=== PATIENT | female | born 1960 | race Caucasian/White ===

== ENCOUNTER 2018-11-07 18:01 | Inpatient (IN) | payer MEDICAID ==
[~2018-11-07] VITALS: Ht 152.4 cm; Wt 77.6 kg
[2018-11-07 18:01] VITALS: BP 104/72
--- NOTE | 2018-11-07 18:01 | NUR ---
ED Nurse Note: Pt AAOx2, vss, with no acute distress.. Pt arrives from [facility]. for increased dyspnea and pleural effusion causing increased pain. Pt with family.
[2018-11-07] MEDS ORDERED: Morphine Sulfate 4mg/ml Inj (IV USE ONLY) IVP ONE (19:00)
--- NOTE | 2018-11-07 19:00 | Emergency Room Report ---
History of Present Illness General Chief Complaint: Pain Source: Patient, Medical Record Present Illness HPI Disclaimer: Please note that this report is being documented using DRAGON technology. This can lead to erroneous entry secondary to incorrect interpretation by the dictating instrument. HPI: This is a 57-year-old female with a history of metastatic breast cancer currently undergoing chemotherapy and radiation presenting for shortness of breath. She has been complaining of worsening mid back pain which is consistent with her prior metastases. She also notes progressive shortness of breath for the past few days. She has required thoracentesis in the past, last time September 2018. She was found hypoxic by EMS and improved with oxygen. Denying chest pain. No other symptoms at this time. No recent cough, fevers, sore throat, abdominal pain, vomiting, diarrhea or skin rash. PMH: Metastatic breast cancer PSH: Hip surgery Allergies: Denies Social Hx: [place] drug, alcohol, tobacco use Allergies: Coded Allergies: No Known Allergies (Unverified , 11/07/18) Patient History Last Menstrual Period: na Nursing Documentation-PMH Past Medical History: No History, Except For Hx Cancer: Yes - left breast with metastisis to liver and bones History Of Psychiatric Problem: Yes - PTSD, anxiety Review of Systems All Other Systems: negative except mentioned in HPI Physical Exam Vital Signs Date Time Temp Pulse Resp B/P (MAP) Pulse Ox O2 Delivery O2 Flow Rate FiO2 11/07/18 17:55 98.1 81 20 104/72 (83) 90 Room Air General: Awake and alert, no acute distress HEENT: NC/AT. EOMI. Neck: Supple, trachea midline Chest Wall: No tenderness, no deformity Cardiovascular: RRR. S1 and S2 normal. No murmur appreciated Resp: Mild tachypnea with increased work of breathing. No cough. No wheezing. Bilateral crackles. Abdomen: Abdomen is soft, nondistended. Nontender Skin: Intact. No abrasions, laceration or rash over the exposed skin MSK: Normal tone and bulk. Moving all extremities. No obvious deformity. Significant lymphedema in the left upper extremity. Nontender. Neuro: Awake and alert. Mentating appropriately. Medical Decision Making Diagnostic Impression: Primary Impression: Hypoxia Additional Impressions: Metastatic breast cancer Pleural effusion ER Course 57-year-old female with history of metastatic breast cancer presents for evaluation of shortness of breath. Concern for recurrent effusion given her hypoxia. Vital signs have normalized on oxygen. Will obtain labs including coagulation studies, chest x-ray and treat her pain. She will require admission. Laboratory Tests Test 11/07/18 18:59 White Blood Count 6.6 K/UL (4.8-10.8) Red Blood Count 3.72 M/UL (4.20-5.40) L Hemoglobin 13.1 G/DL (12.0-16.0) Hematocrit 36.3 % (37.0-47.0) L Mean Corpuscular Volume 98 FL (80-99) Mean Corpuscular Hemoglobin 35.1 PG (27.0-31.0) H Mean Corpuscular Hemoglobin Concent 35.9 G/DL (32.0-36.0) Red Cell Distribution Width 10.2 % (11.6-14.8) L Platelet Count 180 K/UL (150-450) Mean Platelet Volume 5.9 FL (6.5-10.1) L Neutrophils (%) (Auto) 49.9 % (45.0-75.0) Lymphocytes (%) (Auto) 34.9 % (20.0-45.0) Monocytes (%) (Auto) 11.6 % (1.0-10.0) H Eosinophils (%) (Auto) 2.2 % (0.0-3.0) Basophils (%) (Auto) 1.4 % (0.0-2.0) Prothrombin Time 10.1 SEC (9.30-11.50) Prothrombin Time INR 0.9 (0.9-1.1) PTT 28 SEC (23-33) Sodium Level 138 MMOL/L (136-145) Potassium Level 3.9 MMOL/L (3.5-5.1) Chloride Level 99 MMOL/L (98-107) Carbon Dioxide Level 35 MMOL/L (21-32) H Anion Gap 4 mmol/L (5-15) L Blood Urea Nitrogen 32 mg/dL (7-18) H Creatinine 1.4 MG/DL (0.55-1.30) H Estimate Glomerular Filtration Rate 38.7 mL/min (>60) Glucose Level 112 MG/DL (74-106) H Lactic Acid Level 1.00 mmol/L (0.4-2.0) Calcium Level 9.1 MG/DL (8.5-10.1) Total Bilirubin 0.4 MG/DL (0.2-1.0) Aspartate Amino Transferase (AST) 28 U/L (15-37) Alanine Aminotransferase (ALT) 23 U/L (12-78) Alkaline Phosphatase 96 U/L (46-116) Troponin I 0.000 ng/mL (0.000-0.056) Pro-B-Type Natriuretic Peptide 421 pg/mL (0-125) H Total Protein 6.8 G/DL (6.4-8.2) Albumin 3.1 G/DL (3.4-5.0) L Globulin 3.7 g/dL Albumin/Globulin Ratio 0.8 (1.0-2.7) L EKG Diagnostic Results EKG Time: 19:14 Rate: normal Rhythm: NSR ST Segments: no acute changes Other Impression Sinus rhythm, normal axis, prolonged WA interval consistent with first-degree AV block. No ST segment changes. Q waves in the inferior leads. Rhythm Strip Diag. Results Rhythm Strip Time: 19:14 EP Interpretation: yes Rate: 70s Rhythm: NSR, no PVC's, no ectopy Chest X-Ray Diagnostic Results Chest X-Ray Diagnostic Results : # of Views/Limited/Complete: 1 View Indication: Shortness of Breath EP Interpretation: Yes PA Xray: Interpretation reviewed Interpretation: no consolidation, no pneumothorax, other - Obscuring of the left cost to phrenic angle Impression: Other - Obscuring of left costophrenic angle, possible effusion. No clear consolidation Reevaluation Time: 20:43 Last Vital Signs Date Time Temp Pulse Resp B/P (MAP) Pulse Ox O2 Delivery O2 Flow Rate FiO2 11/07/18 18:01 98.1 20 104/72 90 Room Air 11/07/18 17:55 81 Status: unchanged Reevaluation Impression Patient remained stable on supplemental oxygen. I spoke with her oncologist Dr. Harden, who wants the patient admitted to the hospital for restaging of her metastatic cancer, pain control, left-sided pleurocentesis. Patient's vital signs are within normal limits. No white count, no anemia. Creatinine slightly elevated at 1.4, unknown baseline. Lactate normal, troponin negative. Will admit to the stepdown unit as she is breathing 18 to 20 breaths/min. Blood gas is currently within normal limits though she is somewhat hyperventilating. She is feeling much better on oxygen but will need close monitoring. She remains a full code. Disposition: ADMITTED INPATIENT Condition: Serious Ángel Laboy MD Nov 07, 2018 19:00
[2018-11-07 19:27] LABS: BASOPHILS % (AUTO) 1.4 % (0.0-2.0); EOSINOPHILS % (AUTO) 2.2 % (0.0-3.0); HEMATOCRIT 36.3 % (37.0-47.0); HEMOGLOBIN 13.1 G/DL (12.0-16.0); LYMPHOCYTES % (AUTO) 34.9 % (20.0-45.0); MEAN CORPUSCULAR VOLUME 98 FL (80-99); MONOCYTES % (AUTO) 11.6 % (1.0-10.0); NEUTROPHILS % (AUTO) 49.9 % (45.0-75.0); PLATELET COUNT 180 K/UL (150-450); RED BLOOD COUNT 3.72 M/UL (4.20-5.40); RED CELL DISTRIBUTION WIDTH 10.2 % (11.6-14.8); WHITE BLOOD COUNT 6.6 K/UL (4.8-10.8)
[2018-11-07 19:39] LABS: INR 0.9 (0.9-1.1)
--- NOTE | 2018-11-07 19:40 | NUR ---
ED Nurse Note: pt is ambulatory with cane, gait is steady. urine specimen was collected; sent to lab
[2018-11-07 19:45] LABS: ANION GAP 4 mmol/L (5-15); BLOOD UREA NITROGEN 32 mg/dL (7-18); CALCIUM 9.1 MG/DL (8.5-10.1); CARBON DIOXIDE 35 MMOL/L (21-32); CHLORIDE 99 MMOL/L (98-107); CREATININE 1.4 MG/DL (0.55-1.30); POTASSIUM 3.9 MMOL/L (3.5-5.1); SODIUM 138 MMOL/L (136-145)
[2018-11-07 19:54] LABS: ALANINE AMINOTRANSFERASE 23 U/L (12-78); ALBUMIN 3.1 G/DL (3.4-5.0); ALBUMIN/GLOBULIN RATIO 0.8 (1.0-2.7); ALKALINE PHOSPHATASE 96 U/L (46-116); ASPARTATE AMINO TRANSFERASE 28 U/L (15-37); BILIRUBIN,TOTAL 0.4 MG/DL (0.2-1.0)
[2018-11-07 19:59] VITALS: BP_SYST 113; BP_SYST 143; BP_DIAS 131; BP_DIAS 76
--- NOTE | 2018-11-07 21:00 | NUR ---
ED Nurse Note: PT WAS OFFERED FOOD PER ERMD APPROVAL; PT IS CURRENTLY RESTING IN BED. NO ACUTES ACUTE SIGNS OF DISTRESS, PT IS AOX3, ON ROOM AIR, SR, VSS.
[2018-11-07 22:26] VITALS: BP 109/95
--- NOTE | 2018-11-07 22:37 | NUR ---
ED Nurse Note: TELEPHONE REPORT GIVEN TO KYREE DANG FOR CONTINUITY OF CARE
--- NOTE | 2018-11-07 22:40 | NUR ---
TRANSFER TO FLOOR: Patient transferred to SDU as ordered, per ERMD. Report given to KYREE DANG. Belongings GIVEN TO PT.
--- NOTE | 2018-11-07 22:44 | NUR ---
Keaton zuniga in EDM - 11/07/18 at 2244 by MARIUM ED Nurse Note: US AT BEDSIDE
[2018-11-07 23:00] VITALS: BP 129/75
--- NOTE | 2018-11-07 23:00 | NUR ---
NURSE NOTES: Received report from Catherine RN, pt. transferred from ER, patient is A/O x's 3- able to make needs known, forming fixer placed- no signs or symptoms of acute cardiac or respiratory distress noted, full body assessment done- skin intact- noted redness to mid back area- Optifoam placed for protection, bed side teaching done and pt. oriented to room, pt. appears to be sating well on 3L NC at 98%- no distress noted, RT. AC 20G IV intact and patent, pt. appears to be resting comfortably- bed bath given and comfort measures provided, pt. is able to ambulate to bathroom with cane which is at bedside- pt. refusing assistance with gait- teaching done regarding fall risk, Safety measures done, will continue with plan of care. Addendum: 11/08/18 at 0019 by ALTON RUSSELL RN RN pt. aware to ask for assist when ambulating.
[2018-11-07] MEDS ORDERED: IBUPROFEN600 MG ORAL (23:05)
[2018-11-07] MEDS ORDERED: COLACE100 MG ORAL (23:05)
[2018-11-07] MEDS ORDERED: MIRALAX17 G2 ORAL (23:05)
[2018-11-07] MEDS ORDERED: OXYCONTIN20 MG ORAL (23:05)
[2018-11-07] MEDS ORDERED: ANASTROZOLE1 MG PO (23:05)
[2018-11-07] MEDS ORDERED: CLARITIN10 M2 ORAL (23:05)
[2018-11-07] MEDS ORDERED: SPIRONOLACTONE50 MG ORAL (23:05)
[2018-11-07] MEDS ORDERED: LOVENOX10 M4 SUBQ (23:05)
[2018-11-07] MEDS ORDERED: COREG3.125 MG ORAL (23:05)
[2018-11-07] MEDS ORDERED: AMBIEN10 M1 ORAL (23:05)
[2018-11-07] MEDS ORDERED: PULMICORT0.5 MG/2 M IH (23:05)
[2018-11-07] MEDS ORDERED: DIFLUCAN100 MG ORAL (23:05)
[2018-11-07] MEDS ORDERED: MORPHINE 22 MG/1 ML IV (23:05)
[2018-11-07] MEDS ORDERED: PROTONIX40 MG ORAL (23:05)
[2018-11-07] MEDS ORDERED: LEXAPRO10 MG ORAL (23:05)
[2018-11-07] MEDS ORDERED: K-DUR20 MEQ ORAL (23:05)
--- NOTE | 2018-11-07 23:47 | NUR ---
NURSE NOTES: left message for DR. Neves for admitting orders- awaiting for call back from doctor.
[2018-11-08] VITALS: BP 129/75
--- NOTE | 2018-11-08 | NUR ---
NURSE NOTES: Received orders from DR. Neves- per doctor to d/c all home meds, DVT SCDS, Venous duplex, CBC, CMP, Code status DNR as patient wishes, NPO- but romeo waite, ST evcindy, Speech eval, DR. Johnson for Pulmo, 3L NC - will carry out orders.
--- NOTE | 2018-11-08 03:00 | NUR ---
NURSE NOTES: Orders received from DR. Johnson- orders read back and carried out.
[2018-11-08] MEDS ORDERED: Albuterol/Ipratropium 3ml neb HHN PRN (03:15)
[2018-11-08] MEDS ORDERED: Hydromorphone 0.5mg/0.5ml inj IVP PRN (03:15)
[2018-11-08 04:00] VITALS: BP 120/64
[2018-11-08] MEDS: HYDROcodone/Acetamin 5/325 tab ORAL PRN ×2 (04:36→17:57)
[2018-11-08 05:05] LABS: BASOPHILS % (AUTO) 1.7 % (0.0-2.0); EOSINOPHILS % (AUTO) 2.6 % (0.0-3.0); HEMATOCRIT 36.1 % (37.0-47.0); HEMOGLOBIN 12.5 G/DL (12.0-16.0); LYMPHOCYTES % (AUTO) 36.5 % (20.0-45.0); MEAN CORPUSCULAR VOLUME 98 FL (80-99); MONOCYTES % (AUTO) 13.6 % (1.0-10.0); NEUTROPHILS % (AUTO) 45.5 % (45.0-75.0); PLATELET COUNT 177 K/UL (150-450); RED BLOOD COUNT 3.69 M/UL (4.20-5.40); RED CELL DISTRIBUTION WIDTH 10.4 % (11.6-14.8); WHITE BLOOD COUNT 6.4 K/UL (4.8-10.8)
[2018-11-08 06:12] LABS: ALANINE AMINOTRANSFERASE 23 U/L (12-78); ALBUMIN 3.1 G/DL (3.4-5.0); ALBUMIN/GLOBULIN RATIO 0.9 (1.0-2.7); ALKALINE PHOSPHATASE 92 U/L (46-116); ANION GAP 8 mmol/L (5-15); ASPARTATE AMINO TRANSFERASE 25 U/L (15-37); BILIRUBIN,TOTAL 0.5 MG/DL (0.2-1.0); BLOOD UREA NITROGEN 34 mg/dL (7-18); CALCIUM 9.3 MG/DL (8.5-10.1); CARBON DIOXIDE 32 MMOL/L (21-32); CHLORIDE 100 MMOL/L (98-107); CREATININE 1.2 MG/DL (0.55-1.30); POTASSIUM 3.5 MMOL/L (3.5-5.1); SODIUM 140 MMOL/L (136-145)
--- NOTE | 2018-11-08 07:03 | NUR ---
HAND-OFF: Report given to cesilia RN, pt. remains stable and no signs of distress noted.
[2018-11-08 08:00] VITALS: BP 100/65
--- NOTE | 2018-11-08 08:24 | NUR ---
NURSE NOTES: Report received from KYREE Swan. Pt is in stable condition, showing no signs of distress. Pt is A+Ox3, denies pain/SOB. Respirations are even and unlabored on 3 L NC. IV site is intact and saline locked. Bed is at lowest position, brakes engaged, siderails x2, bed alarm on, and call light within reach. Pt is in stable condition at this time; will continue to monitor. Pt instructed to use call light if she wishes to use the bathroom so she does not fall. Patient verbalizes understanding.
[2018-11-08] MEDS: Heparin 5000 units/ml inj SUBQ SCH ×2 (09:00→20:40)
--- NOTE | 2018-11-08 09:58 | Consultation ---
History of Present Illness General Chief Complaint: Pain Present Illness Allergies: Coded Allergies: No Known Allergies (Unverified , 11/07/18) Medication History Discontinued Medications Anastrozole* (Arimidex*), 1 MG PO DAILY, (Reported) Discontinued Reason: MD discontinued med Budesonide (Pulmicort), 0.5 MG IH, (Reported) Discontinued Reason: MD discontinued med Carvedilol (Coreg), 3.125 MG ORAL EVERY 12 HOURS, (Reported) Discontinued Reason: MD discontinued med Docusate Sodium* (Colace*), 100 MG ORAL DAILY, (Reported) Discontinued Reason: MD discontinued med Enoxaparin* (Lovenox*), 40 MG SUBQ DAILY, (Reported) Discontinued Reason: MD discontinued med Escitalopram Oxalate* (Lexapro*), 10 MG ORAL DAILY, (Reported) Discontinued Reason: MD discontinued med Fluconazole* (Diflucan*), 100 MG ORAL DAILY, (Reported) Discontinued Reason: MD discontinued med Ibuprofen* (Motrin*), 400 MG ORAL FOUR TIMES A DAY, (Reported) Discontinued Reason: MD discontinued med Loratadine (Claritin), 10 MG ORAL DAILY, (Reported) Discontinued Reason: MD discontinued med Morphine Sulfate* (Morphine Sulfate*), 2 MG IV, (Reported) Discontinued Reason: MD discontinued med Oxycodone Hcl Er* (Oxycontin*), 20 MG ORAL EVERY 12 HOURS, (Reported) Discontinued Reason: MD discontinued med Pantoprazole* (Protonix*), 40 MG ORAL DAILY, (Reported) Discontinued Reason: MD discontinued med Polyethylene Glycol 3350* (Miralax*), 17 GM ORAL DAILY, (Reported) Discontinued Reason: MD discontinued med Potassium Chloride (Klor-Con M20), 20 MEQ ORAL DAILY, (Reported) Discontinued Reason: MD discontinued med Spironolactone* (Aldactone*), 50 MG ORAL DAILY, (Reported) Discontinued Reason: MD discontinued med Zolpidem Tartrate* (Ambien*), 10 MG ORAL HS PRN for Insomnia, (Reported) Discontinued Reason: MD discontinued med Patient History Healthcare decision maker Resuscitation status Do Not Resuscitate Advanced Directive on File Yes Physical Exam Last 24 Hour Vital Signs Date Time Temp Pulse Resp B/P (MAP) Pulse Ox O2 Delivery O2 Flow Rate FiO2 11/08/18 08:00 98.5 78 20 100/65 (77) 98 11/08/18 08:00 3.0 11/08/18 05:06 97.7 11/08/18 04:00 97.9 88 20 120/64 (82) 97 11/08/18 04:00 3.0 11/08/18 04:00 Nasal Cannula 3.0 11/08/18 03:32 83 11/08/18 00:00 3.0 11/08/18 00:00 Nasal Cannula 3.0 11/08/18 00:00 97.7 86 22 129/75 (93) 96 11/08/18 00:00 84 11/08/18 00:00 Nasal Cannula 3.0 11/07/18 23:00 3.0 11/07/18 23:00 97.7 86 22 129/75 (93) 96 11/07/18 22:40 98.7 84 14 120/81 98 Nasal Cannula 4.0 11/07/18 22:26 98.4 88 17 109/95 98 Nasal Cannula 4.0 11/07/18 19:59 98.6 78 14 113/76 100 Nasal Cannula 4.0 11/07/18 19:50 98.6 11/07/18 18:01 98.1 20 104/72 90 Room Air 11/07/18 17:55 98.1 81 20 104/72 (83) 90 Room Air Intake and Output 11/07/18 11/08/18 19:00 07:00 Intake Total 0 ml Balance 0 ml Intake Oral 0 ml # Voids 2 Laboratory Tests Test 11/07/18 18:59 11/07/18 20:59 11/08/18 03:45 White Blood Count 6.6 K/UL (4.8-10.8) 6.4 K/UL (4.8-10.8) Red Blood Count 3.72 M/UL (4.20-5.40) L 3.69 M/UL (4.20-5.40) L Hemoglobin 13.1 G/DL (12.0-16.0) 12.5 G/DL (12.0-16.0) Hematocrit 36.3 % (37.0-47.0) L 36.1 % (37.0-47.0) L Mean Corpuscular Volume 98 FL (80-99) 98 FL (80-99) Mean Corpuscular Hemoglobin 35.1 PG (27.0-31.0) H 34.0 PG (27.0-31.0) H Mean Corpuscular Hemoglobin Concent 35.9 G/DL (32.0-36.0) 34.8 G/DL (32.0-36.0) Red Cell Distribution Width 10.2 % (11.6-14.8) L 10.4 % (11.6-14.8) L Platelet Count 180 K/UL (150-450) 177 K/UL (150-450) Mean Platelet Volume 5.9 FL (6.5-10.1) L 5.5 FL (6.5-10.1) L Neutrophils (%) (Auto) 49.9 % (45.0-75.0) 45.5 % (45.0-75.0) Lymphocytes (%) (Auto) 34.9 % (20.0-45.0) 36.5 % (20.0-45.0) Monocytes (%) (Auto) 11.6 % (1.0-10.0) H 13.6 % (1.0-10.0) H Eosinophils (%) (Auto) 2.2 % (0.0-3.0) 2.6 % (0.0-3.0) Basophils (%) (Auto) 1.4 % (0.0-2.0) 1.7 % (0.0-2.0) Prothrombin Time 10.1 SEC (9.30-11.50) Prothromb Time International Ratio 0.9 (0.9-1.1) Activated Partial Thromboplast Time 28 SEC (23-33) Sodium Level 138 MMOL/L (136-145) 140 MMOL/L (136-145) Potassium Level 3.9 MMOL/L (3.5-5.1) 3.5 MMOL/L (3.5-5.1) Chloride Level 99 MMOL/L (98-107) 100 MMOL/L (98-107) Carbon Dioxide Level 35 MMOL/L (21-32) H 32 MMOL/L (21-32) Anion Gap 4 mmol/L (5-15) L 8 mmol/L (5-15) Blood Urea Nitrogen 32 mg/dL (7-18) H 34 mg/dL (7-18) H Creatinine 1.4 MG/DL (0.55-1.30) H 1.2 MG/DL (0.55-1.30) Estimat Glomerular Filtration Rate 38.7 mL/min (>60) 46.2 mL/min (>60) Glucose Level 112 MG/DL (74-106) H 97 MG/DL (74-106) Lactic Acid Level 1.00 mmol/L (0.4-2.0) Calcium Level 9.1 MG/DL (8.5-10.1) 9.3 MG/DL (8.5-10.1) Total Bilirubin 0.4 MG/DL (0.2-1.0) 0.5 MG/DL (0.2-1.0) Aspartate Amino Transf (AST/SGOT) 28 U/L (15-37) 25 U/L (15-37) Alanine Aminotransferase (ALT/SGPT) 23 U/L (12-78) 23 U/L (12-78) Alkaline Phosphatase 96 U/L (46-116) 92 U/L (46-116) Troponin I 0.000 ng/mL (0.000-0.056) Pro-B-Type Natriuretic Peptide 421 pg/mL (0-125) H Total Protein 6.8 G/DL (6.4-8.2) 6.7 G/DL (6.4-8.2) Albumin 3.1 G/DL (3.4-5.0) L 3.1 G/DL (3.4-5.0) L Globulin 3.7 g/dL 3.6 g/dL Albumin/Globulin Ratio 0.8 (1.0-2.7) L 0.9 (1.0-2.7) L Venous Blood pH 7.444 Venous Blood Partial Pressure CO2 49.9 Venous Blood Partial Pressure O2 45.6 Venous Blood HCO3 33.4 Venous Blood Total Carbon Dioxide 49.9 Venous Bld O2 Saturation (Measured) 45.6 Venous Blood Oxygen Saturation 81.4 Venous Blood Base Excess 8.0 Methemoglobin 0.6 Sodium (Blood Gas) Pending Lactate Dehydrogenase 257 U/L (81-234) H Microbiology Date/Time Source Procedure Growth Status 11/07/18 22:00 Rectum Received Height (Feet): 5 Height (Inches): 0.00 Weight (Pounds): 171 Medications Current Medications Medications (Trade) Dose Ordered Sig/Kaushal Route PRN Reason Start Time Stop Time Status Last Admin Dose Admin Acetaminophen (Tylenol) 650 mg Q6H PRN ORAL Mild Pain/Temp > 100.5 11/08/18 03:15 12/08/18 03:14 Acetaminophen/ Hydrocodone Bitart (Hauula 5/325) 1 tab Q6H PRN ORAL moderate pain 11/08/18 03:15 11/15/18 03:14 11/08/18 04:36 Albuterol/ Ipratropium (Albuterol/ Ipratropium) 3 ml Q4HRT PRN HHN Shortness of Breath 11/08/18 03:15 11/13/18 03:14 Heparin Sodium (Porcine) (Heparin 5000 units/ml) 5,000 units EVERY 12 HOURS SUBQ 11/08/18 09:00 12/08/18 08:59 Hydromorphone HCl (Dilaudid) 0.5 mg Q3HR PRN IVP Severe Pain (Pain Scale 7-10) 11/08/18 03:15 11/15/18 03:14 Ondansetron HCl (Zofran) 4 mg Q8HR PRN IVP Nausea & Vomiting 11/08/18 03:15 12/08/18 03:14 Assessment/Plan Assessment/Plan: Oncology Consultation REJhony MD: Sachin Landrum RFC: Metastatic breast reeval DOS: 11/08/18 ID 57-year-old ivorian-speaking female with a history of metastatic breast cancer with multiple bony and liver mets, currently undergoing chemotherapy and radiation presenting for shortness of breath, on taxotere in office. On arimidex now as horomonal treatment. Unable to add faslodex based on insurance, needs thora. She has been complaining of worsening mid back pain which is consistent with her prior metastases. She also notes progressive shortness of breath for the past few days. She has required thoracentesis in the past, last time September 2018. She was found hypoxic by EMS and improved with oxygen. Denying chest pain. No other symptoms at this time. No recent cough, fevers, sore throat, abdominal pain, vomiting, diarrhea or skin rash. PMH: Metastatic breast cancer PSH: Hip surgery Allergies: Denies Social Hx: [place] drug, alcohol, tobacco use Allergies: Coded Allergies: No Known Allergies (Unverified , 11/07/18) Patient History Last Menstrual Period: na Nursing Documentation-PMH Past Medical History: No History, Except For Hx Cancer: Yes - left breast with metastisis to liver and bones History Of Psychiatric Problem: Yes - PTSD, anxiety Review of Systems All Other Systems: negative except mentioned in HPI Physical Exam Vital Signs reviewed Gen: Awake and alert, no acute distress HEENT: NC/AT. EOMI. Neck: Supple, trachea midline Chest Wall: No tenderness Cardiovascular: RRR. S1 and S2 normal Resp: Mild tachypnea with increased work of breathing, Bilateral crackles and sob++ Abdomen: Abdomen is soft, nondistended Skin: Intact. No abrasions, lacer, rash MSK: Normal tone and bulk. Moving all extremities. No obvious deformity. Neuro: Awake and alert. Labs: noted Imaging: reviewed Assessment and Recs: # Metastatic breast cancer -- diagnosed approx 1 year ago with multiple bony and liver mets, currently undergoing chemotherapy and radiation presenting for shortness of breath, on taxotere in office. On arimidex now as horomonal treatment. --> at this time, requires restaging with ct c/a/p --> obtain tumor markers and eval with pulm --> will need thoracentesis prn basis --> imaging to be reviewed --> recently on chemo in the office # Plueral effusion --> obtain cxr v ct chest which has been ordered --> perform cytology of pleural fluid # Anemia of chronic disease --> recently on chemo # Hypoxia due to effusion --> obtain v/q scan with pulm # DVT ppx scds Greatly appreciate consultation. Esdras Jeff MD Nov 08, 2018 09:58
--- NOTE | 2018-11-08 10:00 | NUR ---
NURSE NOTES: Per Dr. Johnson, it is okay to have off tele for VQ scan. He also said patient can have diet added after ST eval. She can eat prior to thoracentesis, which is set for 1200.
--- NOTE | 2018-11-08 10:15 | NUR ---
CASE MANAGEMENT:REVIEW 57 YR OLD FEMALE BIBA FROM [facility]. CC: PAIN; SOB PMH: METASTATIC CANCER SI HYPOXIA; PLEURAL EFFUSION 98.1 81 20 104/72 90% RA Hct 36.1; RBC 3.69; BNP 421 IS: IV MORPHINE X1 : TO MED SURG DCP: TO RETURN TO [facility]. PLAN: CT EVAL FOR THORACENTESIS
--- NOTE | 2018-11-08 10:57 | NUR ---
NOTES: REFERRED FOR SWALLOW EVALUATION BY DR ZAFAR, SEE FULL REPORT TO FOLLOW. DYSPHAGIA RISK FACTORS FOR THIS 57 Y.O. FEMALE: ACUTE ISSUES: RESPIRATORY D/O HYPOXIC SOB AND HYPOXEMIC AT NIGHT, CHF, HYPOALBUMINEMIA, WT LOSS (60 LBS IN 2 YEARS BY DIET), RELEVANT MEDS: ALBUTEROL, MORPHINE, DILAUDID H/O MEMORY PROBLEMS (?CHEMO RELATED), OBESITY, GERD, MET CANCER , L BREAST CANCER (ADENOCARCINOMA) PRIMARY WITH METS TO BONE AND PULMONARY S/P CHEMO/RAD AND BRONCHODILATOR TX (ON HOLD HAD GOOD RESPONSE) CHF, THORACENTESIS 3 DAYS 06/16/18, CARDIAC D/O, PAIN SYNDROME, BILAT MASTOIDITIS, ANEMIA, NO SMOKING/ETOH USE, DEPRESSION/ANXIETY/PTSD/CHRONIC PAIN SYNDROME. 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 NPO NOW EXCEPT OK TO HAVE ICE CHIPS AND WATER. PER PT SHE LIKES IRANIAN FOOD AND DENIES SWALLOWING PROBLEMS WITH REGULAR TEXTURES AND THIN LIQUIDS. ALERT AND ABLE TO EXPRESS SOME BASIC NEEDS IN [place] BUT WANTS SPEAKER TO SPEAK SLOWLY. SHOULD HAVE [place] HEALTH SCIENCE SPECIALIST FOR COMPLEX MEDICAL INFORMATION (USE HEALTH SCIENCE SPECIALIST PHONE IF NO HEALTH SCIENCE SPECIALIST AVAILABLE). PER MEDICAL RECORD HAS MEMORY PROBLEMS BUT PT DID RECALL SOME NEW INFORMATION. SHE HAS NOT EATEN SINCE 5 PM YESTERDAY AND SEEMED TO RECALL WHAT SHE AT. INITIAL IMPRESSIONS: GROSSLY FUNCTIONAL SWALLOW WITH PUREED TSP AND MASTICATED SOLIDS, W/O OVERT ASPIRATION (GOOD DENTITION). S/S OF POSSIBLE ASPIRATION (COUGH) WITH THIN LIQUIDS VIA STRAW SEQUENTIAL SIPS ONLY BUT NO APPARENT PROBLEM WHEN SHE TAKES ONE SIP AT A TIME. RESPIRATORY RATE GOES UP AT TIMES (USUALLY HIGH 20 TO 22 BEST NOT TO GO ABOVE 20 OR 24 MAX) RESPIRATORY COORDINATION MAY INCREASE TRACE ASPIRATION RISK ESPECIALLY WITH THIN LIQUIDS. ? ALSO MAY BE GERD OR REFLUX RELATED (HAS DX OF GERD BUT SHE DENIES IT) (LUNGS HAVE BILATERAL PLEURAL EFFUSION BUT NO INFILTRATES NOTED) RECOMMENDATIONS: CONSIDER INITIATING A REGULAR TEXTURE DIET AND THIN LIQUIDS WITH POSTED ASPIRATION AND REFLUX PRECAUTIONS. MOD BARIUM SWALLOW STUDY AND COMPLETE EAT 10 QUESTIONNAIRE GIVEN RESPIRATORY COORDINATION AND INCREASED RR ISSUES. MANAGEMENT/TX FOR DYSPHAGIA AND MEAL OBSERVATION IF INDICATED COG-COM EVAL/TX FOR MEMORY ISSUES EDUCATED/TRAINED STAFF IN PRECAUTIONS. D/W RN (VANIA) CIRCLE EDGER (GERALDINE) PATIENT AND DR ZAFAR D/W DR HADADZ FOLLOWUP FOR MASTOIDITIS PER RD REGULAR DIET TYPE OK (BLAND GIVEN GERD HX NO GERD MEDS) Addendum: 11/08/18 at 1124 by ALON NGUYEN MASTOIDITIS IN AUGUST 2018 IN MEDICAL RECORD
--- NOTE | 2018-11-08 11:39 | NUR ---
*-* INSURANCE *-* ALL CLINICALS AND REVIEWS HAVE BEEN FAXED TO: [employer] FAX ALL CLINICALS TO: [phone]
[2018-11-08 12:00] VITALS: BP 98/72
--- NOTE | 2018-11-08 12:30 | Diagnostic Imaging Report ---
APPROVED REPORT CPT Code: 22867 Present Symptoms Comments: Pain Hx of SOB BILATERAL: Imaging reveals a patent deep venous system bilaterally. There is no evidence of thrombus within the femoral, popliteal or tibial segments. The greater saphenous veins are also within normal limits. Doppler indicates normal spontaneous flow within these segments.
--- NOTE | 2018-11-08 12:39 | Pre-Procedure Note/Attestation ---
Pre-Procedure Note/Attestation Complete Prior to Procedure Planned Procedure: left Procedure Narrative: Thoracentesis Indications for Procedure Pre-Operative Diagnosis: pleural effusion Attestation I attest that I discussed the nature of the procedure; its benefits; risks and complications; and alternatives (and the risks and benefits of such alternatives ), prior to the procedure, with the patient (or the patient's legal medicare sales representative). I attest that, if there was a reasonable possibility of needing a blood transfusion, the patient (or the patient's legal medicare sales representative) was given the [facility] standardized written summary, pursuant to the Ron Leon Blood Safety Act ([place] Health and Safety Code # 1645, as amended). I attest that I re-evaluated the patient just prior to the surgery and that there has been no change in the patient's H&P, except as documented below: Nilesh Florence MD Nov 08, 2018 12:39
--- NOTE | 2018-11-08 12:40 | Brief Operative Note ---
Immediate Post Operative Note Operative Note Pre-op Diagnosis: pleural effusion Procedure: thoracentesis Post-op Diagnosis: same as pre-op Surgeon: Humaira Zuniga Anesthesia: local Specimen: yes - 50 ml fluid sent to lab Complications: none Fluids: none Implant(s) used?: No Nilesh Zuniga MD Nov 08, 2018 12:40
--- NOTE | 2018-11-08 14:55 | Cardiology Report ---
APPROVED REPORT EKG Measurement Heart [id number] Sinus rhythm with 1st degree AV block Left axis deviation Low voltage QRS Cannot rule out Anterior infarct, age undetermined Abnormal ECG
[2018-11-08 16:00] VITALS: BP 100/67
--- NOTE | 2018-11-08 16:01 | Pulmonology Progress Note ---
Assessment/Plan Assessment/Plan Pulmonary Consultation HPI Patient is a 57 year old woman with a history of metastatic breast cancer with extensive bony and liver metatstasis, diagnosed approximately 1 year ago. She is currently undergoing chemotherapy and radiation therapy. Is admitted complaining of worsening shortness of breath for a few days, no chest pain or hemoptysis, worsening mid back pain which is consistent with her prior metastases. She has required thoracentesis in the past, last time September 2018. Noted to have a left pleural effusion. No other symptoms at this time. No recent cough, fevers, sore throat, abdominal pain, vomiting, diarrhea or skin rash. PMH: Metastatic breast cancer, Anxiety PSH: Hip surgery Social History: Nodrug, alcohol, tobacco use Allergies: No Known Allergies All Other Systems: negative except mentioned in HPI Physical Exam Vital Signs Noted General: Awake and alert, no acute distress HEENT: NC/AT. EOMI. Neck: Supple, trachea midline Chest Wall: No tenderness, no deformity Cardiovascular: RRR. S1 and S2 normal. No murmur appreciated Resp: Mild tachypnea with increased work of breathing. No cough. No wheezing. Few bibasal crackles. Redyuced BS LLZ Abdomen: Abdomen is soft, nondistended. Nontender Skin: Intact. No abrasions, laceration or rash over the exposed skin MSK: Normal tone and bulk. Moving all extremities. No obvious deformity. Significant lymphedema in the left upper extremity. Nontender. Neuro: Awake and alert. Oriented x 4. No focal signs Impression: Metastatic Breast Cancer to Bone, Liver, Pleura Previous chemotherapy Recurrent Pleural Effusion Hypoxia Need to r/o DVT/PE Cancer associated pain DNAR status Plan O2 PRN HHN PRN Thoracentesis with diagnostic studies VQ scan LE dupplex negative Echocardiogram NPA level Diurese PRN Laboratory Tests Test 11/07/18 18:59 White Blood Count 6.6 K/UL (4.8-10.8) Red Blood Count 3.72 M/UL (4.20-5.40) L Hemoglobin 13.1 G/DL (12.0-16.0) Hematocrit 36.3 % (37.0-47.0) L Mean Corpuscular Volume 98 FL (80-99) Mean Corpuscular Hemoglobin 35.1 PG (27.0-31.0) H Mean Corpuscular Hemoglobin Concent 35.9 G/DL (32.0-36.0) Red Cell Distribution Width 10.2 % (11.6-14.8) L Platelet Count 180 K/UL (150-450) Mean Platelet Volume 5.9 FL (6.5-10.1) L Neutrophils (%) (Auto) 49.9 % (45.0-75.0) Lymphocytes (%) (Auto) 34.9 % (20.0-45.0) Monocytes (%) (Auto) 11.6 % (1.0-10.0) H Eosinophils (%) (Auto) 2.2 % (0.0-3.0) Basophils (%) (Auto) 1.4 % (0.0-2.0) Prothrombin Time 10.1 SEC (9.30-11.50) Prothrombin Time INR 0.9 (0.9-1.1) PTT 28 SEC (23-33) Sodium Level 138 MMOL/L (136-145) Potassium Level 3.9 MMOL/L (3.5-5.1) Chloride Level 99 MMOL/L (98-107) Carbon Dioxide Level 35 MMOL/L (21-32) H Anion Gap 4 mmol/L (5-15) L Blood Urea Nitrogen 32 mg/dL (7-18) H Creatinine 1.4 MG/DL (0.55-1.30) H Estimate Glomerular Filtration Rate 38.7 mL/min (>60) Glucose Level 112 MG/DL (74-106) H Lactic Acid Level 1.00 mmol/L (0.4-2.0) Calcium Level 9.1 MG/DL (8.5-10.1) Total Bilirubin 0.4 MG/DL (0.2-1.0) Aspartate Amino Transferase (AST) 28 U/L (15-37) Alanine Aminotransferase (ALT) 23 U/L (12-78) Alkaline Phosphatase 96 U/L (46-116) Troponin I 0.000 ng/mL (0.000-0.056) Pro-B-Type Natriuretic Peptide 421 pg/mL (0-125) H Total Protein 6.8 G/DL (6.4-8.2) Albumin 3.1 G/DL (3.4-5.0) L Globulin 3.7 g/dL Albumin/Globulin Ratio 0.8 (1.0-2.7) L EKG: Rhythm: NSR ST Segments: no acute changes Other Impression Sinus rhythm, normal axis, prolonged RI interval consistent with first-degree AV block. No ST segment changes. Q waves in the inferior leads. Chest X-Ray: no consolidation, no pneumothorax, other - Obscuring of the left cost to phrenic angle, possible effusion. Subjective ROS Limited/Unobtainable: No Respiratory: Reports: shortness of breath Allergies: Coded Allergies: No Known Allergies (Unverified , 11/07/18) Objective Last 24 Hour Vital Signs Date Time Temp Pulse Resp B/P (MAP) Pulse Ox O2 Delivery O2 Flow Rate FiO2 11/08/18 12:00 Nasal Cannula 3.0 11/08/18 12:00 3.0 11/08/18 12:00 98.0 80 20 98/72 (81) 96 11/08/18 12:00 109 11/08/18 08:00 Nasal Cannula 3.0 11/08/18 08:00 98.5 78 20 100/65 (77) 98 11/08/18 08:00 77 11/08/18 08:00 3.0 11/08/18 05:06 97.7 11/08/18 04:00 97.9 88 20 120/64 (82) 97 11/08/18 04:00 3.0 11/08/18 04:00 Nasal Cannula 3.0 11/08/18 03:32 83 11/08/18 00:00 3.0 11/08/18 00:00 Nasal Cannula 3.0 11/08/18 00:00 97.7 86 22 129/75 (93) 96 11/08/18 00:00 84 11/08/18 00:00 Nasal Cannula 3.0 11/07/18 23:00 3.0 11/07/18 23:00 97.7 86 22 129/75 (93) 96 11/07/18 22:40 98.7 84 14 120/81 98 Nasal Cannula 4.0 11/07/18 22:26 98.4 88 17 109/95 98 Nasal Cannula 4.0 11/07/18 19:59 98.6 78 14 113/76 100 Nasal Cannula 4.0 11/07/18 19:50 98.6 11/07/18 18:01 98.1 20 104/72 90 Room Air 11/07/18 17:55 98.1 81 20 104/72 (83) 90 Room Air Intake and Output 11/07/18 11/08/18 19:00 07:00 Intake Total 0 ml Balance 0 ml Intake Oral 0 ml # Voids 2 Microbiology Date/Time Source Procedure Growth Status 11/07/18 22:00 Rectum Received Laboratory Tests 11/07/18 18:59: White Blood Count 6.6, Red Blood Count 3.72L, Hemoglobin 13.1, Hematocrit 36.3L , Mean Corpuscular Volume 98, Mean Corpuscular Hemoglobin 35.1H, Mean Corpuscular Hemoglobin Concent 35.9, Red Cell Distribution Width 10.2L, Platelet Count 180, Mean Platelet Volume 5.9L, Neutrophils (%) (Auto) 49.9, Lymphocytes (%) (Auto) 34.9, Monocytes (%) (Auto) 11.6H, Eosinophils (%) (Auto) 2.2, Basophils (%) (Auto) 1.4, Prothrombin Time 10.1, Prothromb Time International Ratio 0.9, Activated Partial Thromboplast Time 28, Sodium Level 138, Potassium Level 3.9, Chloride Level 99, Carbon Dioxide Level 35H, Anion Gap 4L, Blood Urea Nitrogen 32H, Creatinine 1.4H, Estimat Glomerular Filtration Rate 38.7, Glucose Level 112H, Lactic Acid Level 1.00, Calcium Level 9.1, Total Bilirubin 0.4, Aspartate Amino Transf (AST/SGOT) 28, Alanine Aminotransferase ( ALT/SGPT) 23, Alkaline Phosphatase 96, Troponin I 0.000, Pro-B-Type Natriuretic Peptide 421H, Total Protein 6.8, Albumin 3.1L, Globulin 3.7, Albumin/Globulin Ratio 0.8L 11/07/18 20:59: Venous Blood pH 7.444, Venous Blood Partial Pressure CO2 49.9, Venous Blood Partial Pressure O2 45.6, Venous Blood HCO3 33.4, Venous Blood Total Carbon Dioxide 49.9, Venous Bld O2 Saturation (Measured) 45.6, Venous Blood Oxygen Saturation 81.4, Venous Blood Base Excess 8.0, Methemoglobin 0.6, Sodium (Blood Gas) [Pending] 11/08/18 03:45: White Blood Count 6.4, Red Blood Count 3.69L, Hemoglobin 12.5, Hematocrit 36.1L , Mean Corpuscular Volume 98, Mean Corpuscular Hemoglobin 34.0H, Mean Corpuscular Hemoglobin Concent 34.8, Red Cell Distribution Width 10.4L, Platelet Count 177, Mean Platelet Volume 5.5L, Neutrophils (%) (Auto) 45.5, Lymphocytes (%) (Auto) 36.5, Monocytes (%) (Auto) 13.6H, Eosinophils (%) (Auto) 2.6, Basophils (%) (Auto) 1.7, Sodium Level 140, Potassium Level 3.5, Chloride Level 100, Carbon Dioxide Level 32, Anion Gap 8, Blood Urea Nitrogen 34H, Creatinine 1.2, Estimat Glomerular Filtration Rate 46.2, Glucose Level 97, Calcium Level 9.3, Total Bilirubin 0.5, Aspartate Amino Transf (AST/SGOT) 25, Alanine Aminotransferase (ALT/SGPT) 23, Alkaline Phosphatase 92, Total Protein 6.7, Albumin 3.1L, Globulin 3.6, Albumin/Globulin Ratio 0.9L, Lactate Dehydrogenase 257H, Alpha Fetoprotein [Pending], Carcinoembryonic Antigen [ Pending], CA 19-9 Antigen [Pending], CA 125 Antigen [Pending] 11/08/18 12:36: Body Fluid Total Protein [Pending], Body Fluid Lactate Dehydrogenase [Pending] Current Medications Medications (Trade) Dose Ordered Sig/Kaushal Route PRN Reason Start Time Stop Time Status Last Admin Dose Admin Acetaminophen (Tylenol) 650 mg Q6H PRN ORAL Mild Pain/Temp > 100.5 11/08/18 03:15 12/08/18 03:14 Acetaminophen/ Hydrocodone Bitart ([place] 5/325) 1 tab Q6H PRN ORAL moderate pain 11/08/18 03:15 11/15/18 03:14 11/08/18 04:36 Albuterol/ Ipratropium (Albuterol/ Ipratropium) 3 ml Q4HRT PRN HHN Shortness of Breath 11/08/18 03:15 11/13/18 03:14 Heparin Sodium (Porcine) (Heparin 5000 units/ml) 5,000 units EVERY 12 HOURS SUBQ 11/08/18 09:00 12/08/18 08:59 Hydromorphone HCl (Dilaudid) 0.5 mg Q3HR PRN IVP Severe Pain (Pain Scale 7-10) 11/08/18 03:15 11/15/18 03:14 Ondansetron HCl (Zofran) 4 mg Q8HR PRN IVP Nausea & Vomiting 11/08/18 03:15 12/08/18 03:14 Owen Johnson MD Nov 08, 2018 16:01
--- NOTE | 2018-11-08 16:32 | Diagnostic Imaging Report ---
Indications: Pleural effusion, shortness of breath Technique: Informed consent obtained prior to commencement of the procedure. Procedure timeout performed. Ultrasound used to localize optimal puncture site. Sterile prepping and draping left chest. Local anesthesia with 1% lidocaine. Under real-time ultrasound guidance, puncture pleural space using thoracentesis needle. Stylet removed. Catheter placed to vacuum bottle suction. Total 500 milliliters of fluid aspirated. Patient tolerated procedure well, without immediate complication. Findings: Followup sonography demonstrates complete resolution of pleural fluid. Impression: Successful ultrasound-guided thoracentesis, yielding 500 milliliters of fluid
--- NOTE | 2018-11-08 16:54 | Diagnostic Imaging Report ---
Indications: Shortness of breath Technique: IV administration 5.5 mCi 99m technetium macroaggregated albumin. Images obtained over the lungs in multiple projections. Previously, patient inhaled 40 mCi aerosolized 99M technetium DTPA. Images obtained over the lungs in multiple projections Comparison: Reference made to chest radiograph dated 5 cm Findings: There is slight heterogeneity to tracer distribution within the lungs on the perfusion images. Similar findings are noted on the aerosol images. No segmental or subsegmental perfusion defects or evidence of perfusion/aerosol mismatch demonstrated Impression: Findings deemed low probability for pulmonary embolus
--- NOTE | 2018-11-08 17:01 | Diagnostic Imaging Report ---
Indication: Shortness of breath Technique: One view of the chest Comparison: none Findings: There is a right chest port catheter in place. There is obscuration of the left hemidiaphragm. Left upper lung, right lung and pleural space are clear. The heart is borderline enlarged Impression: Obscured left hemidiaphragm, probably indicates subsequently documented pleural effusion Borderline cardiomegaly Port catheter incidentally noted
--- NOTE | 2018-11-08 17:36 | Diagnostic Imaging Report ---
Indication: Postthoracentesis Technique: One view of the chest Comparison: 11/07/2018 Findings: Interim resolution of previously demonstrated left basilar opacity. Lungs and pleural spaces currently clear. No gross pneumothorax. Slight increased opacity at the right lung base probably represents projection overlying soft tissues. The heart is borderline enlarged. Right chest port catheter again demonstrated Impression: Resolved left basilar opacities, status post thoracentesis. No radiographic evident complication
--- NOTE | 2018-11-08 17:45 | History and Physical Report ---
DATE OF ADMISSION: 11/07/2018 HISTORY OF PRESENT ILLNESS: The patient basically was seen by Dr. Jeff to come for staging of her cancer as well as for thoracocentesis for her pleural effusion for staging purposes as well as therapeutic. The patient has been complaining of shortness of breath and is also admitted for azotemia, metastatic cancer to the spine and liver. She is undergoing chemotherapy and radiation. She has also apparently vascular access port on the chest. The patient also is complaining of worsening back pain, most likely due to metastasis and hip pain, which is consistent with metastatic disease. The patient also has shortness of breath for the past couple of days. She had previous thoracocentesis in the past for left-sided pleural effusion. She was initially hypoxic, but improved on oxygen and was tachypneic initially. PAST MEDICAL HISTORY: Metastatic breast cancer, breast cancer metastasis to liver and bone. The patient also has history of anxiety and PTSD. PAST SURGICAL HISTORY: Metastatic breast cancer and also hip surgery. MEDICATIONS: Takes pain medication. ALLERGIES: No known allergies. FAMILY HISTORY: Noncontributory. SOCIAL HISTORY: Denies smoking. REVIEW OF SYSTEMS: HEENT: Denies headaches. RESPIRATORY: Reports shortness of breath and some cough. CARDIOVASCULAR: Denies chest pain. Denies orthopnea . Denies nausea, vomiting, or diarrhea. EXTREMITIES: She does have generalized pain, especially worsening back pain and hip pain. CENTRAL NERVOUS SYSTEM: Denies change in speech pattern. PHYSICAL EXAMINATION: VITAL SIGNS: Temperature is 97.7, pulse 86, blood pressure 129/75. HEENT: PERRLA. NECK: Supple. CHEST: Bibasilar rales, left worse than right. CARDIOVASCULAR: Regular rate and rhythm. ABDOMEN: Soft. Positive bowel sounds. No organomegaly. EXTREMITIES: 1+ edema. Reflexes on both sides. NEUROLOGIC: The patient has generalized weakness. LABORATORY DATA: WBC of 6.6, hemoglobin 13.1, platelet 180,000. Sodium 140, potassium 3.5, chloride 100, BUN of 34, creatinine 1.3, and glucose of 97. ASSESSMENT AND PLAN: 1. Azotemia. 2. Metastatic breast cancer. 3. Pleural effusion. 4. Respiratory insufficiency. 5. Shortness of breath. The patient admitted for staging as well as for therapeutic thoracocentesis and pain control. I have consulted Dr. Lozano, Dr. Esdras Jeff, Dr. Crump, Dr. Johnson, Dr. Jaycob Noble for the above-mentioned diagnoses as well as for the treatment of infectious process. Sachin Szymanski M.D. DR: BARBIE JOB#: [id number] CC:
[2018-11-08] MEDS ORDERED: Tubing IV Secondary IV ONE (18:15)
[2018-11-08] MEDS ORDERED: NS 275ml ONE (18:15)
--- NOTE | 2018-11-08 18:28 | NUR ---
NURSE NOTES: Made Dr. Johnson aware of negative VQ scan and successful thoracentesis. He ordered transfer to tele. order noted and carried out.
--- NOTE | 2018-11-08 18:36 | NUR ---
NURSE NOTES: Patient states that she gets her Portacath flushed every Tuesday. Left message with Dr. Jeff asking if we could access the portacath; awaiting response.
[2018-11-08] MEDS ORDERED: Budesonide HHN 0.25mg/2ml ud HHN PRN (19:00)
--- NOTE | 2018-11-08 19:14 | NUR ---
HAND-OFF: Report given to KYREE Bentley. Pt is sitting up in bed in stable condition. Plan of care endorsed.
[2018-11-08] MEDS ORDERED: Albuterol ud Inhalation HHN PRN (19:15)
--- NOTE | 2018-11-08 19:18 | NUR ---
NURSE NOTES: Pt received from KYREE Stephenson alert and oriented x4 with no acute s/s of distress noted. IV site asymptomatic and patent on R ac 20g. AM nurse obtained order to access portacath, communicated to pt and charge nurse, will access portacath. Bed in lowest position, bed alarm on. Call light and belongings within reach.
[2018-11-08 20:00] VITALS: BP 97/68
--- NOTE | 2018-11-08 20:03 | NUR ---
NURSE NOTES: Per Dr. Szymanski, pls continue home meds.
[2018-11-08] MEDS ORDERED: Heplock Flush 100 units/ml 3 ml syr INJ ONE (22:30)
[2018-11-09] VITALS: BP 99/56
[2018-11-09 04:00] VITALS: BP 95/67
--- NOTE | 2018-11-09 06:09 | Hematology/Onc Progress Note ---
Assessment/Plan Assessment/Plan Assessment and Recs: # Metastatic breast cancer -- diagnosed approx 1 year ago with multiple bony and liver mets, currently undergoing chemotherapy and presenting for shortness of breath, on taxotere in office. On arimidex now as horomonal treatment. Has in the past received radiation therapy --> at this time, requires restaging with ct c/a/p --> obtain tumor markers and eval with pulm --> will need thoracentesis prn basis --> imaging to be reviewed --> recently on chemo in the office --> dw Dr. Nikki Jeff, continue arimidex for now here # Plueral effusion --> ct reviewed --> thora done 11/09/18 --> perform cytology of pleural fluid # Anemia of chronic disease --> recently on chemo # Hypoxia due to effusion --> obtain v/q scan with pulm --> v/q scan is negative # DVT ppx scds Greatly appreciate consultation. Subjective Constitutional: Denies: no symptoms, chills, fever, malaise, weakness, other Cardiovascular: Denies: no symptoms, chest pain, edema, irregular heart rate, lightheadedness, palpitations, syncope, other Gastrointestinal/Abdominal: Denies: no symptoms, abdomen distended, abdominal pain, black stools, tarry stools, blood in stool, constipated, diarrhea, difficulty swallowing, nausea, poor appetite, poor fluid intake, rectal bleeding , vomiting, other Genitourinary: Denies: no symptoms, burning, discharge, frequency, flank pain, hematuria, incontinence, pain, urgency, other Neurologic/Psychiatric: Denies: no symptoms, anxiety, depressed, emotional problems, headache, numbness, paresthesia, pre-existing deficit, seizure, tingling, tremors, weakness, other Endocrine: Denies: no symptoms, excessive sweating, flushing, intolerance to cold, intolerance to heat, increased hunger, increased thirst, increased urine, unexplained weight gain, unexplained weight loss, other Hematologic/Lymphatic: Denies: no symptoms, anemia, easy bleeding, easy bruising, adenopathy, other Allergies: Coded Allergies: No Known Allergies (Unverified , 11/07/18) Subjective 11/09: thora done yesterday, left sided, 500cc removed, feeling better, on arimidex Objective Objective Current Medications Medications (Trade) Dose Ordered Sig/Kaushal Route PRN Reason Start Time Stop Time Status Last Admin Dose Admin Acetaminophen (Tylenol) 650 mg Q6H PRN ORAL Mild Pain/Temp > 100.5 11/08/18 03:15 12/08/18 03:14 Acetaminophen/ Hydrocodone Bitart ([place] 5/325) 1 tab Q6H PRN ORAL moderate pain 11/08/18 03:15 11/15/18 03:14 11/08/18 17:57 Albuterol/ Ipratropium (Albuterol/ Ipratropium) 3 ml Q4HRT PRN HHN Shortness of Breath 11/08/18 03:15 11/13/18 03:14 Anastrozole (Arimidex) 1 mg DAILY ORAL 11/09/18 09:00 12/09/18 08:59 Budesonide (Pulmicort) 0.5 mg Q12H PRN HHN wheezing 11/08/18 19:00 12/08/18 18:59 Carvedilol (Coreg) 3.125 mg EVERY 12 HOURS ORAL 11/08/18 21:00 12/08/18 20:59 Docusate Sodium (Colace) 100 mg DAILY ORAL 11/09/18 09:00 12/09/18 08:59 Escitalopram Oxalate (Lexapro) 10 mg DAILY ORAL 11/09/18 09:00 12/09/18 08:59 Heparin Sodium (Porcine) (Heparin 5000 units/ml) 5,000 units EVERY 12 HOURS SUBQ 11/08/18 09:00 12/08/18 08:59 11/08/18 20:40 Hydromorphone HCl (Dilaudid) 0.5 mg Q3HR PRN IVP Severe Pain (Pain Scale 7-10) 11/08/18 03:15 11/15/18 03:14 11/08/18 23:15 Loratadine (Claritin 10mg) 10 mg DAILY ORAL 11/09/18 09:00 12/09/18 08:59 Ondansetron HCl (Zofran) 4 mg Q8HR PRN IVP Nausea & Vomiting 11/08/18 03:15 12/08/18 03:14 Pantoprazole (Protonix) 40 mg DAILY ORAL 11/09/18 09:00 10/26/19 08:59 Spironolactone (Aldactone) 50 mg DAILY ORAL 11/09/18 09:00 12/09/18 08:59 Last 24 Hour Vital Signs Date Time Temp Pulse Resp B/P (MAP) Pulse Ox O2 Delivery O2 Flow Rate FiO2 11/09/18 04:00 2.0 11/09/18 04:00 98.0 94 20 95/67 (76) 94 11/09/18 04:00 72 11/09/18 04:00 Nasal Cannula 2.0 11/09/18 00:00 98.3 95 20 99/56 (70) 95 11/09/18 00:00 75 11/09/18 00:00 Nasal Cannula 2.0 11/08/18 20:29 81 97/68 11/08/18 20:00 2.0 11/08/18 20:00 77 11/08/18 20:00 98.4 81 20 97/68 (78) 94 11/08/18 20:00 Nasal Cannula 2.0 11/08/18 16:00 Nasal Cannula 3.0 11/08/18 16:00 72 11/08/18 16:00 2.0 11/08/18 16:00 98.6 76 20 100/67 (78) 97 11/08/18 12:00 Nasal Cannula 3.0 11/08/18 12:00 3.0 11/08/18 12:00 98.0 80 20 98/72 (81) 96 11/08/18 12:00 109 11/08/18 08:00 Nasal Cannula 3.0 11/08/18 08:00 98.5 78 20 100/65 (77) 98 11/08/18 08:00 77 11/08/18 08:00 3.0 11/08/18 05:06 97.7 11/08/18 04:00 97.9 88 20 120/64 (82) 97 11/08/18 04:00 3.0 11/08/18 04:00 Nasal Cannula 3.0 11/08/18 03:32 83 11/08/18 00:00 3.0 11/08/18 00:00 Nasal Cannula 3.0 11/08/18 00:00 97.7 86 22 129/75 (93) 96 11/08/18 00:00 84 11/08/18 00:00 Nasal Cannula 3.0 11/07/18 23:00 3.0 11/07/18 23:00 97.7 86 22 129/75 (93) 96 11/07/18 22:40 98.7 84 14 120/81 98 Nasal Cannula 4.0 11/07/18 22:26 98.4 88 17 109/95 98 Nasal Cannula 4.0 11/07/18 19:59 98.6 78 14 113/76 100 Nasal Cannula 4.0 11/07/18 19:50 98.6 11/07/18 18:01 98.1 20 104/72 90 Room Air 11/07/18 17:55 98.1 81 20 104/72 (83) 90 Room Air Intake and Output 11/08/18 11/09/18 18:59 06:59 # Voids 3 Labs Test 11/07/18 18:59 11/07/18 20:59 11/08/18 03:45 11/08/18 12:36 White Blood Count 6.6 K/UL (4.8-10.8) 6.4 K/UL (4.8-10.8) Red Blood Count 3.72 M/UL (4.20-5.40) 3.69 M/UL (4.20-5.40) Hemoglobin 13.1 G/DL (12.0-16.0) 12.5 G/DL (12.0-16.0) Hematocrit 36.3 % (37.0-47.0) 36.1 % (37.0-47.0) Mean Corpuscular Volume 98 FL (80-99) 98 FL (80-99) Mean Corpuscular Hemoglobin 35.1 PG (27.0-31.0) 34.0 PG (27.0-31.0) Mean Corpuscular Hemoglobin Concent 35.9 G/DL (32.0-36.0) 34.8 G/DL (32.0-36.0) Red Cell Distribution Width 10.2 % (11.6-14.8) 10.4 % (11.6-14.8) Platelet Count 180 K/UL (150-450) 177 K/UL (150-450) Mean Platelet Volume 5.9 FL (6.5-10.1) 5.5 FL (6.5-10.1) Neutrophils (%) (Auto) 49.9 % (45.0-75.0) 45.5 % (45.0-75.0) Lymphocytes (%) (Auto) 34.9 % (20.0-45.0) 36.5 % (20.0-45.0) Monocytes (%) (Auto) 11.6 % (1.0-10.0) 13.6 % (1.0-10.0) Eosinophils (%) (Auto) 2.2 % (0.0-3.0) 2.6 % (0.0-3.0) Basophils (%) (Auto) 1.4 % (0.0-2.0) 1.7 % (0.0-2.0) Prothrombin Time 10.1 SEC (9.30-11.50) Prothromb Time International Ratio 0.9 (0.9-1.1) Activated Partial Thromboplast Time 28 SEC (23-33) Sodium Level 138 MMOL/L (136-145) 140 MMOL/L (136-145) Potassium Level 3.9 MMOL/L (3.5-5.1) 3.5 MMOL/L (3.5-5.1) Chloride Level 99 MMOL/L (98-107) 100 MMOL/L (98-107) Carbon Dioxide Level 35 MMOL/L (21-32) 32 MMOL/L (21-32) Anion Gap 4 mmol/L (5-15) 8 mmol/L (5-15) Blood Urea Nitrogen 32 mg/dL (7-18) 34 mg/dL (7-18) Creatinine 1.4 MG/DL (0.55-1.30) 1.2 MG/DL (0.55-1.30) Estimat Glomerular Filtration Rate 38.7 mL/min (>60) 46.2 mL/min (>60) Glucose Level 112 MG/DL (74-106) 97 MG/DL (74-106) Lactic Acid Level 1.00 mmol/L (0.4-2.0) Calcium Level 9.1 MG/DL (8.5-10.1) 9.3 MG/DL (8.5-10.1) Total Bilirubin 0.4 MG/DL (0.2-1.0) 0.5 MG/DL (0.2-1.0) Aspartate Amino Transf (AST/SGOT) 28 U/L (15-37) 25 U/L (15-37) Alanine Aminotransferase (ALT/SGPT) 23 U/L (12-78) 23 U/L (12-78) Alkaline Phosphatase 96 U/L (46-116) 92 U/L (46-116) Troponin I 0.000 ng/mL (0.000-0.056) Pro-B-Type Natriuretic Peptide 421 pg/mL (0-125) Total Protein 6.8 G/DL (6.4-8.2) 6.7 G/DL (6.4-8.2) Albumin 3.1 G/DL (3.4-5.0) 3.1 G/DL (3.4-5.0) Globulin 3.7 g/dL 3.6 g/dL Albumin/Globulin Ratio 0.8 (1.0-2.7) 0.9 (1.0-2.7) Venous Blood pH 7.444 Venous Blood Partial Pressure CO2 49.9 Venous Blood Partial Pressure O2 45.6 Venous Blood HCO3 33.4 Venous Blood Total Carbon Dioxide 49.9 Venous Bld O2 Saturation (Measured) 45.6 Venous Blood Oxygen Saturation 81.4 Venous Blood Base Excess 8.0 Methemoglobin 0.6 Lactate Dehydrogenase 257 U/L (81-234) Test 11/09/18 03:20 Pro-B-Type Natriuretic Peptide 267 pg/mL (0-125) Height (Feet): 5 Height (Inches): 0.00 Weight (Pounds): 171 Objective Vital Signs reviewed Gen: Awake and alert, no acute distress HEENT: NC/AT. EOMI. Neck: Supple, trachea midline Chest Wall: No tenderness Cardiovascular: RRR. S1 and S2 normal Resp: Mild tachypnea with increased work of breathing, Bilateral crackles and sob++ Abdomen: Abdomen is soft, nondistended Skin: Intact. No abrasions, lacer, rash MSK: Normal tone and bulk. Moving all extremities. No obvious deformity. Neuro: Awake and alert. Esdras Jeff MD Nov 09, 2018 06:09
--- NOTE | 2018-11-09 06:20 | NUR ---
TRANSFER TO FLOOR: Patient transferred to 220-1, per Dr. Johnson. Report given to KYREE Alamo. Belongings given to KYREE Alamo. No medications. Family and or S/O informed of transfer.
--- NOTE | 2018-11-09 06:25 | NUR ---
NURSE NOTES: Received patient from KeyonaRN from [facility], stable condition, AOx3, denies pain at this time, NPO, ambulatory using cane, belongings list checked & signed, right chest portacath, asymptomatic, intact, patent, bed low&locked, side rails upX2,call light within reach, will continue to monitor and reassess.
[2018-11-09] MEDS ORDERED: Budesonide HHN 0.25mg/2ml ud HHN PRN (07:00)
[2018-11-09] MEDS ORDERED: Albuterol/Ipratropium 3ml neb HHN PRN (07:00)
--- NOTE | 2018-11-09 07:17 | NUR ---
HAND-OFF: Report given to ManjeetRN, patient in stable condition, plan of care endorsed.
--- NOTE | 2018-11-09 07:17 | NUR ---
NURSE NOTES: Received report from Cally ADORNO. Patient awake/oriented x3 and sitting in bed. No c/o pain. No acute distress noted. Port a cath in right chest asymptomatic and intact. Sinus rhythm reported during last night. Bed in lowest position and locked. Side rails x2 up for safety. Will continue to plan of ca
[2018-11-09 08:00] VITALS: BP 118/80
--- NOTE | 2018-11-09 08:50 | Consultation ---
History of Present Illness General Date patient seen: Nov 09, 2018 Present Illness Allergies: Coded Allergies: No Known Allergies (Unverified , 11/07/18) Medication History Discontinued Medications Anastrozole* (Arimidex*), 1 MG PO DAILY, (Reported) Discontinued Reason: MD discontinued med Budesonide (Pulmicort), 0.5 MG IH, (Reported) Discontinued Reason: MD discontinued med Carvedilol (Coreg), 3.125 MG ORAL EVERY 12 HOURS, (Reported) Discontinued Reason: MD discontinued med Docusate Sodium* (Colace*), 100 MG ORAL DAILY, (Reported) Discontinued Reason: MD discontinued med Enoxaparin* (Lovenox*), 40 MG SUBQ DAILY, (Reported) Discontinued Reason: MD discontinued med Escitalopram Oxalate* (Lexapro*), 10 MG ORAL DAILY, (Reported) Discontinued Reason: MD discontinued med Fluconazole* (Diflucan*), 100 MG ORAL DAILY, (Reported) Discontinued Reason: MD discontinued med Ibuprofen* (Motrin*), 400 MG ORAL FOUR TIMES A DAY, (Reported) Discontinued Reason: MD discontinued med Loratadine (Claritin), 10 MG ORAL DAILY, (Reported) Discontinued Reason: MD discontinued med Morphine Sulfate* (Morphine Sulfate*), 2 MG IV, (Reported) Discontinued Reason: MD discontinued med Oxycodone Hcl Er* (Oxycontin*), 20 MG ORAL EVERY 12 HOURS, (Reported) Discontinued Reason: MD discontinued med Pantoprazole* (Protonix*), 40 MG ORAL DAILY, (Reported) Discontinued Reason: MD discontinued med Polyethylene Glycol 3350* (Miralax*), 17 GM ORAL DAILY, (Reported) Discontinued Reason: MD discontinued med Potassium Chloride (Klor-Con M20), 20 MEQ ORAL DAILY, (Reported) Discontinued Reason: MD discontinued med Spironolactone* (Aldactone*), 50 MG ORAL DAILY, (Reported) Discontinued Reason: MD discontinued med Zolpidem Tartrate* (Ambien*), 10 MG ORAL HS PRN for Insomnia, (Reported) Discontinued Reason: MD discontinued med Patient History Healthcare decision maker Resuscitation status Do Not Resuscitate Advanced Directive on File Yes Physical Exam Last 24 Hour Vital Signs Date Time Temp Pulse Resp B/P (MAP) Pulse Ox O2 Delivery O2 Flow Rate FiO2 11/09/18 08:00 Nasal Cannula 2.0 11/09/18 04:00 2.0 11/09/18 04:00 98.0 94 20 95/67 (76) 94 11/09/18 04:00 72 11/09/18 04:00 Nasal Cannula 2.0 11/09/18 00:00 98.3 95 20 99/56 (70) 95 11/09/18 00:00 75 11/09/18 00:00 Nasal Cannula 2.0 11/08/18 20:29 81 97/68 11/08/18 20:00 2.0 11/08/18 20:00 77 11/08/18 20:00 98.4 81 20 97/68 (78) 94 11/08/18 20:00 Nasal Cannula 2.0 11/08/18 16:00 Nasal Cannula 3.0 11/08/18 16:00 72 11/08/18 16:00 2.0 11/08/18 16:00 98.6 76 20 100/67 (78) 97 11/08/18 12:00 Nasal Cannula 3.0 11/08/18 12:00 3.0 11/08/18 12:00 98.0 80 20 98/72 (81) 96 11/08/18 12:00 109 Intake and Output 11/08/18 11/09/18 18:59 06:59 Intake Total 150 ml Balance 150 ml Intake Oral 150 ml # Voids 3 2 Laboratory Tests Test 11/08/18 12:36 11/09/18 03:20 Body Fluid Total Protein Pending Body Fluid Lactate Dehydrogenase Pending Pro-B-Type Natriuretic Peptide 267 pg/mL (0-125) H Height (Feet): 5 Height (Inches): 0.00 Weight (Pounds): 171 Medications Current Medications Medications (Trade) Dose Ordered Sig/Kaushal Route PRN Reason Start Time Stop Time Status Last Admin Dose Admin Acetaminophen (Tylenol) 650 mg Q6H PRN ORAL Mild Pain/Temp > 100.5 11/09/18 09:15 12/08/18 03:14 Acetaminophen/ Hydrocodone Bitart ([place] 5/325) 1 tab Q6H PRN ORAL moderate pain 11/09/18 09:15 11/15/18 03:14 Albuterol/ Ipratropium (Albuterol/ Ipratropium) 3 ml Q4HRT PRN HHN Shortness of Breath 11/09/18 07:00 11/13/18 03:14 Anastrozole (Arimidex) 1 mg DAILY ORAL 11/09/18 09:00 12/09/18 08:59 Budesonide (Pulmicort) 0.5 mg Q12H PRN HHN wheezing 11/09/18 07:00 12/08/18 18:59 Carvedilol (Coreg) 3.125 mg EVERY 12 HOURS ORAL 11/09/18 09:00 12/08/18 20:59 Docusate Sodium (Colace) 100 mg DAILY ORAL 11/09/18 09:00 12/09/18 08:59 Escitalopram Oxalate (Lexapro) 10 mg DAILY ORAL 11/09/18 09:00 12/09/18 08:59 Heparin Sodium (Porcine) (Heparin 5000 units/ml) 5,000 units EVERY 12 HOURS SUBQ 11/09/18 09:00 12/08/18 08:59 Hydromorphone HCl (Dilaudid) 0.5 mg Q3H PRN IVP Severe Pain (Pain Scale 7-10) 11/09/18 09:00 11/16/18 08:59 Loratadine (Claritin 10mg) 10 mg DAILY ORAL 11/09/18 09:00 12/09/18 08:59 Ondansetron HCl (Zofran) 4 mg Q8H PRN IVP Nausea & Vomiting 11/09/18 06:30 12/09/18 06:29 Pantoprazole (Protonix) 40 mg ACBREAKFAST ORAL 11/09/18 06:30 12/09/18 06:29 11/09/18 07:07 Spironolactone (Aldactone) 50 mg DAILY ORAL 11/09/18 09:00 12/09/18 08:59 Assessment/Plan Assessment/Plan: (1) Metastatic breast cancer to liver and bone (2) Intractable pain seen dictated Eugene Bell Nov 09, 2018 08:49
[2018-11-09] MEDS ORDERED: Anastrazole 1mg tab ORAL SCH (09:00)
[2018-11-09] MEDS ORDERED: Docusate 100mg cap ORAL SCH (09:00)
[2018-11-09] MEDS ORDERED: Hydromorphone 0.5mg/0.5ml inj IVP PRN (09:00)
[2018-11-09] MEDS ORDERED: Spironolactone 50mg tab ORAL SCH (09:00)
[2018-11-09] MEDS ORDERED: HYDROcodone/Acetamin 5/325 tab ORAL PRN (09:15)
[2018-11-09] MEDS: Spironolactone 50mg tab ORAL SCH (09:58)
[2018-11-09] MEDS: Docusate 100mg cap ORAL SCH (09:58)
[2018-11-09] MEDS: Anastrazole 1mg tab ORAL SCH (09:58)
[2018-11-09] MEDS: Heparin 5000 units/ml inj SUBQ SCH ×2 (10:02→20:28)
--- NOTE | 2018-11-09 11:12 | NUR ---
CASE MANAGEMENT:REVIEW 11/09/18 SI HYPOXIA; PLEURAL EFFUSION 98.2 82 18 118/80 95% NC 2L BNP 421 IS: PROTONIX PO AC ALDACTONE PO QD HEPARIN SQ Q12 COREG PO QD ARMIDEX PO QD IV MORPHINE X1 : TO MED SURG DCP: TO RETURN TO [facility]. PLAN: SP THORACENTESIS
[2018-11-09 12:00] VITALS: BP 100/71
--- NOTE | 2018-11-09 12:11 | Diagnostic Imaging Report ---
Indication: History of pleural effusion. History of malignancy undergoing chemotherapy radiation. Chest pain shortness of breath. Abdominal pain. Technique: Continuous helical transaxial imaging of the chest, abdomen and pelvis was obtained from the lung bases to the pubic symphysis during intravenous contrast administration. Multiple phases of enhancement obtained. Coronal 2-D reformats were also obtained. Study obtained in a Siemens sensation [address] Automatic Exposure Control was utilized. Total Dose length Product (DLP): [address] Dose Index Volume (CTDIvol): 100.5 mGy Comparison: None Findings: Although IV contrast was given the bolus is poor and enhancement is poor. CT CHEST: There is a small left pleural effusion and a small to moderate right pleural effusion. There is a small pericardial effusion. There is no adenopathy appreciated. There is a increase reticulation and stranding of the subcutaneous fat in the left part of the anterior chest wall with skin thickening. This suggests radiation to the left breast. Please correlate clinically. There is a slightly increased posterior basilar density within the lungs consistent with atelectasis. There is a right chest port noted. No gross evidence of adenopathy in the axillae identified. There is a single anterior mediastinal node in the prevascular space measuring about 6 mm nonspecific. There are no definite lung nodules. CT abdomen pelvis: There are hypodensities in the liver some ill-defined, nonspecific in nature. Metastatic disease is not excluded. For example in the right lobe there is a 2.6 cm hypodensity. Multiple gallstones are present. There is no adrenal mass. Appendix is likely normal. There is a right hip prosthesis obscuring part of the pelvis due to streak artifact. The urinary bladder is nondistended. There is no free fluid or visualized mass or adenopathy. There are small retroperitoneal and iliac nodes present. There is diffuse heterogeneity of the bones with mixed sclerotic and lytic lesions consistent with metastatic neoplasm. There are multiple compression fracture deformities with loss of height of thoracic and lumbar vertebra at multiple levels. Whether these are degenerative or pathologic is a difficult to ascertain on the current exam there are no prior studies referrable to the thoracic or lumbar spine. IMPRESSION: Evidence of metastatic malignant neoplasm involving the bones. There is extensive involvement of the spine and sternum pelvic bones. Nonspecific hypodensities within the liver. Metastatic neoplasm is in the differential diagnosis. Abnormal appearance of the left anterior chest wall with subcutaneous reticulation and skin thickening presumably on the basis of previous radiation and/or surgery. Correlate clinically. Bilateral pleural effusions slightly larger on the right nonspecific in nature. Posterior basal atelectasis. Pericardial effusion. Cholelithiasis. Right hip prosthesis. Streak artifact. Other incidentals as above Note: IV bolus and enhancement are poor, thereby limiting the diagnostic quality of the study. The CT scanner at [facility] is accredited by the [employer] and the scans are performed using dose optimization techniques as appropriate to a performed exam including Automatic Exposure control.
--- NOTE | 2018-11-09 14:14 | NUR ---
RD ASSESSMENT & RECOMMENDATIONS SEE CARE ACTIVITY FOR COMPLETE ASSESSMENT DAILY ESTIMATED NEEDS: Needs based on Mets ca, chemo 53.5kg abw 25-30 kcals/kg 0686-6934 total kcals 1-2 g protein/kg 54-107 g total protein 25-30 mL/kg 7927-8665 total fluid mLs NUTRITION DIAGNOSIS: Increased kcal and pro needs r/t cancer as evidenced by pt w/ mets breast cancer, currently in chemo therapy. CURRENT DIET: Regular PO DIET RECOMMENDATIONS: Maintain regular diet/ texture per NEW CAR DRIVER ADDITIONAL RECOMMENDATIONS: 1) Obtain a standing weight 2) Monitor lytes, hydration status 3) Monitor for continued good po intake
[2018-11-09 16:00] VITALS: BP 114/71
--- NOTE | 2018-11-09 18:15 | Consultation ---
DATE OF CONSULTATION: 11/09/2018 PAIN MANAGEMENT CONSULTATION CONSULTING PHYSICIAN: Deedee Crump M.D. REFERRING PHYSICIAN: Sachin Szymanski M.D. PHYSICIAN HOLTER SCANNING TECHNICIAN: Edis Ibrahim CHIEF COMPLAINT: Generalized body pain. HISTORY OF PRESENT ILLNESS: This is a 57-year-old female, who is being seen on the telemetry floor of [facility] for initial pain management consultation. The patient was admitted under the care of Dr. Szymanski due to pleural effusion. She has a history of metastatic breast cancer, which has gone to the liver and bone and being seen by Dr. Jeff as an outpatient and receiving chemotherapy and now residing in a nursing facility where she had been found to have hypoxia due to the effusion and was transferred to the hospital. As an outpatient in the nursing facility, the patient is receiving OxyContin 20 mg twice a day with [place] 5/325 one tablet every 4 hours as needed, which she says she uses it very minimally, only when the pain was severe. At this time, she was started on Dilaudid 0.5 mg IV every 3 hours as needed for severe pain and Cla[place] 5/325 one tablet every 6 hours as needed, which she has been tolerating well on the current medication regimen and her pain is at a mild level. We were consulted so that the patient would have adequate pain control while here in the hospital. She is status post thoracentesis, which was done where 500 mL was removed and is on the Arimidex. She is comfortable and has no other complaints at this time. PAST MEDICAL HISTORY: Breast cancer, anxiety, and posttraumatic stress disorder. PAST SURGICAL HISTORY: Right total hip replacement. SOCIAL HISTORY: Denies smoking tobacco, drinking alcohol, or IV drug abuse. ALLERGIES: No known drug allergies. MEDICATIONS: Arimidex, Pulmicort, Coreg, Colace, Lovenox, Lexapro, Diflucan, Motrin, Claritin, OxyContin, Protonix, Clarence, MiraLAX, Aldactone, and Ambien. REVIEW OF SYSTEMS: Denies rash, fever, chills, sweating, dizziness, drowsiness, blurred vision, sore throat, or change in her weight. No chest pain, palpitations, or cough. No nausea, vomiting, diarrhea, or blood in the stool or urine. No bowel or bladder incontinence. No dysuria. She is complaining of generalized body pain. PHYSICAL EXAMINATION: GENERAL: Alert, awake, and oriented. VITAL SIGNS: Blood pressure 95/67, heart rate 94, oxygen saturation is 94%, respiratory rate 18, and temperature is 98 degrees Fahrenheit. HEENT: PERRLA. NECK: Range of motion is full in all directions. No tenderness to paracervical muscles. No adenopathy. LUNGS: Decreased breath sounds bilaterally. HEART: S1 and S2 regular. ABDOMEN: Obese. BACK: Range of motion is decreased in flexion and extension. EXTREMITIES: Upper extremity range of motion is decreased due to the patient's condition. No cyanosis. No clubbing. No edema. Sensory is intact. Reflexes are not obtainable. No adenopathy. ASSESSMENT AND PLAN: This is a 57-year-old female with metastatic breast cancer to liver and bone, intractable pain. The patient will be continued on Dilaudid and Clarence as needed. The patient will be further assessed and seen if there is a need to restart OxyContin. She is comfortable at this time. The patient was discussed with Dr. Crump and Dr. Crump concurred. We will follow up with the patient. Thank you very much for the courtesy of this consultation. Deedee Crump M.D. BIANCA Ibrahim DR: KASHIF JOB#: [id number] CC: ASHLEIGH
--- NOTE | 2018-11-09 19:37 | NUR ---
HAND-OFF: Report given to Jessi RN. Pt remains stable.
[2018-11-09 20:00] VITALS: BP 117/83
--- NOTE | 2018-11-09 20:14 | NUR ---
NURSE NOTES: Received pt and repot from KYREE Zamora. Observed pt resting in bed with both eyes open. Pt is A/Ox3. monitoring engineer is in placed, IV site intact, asymptomatic, and patent. Bed is in the lowest position and locked. Call light within reach. No signs and symptoms of acute distress noted at this time. Will continue plan of care. Addendum: 11/09/18 at 2015 by Mimi Mendoza Mai, RN Received pt and report at 1930
--- NOTE | 2018-11-09 21:29 | Pulmonology Progress Note ---
Assessment/Plan Assessment/Plan Pulmonary Progress Note HPI Patient is a 57 year old woman with a history of metastatic breast cancer with extensive bony and liver metatstasis, diagnosed approximately 1 year ago. She is currently undergoing chemotherapy and radiation therapy. Is admitted complaining of worsening shortness of breath for a few days, no chest pain or hemoptysis, worsening mid back pain which is consistent with her prior metastases. She has required thoracentesis in the past, last time September 2018. Noted to have a left pleural effusion. No other symptoms at this time. No recent cough, fevers, sore throat, abdominal pain, vomiting, diarrhea or skin rash. Has pericardial effusion on CT chest S/p thoracentesis PMH: Metastatic breast cancer, Anxiety PSH: Hip surgery Social History: Nodrug, alcohol, tobacco use Allergies: No Known Allergies Less SOB, up in chair, on RA Physical Exam Vital Signs Noted General: Awake and alert, no acute distress HEENT: NC/AT. EOMI. Neck: Supple, trachea midline Chest Wall: No tenderness, no deformity Cardiovascular: RRR. S1 and S2 normal. No murmur appreciated Resp: Mild tachypnea with increased work of breathing. No cough. No wheezing. Few bibasal crackles. Redyuced BS LLZ Abdomen: Abdomen is soft, nondistended. Nontender Skin: Intact. No abrasions, laceration or rash over the exposed skin MSK: Normal tone and bulk. Moving all extremities. No obvious deformity. Significant lymphedema in the left upper extremity. Nontender. Neuro: Awake and alert. Oriented x 4. No focal signs Impression: Metastatic Breast Cancer to Bone, Liver, Pleura Previous chemotherapy Recurrent Pleural Effusion Hypoxia Need to r/o DVT/PE Cancer associated pain DNAR status Plan O2 PRN HHN PRN Thoracentesis with diagnostic studies VQ scan LE dupplex negative Echocardiogram NPA level Diurese PRN Laboratory Tests Test 11/07/18 18:59 White Blood Count 6.6 K/UL (4.8-10.8) Red Blood Count 3.72 M/UL (4.20-5.40) L Hemoglobin 13.1 G/DL (12.0-16.0) Hematocrit 36.3 % (37.0-47.0) L Mean Corpuscular Volume 98 FL (80-99) Mean Corpuscular Hemoglobin 35.1 PG (27.0-31.0) H Mean Corpuscular Hemoglobin Concent 35.9 G/DL (32.0-36.0) Red Cell Distribution Width 10.2 % (11.6-14.8) L Platelet Count 180 K/UL (150-450) Mean Platelet Volume 5.9 FL (6.5-10.1) L Neutrophils (%) (Auto) 49.9 % (45.0-75.0) Lymphocytes (%) (Auto) 34.9 % (20.0-45.0) Monocytes (%) (Auto) 11.6 % (1.0-10.0) H Eosinophils (%) (Auto) 2.2 % (0.0-3.0) Basophils (%) (Auto) 1.4 % (0.0-2.0) Prothrombin Time 10.1 SEC (9.30-11.50) Prothrombin Time INR 0.9 (0.9-1.1) PTT 28 SEC (23-33) Sodium Level 138 MMOL/L (136-145) Potassium Level 3.9 MMOL/L (3.5-5.1) Chloride Level 99 MMOL/L (98-107) Carbon Dioxide Level 35 MMOL/L (21-32) H Anion Gap 4 mmol/L (5-15) L Blood Urea Nitrogen 32 mg/dL (7-18) H Creatinine 1.4 MG/DL (0.55-1.30) H Estimate Glomerular Filtration Rate 38.7 mL/min (>60) Glucose Level 112 MG/DL (74-106) H Lactic Acid Level 1.00 mmol/L (0.4-2.0) Calcium Level 9.1 MG/DL (8.5-10.1) Total Bilirubin 0.4 MG/DL (0.2-1.0) Aspartate Amino Transferase (AST) 28 U/L (15-37) Alanine Aminotransferase (ALT) 23 U/L (12-78) Alkaline Phosphatase 96 U/L (46-116) Troponin I 0.000 ng/mL (0.000-0.056) Pro-B-Type Natriuretic Peptide 421 pg/mL (0-125) H Total Protein 6.8 G/DL (6.4-8.2) Albumin 3.1 G/DL (3.4-5.0) L Globulin 3.7 g/dL Albumin/Globulin Ratio 0.8 (1.0-2.7) L EKG: Rhythm: NSR ST Segments: no acute changes Other Impression Sinus rhythm, normal axis, prolonged MS interval consistent with first-degree AV block. No ST segment changes. Q waves in the inferior leads. Chest X-Ray: no consolidation, no pneumothorax, other - Obscuring of the left cost to phrenic angle, possible effusion. VQ: Low probability LE dupplex: Negative Subjective ROS Limited/Unobtainable: No Allergies: Coded Allergies: No Known Allergies (Unverified , 11/07/18) Objective Last 24 Hour Vital Signs Date Time Temp Pulse Resp B/P (MAP) Pulse Ox O2 Delivery O2 Flow Rate FiO2 11/09/18 20:26 85 117/83 11/09/18 20:00 97.5 81 19 117/83 (94) 96 11/09/18 16:00 Nasal Cannula 2.0 11/09/18 16:00 84 11/09/18 16:00 99.3 85 18 114/71 (85) 96 11/09/18 12:00 Nasal Cannula 2.0 11/09/18 12:00 2.0 11/09/18 12:00 98.2 79 18 100/71 (81) 94 11/09/18 12:00 77 11/09/18 09:58 82 118/80 11/09/18 08:00 Nasal Cannula 2.0 11/09/18 08:00 2.0 11/09/18 08:00 72 11/09/18 08:00 98.2 82 18 118/80 (93) 95 11/09/18 04:00 2.0 11/09/18 04:00 98.0 94 20 95/67 (76) 94 11/09/18 04:00 72 11/09/18 04:00 Nasal Cannula 2.0 11/09/18 00:00 98.3 95 20 99/56 (70) 95 11/09/18 00:00 75 11/09/18 00:00 Nasal Cannula 2.0 Intake and Output 11/08/18 11/09/18 19:00 07:00 Intake Total 150 ml Balance 150 ml Intake Oral 150 ml # Voids 3 2 Microbiology Date/Time Source Procedure Growth Status 11/08/18 12:36 Body Fluid Gram Stain - Final Resulted 11/08/18 12:36 Body Fluid Body Fluid Culture - Preliminary NO GROWTH Resulted 11/07/18 22:00 Rectum Received 11/07/18 18:59 Arm Left Blood Culture - Preliminary NO GROWTH AFTER 24 HOURS Resulted 11/07/18 18:45 Arm Left Blood Culture - Preliminary NO GROWTH AFTER 24 HOURS Resulted Laboratory Tests 11/09/18 03:20: Pro-B-Type Natriuretic Peptide 267H Current Medications Medications (Trade) Dose Ordered Sig/Kaushal Route PRN Reason Start Time Stop Time Status Last Admin Dose Admin Acetaminophen (Tylenol) 650 mg Q6H PRN ORAL Mild Pain/Temp > 100.5 11/09/18 09:15 12/08/18 03:14 Acetaminophen/ Hydrocodone Bitart ([place] 5/325) 1 tab Q6H PRN ORAL moderate pain 11/09/18 09:15 11/15/18 03:14 11/09/18 20:30 Albuterol/ Ipratropium (Albuterol/ Ipratropium) 3 ml Q4HRT PRN HHN Shortness of Breath 11/09/18 07:00 11/13/18 03:14 Anastrozole (Arimidex) 1 mg DAILY ORAL 11/09/18 09:00 12/09/18 08:59 11/09/18 09:58 Budesonide (Pulmicort) 0.5 mg Q12H PRN HHN wheezing 11/09/18 07:00 12/08/18 18:59 Carvedilol (Coreg) 3.125 mg EVERY 12 HOURS ORAL 11/09/18 09:00 12/08/18 20:59 11/09/18 20:26 Docusate Sodium (Colace) 100 mg DAILY ORAL 11/09/18 09:00 12/09/18 08:59 11/09/18 09:58 Escitalopram Oxalate (Lexapro) 10 mg DAILY ORAL 11/09/18 09:00 12/09/18 08:59 11/09/18 09:59 Heparin Sodium (Porcine) (Heparin 5000 units/ml) 5,000 units EVERY 12 HOURS SUBQ 11/09/18 09:00 12/08/18 08:59 11/09/18 20:28 Hydromorphone HCl (Dilaudid) 0.5 mg Q3H PRN IVP Severe Pain (Pain Scale 7-10) 11/09/18 09:00 11/16/18 08:59 Loratadine (Claritin 10mg) 10 mg DAILY ORAL 11/09/18 09:00 12/09/18 08:59 11/09/18 09:57 Ondansetron HCl (Zofran) 4 mg Q8H PRN IVP Nausea & Vomiting 11/09/18 06:30 12/09/18 06:29 Pantoprazole (Protonix) 40 mg ACBREAKFAST ORAL 11/09/18 06:30 12/09/18 06:29 11/09/18 07:07 Spironolactone (Aldactone) 50 mg DAILY ORAL 11/09/18 09:00 12/09/18 08:59 11/09/18 09:58 Owen Johnson MD Nov 09, 2018 21:29
--- NOTE | 2018-11-09 21:37 | General Progress Note ---
Assessment/Plan Problem List: (1) Pleural effusion ICD Codes: J90 - Pleural effusion, not elsewhere classified SNOMED: 84300374 (2) Metastatic breast cancer ICD Codes: C50.919 - Malignant neoplasm of unspecified site of unspecified female breast SNOMED: 528352135, 906190746 (3) Hypoxia ICD Codes: R09.02 - Hypoxemia SNOMED: 515009143 Status: progressing Assessment/Plan: pleural effusion thoracocentesis cancer staging afebrile sob Subjective ROS Limited/Unobtainable: Yes Allergies: Coded Allergies: No Known Allergies (Unverified , 11/07/18) Objective Last 24 Hour Vital Signs Date Time Temp Pulse Resp B/P (MAP) Pulse Ox O2 Delivery O2 Flow Rate FiO2 11/09/18 20:26 85 117/83 11/09/18 20:00 97.5 81 19 117/83 (94) 96 11/09/18 16:00 Nasal Cannula 2.0 11/09/18 16:00 84 11/09/18 16:00 99.3 85 18 114/71 (85) 96 11/09/18 12:00 Nasal Cannula 2.0 11/09/18 12:00 2.0 11/09/18 12:00 98.2 79 18 100/71 (81) 94 11/09/18 12:00 77 11/09/18 09:58 82 118/80 11/09/18 08:00 Nasal Cannula 2.0 11/09/18 08:00 2.0 11/09/18 08:00 72 11/09/18 08:00 98.2 82 18 118/80 (93) 95 11/09/18 04:00 2.0 11/09/18 04:00 98.0 94 20 95/67 (76) 94 11/09/18 04:00 72 11/09/18 04:00 Nasal Cannula 2.0 11/09/18 00:00 98.3 95 20 99/56 (70) 95 11/09/18 00:00 75 11/09/18 00:00 Nasal Cannula 2.0 Intake and Output 11/08/18 11/09/18 19:00 07:00 Intake Total 150 ml Balance 150 ml Intake Oral 150 ml # Voids 3 2 Laboratory Tests 11/09/18 03:20: Pro-B-Type Natriuretic Peptide 267H Height (Feet): 5 Height (Inches): 0.00 Weight (Pounds): 171 Neck: normal alignment Cardiovascular: normal rate Sachin Szymanski MD Nov 09, 2018 21:37
[2018-11-10] VITALS: BP 108/81
[2018-11-10 04:00] VITALS: BP 111/76
--- NOTE | 2018-11-10 07:38 | NUR ---
HAND-OFF: Report given to KYREE Gonzalez.
--- NOTE | 2018-11-10 07:46 | NUR ---
NURSE NOTES: Pt in bed in low position, pt is able to ambulate to restroom without assistance, Pt Ox4 alert and calm and cooperative, pt makes needs known, IV asymptomatic, pt denies pain, no s/s of distress or sob noted.
[2018-11-10 08:37] VITALS: BP 99/57
--- NOTE | 2018-11-10 08:37 | Hematology/Onc Progress Note ---
Assessment/Plan Assessment/Plan Assessment and Recs: # Metastatic breast cancer -- diagnosed approx 1 year ago with multiple bony and liver mets, currently undergoing chemotherapy and presenting for shortness of breath, on taxotere in office. On arimidex now as horomonal treatment. Has in the past received radiation therapy, CT scan shows evidence of metastatic malignant neoplasm involving the bones. There is extensive involvement of the spine and sternum pelvic bones. Nonspecific hypodensities within the liver. Metastatic neoplasm is in the differential diagnosis. --> at this time, requires restaging with ct c/a/p--> completed shows metastatic disease --> CEA 6, ca 125 81 --> will need thoracentesis prn basis --> imaging to be reviewed --> recently on chemo in the office --> dw Dr. Nikki Jeff, continue arimidex for now here ==> consider dc once evaluated with Dr. Johnson and R and L sided drainage today to rehab, dw RN # Plueral effusion --> ct reviewed --> thora done 11/09/18 drained 500cc fluid --> perform cytology of pleural fluid # Anemia of chronic disease --> recently on chemo # Hypoxia due to effusion --> obtain v/q scan with pulm --> v/q scan is negative # DVT ppx scds Greatly appreciate consultation. Subjective Constitutional: Denies: no symptoms, chills, fever, malaise, weakness, other HEENT: Denies: no symptoms, eye pain, blurred vision, tearing, double vision, ear pain, ear discharge, nose pain, nose congestion, throat pain, throat swelling, mouth pain, mouth swelling, other Cardiovascular: Denies: no symptoms, chest pain, edema, irregular heart rate, lightheadedness, palpitations, syncope, other Respiratory: Denies: no symptoms, cough, shortness of breath, SOB with excertion, SOB at rest, sputum, wheezing, other Genitourinary: Denies: no symptoms, burning, discharge, frequency, flank pain, hematuria, incontinence, pain, urgency, other Allergies: Coded Allergies: No Known Allergies (Unverified , 11/07/18) Subjective 11/09: thora done yesterday, left sided, 500cc removed, feeling better, on arimidex 11/10: no events, no f/c, no bleeding noted, potential dc after pulm eval Objective Objective Current Medications Medications (Trade) Dose Ordered Sig/[place] Route PRN Reason Start Time Stop Time Status Last Admin Dose Admin Acetaminophen (Tylenol) 650 mg Q6H PRN ORAL Mild Pain/Temp > 100.5 11/09/18 09:15 12/08/18 03:14 Acetaminophen/ Hydrocodone Bitart ([place] 5/325) 1 tab Q6H PRN ORAL moderate pain 11/09/18 09:15 11/15/18 03:14 11/09/18 20:30 Albuterol/ Ipratropium (Albuterol/ Ipratropium) 3 ml Q4HRT PRN HHN Shortness of Breath 11/09/18 07:00 11/13/18 03:14 Anastrozole (Arimidex) 1 mg DAILY ORAL 11/09/18 09:00 12/09/18 08:59 11/09/18 09:58 Budesonide (Pulmicort) 0.5 mg Q12H PRN HHN wheezing 11/09/18 07:00 12/08/18 18:59 Carvedilol (Coreg) 3.125 mg EVERY 12 HOURS ORAL 11/09/18 09:00 12/08/18 20:59 11/09/18 20:26 Docusate Sodium (Colace) 100 mg DAILY ORAL 11/09/18 09:00 12/09/18 08:59 11/09/18 09:58 Escitalopram Oxalate (Lexapro) 10 mg DAILY ORAL 11/09/18 09:00 12/09/18 08:59 11/09/18 09:59 Heparin Sodium (Porcine) (Heparin 5000 units/ml) 5,000 units EVERY 12 HOURS SUBQ 11/09/18 09:00 12/08/18 08:59 11/09/18 20:28 Hydromorphone HCl (Dilaudid) 0.5 mg Q3H PRN IVP Severe Pain (Pain Scale 7-10) 11/09/18 09:00 11/16/18 08:59 Loratadine (Claritin 10mg) 10 mg DAILY ORAL 11/09/18 09:00 12/09/18 08:59 11/09/18 09:57 Ondansetron HCl (Zofran) 4 mg Q8H PRN IVP Nausea & Vomiting 11/09/18 06:30 12/09/18 06:29 Pantoprazole (Protonix) 40 mg ACBREAKFAST ORAL 11/09/18 06:30 12/09/18 06:29 11/10/18 06:12 Spironolactone (Aldactone) 50 mg DAILY ORAL 11/09/18 09:00 12/09/18 08:59 11/09/18 09:58 Last 24 Hour Vital Signs Date Time Temp Pulse Resp B/P (MAP) Pulse Ox O2 Delivery O2 Flow Rate FiO2 11/10/18 07:50 88 17 97 Room Air 21 11/10/18 04:00 97.9 77 18 111/76 (88) 98 11/10/18 04:00 76 11/10/18 00:00 75 11/10/18 00:00 96.9 72 18 108/81 (90) 95 11/09/18 21:00 Room Air 11/09/18 20:26 85 117/83 11/09/18 20:00 97.5 81 19 117/83 (94) 96 11/09/18 20:00 91 11/09/18 16:00 Nasal Cannula 2.0 11/09/18 16:00 84 11/09/18 16:00 99.3 85 18 114/71 (85) 96 11/09/18 12:00 Nasal Cannula 2.0 11/09/18 12:00 2.0 11/09/18 12:00 98.2 79 18 100/71 (81) 94 11/09/18 12:00 77 11/09/18 09:58 82 118/80 11/09/18 08:00 Nasal Cannula 2.0 11/09/18 08:00 2.0 11/09/18 08:00 72 11/09/18 08:00 98.2 82 18 118/80 (93) 95 11/09/18 04:00 2.0 11/09/18 04:00 98.0 94 20 95/67 (76) 94 11/09/18 04:00 72 11/09/18 04:00 Nasal Cannula 2.0 11/09/18 00:00 98.3 95 20 99/56 (70) 95 11/09/18 00:00 75 11/09/18 00:00 Nasal Cannula 2.0 11/08/18 20:29 81 97/68 11/08/18 20:00 2.0 11/08/18 20:00 77 11/08/18 20:00 98.4 81 20 97/68 (78) 94 11/08/18 20:00 Nasal Cannula 2.0 11/08/18 16:00 Nasal Cannula 3.0 11/08/18 16:00 72 11/08/18 16:00 2.0 11/08/18 16:00 98.6 76 20 100/67 (78) 97 11/08/18 12:00 Nasal Cannula 3.0 11/08/18 12:00 3.0 11/08/18 12:00 98.0 80 20 98/72 (81) 96 11/08/18 12:00 109 Intake and Output 11/09/18 11/10/18 18:59 06:59 Intake Total 480 ml Balance 480 ml Intake Oral 480 ml # Voids 3 2 Labs Test 11/07/18 18:59 11/07/18 20:59 11/08/18 03:45 11/08/18 12:36 White Blood Count 6.6 K/UL (4.8-10.8) 6.4 K/UL (4.8-10.8) Red Blood Count 3.72 M/UL (4.20-5.40) 3.69 M/UL (4.20-5.40) Hemoglobin 13.1 G/DL (12.0-16.0) 12.5 G/DL (12.0-16.0) Hematocrit 36.3 % (37.0-47.0) 36.1 % (37.0-47.0) Mean Corpuscular Volume 98 FL (80-99) 98 FL (80-99) Mean Corpuscular Hemoglobin 35.1 PG (27.0-31.0) 34.0 PG (27.0-31.0) Mean Corpuscular Hemoglobin Concent 35.9 G/DL (32.0-36.0) 34.8 G/DL (32.0-36.0) Red Cell Distribution Width 10.2 % (11.6-14.8) 10.4 % (11.6-14.8) Platelet Count 180 K/UL (150-450) 177 K/UL (150-450) Mean Platelet Volume 5.9 FL (6.5-10.1) 5.5 FL (6.5-10.1) Neutrophils (%) (Auto) 49.9 % (45.0-75.0) 45.5 % (45.0-75.0) Lymphocytes (%) (Auto) 34.9 % (20.0-45.0) 36.5 % (20.0-45.0) Monocytes (%) (Auto) 11.6 % (1.0-10.0) 13.6 % (1.0-10.0) Eosinophils (%) (Auto) 2.2 % (0.0-3.0) 2.6 % (0.0-3.0) Basophils (%) (Auto) 1.4 % (0.0-2.0) 1.7 % (0.0-2.0) Prothrombin Time 10.1 SEC (9.30-11.50) Prothromb Time International Ratio 0.9 (0.9-1.1) Activated Partial Thromboplast Time 28 SEC (23-33) Sodium Level 138 MMOL/L (136-145) 140 MMOL/L (136-145) Potassium Level 3.9 MMOL/L (3.5-5.1) 3.5 MMOL/L (3.5-5.1) Chloride Level 99 MMOL/L (98-107) 100 MMOL/L (98-107) Carbon Dioxide Level 35 MMOL/L (21-32) 32 MMOL/L (21-32) Anion Gap 4 mmol/L (5-15) 8 mmol/L (5-15) Blood Urea Nitrogen 32 mg/dL (7-18) 34 mg/dL (7-18) Creatinine 1.4 MG/DL (0.55-1.30) 1.2 MG/DL (0.55-1.30) Estimat Glomerular Filtration Rate 38.7 mL/min (>60) 46.2 mL/min (>60) Glucose Level 112 MG/DL (74-106) 97 MG/DL (74-106) Lactic Acid Level 1.00 mmol/L (0.4-2.0) Calcium Level 9.1 MG/DL (8.5-10.1) 9.3 MG/DL (8.5-10.1) Total Bilirubin 0.4 MG/DL (0.2-1.0) 0.5 MG/DL (0.2-1.0) Aspartate Amino Transf (AST/SGOT) 28 U/L (15-37) 25 U/L (15-37) Alanine Aminotransferase (ALT/SGPT) 23 U/L (12-78) 23 U/L (12-78) Alkaline Phosphatase 96 U/L (46-116) 92 U/L (46-116) Troponin I 0.000 ng/mL (0.000-0.056) Pro-B-Type Natriuretic Peptide 421 pg/mL (0-125) Total Protein 6.8 G/DL (6.4-8.2) 6.7 G/DL (6.4-8.2) Albumin 3.1 G/DL (3.4-5.0) 3.1 G/DL (3.4-5.0) Globulin 3.7 g/dL 3.6 g/dL Albumin/Globulin Ratio 0.8 (1.0-2.7) 0.9 (1.0-2.7) Venous Blood pH 7.444 Venous Blood Partial Pressure CO2 49.9 Venous Blood Partial Pressure O2 45.6 Venous Blood HCO3 33.4 Venous Blood Total Carbon Dioxide 49.9 Venous Bld O2 Saturation (Measured) 45.6 Venous Blood Oxygen Saturation 81.4 Venous Blood Base Excess 8.0 Methemoglobin 0.6 Lactate Dehydrogenase 257 U/L (81-234) Alpha Fetoprotein 2.7 ng/mL (0.0-8.3) Carcinoembryonic Antigen 5.9 ng/mL (0.0-4.7) CA 19-9 Antigen 1 U/mL (0-35) CA 125 Antigen 81.0 U/mL (0.0-38.1) Body Fluid Source Thoracentisis Body Fluid Volume 24 mL Body Fluid Appearance Clear (Clear) Body Fluid RBC 240 /CUMM Body Fluid Total Nucleated Cells 690 /CUMM Body Fluid Polynuclear WBCs (%) 1 % Body Fluid Mononuclear WBCs (%) 99 % Body Fluid Mesothelial Cells (%) 0 % Body Fluid Total Protein 4.5 g/dL (.) Body Fluid Lactate Dehydrogenase 134 IU/L (.) Test 11/09/18 03:20 Pro-B-Type Natriuretic Peptide 267 pg/mL (0-125) Height (Feet): 5 Height (Inches): 0.00 Weight (Pounds): 171 Objective Vital Signs reviewed Gen: Awake and alert, no acute distress HEENT: NC/AT. EOMI. Neck: Supple, trachea midline Chest Wall: No tenderness Cardiovascular: RRR. S1 and S2 normal Resp: Mild tachypnea with increased work of breathing, Bilateral crackles and sob++ Abdomen: Abdomen is soft, nondistended Skin: Intact. No abrasions, lacer, rash MSK: Normal tone and bulk. Moving all extremities. No obvious deformity. Neuro: Awake and alert. Esdras Jeff MD Nov 10, 2018 08:37
--- NOTE | 2018-11-10 08:46 | General Progress Note ---
Assessment/Plan Assessment/Plan: (1) Metastatic breast cancer to liver and bone (2) Intractable pain Patient to be continued on Wins[place] and Dilaudid D/w Dr. Crump and he concurred. Subjective Date patient seen: Nov 10, 2018 Time patient seen: 07:45 - am Allergies: Coded Allergies: No Known Allergies (Unverified , 11/07/18) Subjective REVIEW OF SYSTEMS: Denies rash, fever, chills, sweating, dizziness, drowsiness, blurred vision, sore throat, or change in her weight. No chest pain, palpitations, or cough. No nausea, vomiting, diarrhea, or blood in the stool or urine. No bowel or bladder incontinence. No dysuria. She is complaining of generalized body pain. SUBJECTIVE: Patient is in bed and showing no signs of pain or distress. Pain has been tolerated on the Winslow 1 dose and Dilaudid when needed not requested in the the last 24hrs. She describes the pain as a generalized aching which is worse with movement. Objective Last 24 Hour Vital Signs Date Time Temp Pulse Resp B/P (MAP) Pulse Ox O2 Delivery O2 Flow Rate FiO2 11/10/18 08:37 98.0 79 22 99/57 (71) 96 11/10/18 07:50 88 17 97 Room Air 21 11/10/18 04:00 97.9 77 18 111/76 (88) 98 11/10/18 04:00 76 11/10/18 00:00 75 11/10/18 00:00 96.9 72 18 108/81 (90) 95 11/09/18 21:00 Room Air 11/09/18 20:26 85 117/83 11/09/18 20:00 97.5 81 19 117/83 (94) 96 11/09/18 20:00 91 11/09/18 16:00 Nasal Cannula 2.0 11/09/18 16:00 84 11/09/18 16:00 99.3 85 18 114/71 (85) 96 11/09/18 12:00 Nasal Cannula 2.0 11/09/18 12:00 2.0 11/09/18 12:00 98.2 79 18 100/71 (81) 94 11/09/18 12:00 77 11/09/18 09:58 82 118/80 Intake and Output 11/09/18 11/10/18 18:59 06:59 Intake Total 480 ml Balance 480 ml Intake Oral 480 ml # Voids 3 2 Height (Feet): 5 Height (Inches): 0.00 Weight (Pounds): 171 Objective GENERAL: Alert, awake, and oriented. LUNGS: Decreased breath sounds bilaterally. HEART: S1 and S2 regular. ABDOMEN: Obese. EXTREMITIES: No cyanosis. No clubbing. No edema. NEURO: No changes. Eugene Bell Nov 10, 2018 08:46
[2018-11-10] MEDS: Anastrazole 1mg tab ORAL SCH (08:53)
[2018-11-10] MEDS: Spironolactone 50mg tab ORAL SCH (08:53)
[2018-11-10] MEDS: Docusate 100mg cap ORAL SCH (08:54)
[2018-11-10] MEDS: Heparin 5000 units/ml inj SUBQ SCH (08:55)
--- NOTE | 2018-11-10 10:50 | NUR ---
RADIOLOGY DEPT., CHEST X-RAY DONE.-P.DYE
[2018-11-10 12:00] VITALS: BP 122/93
--- NOTE | 2018-11-10 12:23 | General Progress Note ---
Assessment/Plan Problem List: (1) Pleural effusion ICD Codes: J90 - Pleural effusion, not elsewhere classified SNOMED: 91364523 (2) Metastatic breast cancer ICD Codes: C50.919 - Malignant neoplasm of unspecified site of unspecified female breast SNOMED: 056363725, 481541322 (3) Hypoxia ICD Codes: R09.02 - Hypoxemia SNOMED: 310945854 Status: progressing Assessment/Plan: pleural effusion thoracocentesis cancer staging afebrile generalized pain and upper trunk pain not hypoxic Subjective ROS Limited/Unobtainable: Yes Allergies: Coded Allergies: No Known Allergies (Unverified , 11/07/18) Objective Last 24 Hour Vital Signs Date Time Temp Pulse Resp B/P (MAP) Pulse Ox O2 Delivery O2 Flow Rate FiO2 11/10/18 08:54 79 99/57 11/10/18 08:39 Room Air 11/10/18 08:37 98.0 79 22 99/57 (71) 96 11/10/18 07:50 88 17 97 Room Air 21 11/10/18 07:42 81 11/10/18 04:00 97.9 77 18 111/76 (88) 98 11/10/18 04:00 76 11/10/18 00:00 75 11/10/18 00:00 96.9 72 18 108/81 (90) 95 11/09/18 21:00 Room Air 11/09/18 20:26 85 117/83 11/09/18 20:00 97.5 81 19 117/83 (94) 96 11/09/18 20:00 91 11/09/18 16:00 Nasal Cannula 2.0 11/09/18 16:00 84 11/09/18 16:00 99.3 85 18 114/71 (85) 96 Intake and Output 11/09/18 11/10/18 18:59 06:59 Intake Total 480 ml Balance 480 ml Intake Oral 480 ml # Voids 3 2 Height (Feet): 5 Height (Inches): 0.00 Weight (Pounds): 171 Neck: supple Cardiovascular: normal rate Respiratory/Chest: lungs clear Sachin Szymanski MD Nov 10, 2018 12:23
--- NOTE | 2018-11-10 12:36 | Diagnostic Imaging Report ---
Indication: Dyspnea Comparison: 11/08/2018 A single view chest radiograph was obtained. Findings: There is a right chest port present. There is a small left pleural effusion suspected with silhouetting of the left hemidiaphragm which is not seen. Suspected mild pulmonary vascular congestion with slightly prominent cephalized vessels. IMPRESSION: Small left pleural effusion. Suspected mild pulmonary vascular congestion
--- NOTE | 2018-11-10 13:21 | NUR ---
DISCHARGE SWALLOW/SPEECH THERAPY SUMMARY: PATIENT SEEN FOR DYSPHAGIA, SEE SWALLOW EVALUATION REPORT. GOALS MET FOR INTAKE ON REG TEXTURE DIET AND THIN LIQUIDS W/O REPORTED ASPIRATION/REFLUX. GOALS MET FOR STAFF EDUCATED/TRAINED IN PRECAUTIONS. MOD BARIUM SWALLOW STUDY NOT COMPLETED DUE TO SCHEDULE CONFLICTS. PATIENT TO BE D/C TODAY PLAN: F/UP WITH OIL OPERATOR AT SNF FOR DYSPHAGIA MANAGEMENT/TX IF NEEDS AND OUTPT MOD BARIUM SWALLOW STUDY IF INDICATED. D/W RN (BETH) AND PATIENT
--- NOTE | 2018-11-10 13:27 | NUR ---
*-* INSURANCE *-* ALL CLINICALS AND REVIEWS HAVE BEEN FAXED TO: [facility] [employer] FAX ALL CLINICALS TO: [phone]
--- NOTE | 2018-11-10 14:58 | NUR ---
CASE MANAGEMENT:REVIEW 11/10/18 SI HYPOXIA; PLEURAL EFFUSION 98.0 82 22 99/57 96% RA IS: PROTONIX PO AC ALDACTONE PO QD HEPARIN SQ Q12 COREG PO QD ARMIDEX PO QD IV MORPHINE X1 : TO MED SURG DCP: TO RETURN TO [facility] CONV. PLAN: SPEECH EVAL COMPLETE
[2018-11-10 16:00] VITALS: BP 151/95
--- NOTE | 2018-11-10 16:46 | NUR ---
DISCHARGE PLANNED: PATIENT TO RETURN TO [facility] CONV. T: [phone] F:[phone] [facility] HAS BEEN PLACE ON WILL CALL NURSE TO CALL AND ACTIVE Addendum: 11/10/18 at 1701 by AUSTIN HERZOG LVN LVN GOING TO ROOM 3A [facility] WILL ARRIVE AT 1730
--- NOTE | 2018-11-10 18:12 | NUR ---
NURSE NOTES: Pt discharge order in by Md Szymanski, Called Gordo Perea gave report to [place] pt going to room 3A, pt calm and cooperative, pt dressed and has all her belongings, vital WNL, pt is stable and does ambulate with cane. 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
--- NOTE | 2018-11-10 21:33 | Pulmonology Progress Note ---
Assessment/Plan Assessment/Plan Pulmonary Progress Note HPI Patient is a 57 year old woman with a history of metastatic breast cancer with extensive bony and liver metatstasis, diagnosed approximately 1 year ago. She is currently undergoing chemotherapy and radiation therapy. Is admitted complaining of worsening shortness of breath for a few days, no chest pain or hemoptysis, worsening mid back pain which is consistent with her prior metastases. She has required thoracentesis in the past, last time September 2018. Noted to have a left pleural effusion. No other symptoms at this time. No recent cough, fevers, sore throat, abdominal pain, vomiting, diarrhea or skin rash. S/p thoracentesis PMH: Metastatic breast cancer, Anxiety PSH: Hip surgery Social History: Nodrug, alcohol, tobacco use Allergies: No Known Allergies Less SOB, up in chair, on RA Physical Exam Vital Signs Noted General: Awake and alert, no acute distress HEENT: NC/AT. EOMI. Neck: Supple, trachea midline Chest Wall: No tenderness, no deformity Cardiovascular: RRR. S1 and S2 normal. No murmur appreciated Resp: Mild tachypnea with increased work of breathing. No cough. No wheezing. Few bibasal crackles. Redyuced BS LLZ Abdomen: Abdomen is soft, nondistended. Nontender Skin: Intact. No abrasions, laceration or rash over the exposed skin MSK: Normal tone and bulk. Moving all extremities. No obvious deformity. Significant lymphedema in the left upper extremity. Nontender. Neuro: Awake and alert. Oriented x 4. No focal signs Impression: Metastatic Breast Cancer to Bone, Liver, Pleura Previous chemotherapy Recurrent Pleural Effusion Hypoxia Need to r/o DVT/PE Cancer associated pain DNAR status Plan May require VATS pleuradesis if pleural effusion reccurs VQ scan low prob LE dupplex negative Echocardiogram NPA level Diurese PRN Laboratory Tests Test 11/07/18 18:59 White Blood Count 6.6 K/UL (4.8-10.8) Red Blood Count 3.72 M/UL (4.20-5.40) L Hemoglobin 13.1 G/DL (12.0-16.0) Hematocrit 36.3 % (37.0-47.0) L Mean Corpuscular Volume 98 FL (80-99) Mean Corpuscular Hemoglobin 35.1 PG (27.0-31.0) H Mean Corpuscular Hemoglobin Concent 35.9 G/DL (32.0-36.0) Red Cell Distribution Width 10.2 % (11.6-14.8) L Platelet Count 180 K/UL (150-450) Mean Platelet Volume 5.9 FL (6.5-10.1) L Neutrophils (%) (Auto) 49.9 % (45.0-75.0) Lymphocytes (%) (Auto) 34.9 % (20.0-45.0) Monocytes (%) (Auto) 11.6 % (1.0-10.0) H Eosinophils (%) (Auto) 2.2 % (0.0-3.0) Basophils (%) (Auto) 1.4 % (0.0-2.0) Prothrombin Time 10.1 SEC (9.30-11.50) Prothrombin Time INR 0.9 (0.9-1.1) PTT 28 SEC (23-33) Sodium Level 138 MMOL/L (136-145) Potassium Level 3.9 MMOL/L (3.5-5.1) Chloride Level 99 MMOL/L (98-107) Carbon Dioxide Level 35 MMOL/L (21-32) H Anion Gap 4 mmol/L (5-15) L Blood Urea Nitrogen 32 mg/dL (7-18) H Creatinine 1.4 MG/DL (0.55-1.30) H Estimate Glomerular Filtration Rate 38.7 mL/min (>60) Glucose Level 112 MG/DL (74-106) H Lactic Acid Level 1.00 mmol/L (0.4-2.0) Calcium Level 9.1 MG/DL (8.5-10.1) Total Bilirubin 0.4 MG/DL (0.2-1.0) Aspartate Amino Transferase (AST) 28 U/L (15-37) Alanine Aminotransferase (ALT) 23 U/L (12-78) Alkaline Phosphatase 96 U/L (46-116) Troponin I 0.000 ng/mL (0.000-0.056) Pro-B-Type Natriuretic Peptide 421 pg/mL (0-125) H Total Protein 6.8 G/DL (6.4-8.2) Albumin 3.1 G/DL (3.4-5.0) L Globulin 3.7 g/dL Albumin/Globulin Ratio 0.8 (1.0-2.7) L EKG: Rhythm: NSR ST Segments: no acute changes Other Impression Sinus rhythm, normal axis, prolonged IA interval consistent with first-degree AV block. No ST segment changes. Q waves in the inferior leads. Chest X-Ray: no consolidation, no pneumothorax, other - Obscuring of the left cost to phrenic angle, possible effusion. VQ: Low probability LE dupplex: Negative Subjective ROS Limited/Unobtainable: No Allergies: Coded Allergies: No Known Allergies (Unverified , 11/07/18) Objective Last 24 Hour Vital Signs Date Time Temp Pulse Resp B/P (MAP) Pulse Ox O2 Delivery O2 Flow Rate FiO2 11/10/18 16:00 98.3 88 22 151/95 (113) 96 11/10/18 15:25 85 11/10/18 12:00 98.0 88 23 122/93 (103) 95 11/10/18 11:46 88 11/10/18 08:54 79 99/57 11/10/18 08:39 Room Air 11/10/18 08:37 98.0 79 22 99/57 (71) 96 11/10/18 07:50 88 17 97 Room Air 21 11/10/18 07:42 81 11/10/18 04:00 97.9 77 18 111/76 (88) 98 11/10/18 04:00 76 11/10/18 00:00 75 11/10/18 00:00 96.9 72 18 108/81 (90) 95 Intake and Output 11/09/18 11/10/18 19:00 07:00 Intake Total 480 ml Balance 480 ml Intake Oral 480 ml # Voids 3 2 Microbiology Date/Time Source Procedure Growth Status 11/08/18 12:36 Body Fluid Gram Stain - Final Resulted 11/08/18 12:36 Body Fluid Body Fluid Culture - Preliminary NO GROWTH AFTER 24 HOURS Resulted 11/07/18 22:00 Nasal Nares MRSA Culture - Final NO METHICILLIN RESISTANT STAPH AUREUS... Complete 11/07/18 22:00 Rectum - Final NO CARBAPENEM-RESISTANT ENTEROBACTERI... Complete 11/07/18 22:00 Rectum VRE Culture - Final NO VANCOMYCIN RESISTANT ENTEROCOCCUS ... Complete Owen Johnson MD Nov 10, 2018 21:33
--- NOTE | 2018-11-12 16:53 | Discharge Summary ---
Discharge Summary Discharge Summary _ DATE OF ADMISSION: 11/07/2018 DATE OF DISCHARGE: 11/10/2018 DISCHARGED BY: Dr. Sachin Blanc CONSULTANTS: Dr. Owen Jeff BRIEF HOSPITAL COURSE: Patient is a 57-year-old female, with history of metastatic breast cancer, currently undergoing chemotherapy and radiation, presented to ED for evaluation of shortness of breath. Patient had been complaining of mid back pain which was consistent with her prior metastasis. She also noted progressive shortness of breath for the past few days. She had required thoracentesis in the past, last time was September 2018. She was found hypoxic by EMS and improved with oxygenation. She denied chest pain. Denied recent cough, fever, sore throat, abdominal pain, vomiting, diarrhea, or skin rash. Upon evaluation at the ED, vital signs were stable. Blood work did not show any leukocytosis. Hemoglobin 13, hematocrit 36. BUN was elevated to 32, creatinine 1.4. Troponin was negative. proBNP 421. EKG showed sinus rhythm, normal axis, prolonged NE interval consistent with first-degree AV block. No ST segment changes. Q waves in the inferior leads. Chest x-ray showed obscured left hemidiaphragm, probably pleural effusion. She was then admitted for evaluation of hypoxia, metastatic breast cancer. She was admitted to the medical floor. She was given nebulizer treatment. She was given O2 support. She was placed on diuresis. Venous duplex of bilateral lower extremity did not show any acute DVT. VQ scan showed findings low probability for PE. She underwent thoracenteses that yielded 500 mL of fluid. Chest x-ray post thoracentesis showed resolved basilar opacities. No radiographic evident of complication. CT scanning of the chest, abdomen and pelvis showed evidence of metastatic malignant neoplasm involving the bones. Extensive involvement of the spine and sternum bones nonspecific hypodensities within the liver. Abnormal appearance of the left anterior chest wall with subcutaneous reticulation and skin thickening presumably on the basis of previous radiation and or surgery. Bilateral pleural effusions. She was followed by an oncologist. Patient with metastatic breast cancer, diagnosed approximately a year ago. She has been in the past received radiation therapy. She was given pain management. She was given pain management with norco an Dilaudid CT scan was ordered to restage. Cytology of pleural fluid was negative for malignancy. FINAL DIAGNOSES: Metastatic breast cancer to, bone, liver and pleura Recurrent pleural effusion hypoxia cancer associated pain Anemia of chronic disease DNAR DISPOSITION: DC to SNF. I have been assigned to complete a discharge summary on this account, I was not involved with the patient's management.--CESARIO Hill Jacqueline Robles NP Nov 12, 2018 16:53
--- NOTE | 2018-11-13 09:34 | Cardiology Report ---
APPROVED REPORT EXAM: Two-dimensional and M-mode echocardiogram with Doppler and color Doppler. M-Mode DIMENSIONS IVSd1.0 (0.7-1.1cm)Left Atrium (MM)4.0 (1.6-4.0cm) LVDd5.0 (3.5-5.6cm)Aortic Root2.5 (2.0-3.7cm) PWd0.9 (0.7-1.1cm)Aortic Cusp Exc.1.7 (1.5-2.0cm) IVSs1.4 cm LVDs2.8 (2.5-4.0cm) PWs1.7 cm Normal left ventricular chamber size, systolic function and wall motion . Left ventricular ejection fraction estimated to be 55 %. No evidence of left ventricular hypertrophy . Small posterior pericardial effusion. All other cardiac chamber sizes are within normal limits. Focal aortic valve sclerosis with adequate cusp excursion. Thickened mitral valve leaflets with normal excursion. Mitral annulus and aortic root calcification. Normal pulmonic valve structure. Normal tricuspid valve structure. IVC at normal size with physiologic collapse. A color flow and spectral Doppler study was performed and revealed: Trace aortic regurgitation.. Trace mitral regurgitation. Mitral inflow indicates normal left ventricular diastolic function. Trace tricuspid regurgitation. Tricuspid systolic velocities suggests peak right ventricular systolic pressure of 11 mmHg.
--- NOTE | 2018-11-13 16:19 | NUR ---
*-* INSURANCE *-* DISCHARGE SUMMARY HAS BEEN FAXED TO: [email or web address] FAX ALL CLINICALS TO: [phone]
== END 2018-11-10 18:25 | DRG 382 ==
LOC: EDBD 18:01 → EMR 18:50 → EDBEDREQSVC 21:31 → EDBEDREQ 21:37 → 2W 22:14 → EDBEDREQ 22:29 → 2E 11-09 06:09
PROC: 0W9B3ZZ Drainage of Left Pleural Cavity, Percutaneous Approach (ICD-10-PCS; principal; 2018-11-08)
DX: C50.912 Malignant neoplasm of unspecified site of left female breast (principal); R09.02 Hypoxemia; J91.0 Malignant pleural effusion; C79.51 Secondary malignant neoplasm of bone; C78.7 Secondary malignant neoplasm of liver and intrahepatic bile duct; G89.3 Neoplasm related pain (acute) (chronic); F41.9 Anxiety disorder, unspecified; F43.10 Post-traumatic stress disorder, unspecified; Z79.899 Other long term (current) drug therapy; I44.0 Atrioventricular block, first degree; Z66 Do not resuscitate
CPT/HCPCS: 36415; 71045; 71260; 74177; 76942; 78579; 78580; 80053; 82105; 82378; 83605; 83615; 83880; 84484; 85025; 85610; 85730; 86304; 86850; 86900; 86901; 87040; 87070; 87081; 87205; 88104; 89051; 93005; 93306; 93970; 94664; 96374; 99285; A9503

== ENCOUNTER 2019-01-08 16:10 | Inpatient (IN) | payer MEDICAID ==
[~2019-01-08] VITALS: Ht 157.5 cm; Wt 79.4 kg
[~2019-01-08 16:10] MED LIST: AMBIEN10 M1 ORAL; ANASTROZOLE1 MG PO; CLARITIN10 M2 ORAL; COLACE100 MG ORAL; COREG3.125 MG ORAL; DIFLUCAN100 MG ORAL; IBUPROFEN600 MG ORAL; K-DUR20 MEQ ORAL; LEXAPRO10 MG ORAL; LOVENOX10 M4 SUBQ; MIRALAX17 G2 ORAL; MORPHINE 22 MG/1 ML IV; OXYCONTIN20 MG ORAL; PROTONIX40 MG ORAL; PULMICORT0.5 MG/2 M IH; SPIRONOLACTONE50 MG ORAL
[2019-01-08 17:17] LABS: APPEARANCE,URINE CLEAR; BILIRUBIN, URINE NEGATIVE (NEGATIVE); COLOR,URINE PALE YELLOW; GLUCOSE, URINE (UA) NEGATIVE (NEGATIVE); KETONES,URINE NEGATIVE (NEGATIVE); LEUKOCYTE ESTERASE ,URINE 2+ (NEGATIVE); NITRITE,URINE NEGATIVE (NEGATIVE); PH,URINE 5 (4.5-8.0); PROTEIN,URINE NEGATIVE (NEGATIVE); UROBILINOGEN,URINE NORMAL MG/DL (0.0-1.0)
[2019-01-08 17:18] LABS: BASOPHILS % (AUTO) 0.9 % (0.0-2.0); EOSINOPHILS % (AUTO) 0.5 % (0.0-3.0); HEMOGLOBIN 12.9 G/DL (12.0-16.0); MEAN CORPUSCULAR VOLUME 98 FL (80-99); MONOCYTES % (AUTO) 13.2 % (1.0-10.0); NEUTROPHILS % (AUTO) 63.4 % (45.0-75.0); PLATELET COUNT 207 K/UL (150-450); RED BLOOD COUNT 3.78 M/UL (4.20-5.40); WHITE BLOOD COUNT 10.5 K/UL (4.8-10.8)
[2019-01-08] MEDS ORDERED: BISACODYL5 MG ORAL (17:26)
[2019-01-08] MEDS ORDERED: IBUPROFEN600 MG ORAL (17:26)
[2019-01-08] MEDS ORDERED: ANASTROZOLE1 MG PO (17:26)
[2019-01-08] MEDS ORDERED: LOVENOX10 M4 SUBQ (17:26)
[2019-01-08] MEDS ORDERED: LEXAPRO10 MG ORAL (17:26)
[2019-01-08] MEDS ORDERED: LORATADINE10 M2 PO (17:26)
[2019-01-08] MEDS ORDERED: FERROUS SULFAT325 MG ORAL (17:26)
[2019-01-08] MEDS ORDERED: ZAROXOLYN2.5 MG ORAL (17:26)
[2019-01-08] MEDS ORDERED: COREG3.125 MG ORAL (17:26)
[2019-01-08] MEDS ORDERED: DOCUSATE SODIU100 MG ORAL (17:26)
[2019-01-08] MEDS ORDERED: MIRALAX17 G2 ORAL (17:26)
[2019-01-08] MEDS ORDERED: BUMETANIDE0.5 MG ORAL (17:26)
[2019-01-08] MEDS ORDERED: NORCO 5-325 TA1 EACH ORAL (17:30)
[2019-01-08] MEDS ORDERED: PANTOPRAZOLE SO20 MG ORAL (17:30)
[2019-01-08] MEDS ORDERED: ROXICODONE5 MG ORAL (17:30)
[2019-01-08] MEDS ORDERED: POTASSIUM CHLO20 ME1 ORAL (17:30)
[2019-01-08] MEDS ORDERED: SPIRONOLACTONE100 MG ORAL (17:30)
[2019-01-08] MEDS ORDERED: MULTIVITAMINS1 EAC2 ORAL (17:30)
[2019-01-08] MEDS ORDERED: [UNRECOGNIZED DRUG - OTHER] ORAL (17:30)
[2019-01-08 17:31] VITALS: BP 108/68
[2019-01-08] MEDS ORDERED: VITAMIN D22000 UNIT PO (17:31)
[2019-01-08] MEDS ORDERED: VITAMIN B122500 MCG PO (17:31)
[2019-01-08] MEDS ORDERED: ACETAMINOPHEN325 M1 ORAL (17:31)
[2019-01-08 17:42] LABS: ANION GAP 6 mmol/L (5-15); BLOOD UREA NITROGEN 26 mg/dL (7-18); CALCIUM 7.8 MG/DL (8.5-10.1); CARBON DIOXIDE 34 MMOL/L (21-32); CHLORIDE 98 MMOL/L (98-107); CREATININE 1.1 MG/DL (0.55-1.30); POTASSIUM 3.6 MMOL/L (3.5-5.1); SODIUM 137 MMOL/L (136-145)
[2019-01-08 17:55] LABS: ALANINE AMINOTRANSFERASE 34 U/L (12-78); ALBUMIN 3.1 G/DL (3.4-5.0); ALBUMIN/GLOBULIN RATIO 0.8 (1.0-2.7); ALKALINE PHOSPHATASE 91 U/L (46-116); ASPARTATE AMINO TRANSFERASE 28 U/L (15-37); BILIRUBIN,TOTAL 0.6 MG/DL (0.2-1.0)
[2019-01-08] MEDS ORDERED: Piperacillin/Tazobactam 3.375 GM in NS 110 ML IVPB ONE (18:15)
--- NOTE | 2019-01-08 19:01 | Diagnostic Imaging Report ---
Indication: Left upper extremity pain and swelling. Technique: Duplex Doppler imaging of the veins in the left upper extremity performed. FINDINGS: The jugular and subclavian veins demonstrate normal color flow and waveform signal. No evidence of thrombosis. Continuation to the axillary vein, brachial, cephalic and basilic veins show no evidence of thrombosis with good compressibility, normal color flow and waveform analysis. IMPRESSION: No evidence of thrombosis involving the left upper extremity in question.
[2019-01-08 19:09] VITALS: BP 149/47
[2019-01-08] MEDS ORDERED: Acetaminophen 500mg (ES) tab ORAL ONE (19:15)
--- NOTE | 2019-01-08 19:41 | Emergency Room Report ---
History of Present Illness General Chief Complaint: Fever Source: Patient, EMS Present Illness HPI 58-year-old female presents ED for evaluation. Brought in by EMS from senior care facility. Has fever x1 day. Notes redness and swelling to her left upper extremity and left breast. History of breast cancer. Denies cough. Denies dysuria hematuria. Denies chest pain or shortness of breath. No other aggravating relieving factors. Denies any other associated symptoms Allergies: Coded Allergies: No Known Allergies (Unverified , 11/07/18) Patient History Past Medical History: other - breast cancer Past Surgical History: none Pertinent Family History: none Social History: Denies: smoking, alcohol use, drug use Now: No Immunizations: UTD Reviewed Nursing Documentation: PMH: Agreed; PSxH: Agreed Nursing Documentation-PMH Hx Cancer: Yes Hx Gastrointestinal Problems: No Hx Neurological Problems: No Review of Systems All Other Systems: negative except mentioned in HPI Physical Exam Vital Signs Date Time Temp Pulse Resp B/P (MAP) Pulse Ox O2 Delivery O2 Flow Rate FiO2 01/08/19 16:13 99.1 92 18 100/66 (77) 93 Room Air Sp02 EP Interpretation: reviewed, normal General Appearance: no apparent distress, alert, GCS 15, non-toxic Head: normocephalic, atraumatic Eyes: bilateral eye normal inspection, bilateral eye PERRL ENT: hearing grossly normal, normal pharynx, no angioedema, normal voice Neck: full range of motion, supple/symm/no masses Respiratory: chest non-tender, lungs clear, normal breath sounds, speaking full sentences Cardiovascular #1: regular rate, rhythm, no edema Cardiovascular #2: 2+ carotid (R), 2+ carotid (L), 2+ radial (R), 2+ radial (L) , 2+ dorsalis pedis (R), 2+ dorsalis pedis (L) Gastrointestinal: normal bowel sounds, non tender, soft, non-distended, no guarding, no rebound Rectal: deferred Genitourinary: normal inspection, no CVA tenderness Musculoskeletal: back normal, normal range of motion, gait/station normal, non- tender, swelling - LUE swelling Neurologic: alert, motor strength/tone normal, oriented x3, sensory intact, responsive, speech normal Psychiatric: judgement/insight normal, memory normal, mood/affect normal, no suicidal/homicidal ideation Reflexes: 3+ bicep (R), 3+ bicep (L), 3+ tricep (R), 3+ tricep (L), 3+ knee (R) , 3+ knee (L) Skin: other - erythema/induration L breast, LUE Lymphatic: no adenopathy Medical Decision Making Diagnostic Impression: Primary Impression: Cellulitis of left upper extremity Additional Impressions: UTI (urinary tract infection) Qualified Codes: N39.0 - Urinary tract infection, site not specified Pleural effusion ER Course Hospital Course 58 yo F presents with LUE swelling/redness. fever Differential diagnoses include: Cellulitis, DVT, abscess, rash. Clinical course Patient placed on stretcher. After initial history and physical I ordered labs , blood Cx, UA, IVFs, doppler US of LUE labs reviewed - leukocytosis, Hb/Hct stable, no electrolyte abnormalities. UA + bacteria Doppler US - no evidence of DVT CXR - small L pleural effusion antibiotics given. tylenol given. Case discussed with Dr Szymanski and he agreed to accept the patient to his service for further care and support. Dr Jeff will consult Diagnosis - cellulitis of LUE, UTI, pleural effusion Patient admitted to floor in serious condition Labs Test 01/08/19 17:05 White Blood Count 10.5 K/UL (4.8-10.8) Red Blood Count 3.78 M/UL (4.20-5.40) Hemoglobin 12.9 G/DL (12.0-16.0) Hematocrit 37.0 % (37.0-47.0) Mean Corpuscular Volume 98 FL (80-99) Mean Corpuscular Hemoglobin 34.0 PG (27.0-31.0) Mean Corpuscular Hemoglobin Concent 34.7 G/DL (32.0-36.0) Red Cell Distribution Width 12.0 % (11.6-14.8) Platelet Count 207 K/UL (150-450) Mean Platelet Volume 5.5 FL (6.5-10.1) Neutrophils (%) (Auto) 63.4 % (45.0-75.0) Lymphocytes (%) (Auto) 22.0 % (20.0-45.0) Monocytes (%) (Auto) 13.2 % (1.0-10.0) Eosinophils (%) (Auto) 0.5 % (0.0-3.0) Basophils (%) (Auto) 0.9 % (0.0-2.0) Urine Color Pale yellow Urine Appearance Clear Urine pH 5 (4.5-8.0) Urine Specific [place] 1.015 (1.005-1.035) Urine Protein Negative (NEGATIVE) Urine Glucose (UA) Negative (NEGATIVE) Urine Ketones Negative (NEGATIVE) Urine Blood Negative (NEGATIVE) Urine Nitrite Negative (NEGATIVE) Urine Bilirubin Negative (NEGATIVE) Urine Urobilinogen Normal MG/DL (0.0-1.0) Urine Leukocyte Esterase 2+ (NEGATIVE) Urine RBC 0-2 /HPF (0 - 2) Urine WBC 10-15 /HPF (0 - 2) Urine Squamous Epithelial Cells Moderate /LPF (NONE/OCC) Urine Bacteria Moderate /HPF (NONE) Sodium Level 137 MMOL/L (136-145) Potassium Level 3.6 MMOL/L (3.5-5.1) Chloride Level 98 MMOL/L (98-107) Carbon Dioxide Level 34 MMOL/L (21-32) Anion Gap 6 mmol/L (5-15) Blood Urea Nitrogen 26 mg/dL (7-18) Creatinine 1.1 MG/DL (0.55-1.30) Estimat Glomerular Filtration Rate 50.8 mL/min (>60) Glucose Level 107 MG/DL (74-106) Lactic Acid Level 0.40 mmol/L (0.4-2.0) Calcium Level 7.8 MG/DL (8.5-10.1) Total Bilirubin 0.6 MG/DL (0.2-1.0) Aspartate Amino Transf (AST/SGOT) 28 U/L (15-37) Alanine Aminotransferase (ALT/SGPT) 34 U/L (12-78) Alkaline Phosphatase 91 U/L (46-116) Pro-B-Type Natriuretic Peptide 920 pg/mL (0-125) Total Protein 6.9 G/DL (6.4-8.2) Albumin 3.1 G/DL (3.4-5.0) Globulin 3.8 g/dL Albumin/Globulin Ratio 0.8 (1.0-2.7) Chest X-Ray Diagnostic Results Chest X-Ray Diagnostic Results : Chest X-Ray Ordered: Yes # of Views/Limited/Complete: 1 View Indication: Other EP Interpretation: Yes Interpretation: no pneumothorax, other - effusion LLL. port in place Impression: Other - small left pleural effusion Electronically Signed by: Electronically signed by Liu Lau MD Last Vital Signs Date Time Temp Pulse Resp B/P (MAP) Pulse Ox O2 Delivery O2 Flow Rate FiO2 01/08/19 19:09 101.1 93 14 149/47 100 Room Air Status: improved Disposition: ADMITTED INPATIENT Condition: Serious Referrals: NON PHYSICIAN (PCP) Liu Lau MD Jan 08, 2019 19:41
[2019-01-08 20:00] VITALS: BP 131/78
[2019-01-08] MEDS ORDERED: HYDROcodone/Acetamin 5/325 tab ORAL PRN (23:45)
[2019-01-08] MEDS ORDERED: oxyCODONE 5mg IR tab ORAL PRN (23:45)
[2019-01-08] MEDS ORDERED: Ondansetron ODT 8mg tab ORAL PRN (23:45)
[2019-01-09] MEDS: Vancomycin 1.5gm/D5W 275ml IVPB SCH ×4 (00:24→23:05)
[2019-01-09] MEDS: Piperacillin/Tazobactam 3.375 GM in NS 110 ML IVPB SCH ×3 (02:00→18:07)
[2019-01-09 04:00] VITALS: BP 118/76
[2019-01-09] MEDS ORDERED: oxyCODONE 5mg IR tab ORAL PRN (05:00)
[2019-01-09] MEDS ORDERED: HYDROcodone/Acetamin 5/325 tab ORAL PRN (05:45)
--- NOTE | 2019-01-09 05:59 | Consultation ---
History of Present Illness General Chief Complaint: Fever Present Illness Allergies: Coded Allergies: No Known Allergies (Unverified , 11/07/18) Medication History Scheduled Anastrozole* (Arimidex*), 1 MG PO DAILY, (Reported) Bumetanide* (Bumetanide*), 0.5 MG ORAL BID, (Reported) Carvedilol (Coreg), 3.125 MG ORAL EVERY 12 HOURS, (Reported) Cyanocobalamin (Vitamin B-12) (Vitamin B12), 1,000 MCG PO DAILY, (Reported) Docusate Sodium* (Docusate Sodium*), 100 MG ORAL TWICE A DAY, (Reported) Enoxaparin* (Lovenox*), 40 MG SUBQ DAILY, (Reported) Ergocalciferol (Vitamin D2) (Vitamin D2), 50,000 UNIT PO DAILY, (Reported) Escitalopram Oxalate* (Lexapro*), 10 MG ORAL DAILY, (Reported) Ferrous Sulfate* (Ferrous Sulfate*), 325 MG ORAL DAILY, (Reported) Loratadine (Loratadine), 10 MG PO DAILY, (Reported) Metolazone (Metolazone), 2.5 MG ORAL BID, (Reported) Multivitamins* (Multivitamins*), 1 TAB ORAL DAILY, (Reported) Pantoprazole (Pantoprazole), 40 MG ORAL DAILY, (Reported) Polyethylene Glycol 3350* (Miralax*), 17 GM ORAL DAILY, (Reported) Potassium Chloride* (K-Dur*), 20 MEQ ORAL TID, (Reported) Spironolactone* (Spironolactone*), 50 MG ORAL DAILY, (Reported) [Prostat Sugar], 30 ML ORAL DAILY, (Reported) Scheduled PRN Acetaminophen* (Acetaminophen 325MG Tablet*), 650 MG ORAL Q4H PRN for For Pain, (Reported) Bisacodyl* (Dulcolax*), 10 MG ORAL ONCE PRN for Constipation, (Reported) Hydrocodone Bit/Acetaminophen 5-325* (Wallace 5-325*), 1 TAB ORAL Q6H PRN for For Pain, (Reported) Ibuprofen* (Motrin*), 400 MG ORAL Q6H PRN for For Pain, (Reported) Oxycodone HCl (Oxycodone HCl), 20 MG ORAL Q12HR PRN for For Pain, (Reported) Patient History Healthcare decision maker Resuscitation status Do Not Resuscitate Advanced Directive on File Physical Exam Last 24 Hour Vital Signs Date Time Temp Pulse Resp B/P (MAP) Pulse Ox O2 Delivery O2 Flow Rate FiO2 01/09/19 04:00 97.3 77 18 118/76 (90) 96 01/09/19 00:47 Room Air 01/08/19 20:00 100.0 88 19 131/78 100 Room Air 01/08/19 20:00 100.0 88 19 131/78 100 Room Air 01/08/19 19:44 101.1 01/08/19 19:09 101.1 93 14 149/47 100 Room Air 01/08/19 17:31 99.1 78 18 108/68 93 Room Air 01/08/19 16:20 92 18 Room Air 01/08/19 16:13 99.1 92 18 100/66 (77) 93 Room Air Intake and Output 01/08/19 01/09/19 19:00 07:00 Intake Total 130 ml Balance 130 ml Intake IV Total 130 ml # Voids 1 Laboratory Tests Test 01/08/19 17:05 01/09/19 05:20 White Blood Count 10.5 K/UL (4.8-10.8) Pending Red Blood Count 3.78 M/UL (4.20-5.40) L Pending Hemoglobin 12.9 G/DL (12.0-16.0) Pending Hematocrit 37.0 % (37.0-47.0) Pending Mean Corpuscular Volume 98 FL (80-99) Pending Mean Corpuscular Hemoglobin 34.0 PG (27.0-31.0) H Pending Mean Corpuscular Hemoglobin Concent 34.7 G/DL (32.0-36.0) Pending Red Cell Distribution Width 12.0 % (11.6-14.8) Pending Platelet Count 207 K/UL (150-450) Pending Mean Platelet Volume 5.5 FL (6.5-10.1) L Pending Neutrophils (%) (Auto) 63.4 % (45.0-75.0) Pending Lymphocytes (%) (Auto) 22.0 % (20.0-45.0) Pending Monocytes (%) (Auto) 13.2 % (1.0-10.0) H Pending Eosinophils (%) (Auto) 0.5 % (0.0-3.0) Pending Basophils (%) (Auto) 0.9 % (0.0-2.0) Pending Urine Color Pale yellow Urine Appearance Clear Urine pH 5 (4.5-8.0) Urine Specific [place] 1.015 (1.005-1.035) Urine Protein Negative (NEGATIVE) Urine Glucose (UA) Negative (NEGATIVE) Urine Ketones Negative (NEGATIVE) Urine Blood Negative (NEGATIVE) Urine Nitrite Negative (NEGATIVE) Urine Bilirubin Negative (NEGATIVE) Urine Urobilinogen Normal MG/DL (0.0-1.0) Urine Leukocyte Esterase 2+ (NEGATIVE) H Urine RBC 0-2 /HPF (0 - 2) Urine WBC 10-15 /HPF (0 - 2) H Urine Squamous Epithelial Cells Moderate /LPF (NONE/OCC) H Urine Bacteria Moderate /HPF (NONE) H Sodium Level 137 MMOL/L (136-145) Pending Potassium Level 3.6 MMOL/L (3.5-5.1) Pending Chloride Level 98 MMOL/L (98-107) Pending Carbon Dioxide Level 34 MMOL/L (21-32) H Pending Anion Gap 6 mmol/L (5-15) Blood Urea Nitrogen 26 mg/dL (7-18) H Pending Creatinine 1.1 MG/DL (0.55-1.30) Pending Estimat Glomerular Filtration Rate 50.8 mL/min (>60) Pending Glucose Level 107 MG/DL (74-106) H Pending Lactic Acid Level 0.40 mmol/L (0.4-2.0) Calcium Level 7.8 MG/DL (8.5-10.1) L Pending Total Bilirubin 0.6 MG/DL (0.2-1.0) Aspartate Amino Transf (AST/SGOT) 28 U/L (15-37) Alanine Aminotransferase (ALT/SGPT) 34 U/L (12-78) Alkaline Phosphatase 91 U/L (46-116) Pro-B-Type Natriuretic Peptide 920 pg/mL (0-125) H Total Protein 6.9 G/DL (6.4-8.2) Albumin 3.1 G/DL (3.4-5.0) L Globulin 3.8 g/dL Albumin/Globulin Ratio 0.8 (1.0-2.7) L Lactate Dehydrogenase Pending Height (Feet): 5 Height (Inches): 2.00 Weight (Pounds): 175 Medications Current Medications Medications (Trade) Dose Ordered Sig/[place] Route PRN Reason Start Time Stop Time Status Last Admin Dose Admin Acetaminophen (Tylenol) 650 mg Q4H PRN ORAL Mild Pain/Temp > 100.5 01/09/19 07:45 02/07/19 23:44 Acetaminophen/ Hydrocodone Bitart ([place] 5/325) 1 tab Q6H PRN ORAL Moderate Pain (Pain Scale 4-6) 01/09/19 05:45 01/15/19 23:44 Bumetanide (Bumex) 0.5 mg DAILY ORAL 01/09/19 09:00 02/08/19 08:59 Carvedilol (Coreg) 3.125 mg EVERY 12 HOURS ORAL 01/09/19 09:00 02/08/19 08:59 Cyanocobalamin (Vitamin B-12 Tab) 1,000 mcg DAILY ORAL 01/09/19 09:00 02/08/19 08:59 Docusate Sodium (Colace) 100 mg TWICE A DAY ORAL 01/09/19 09:00 02/08/19 08:59 Escitalopram Oxalate (Lexapro) 10 mg DAILY ORAL 01/09/19 09:00 02/08/19 08:59 Ferrous Sulfate (Feosol) 325 mg DAILY ORAL 01/09/19 09:00 02/08/19 08:59 Heparin Sodium (Porcine) (Heparin 5000 units/ml) 5,000 units EVERY 12 HOURS SUBQ 01/09/19 09:00 02/08/19 08:59 Ibuprofen (Advil) 400 mg Q6H PRN ORAL For Pain 01/08/19 23:45 02/07/19 23:44 Loratadine (Claritin 10mg) 10 mg DAILY ORAL 01/09/19 09:00 02/08/19 08:59 Metolazone (Zaroxolyn) 2.5 mg BID ORAL 01/09/19 09:00 02/08/19 08:59 Multivitamins (Multivitamins) 1 tab DAILY ORAL 01/09/19 09:00 02/08/19 08:59 Ondansetron HCl (Zofran ODT) 8 mg Q4H PRN ORAL Nausea & Vomiting 01/08/19 23:45 02/07/19 23:44 Oxycodone HCl (Roxicodone) 20 mg Q12HR PRN ORAL Severe Pain (Pain Scale 7-10) 01/09/19 05:00 01/15/19 23:44 Pantoprazole (Protonix) 40 mg DAILY ORAL 01/09/19 09:00 02/08/19 08:59 Piperacillin Sod/ Tazobactam Sod 3.375 gm/Sodium Chloride 110 ml @ 27.5 mls/hr Q8H IVPB 01/09/19 02:00 01/16/19 01:59 01/09/19 02:00 Polyethylene Glycol (Miralax) 17 gm DAILY ORAL 01/09/19 09:00 02/08/19 08:59 Potassium Chloride (K-Dur) 20 meq TID ORAL 01/09/19 09:00 02/08/19 08:59 Spironolactone (Aldactone) 50 mg DAILY ORAL 01/09/19 09:00 02/08/19 08:59 Vancomycin HCl (Vanco rx to dose) 1 ea DAILY PRN MISC Per rx protocol 01/08/19 22:30 02/07/19 22:29 Vancomycin HCl 1.5 gm/Dextrose 275 ml @ 137.5 mls/ hr Q24H IVPB 01/09/19 00:00 01/14/19 00:00 01/09/19 00:24 Vitamin D (Vitamin D) 50,000 intlu DAILY ORAL 01/09/19 09:00 02/08/19 08:59 UNV Assessment/Plan Assessment/Plan: Oncology Consultation LORIE COLLADO: Sachin Landrum RFC: Metastatic breast eval and recent chemo DOS: 01/09/19 ID 58-year-old austrian-speaking female, well known to me, gets chemotherapy with my mom at the office, with a history of metastatic breast cancer with multiple bony and liver mets, currently undergoing chemotherapy and radiation presenting for shortness of breath, as well as upper extremity swelling left arm. On arimidex now as horomonal treatment. Unable to add faslodex based on insurance, has received thora in the prior 10/2018 admission. She has been complaining of worsening left upper arm swelling, which has improved, but sustained, also extensive joint pain -- explain this in austrian. She has required thoracentesis in the past, last time 09/2018 and 10/2018. Denying chest pain. No other symptoms at this time. No recent cough, fevers, sore throat, abdominal pain, vomiting, diarrhea or skin rash. Otherwise has been feeling better. PMH: Metastatic breast cancer PSH: Hip surgery Allergies: Denies Social Hx: [place] drug, alcohol, tobacco use Coded Allergies: No Known Allergies (Unverified , 11/07/18) Patient History Last Menstrual Period: na Nursing Documentation-PMH Past Medical History: No History, Except For Hx Cancer: Yes - left breast with metastisis to liver and bones History Of Psychiatric Problem: Yes - PTSD, anxiety Review of Systems All Other Systems: negative except mentioned in HPI Physical Exam Vital Signs reviewed Gen: Awake and alert, no acute distress HEENT: NC/AT. EOMI. Neck: Supple, trachea midline Chest Wall: No tenderness Cardiovascular: RRR. S1 and S2 normal Resp: Mild tachypnea with increased work of breathing Abdomen: Abdomen is soft, nondistended Skin: Intact. No abrasions, lacer, rash Ext: left upper arm swelling compared to the right side, worse L>R Neuro: Awake and alert Labs: noted Imaging: reviewed Assessment and Recs: # Metastatic breast cancer -- diagnosed approx 1 year ago with multiple bony and liver mets, currently undergoing chemotherapy and radiation presenting for shortness of breath, on taxotere in office. On arimidex now as horomonal treatment. --> at this time, reviewed recent restaging scan on prior admission, 11/09/18 -- > Evidence of metastatic malignant neoplasm involving the bones. There is extensive involvement of the spine and sternum pelvic bones. Nonspecific hypodensities within the liver. Metastatic neoplasm is in the differential diagnosis. Abnormal appearance of the left anterior chest wall with subcutaneous reticulation and skin thickening presumably on the basis of previous radiation and/or surgery. --> tumor markers ca125 80, cea 6 --> will need thoracentesis prn basis --> imaging to be reviewed --> recently on chemo in the office (01/02/19) # Left upper arm swelling L>R, slowly improving over last few months, likely [id number] --> currently is on abx --> s/p duplex scan and does not show dvt --> currently appears improved --> per id care # Plueral effusion in the past --> obtain cxr v ct chest which has been ordered --> perform cytology of pleural fluid # Anemia of chronic disease --> recently on chemo # Hypoxia due to effusion --> obtain v/q scan with pulm # DVT ppx heparin sq Greatly appreciate consultation and dw Esdras Alvarenga MD Jan 09, 2019 05:59
[2019-01-09 06:02] LABS: EOSINOPHILS % (AUTO) 0.7 % (0.0-3.0); HEMATOCRIT 34.7 % (37.0-47.0); HEMOGLOBIN 11.9 G/DL (12.0-16.0); LYMPHOCYTES % (AUTO) 21.1 % (20.0-45.0); MEAN CORPUSCULAR VOLUME 98 FL (80-99); MONOCYTES % (AUTO) 16.9 % (1.0-10.0); NEUTROPHILS % (AUTO) 60.3 % (45.0-75.0); PLATELET COUNT 163 K/UL (150-450); RED BLOOD COUNT 3.55 M/UL (4.20-5.40); RED CELL DISTRIBUTION WIDTH 12.4 % (11.6-14.8); WHITE BLOOD COUNT 7.6 K/UL (4.8-10.8)
[2019-01-09 06:22] LABS: ANION GAP 6 mmol/L (5-15); BLOOD UREA NITROGEN 22 mg/dL (7-18); CARBON DIOXIDE 32 MMOL/L (21-32); CHLORIDE 102 MMOL/L (98-107); LACTATE DEHYDROGENASE 261 U/L (81-234); POTASSIUM 3.6 MMOL/L (3.5-5.1); SODIUM 140 MMOL/L (136-145)
[2019-01-09 08:00] VITALS: BP 119/64
--- NOTE | 2019-01-09 08:49 | Pulmonology Progress Note ---
Assessment/Plan Assessment/Plan Pulmonary Consultation HPI Patient is a 58-year-old with a history of metastatic breast cancer with liver, bony metastases and recurrent left pleural effusion, admitted with fever, swelling left arm. Notes redness and swelling to her left upper extremity and left breast. LUE dupplex negative for DVT. Currently receiving chemotherapy via port. Denies cough. Denies dysuria hematuria. Denies chest pain or shortness of breath. No other aggravating relieving factors. Denies any other associated symptoms. On antibiotics for UTI, possible cellulitis LUE. Allergies: No Known Allergies Past Medical History: other - breast cancer, anemia Social History: Denies: smoking, alcohol use, drug use All Other Systems: negative except mentioned in HPI Physical Exam Vital Signs Noted Date Time Temp Pulse Resp B/P (MAP) Pulse Ox O2 Delivery O2 Flow Rate FiO2 01/08/19 16:13 99.1 92 18 100/66 (77) 93 Room Air General Appearance: no apparent distress, alert, GCS 15, non-toxic Head: normocephalic, atraumatic Eyes: bilateral eye normal inspection, bilateral eye PERRL ENT: hearing grossly normal, normal pharynx, no angioedema, normal voice, moist mm Neck: fno LN, no masses Respiratory: chest non-tender, lungs clear, reduced breath sounds LLZ Cardiovascular: regular rate, rhythm, normal HS1/HS2, no LE edema Gastrointestinal: normal bowel sounds, non tender, soft, non-distended, no guarding, no rebound Musculoskeletal: back normal, normal range of motion, gait/station normal, non- tender, swelling - LUE swelling Neurologic: alert, motor strength/tone normal, oriented x3, sensory intact, responsive, speech normal Skin: other - erythema/induration L breast, LUE Impression: Cellulitis of left upper extremity Urinary tract infection Metastatic Breast Cancer Pleural effusion Anemia Plan: Antibiotics per ID O2 PRN HHN PRN Insufficient Pleural Fluid for Thoracentesis per IR US PPX Monitor labs Hematology/Oncology following [employer] Medications Labs noted Test 01/08/19 17:05 White Blood Count 10.5 K/UL (4.8-10.8) Red Blood Count 3.78 M/UL (4.20-5.40) Hemoglobin 12.9 G/DL (12.0-16.0) Hematocrit 37.0 % (37.0-47.0) Mean Corpuscular Volume 98 FL (80-99) Mean Corpuscular Hemoglobin 34.0 PG (27.0-31.0) Mean Corpuscular Hemoglobin Concent 34.7 G/DL (32.0-36.0) Red Cell Distribution Width 12.0 % (11.6-14.8) Platelet Count 207 K/UL (150-450) Mean Platelet Volume 5.5 FL (6.5-10.1) Neutrophils (%) (Auto) 63.4 % (45.0-75.0) Lymphocytes (%) (Auto) 22.0 % (20.0-45.0) Monocytes (%) (Auto) 13.2 % (1.0-10.0) Eosinophils (%) (Auto) 0.5 % (0.0-3.0) Basophils (%) (Auto) 0.9 % (0.0-2.0) Urine Color Pale yellow Urine Appearance Clear Urine pH 5 (4.5-8.0) Urine Specific Sharon 1.015 (1.005-1.035) Urine Protein Negative (NEGATIVE) Urine Glucose (UA) Negative (NEGATIVE) Urine Ketones Negative (NEGATIVE) Urine Blood Negative (NEGATIVE) Urine Nitrite Negative (NEGATIVE) Urine Bilirubin Negative (NEGATIVE) Urine Urobilinogen Normal MG/DL (0.0-1.0) Urine Leukocyte Esterase 2+ (NEGATIVE) Urine RBC 0-2 /HPF (0 - 2) Urine WBC 10-15 /HPF (0 - 2) Urine Squamous Epithelial Cells Moderate /LPF (NONE/OCC) Urine Bacteria Moderate /HPF (NONE) Sodium Level 137 MMOL/L (136-145) Potassium Level 3.6 MMOL/L (3.5-5.1) Chloride Level 98 MMOL/L (98-107) Carbon Dioxide Level 34 MMOL/L (21-32) Anion Gap 6 mmol/L (5-15) Blood Urea Nitrogen 26 mg/dL (7-18) Creatinine 1.1 MG/DL (0.55-1.30) Estimat Glomerular Filtration Rate 50.8 mL/min (>60) Glucose Level 107 MG/DL (74-106) Lactic Acid Level 0.40 mmol/L (0.4-2.0) Calcium Level 7.8 MG/DL (8.5-10.1) Total Bilirubin 0.6 MG/DL (0.2-1.0) Aspartate Amino Transf (AST/SGOT) 28 U/L (15-37) Alanine Aminotransferase (ALT/SGPT) 34 U/L (12-78) Alkaline Phosphatase 91 U/L (46-116) Pro-B-Type Natriuretic Peptide 920 pg/mL (0-125) Total Protein 6.9 G/DL (6.4-8.2) Albumin 3.1 G/DL (3.4-5.0) Globulin 3.8 g/dL Albumin/Globulin Ratio 0.8 (1.0-2.7) Chest X-Ray: no pneumothorax, small L effusion. port in place Subjective ROS Limited/Unobtainable: No Allergies: Coded Allergies: No Known Allergies (Unverified , 11/07/18) Objective Last 24 Hour Vital Signs Date Time Temp Pulse Resp B/P (MAP) Pulse Ox O2 Delivery O2 Flow Rate FiO2 01/09/19 04:00 97.3 77 18 118/76 (90) 96 01/09/19 00:47 Room Air 01/08/19 20:00 100.0 88 19 131/78 100 Room Air 01/08/19 20:00 100.0 88 19 131/78 100 Room Air 01/08/19 19:44 101.1 01/08/19 19:09 101.1 93 14 149/47 100 Room Air 01/08/19 17:31 99.1 78 18 108/68 93 Room Air 01/08/19 16:20 92 18 Room Air 01/08/19 16:13 99.1 92 18 100/66 (77) 93 Room Air Intake and Output 01/08/19 01/09/19 19:00 07:00 Intake Total 130 ml 155 ml Balance 130 ml 155 ml Intake Free Water 100 ml IV Total 130 ml Tube Feeding 55 ml # Voids 1 2 Microbiology Date/Time Source Procedure Growth Status 01/08/19 17:05 Urine,Clean Catch Urine Culture - Preliminary NO GROWTH Resulted Laboratory Tests 01/08/19 17:05: White Blood Count 10.5, Red Blood Count 3.78L, Hemoglobin 12.9, Hematocrit 37.0 , Mean Corpuscular Volume 98, Mean Corpuscular Hemoglobin 34.0H, Mean Corpuscular Hemoglobin Concent 34.7, Red Cell Distribution Width 12.0, Platelet Count 207, Mean Platelet Volume 5.5L, Neutrophils (%) (Auto) 63.4, Lymphocytes ( %) (Auto) 22.0, Monocytes (%) (Auto) 13.2H, Eosinophils (%) (Auto) 0.5, Basophils (%) (Auto) 0.9, Urine Color Pale yellow, Urine Appearance Clear, Urine pH 5, Urine Specific Sharon 1.015, Urine Protein Negative, Urine Glucose (UA) Negative, Urine Ketones Negative, Urine Blood Negative, Urine Nitrite Negative, Urine Bilirubin Negative, Urine Urobilinogen Normal, Urine Leukocyte Esterase 2+H, Urine RBC 0-2, Urine WBC 10-15H, Urine Squamous Epithelial Cells ModerateH, Urine Bacteria ModerateH, Sodium Level 137, Potassium Level 3.6, Chloride Level 98, Carbon Dioxide Level 34H, Anion Gap 6, Blood Urea Nitrogen 26H, Creatinine 1.1, Estimat Glomerular Filtration Rate 50.8, Glucose Level 107H , Lactic Acid Level 0.40, Calcium Level 7.8L, Total Bilirubin 0.6, Aspartate Amino Transf (AST/SGOT) 28, Alanine Aminotransferase (ALT/SGPT) 34, Alkaline Phosphatase 91, Pro-B-Type Natriuretic Peptide 920H, Total Protein 6.9, Albumin 3.1L, Globulin 3.8, Albumin/Globulin Ratio 0.8L 01/09/19 05:20: White Blood Count 7.6, Red Blood Count 3.55L, Hemoglobin 11.9L, Hematocrit 34.7L , Mean Corpuscular Volume 98, Mean Corpuscular Hemoglobin 33.5H, Mean Corpuscular Hemoglobin Concent 34.2, Red Cell Distribution Width 12.4, Platelet Count 163, Mean Platelet Volume 5.7L, Neutrophils (%) (Auto) 60.3, Lymphocytes ( %) (Auto) 21.1, Monocytes (%) (Auto) 16.9H, Eosinophils (%) (Auto) 0.7, Basophils (%) (Auto) 1.0, Sodium Level 140, Potassium Level 3.6, Chloride Level 102, Carbon Dioxide Level 32, Anion Gap 6, Blood Urea Nitrogen 22H, Creatinine 1.0, Estimat Glomerular Filtration Rate 56.8, Glucose Level 106, Calcium Level 8.0L, Lactate Dehydrogenase 261H Current Medications Medications (Trade) Dose Ordered Sig/Kaushal Route PRN Reason Start Time Stop Time Status Last Admin Dose Admin Acetaminophen (Tylenol) 650 mg Q4H PRN ORAL Mild Pain/Temp > 100.5 01/09/19 07:45 02/07/19 23:44 Acetaminophen/ Hydrocodone Bitart ([place] 5/325) 1 tab Q6H PRN ORAL Moderate Pain (Pain Scale 4-6) 01/09/19 05:45 01/15/19 23:44 Bumetanide (Bumex) 0.5 mg DAILY ORAL 01/09/19 09:00 02/08/19 08:59 Carvedilol (Coreg) 3.125 mg EVERY 12 HOURS ORAL 01/09/19 09:00 02/08/19 08:59 Cyanocobalamin (Vitamin B-12 Tab) 1,000 mcg DAILY ORAL 01/09/19 09:00 02/08/19 08:59 Docusate Sodium (Colace) 100 mg TWICE A DAY ORAL 01/09/19 09:00 02/08/19 08:59 Escitalopram Oxalate (Lexapro) 10 mg DAILY ORAL 01/09/19 09:00 02/08/19 08:59 Ferrous Sulfate (Feosol) 325 mg DAILY ORAL 01/09/19 09:00 02/08/19 08:59 Heparin Sodium (Porcine) (Heparin 5000 units/ml) 5,000 units EVERY 12 HOURS SUBQ 01/09/19 09:00 02/08/19 08:59 Ibuprofen (Advil) 400 mg Q6H PRN ORAL For Pain 01/08/19 23:45 02/07/19 23:44 Loratadine (Claritin 10mg) 10 mg DAILY ORAL 01/09/19 09:00 02/08/19 08:59 Metolazone (Zaroxolyn) 2.5 mg BID ORAL 01/09/19 09:00 02/08/19 08:59 Multivitamins (Multivitamins) 1 tab DAILY ORAL 01/09/19 09:00 02/08/19 08:59 Ondansetron HCl (Zofran ODT) 8 mg Q4H PRN ORAL Nausea & Vomiting 01/08/19 23:45 02/07/19 23:44 Oxycodone HCl (Roxicodone) 20 mg Q12HR PRN ORAL Severe Pain (Pain Scale 7-10) 01/09/19 05:00 12/2/19 23:44 Pantoprazole (Protonix) 40 mg DAILY ORAL 01/09/19 09:00 02/08/19 08:59 Piperacillin Sod/ Tazobactam Sod 3.375 gm/Sodium Chloride 110 ml @ 27.5 mls/hr Q8H IVPB 01/09/19 02:00 01/16/19 01:59 01/09/19 02:00 Polyethylene Glycol (Miralax) 17 gm DAILY ORAL 01/09/19 09:00 02/08/19 08:59 Potassium Chloride (K-Dur) 20 meq TID ORAL 01/09/19 09:00 02/08/19 08:59 Spironolactone (Aldactone) 50 mg DAILY ORAL 01/09/19 09:00 02/08/19 08:59 Vancomycin HCl (Vanco rx to dose) 1 ea DAILY PRN MISC Per rx protocol 01/08/19 22:30 02/07/19 22:29 Vancomycin HCl 1.5 gm/Dextrose 275 ml @ 137.5 mls/ hr Q24H IVPB 01/09/19 00:00 01/14/19 00:00 01/09/19 00:24 Vitamin D (Vitamin D) 50,000 intlu DAILY ORAL 01/09/19 09:00 02/08/19 08:59 Owen Linn MD Jan 09, 2019 08:49
[2019-01-09] MEDS ORDERED: Vitamin B-12 100mcg tab ORAL SCH (09:00)
[2019-01-09 09:11] LABS: INR 0.9 (0.9-1.1)
[2019-01-09] MEDS: Spironolactone 50mg tab ORAL SCH (09:28)
[2019-01-09] MEDS: Bumetanide 1mg tab ORAL SCH (09:28)
[2019-01-09] MEDS: metOLazone 2.5 MG TAB ORAL SCH ×2 (09:28→18:06)
[2019-01-09] MEDS: Docusate 100mg cap ORAL SCH ×2 (09:28→18:06)
[2019-01-09] MEDS: Miralax 17gm pkt ORAL SCH (09:29)
[2019-01-09] MEDS: Heparin 5000 units/ml inj SUBQ SCH ×2 (09:30→20:57)
--- NOTE | 2019-01-09 09:34 | Diagnostic Imaging Report ---
Indication:pleural effusion. Patient presents for thoracentesis Technique: Grayscale and duplex Doppler imaging of the left performed. Comparison: None Findings: There is a small left pleural effusion. This is too small to perform thoracentesis. IMPRESSION: Small left pleural effusion A diagnostic thoracentesis could be performed with understanding of increased risk of pneumothorax. However this amount of fluid is not enough to warrant the procedure for therapeutic purposes. The patient had a thoracentesis on the left side relatively recently on 11/08/2018. If there has been some change in the clinical picture such that diagnostic thoracentesis of this small amount of fluid is required now, this procedure could be done with the understanding that the risk of pneumothorax and placement of a chest tube thereafter is high.
[2019-01-09] MEDS: Vitamin B-12 500mcg tab ORAL SCH (09:41)
--- NOTE | 2019-01-09 11:16 | Diagnostic Imaging Report ---
Indication: Cough Comparison: 11/10/2018 A single view chest radiograph was obtained. Findings: No definite infiltrate or pulmonary vascular congestion identified. There is a port on the right side again noted. The heart is enlarged. The aorta is mildly enlarged consistent with atherosclerotic vascular disease. The bones are osteopenic. Impression: No acute disease
--- NOTE | 2019-01-09 11:27 | Diagnostic Imaging Report ---
Indication: Chest pain Technique: A ventilation/perfusion scan was performed. Ventilation was performed utilizing 40 mCi of Technetium 99m-DTPA. Perfusion was performed with 5 mCi of technetium 99m-MAA injected intravenously. Multiple side by side projections obtained. Findings: Ventilation is mildly heterogeneous. No significant defects are identified. Perfusion is mildly heterogeneous. No significant defects are identified. No mismatched defects seen. Impression: Low probability for pulmonary embolus Interpretation of findings are based on PIOPED II stephanie (2006).
[2019-01-09 12:00] VITALS: BP 120/75
[2019-01-09 16:00] VITALS: BP 120/83
[2019-01-09] MEDS ORDERED: VITAMIN D250000 UNI1 ORAL (18:33)
--- NOTE | 2019-01-09 18:45 | Consultation ---
DATE OF CONSULTATION: 01/09/2019 INFECTIOUS DISEASE CONSULTATION CONSULTING PHYSICIAN: Jaycob Noble M.D. PRIMARY ATTENDING: Sachin Szymanski M.D. REASON FOR CONSULT: Fever, cellulitis of the left upper extremity. HISTORY OF PRESENT ILLNESS: This is a 58-year-old female admitted yesterday from nursing facility because of fever. Had swelling and erythema in the left upper extremity and left breast. She has history of breast cancer and is on chemotherapy and radiation. Fever was 101.1 in hospital. There was no leukocytosis. PAST MEDICAL HISTORY: Breast cancer was diagnosed 1 year ago. The cancer is metastatic to liver and bones. Had pleural effusion. Has history of right hip replacement. ALLERGIES: No known drug allergies. MEDICATIONS: Heparin, carvedilol, Colace, Lexapro, ferrous sulfate, losartan, metolazone, MiraLAX, spironolactone, Protonix, vitamin D, vitamin B12, Tylenol, Ward, Zosyn, vancomycin, ibuprofen, Zofran. SOCIAL HISTORY: [facility] resident. Originally from [facility]. . Has children and grandchildren. No history of alcohol, drug abuse, or smoking. REVIEW OF SYSTEMS: No fever at the present time. No significant pain. No coughing. No shortness of breath. No nausea. No vomiting. No diarrhea. No problem passing urine. Has some itching in left arm. Also showed swelling in the arm, it is chronic. PHYSICAL EXAMINATION: VITAL SIGNS: Temperature 98.1, pulse 88, blood pressure 120/75. GENERAL APPEARANCE: No acute distress. HEAD AND NECK: Higden conjunctivae. No oral lesion. HEART: Normal rate. LUNGS: Clear. ABDOMEN: Soft, nontender. EXTREMITIES: Has edema in the left upper extremity. No leg edema. SKIN: Faint erythema in the left upper extremity and left breast. Also has Peau d'orange appearance of left breast. NEUROLOGIC: Awake, alert, oriented x3 without any focal deficit. LABORATORY AND DIAGNOSTIC DATA: WBC 7.6, hemoglobin 11.9, hematocrit 34.7, platelets is 163. Sodium 140, potassium 3.6, chloride 102, bicarbonate 32, BUN 22, creatinine 1, glucose is 106. UA showed WBC of 10 to 15. Urine culture showed no growth. Chest x-ray, no acute disease. Chest ultrasound showed small pleural effusion. Venous duplex of lower extremity was negative for DVT. Venous duplex of left upper extremity was also negative. Nuclear scan showed low probability of pulmonary embolism. IMPRESSION: Fever, likely secondary to cellulitis of left upper extremity. Has metastatic breast cancer to the bone and liver. Has small pleural effusion, mild anemia. RECOMMENDATION: We will continue vancomycin and Zosyn for now. If the culture remains negative, we will narrow antibiotics soon. At the end of my exam, I thank Dr. Szymanski for involving me in the care of this patient. Jaycob Noble M.D. DR: ANGELES JOB#: [id number] CC: ASHLEIGH
[2019-01-09 20:00] VITALS: BP 110/74
[2019-01-09 21:27] VITALS: BP 110/74
[2019-01-10] VITALS: BP 140/87
[2019-01-10] MEDS: Piperacillin/Tazobactam 3.375 GM in NS 110 ML IVPB SCH ×2 (01:47→09:44)
[2019-01-10 04:00] VITALS: BP 132/86
[2019-01-10 06:32] LABS: EOSINOPHILS % (AUTO) 1.1 % (0.0-3.0); HEMATOCRIT 35.8 % (37.0-47.0); HEMOGLOBIN 12.4 G/DL (12.0-16.0); MEAN CORPUSCULAR VOLUME 99 FL (80-99); MONOCYTES % (AUTO) 14.1 % (1.0-10.0); NEUTROPHILS % (AUTO) 59.9 % (45.0-75.0); PLATELET COUNT 182 K/UL (150-450); RED BLOOD COUNT 3.63 M/UL (4.20-5.40); RED CELL DISTRIBUTION WIDTH 12.1 % (11.6-14.8); WHITE BLOOD COUNT 6.8 K/UL (4.8-10.8)
[2019-01-10 06:57] LABS: ANION GAP 7 mmol/L (5-15); BLOOD UREA NITROGEN 15 mg/dL (7-18); CALCIUM 8.6 MG/DL (8.5-10.1); CARBON DIOXIDE 29 MMOL/L (21-32); CHLORIDE 104 MMOL/L (98-107); CREATININE 0.9 MG/DL (0.55-1.30); POTASSIUM 3.9 MMOL/L (3.5-5.1); SODIUM 140 MMOL/L (136-145)
[2019-01-10 08:00] VITALS: BP 118/91
[2019-01-10] MEDS: Docusate 100mg cap ORAL SCH (09:37)
[2019-01-10] MEDS: Miralax 17gm pkt ORAL SCH (09:38)
[2019-01-10] MEDS: metOLazone 2.5 MG TAB ORAL SCH (09:40)
[2019-01-10] MEDS: Bumetanide 1mg tab ORAL SCH (09:41)
[2019-01-10] MEDS: Vitamin B-12 500mcg tab ORAL SCH (09:42)
[2019-01-10] MEDS: Heparin 5000 units/ml inj SUBQ SCH (09:43)
[2019-01-10] MEDS: Spironolactone 50mg tab ORAL SCH (09:43)
--- NOTE | 2019-01-10 10:18 | Infectious Diseases Prog Note ---
Assessment/Plan Assessment/Plan IMPRESSION: Fever, improving Cellulitis of left upper extremity. Metastatic breast cancer to the bone and liver. Small pleural effusion, anemia. RECOMMENDATION: We will continue vancomycin in hospital Discontinue Zosyn in case of discharge PO Keflex X 5 days will f/u cultures Subjective ROS Limited/Unobtainable: No Constitutional: Reports: no symptoms Respiratory: Reports: no symptoms Cardiovascular: Reports: no symptoms Gastrointestinal/Abdominal: Reports: no symptoms Musculoskeletal: Reports: no symptoms Allergies: Coded Allergies: No Known Allergies (Unverified , 11/07/18) Objective Vital Signs Last 24 Hour Vital Signs Date Time Temp Pulse Resp B/P (MAP) Pulse Ox O2 Delivery O2 Flow Rate FiO2 01/10/19 09:40 86 118/91 01/10/19 04:00 98.1 81 16 132/86 (101) 96 01/10/19 00:00 96.8 84 18 140/87 (104) 98 01/09/19 21:27 97.9 90 18 110/74 (86) 97 01/09/19 21:26 Room Air 01/09/19 20:55 90 110/76 01/09/19 20:00 97.8 90 18 110/74 (86) 97 01/09/19 16:00 99.9 87 18 120/83 (95) 95 01/09/19 12:00 98.1 88 18 120/75 (90) 96 Height (Feet): 5 Height (Inches): 2.00 Weight (Pounds): 175 General Appearance: no acute distress HEENT: mucous membranes moist Respiratory/Chest: lungs clear Breasts: other - left breast erythema Cardiovascular: normal rate, other - has Portacath Abdomen: soft, non tender Extremities: other - edema of left arm Skin: rash, other - left arm erythema Microbiology Date/Time Source Procedure Growth Status 01/08/19 17:55 Blood Blood Culture - Preliminary NO GROWTH AFTER 24 HOURS Resulted 01/08/19 17:05 Blood Blood Culture - Preliminary NO GROWTH AFTER 24 HOURS Resulted 01/08/19 17:05 Urine,Clean Catch Urine Culture - Preliminary Mixed Gram Positive Organism Resulted Laboratory Tests Test 01/10/19 05:20 White Blood Count 6.8 K/UL (4.8-10.8) Red Blood Count 3.63 M/UL (4.20-5.40) L Hemoglobin 12.4 G/DL (12.0-16.0) Hematocrit 35.8 % (37.0-47.0) L Mean Corpuscular Volume 99 FL (80-99) Mean Corpuscular Hemoglobin 34.3 PG (27.0-31.0) H Mean Corpuscular Hemoglobin Concent 34.8 G/DL (32.0-36.0) Red Cell Distribution Width 12.1 % (11.6-14.8) Platelet Count 182 K/UL (150-450) Mean Platelet Volume 5.8 FL (6.5-10.1) L Neutrophils (%) (Auto) 59.9 % (45.0-75.0) Lymphocytes (%) (Auto) 24.0 % (20.0-45.0) Monocytes (%) (Auto) 14.1 % (1.0-10.0) H Eosinophils (%) (Auto) 1.1 % (0.0-3.0) Basophils (%) (Auto) 1.0 % (0.0-2.0) Sodium Level 140 MMOL/L (136-145) Potassium Level 3.9 MMOL/L (3.5-5.1) Chloride Level 104 MMOL/L (98-107) Carbon Dioxide Level 29 MMOL/L (21-32) Anion Gap 7 mmol/L (5-15) Blood Urea Nitrogen 15 mg/dL (7-18) Creatinine 0.9 MG/DL (0.55-1.30) Estimat Glomerular Filtration Rate > 60 mL/min (>60) Glucose Level 115 MG/DL (74-106) H Calcium Level 8.6 MG/DL (8.5-10.1) Current Medications Medications (Trade) Dose Ordered Sig/Kaushal Route PRN Reason Start Time Stop Time Status Last Admin Dose Admin Acetaminophen (Tylenol) 650 mg Q4H PRN ORAL Mild Pain/Temp > 100.5 01/09/19 07:45 02/07/19 23:44 Acetaminophen/ Hydrocodone Bitart ([place] 5/325) 1 tab Q6H PRN ORAL Moderate Pain (Pain Scale 4-6) 01/09/19 05:45 01/15/19 23:44 Bumetanide (Bumex) 0.5 mg DAILY ORAL 01/09/19 09:00 02/08/19 08:59 01/10/19 09:41 Carvedilol (Coreg) 3.125 mg EVERY 12 HOURS ORAL 01/09/19 09:00 02/08/19 08:59 01/10/19 09:40 Cyanocobalamin (Vitamin B-12) 1,000 mcg DAILY ORAL 01/09/19 09:00 02/08/19 08:59 01/10/19 09:42 Docusate Sodium (Colace) 100 mg TWICE A DAY ORAL 01/09/19 09:00 02/08/19 08:59 01/09/19 18:06 Ergocalciferol (Drisdol) 50,000 intlu ONCE A WEEK ORAL 01/11/19 09:00 02/10/19 08:59 Escitalopram Oxalate (Lexapro) 10 mg DAILY ORAL 01/09/19 09:00 02/08/19 08:59 01/10/19 09:41 Ferrous Sulfate (Feosol) 325 mg DAILY ORAL 01/09/19 09:00 02/08/19 08:59 01/10/19 09:40 Heparin Sodium (Porcine) (Heparin 5000 units/ml) 5,000 units EVERY 12 HOURS SUBQ 01/09/19 09:00 02/08/19 08:59 01/10/19 09:43 Ibuprofen (Advil) 400 mg Q6H PRN ORAL For Pain 01/08/19 23:45 02/07/19 23:44 Loratadine (Claritin 10mg) 10 mg DAILY ORAL 01/09/19 09:00 02/08/19 08:59 01/10/19 09:41 Metolazone (Zaroxolyn) 2.5 mg BID ORAL 01/09/19 09:00 02/08/19 08:59 01/10/19 09:40 Multivitamins (Multivitamins) 1 tab DAILY ORAL 01/09/19 09:00 02/08/19 08:59 01/10/19 09:42 Ondansetron HCl (Zofran ODT) 8 mg Q4H PRN ORAL Nausea & Vomiting 01/08/19 23:45 02/07/19 23:44 01/10/19 00:49 Oxycodone HCl (Roxicodone) 20 mg Q12HR PRN ORAL Severe Pain (Pain Scale 7-10) 01/09/19 05:00 01/15/19 23:44 Pantoprazole (Protonix) 40 mg DAILY ORAL 01/09/19 09:00 02/08/19 08:59 01/10/19 09:41 Piperacillin Sod/ Tazobactam Sod 3.375 gm/Sodium Chloride 110 ml @ 27.5 mls/hr Q8H IVPB 01/09/19 02:00 01/16/19 01:59 01/10/19 09:44 Polyethylene Glycol (Miralax) 17 gm DAILY ORAL 01/09/19 09:00 02/08/19 08:59 01/09/19 09:29 Potassium Chloride (K-Dur) 20 meq TID ORAL 01/09/19 09:00 02/08/19 08:59 01/10/19 09:42 Spironolactone (Aldactone) 50 mg DAILY ORAL 01/09/19 09:00 02/08/19 08:59 01/10/19 09:43 Vancomycin HCl (Vanco rx to dose) 1 ea DAILY PRN MISC Per rx protocol 01/08/19 22:30 02/07/19 22:29 Vancomycin HCl 1.5 gm/Dextrose 275 ml @ 137.5 mls/ hr Q24H IVPB 01/09/19 00:00 01/14/19 00:00 01/09/19 23:05 Jaycob Noble MD Jan 10, 2019 10:18
--- NOTE | 2019-01-10 10:30 | History and Physical Report ---
DATE OF ADMISSION: 01/08/2019 HISTORY OF PRESENT ILLNESS: The patient comes in with fevers, cellulitis, chills. The patient also has pleural effusion as well. The patient also has left upper extremity cellulitis, fever, azotemia, elevated and pleural effusion, history of breast cancer, metastasized. The patient also has had fevers and chills for one day and pain everywhere for three days. The patient has been getting chemotherapy and radiation at Dr. Jeff's office for her metastatic breast cancer. The patient also has left arm edema and more pain. PAST MEDICAL HISTORY: Metastatic breast cancer, history of constipation, depression, allergic rhinitis, hypothyroidism, chronic GERD, chronic pain, and electrolyte imbalance. ALLERGIES: No known allergies. PAST SURGICAL HISTORY: Left hip replacement. MEDICATIONS: Dulcolax, Arimidex, , vitamin B12, Coreg, Colace, Celexa, loratadine, , morphine, Protonix, and calcium. FAMILY HISTORY: Noncontributory. SOCIAL HISTORY: Denies history of smoking. Denies history of alcohol or illicit drugs. REVIEW OF SYSTEMS: HEENT: Denies headaches. LUNGS: Reports mild shortness of breath. Denies cough. CARDIOVASCULAR: Denies chest pain. GASTROINTESTINAL: Denies nausea, vomiting, or diarrhea. Has pain all over, fever, chills. EXTREMITIES: No edema. No pain. CENTRAL NERVOUS SYSTEM: No change in speech pattern. PHYSICAL EXAMINATION: VITAL SIGNS: Temperature is 98.1, pulse is 88, blood pressure is 120/75. HEENT: PERRLA. NECK: Supple. No lymphadenopathy. CHEST: Clear to auscultation. CARDIOVASCULAR: Regular rate and rhythm. No murmurs or extra sounds. GASTROINTESTINAL: Soft. Positive bowel sounds. There is erythema on the left upper extremity. . LABORATORY DATA: WBC of 10.4, hemoglobin 12.9, platelets 207. Sodium 137, potassium 3.6, BUN of 26, creatinine 1.1, glucose of 107. ASSESSMENT AND PLAN: 1. Cellulitis of left upper extremity. 2. Pleural effusion. 3. Dehydration. 4. Metastatic breast cancer, given chemotherapy and radiation. 5. Fever and chills. I have asked Dr. Lozano, Dr. Dr. Jaycob Wright to see the patient for the above-mentioned diagnoses and treatment. Antibiotics per Dr. Jaycob Noble. Sachin Szymanski M.D. DR: BARBIE JOB#: [id number] CC:
[2019-01-10 12:00] VITALS: BP 138/94
[2019-01-10] MEDS ORDERED: CEPHALEXIN500 MG ORAL (12:32)
--- NOTE | 2019-01-10 13:35 | Pulmonology Progress Note ---
Assessment/Plan Assessment/Plan Pulmonary Progress Note HPI Patient is a 58-year-old with a history of metastatic breast cancer with liver, bony metastases and recurrent left pleural effusion, admitted with fever, swelling left arm. Notes redness and swelling to her left upper extremity and left breast. LUE dupplex negative for DVT. Currently receiving chemotherapy via port. Denies cough. Denies dysuria hematuria. Denies chest pain or shortness of breath. No other aggravating relieving factors. Denies any other associated symptoms. On antibiotics for UTI, possible cellulitis LUE. Denies SOB Allergies: No Known Allergies Past Medical History: other - breast cancer, anemia Social History: Denies: smoking, alcohol use, drug use All Other Systems: negative except mentioned in HPI Physical Exam Vital Signs Noted Date Time Temp Pulse Resp B/P (MAP) Pulse Ox O2 Delivery O2 Flow Rate FiO2 01/08/19 16:13 99.1 92 18 100/66 (77) 93 Room Air General Appearance: no apparent distress, alert, GCS 15, non-toxic Head: normocephalic, atraumatic Eyes: bilateral eye normal inspection, bilateral eye PERRL ENT: hearing grossly normal, normal pharynx, no angioedema, normal voice, moist mm Neck: fno LN, no masses Respiratory: chest non-tender, lungs clear, reduced breath sounds LLZ Cardiovascular: regular rate, rhythm, normal HS1/HS2, no LE edema Gastrointestinal: normal bowel sounds, non tender, soft, non-distended, no guarding, no rebound Musculoskeletal: back normal, normal range of motion, gait/station normal, non- tender, swelling - LUE swelling Neurologic: alert, motor strength/tone normal, oriented x3, sensory intact, responsive, speech normal Skin: other - erythema/induration L breast, LUE Impression: Cellulitis of left upper extremity Urinary tract infection Metastatic Breast Cancer Pleural effusion Anemia Plan: Antibiotics per ID O2 PRN HHN PRN Insufficient Pleural Fluid for Thoracentesis per IR US PPX Monitor labs Hematology/Oncology following [facility] Medications Labs noted Test 01/08/19 17:05 White Blood Count 10.5 K/UL (4.8-10.8) Red Blood Count 3.78 M/UL (4.20-5.40) Hemoglobin 12.9 G/DL (12.0-16.0) Hematocrit 37.0 % (37.0-47.0) Mean Corpuscular Volume 98 FL (80-99) Mean Corpuscular Hemoglobin 34.0 PG (27.0-31.0) Mean Corpuscular Hemoglobin Concent 34.7 G/DL (32.0-36.0) Red Cell Distribution Width 12.0 % (11.6-14.8) Platelet Count 207 K/UL (150-450) Mean Platelet Volume 5.5 FL (6.5-10.1) Neutrophils (%) (Auto) 63.4 % (45.0-75.0) Lymphocytes (%) (Auto) 22.0 % (20.0-45.0) Monocytes (%) (Auto) 13.2 % (1.0-10.0) Eosinophils (%) (Auto) 0.5 % (0.0-3.0) Basophils (%) (Auto) 0.9 % (0.0-2.0) Urine Color Pale yellow Urine Appearance Clear Urine pH 5 (4.5-8.0) Urine Specific [place] 1.015 (1.005-1.035) Urine Protein Negative (NEGATIVE) Urine Glucose (UA) Negative (NEGATIVE) Urine Ketones Negative (NEGATIVE) Urine Blood Negative (NEGATIVE) Urine Nitrite Negative (NEGATIVE) Urine Bilirubin Negative (NEGATIVE) Urine Urobilinogen Normal MG/DL (0.0-1.0) Urine Leukocyte Esterase 2+ (NEGATIVE) Urine RBC 0-2 /HPF (0 - 2) Urine WBC 10-15 /HPF (0 - 2) Urine Squamous Epithelial Cells Moderate /LPF (NONE/OCC) Urine Bacteria Moderate /HPF (NONE) Sodium Level 137 MMOL/L (136-145) Potassium Level 3.6 MMOL/L (3.5-5.1) Chloride Level 98 MMOL/L (98-107) Carbon Dioxide Level 34 MMOL/L (21-32) Anion Gap 6 mmol/L (5-15) Blood Urea Nitrogen 26 mg/dL (7-18) Creatinine 1.1 MG/DL (0.55-1.30) Estimat Glomerular Filtration Rate 50.8 mL/min (>60) Glucose Level 107 MG/DL (74-106) Lactic Acid Level 0.40 mmol/L (0.4-2.0) Calcium Level 7.8 MG/DL (8.5-10.1) Total Bilirubin 0.6 MG/DL (0.2-1.0) Aspartate Amino Transf (AST/SGOT) 28 U/L (15-37) Alanine Aminotransferase (ALT/SGPT) 34 U/L (12-78) Alkaline Phosphatase 91 U/L (46-116) Pro-B-Type Natriuretic Peptide 920 pg/mL (0-125) Total Protein 6.9 G/DL (6.4-8.2) Albumin 3.1 G/DL (3.4-5.0) Globulin 3.8 g/dL Albumin/Globulin Ratio 0.8 (1.0-2.7) Chest X-Ray: no pneumothorax, small L effusion. port in place Subjective ROS Limited/Unobtainable: No Allergies: Coded Allergies: No Known Allergies (Unverified , 11/07/18) Objective Last 24 Hour Vital Signs Date Time Temp Pulse Resp B/P (MAP) Pulse Ox O2 Delivery O2 Flow Rate FiO2 01/10/19 09:40 86 118/91 01/10/19 09:00 Room Air 01/10/19 08:00 96.8 86 18 118/91 (100) 96 01/10/19 04:00 98.1 81 16 132/86 (101) 96 01/10/19 00:00 96.8 84 18 140/87 (104) 98 01/09/19 21:27 97.9 90 18 110/74 (86) 97 01/09/19 21:26 Room Air 01/09/19 20:55 90 110/76 01/09/19 20:00 97.8 90 18 110/74 (86) 97 01/09/19 16:00 99.9 87 18 120/83 (95) 95 Intake and Output 01/09/19 01/10/19 19:00 07:00 Intake Total 710.0 ml 275.0 ml Balance 710.0 ml 275.0 ml Intake Oral 600 ml IV Total 110.0 ml 275.0 ml # Voids 4 3 Microbiology Date/Time Source Procedure Growth Status 01/08/19 17:55 Blood Blood Culture - Preliminary NO GROWTH AFTER 24 HOURS Resulted 01/08/19 17:05 Blood Blood Culture - Preliminary NO GROWTH AFTER 24 HOURS Resulted 01/08/19 17:05 Urine,Clean Catch Urine Culture - Preliminary Mixed Gram Positive Organism Resulted Laboratory Tests 01/10/19 05:20: White Blood Count 6.8, Red Blood Count 3.63L, Hemoglobin 12.4, Hematocrit 35.8L , Mean Corpuscular Volume 99, Mean Corpuscular Hemoglobin 34.3H, Mean Corpuscular Hemoglobin Concent 34.8, Red Cell Distribution Width 12.1, Platelet Count 182, Mean Platelet Volume 5.8L, Neutrophils (%) (Auto) 59.9, Lymphocytes ( %) (Auto) 24.0, Monocytes (%) (Auto) 14.1H, Eosinophils (%) (Auto) 1.1, Basophils (%) (Auto) 1.0, Sodium Level 140, Potassium Level 3.9, Chloride Level 104, Carbon Dioxide Level 29, Anion Gap 7, Blood Urea Nitrogen 15, Creatinine 0.9, Estimat Glomerular Filtration Rate > 60, Glucose Level 115H, Calcium Level 8.6 Current Medications Medications (Trade) Dose Ordered Sig/[place] Route PRN Reason Start Time Stop Time Status Last Admin Dose Admin Acetaminophen (Tylenol) 650 mg Q4H PRN ORAL Mild Pain/Temp > 100.5 01/09/19 07:45 02/07/19 23:44 Acetaminophen/ Hydrocodone Bitart ([place] 5/325) 1 tab Q6H PRN ORAL Moderate Pain (Pain Scale 4-6) 01/09/19 05:45 01/15/19 23:44 Bumetanide (Bumex) 0.5 mg DAILY ORAL 01/09/19 09:00 02/08/19 08:59 01/10/19 09:41 Carvedilol (Coreg) 3.125 mg EVERY 12 HOURS ORAL 01/09/19 09:00 02/08/19 08:59 01/10/19 09:40 Cyanocobalamin (Vitamin B-12) 1,000 mcg DAILY ORAL 01/09/19 09:00 02/08/19 08:59 01/10/19 09:42 Docusate Sodium (Colace) 100 mg TWICE A DAY ORAL 01/09/19 09:00 02/08/19 08:59 01/09/19 18:06 Ergocalciferol (Drisdol) 50,000 intlu ONCE A WEEK ORAL 01/11/19 09:00 02/10/19 08:59 Escitalopram Oxalate (Lexapro) 10 mg DAILY ORAL 01/09/19 09:00 02/08/19 08:59 01/10/19 09:41 Ferrous Sulfate (Feosol) 325 mg DAILY ORAL 01/09/19 09:00 02/08/19 08:59 01/10/19 09:40 Heparin Sodium (Porcine) (Heparin 5000 units/ml) 5,000 units EVERY 12 HOURS SUBQ 01/09/19 09:00 02/08/19 08:59 01/10/19 09:43 Ibuprofen (Advil) 400 mg Q6H PRN ORAL For Pain 01/08/19 23:45 02/07/19 23:44 Loratadine (Claritin 10mg) 10 mg DAILY ORAL 01/09/19 09:00 02/08/19 08:59 01/10/19 09:41 Metolazone (Zaroxolyn) 2.5 mg BID ORAL 01/09/19 09:00 02/08/19 08:59 01/10/19 09:40 Multivitamins (Multivitamins) 1 tab DAILY ORAL 01/09/19 09:00 02/08/19 08:59 01/10/19 09:42 Ondansetron HCl (Zofran ODT) 8 mg Q4H PRN ORAL Nausea & Vomiting 01/08/19 23:45 02/07/19 23:44 01/10/19 00:49 Oxycodone HCl (Roxicodone) 20 mg Q12HR PRN ORAL Severe Pain (Pain Scale 7-10) 01/09/19 05:00 01/15/19 23:44 Pantoprazole (Protonix) 40 mg DAILY ORAL 01/09/19 09:00 02/08/19 08:59 01/10/19 09:41 Polyethylene Glycol (Miralax) 17 gm DAILY ORAL 01/09/19 09:00 02/08/19 08:59 01/09/19 09:29 Potassium Chloride (K-Dur) 20 meq TID ORAL 01/09/19 09:00 02/08/19 08:59 01/10/19 09:42 Spironolactone (Aldactone) 50 mg DAILY ORAL 01/09/19 09:00 02/08/19 08:59 01/10/19 09:43 Vancomycin HCl (Vanco rx to dose) 1 ea DAILY PRN MISC Per rx protocol 01/08/19 22:30 02/07/19 22:29 Vancomycin HCl 1.5 gm/Dextrose 275 ml @ 137.5 mls/ hr Q24H IVPB 01/09/19 00:00 01/14/19 00:00 01/09/19 23:05 Owen Johnson MD Jan 10, 2019 13:35
[2019-01-10] MEDS ORDERED: D5W 275ml ONE (14:34)
[2019-01-10] MEDS ORDERED: Tubing IV Secondary IV ONE (14:34)
[2019-01-10] MEDS ORDERED: Heplock Flush 100 units/ml 3 ml syr INJ ONE (15:00)
--- NOTE | 2019-01-10 15:05 | Hematology/Onc Progress Note ---
Assessment/Plan Assessment/Plan Assessment and Recs: # Metastatic breast cancer -- diagnosed approx 1 year ago with multiple bony and liver mets, currently undergoing chemotherapy and radiation presenting for shortness of breath, on taxotere in office. On arimidex now as horomonal treatment. --> at this time, reviewed recent restaging scan on prior admission, 11/09/18 -- > Evidence of metastatic malignant neoplasm involving the bones. There is extensive involvement of the spine and sternum pelvic bones. Nonspecific hypodensities within the liver. Metastatic neoplasm is in the differential diagnosis. Abnormal appearance of the left anterior chest wall with subcutaneous reticulation and skin thickening presumably on the basis of previous radiation and/or surgery. --> tumor markers ca125 80, cea 6 --> will need thoracentesis prn basis --> imaging to be reviewed --> recently on chemo in the office (01/02/19) # Left upper arm swelling L>R, slowly improving over last few months, likely LYMPHEDEMA --> currently is on abx --> s/p duplex scan and does not show dvt --> currently appears improved --> per id care # Plueral effusion in the past --> obtain cxr v ct chest which has been ordered --> perform cytology of pleural fluid # Anemia of chronic disease --> recently on chemo # Hypoxia due to effusion --> obtain v/q scan with pulm --> neg results # DVT ppx heparin sq Greatly appreciate consultation and christy RN Subjective Constitutional: Denies: no symptoms, chills, fever, malaise, weakness, other HEENT: Denies: no symptoms, eye pain, blurred vision, tearing, double vision, ear pain, ear discharge, nose pain, nose congestion, throat pain, throat swelling, mouth pain, mouth swelling, other Cardiovascular: Denies: no symptoms, chest pain, edema, irregular heart rate, lightheadedness, palpitations, syncope, other Respiratory: Denies: no symptoms, cough, shortness of breath, SOB with excertion, SOB at rest, sputum, wheezing, other Gastrointestinal/Abdominal: Denies: no symptoms, abdomen distended, abdominal pain, black stools, tarry stools, blood in stool, constipated, diarrhea, difficulty swallowing, nausea, poor appetite, poor fluid intake, rectal bleeding , vomiting, other Neurologic/Psychiatric: Denies: no symptoms, anxiety, depressed, emotional problems, headache, numbness, paresthesia, pre-existing deficit, seizure, tingling, tremors, weakness, other Endocrine: Denies: no symptoms, excessive sweating, flushing, intolerance to cold, intolerance to heat, increased hunger, increased thirst, increased urine, unexplained weight gain, unexplained weight loss, other Allergies: Coded Allergies: No Known Allergies (Unverified , 11/07/18) Subjective 01/10: no bleeding, labs reviewed, potential dc shortly Objective Objective Last 24 Hour Vital Signs Date Time Temp Pulse Resp B/P (MAP) Pulse Ox O2 Delivery O2 Flow Rate FiO2 01/10/19 09:40 86 118/91 01/10/19 09:00 Room Air 01/10/19 08:00 96.8 86 18 118/91 (100) 96 01/10/19 04:00 98.1 81 16 132/86 (101) 96 01/10/19 00:00 96.8 84 18 140/87 (104) 98 01/09/19 21:27 97.9 90 18 110/74 (86) 97 01/09/19 21:26 Room Air 01/09/19 20:55 90 110/76 01/09/19 20:00 97.8 90 18 110/74 (86) 97 01/09/19 16:00 99.9 87 18 120/83 (95) 95 01/09/19 12:00 98.1 88 18 120/75 (90) 96 01/09/19 09:29 83 119/64 01/09/19 09:00 Room Air 01/09/19 08:00 97.7 83 12 119/64 (82) 94 01/09/19 08:00 119/64 (82) 01/09/19 08:00 97.7 83 12 94 01/09/19 08:00 97.7 12 94 01/09/19 04:00 97.3 77 18 118/76 (90) 96 01/09/19 00:47 Room Air 01/08/19 20:00 100.0 88 19 131/78 100 Room Air 01/08/19 20:00 100.0 88 19 131/78 100 Room Air 01/08/19 19:44 101.1 01/08/19 19:09 101.1 93 14 149/47 100 Room Air 01/08/19 17:31 99.1 78 18 108/68 93 Room Air 01/08/19 16:20 92 18 Room Air 01/08/19 16:13 99.1 92 18 100/66 (77) 93 Room Air Intake and Output 01/09/19 01/10/19 19:00 07:00 Intake Total 710.0 ml 275.0 ml Balance 710.0 ml 275.0 ml Intake Oral 600 ml IV Total 110.0 ml 275.0 ml # Voids 4 3 Labs Test 01/08/19 17:05 01/09/19 05:20 01/09/19 08:55 01/10/19 05:20 White Blood Count 10.5 K/UL (4.8-10.8) 7.6 K/UL (4.8-10.8) 6.8 K/UL (4.8-10.8) Red Blood Count 3.78 M/UL (4.20-5.40) 3.55 M/UL (4.20-5.40) 3.63 M/UL (4.20-5.40) Hemoglobin 12.9 G/DL (12.0-16.0) 11.9 G/DL (12.0-16.0) 12.4 G/DL (12.0-16.0) Hematocrit 37.0 % (37.0-47.0) 34.7 % (37.0-47.0) 35.8 % (37.0-47.0) Mean Corpuscular Volume 98 FL (80-99) 98 FL (80-99) 99 FL (80-99) Mean Corpuscular Hemoglobin 34.0 PG (27.0-31.0) 33.5 PG (27.0-31.0) 34.3 PG (27.0-31.0) Mean Corpuscular Hemoglobin Concent 34.7 G/DL (32.0-36.0) 34.2 G/DL (32.0-36.0) 34.8 G/DL (32.0-36.0) Red Cell Distribution Width 12.0 % (11.6-14.8) 12.4 % (11.6-14.8) 12.1 % (11.6-14.8) Platelet Count 207 K/UL (150-450) 163 K/UL (150-450) 182 K/UL (150-450) Mean Platelet Volume 5.5 FL (6.5-10.1) 5.7 FL (6.5-10.1) 5.8 FL (6.5-10.1) Neutrophils (%) (Auto) 63.4 % (45.0-75.0) 60.3 % (45.0-75.0) 59.9 % (45.0-75.0) Lymphocytes (%) (Auto) 22.0 % (20.0-45.0) 21.1 % (20.0-45.0) 24.0 % (20.0-45.0) Monocytes (%) (Auto) 13.2 % (1.0-10.0) 16.9 % (1.0-10.0) 14.1 % (1.0-10.0) Eosinophils (%) (Auto) 0.5 % (0.0-3.0) 0.7 % (0.0-3.0) 1.1 % (0.0-3.0) Basophils (%) (Auto) 0.9 % (0.0-2.0) 1.0 % (0.0-2.0) 1.0 % (0.0-2.0) Urine Color Pale yellow Urine Appearance Clear Urine pH 5 (4.5-8.0) Urine Specific [place] 1.015 (1.005-1.035) Urine Protein Negative (NEGATIVE) Urine Glucose (UA) Negative (NEGATIVE) Urine Ketones Negative (NEGATIVE) Urine Blood Negative (NEGATIVE) Urine Nitrite Negative (NEGATIVE) Urine Bilirubin Negative (NEGATIVE) Urine Urobilinogen Normal MG/DL (0.0-1.0) Urine Leukocyte Esterase 2+ (NEGATIVE) Urine RBC 0-2 /HPF (0 - 2) Urine WBC 10-15 /HPF (0 - 2) Urine Squamous Epithelial Cells Moderate /LPF (NONE/OCC) Urine Bacteria Moderate /HPF (NONE) Sodium Level 137 MMOL/L (136-145) 140 MMOL/L (136-145) 140 MMOL/L (136-145) Potassium Level 3.6 MMOL/L (3.5-5.1) 3.6 MMOL/L (3.5-5.1) 3.9 MMOL/L (3.5-5.1) Chloride Level 98 MMOL/L (98-107) 102 MMOL/L (98-107) 104 MMOL/L (98-107) Carbon Dioxide Level 34 MMOL/L (21-32) 32 MMOL/L (21-32) 29 MMOL/L (21-32) Anion Gap 6 mmol/L (5-15) 6 mmol/L (5-15) 7 mmol/L (5-15) Blood Urea Nitrogen 26 mg/dL (7-18) 22 mg/dL (7-18) 15 mg/dL (7-18) Creatinine 1.1 MG/DL (0.55-1.30) 1.0 MG/DL (0.55-1.30) 0.9 MG/DL (0.55-1.30) Estimat Glomerular Filtration Rate 50.8 mL/min (>60) 56.8 mL/min (>60) > 60 mL/min (>60) Glucose Level 107 MG/DL (74-106) 106 MG/DL (74-106) 115 MG/DL (74-106) Lactic Acid Level 0.40 mmol/L (0.4-2.0) Calcium Level 7.8 MG/DL (8.5-10.1) 8.0 MG/DL (8.5-10.1) 8.6 MG/DL (8.5-10.1) Total Bilirubin 0.6 MG/DL (0.2-1.0) Aspartate Amino Transf (AST/SGOT) 28 U/L (15-37) Alanine Aminotransferase (ALT/SGPT) 34 U/L (12-78) Alkaline Phosphatase 91 U/L (46-116) Pro-B-Type Natriuretic Peptide 920 pg/mL (0-125) Total Protein 6.9 G/DL (6.4-8.2) Albumin 3.1 G/DL (3.4-5.0) Globulin 3.8 g/dL Albumin/Globulin Ratio 0.8 (1.0-2.7) Lactate Dehydrogenase 261 U/L (81-234) Prothrombin Time 10.1 SEC (9.30-11.50) Prothromb Time International Ratio 0.9 (0.9-1.1) Activated Partial Thromboplast Time 32 SEC (23-33) Height (Feet): 5 Height (Inches): 2.00 Weight (Pounds): 175 Objective Vital Signs reviewed Gen: Awake and alert, no acute distress HEENT: NC/AT. EOMI. Neck: Supple, trachea midline Chest Wall: No tenderness Cardiovascular: RRR. S1 and S2 normal Resp: Mild tachypnea with increased work of breathing Abdomen: Abdomen is soft, nondistended Skin: Intact. No abrasions, lacer, rash Ext: left upper arm swelling compared to the right side, worse L>R Neuro: Awake and alert Esdras Jeff MD Jan 10, 2019 15:05
[2019-01-11] MEDS ORDERED: Vitamin D 50,000 units cap ORAL SCH (09:00)
--- NOTE | 2019-01-13 10:11 | Discharge Summary ---
Discharge Summary Discharge Summary _ DATE OF ADMISSION: 01/08/2019 DATE OF DISCHARGE: 01/10/2019 DISCHARGED BY: Dr. Szymanski REASON FOR ADMISSION: 58 years old female with past medical history of breast cancer , was brought by paramedics from halfway facility due to fever for 1 day. Patient noted redness and swelling in the left upper extremity and left breast. She denied cough. She denied dysuria and hematuria. She denied chest pain and shortness of breath. Upon evaluation vital signs were stable. Laboratory work-up revealed no leukocytosis , stable hemoglobin and hematocrit. BUN 26 , creatinine 1.1 , stable renal parameters . Glucose 107. Lactic acid 0.4 . Urinalysis revealed pyuria and moderate bacteria. Chest x-ray demonstrated no evidence of acute disease. Venous duplex left upper extremity revealed no evidence of thrombosis. Patient received empiric antibiotic , Tylenol for pain and admitted for further management to medical surgical floor. CONSULTANTS: pulmonary Dr. Johnson ID specialist Dr. James home health assistant/oncologist Dr. Jeff [facility] COURSE: Patient admitted to medical surgical floor. Patient subsequently undergone VQ scan, which revealed low probability of pulmonary emboli. Urine culture revealed mixed gram-positive organism. Blood cultures were negative. Fever developed later o n the day of admission , but improved with treatment with IV antibiotics ID specialist followed. Patient was on IV antibiotic while in the hospital and discharged on oral antibiotic to complete the course for treatment of cellulitis. Supplemental oxygen provided and titrated to keep pulse oximetry above 92%. Pulmonary toilet with bronchodilator provided as needed. Initial chest x-ray revealed small pleural effusion. Subsequently chest ultrasound was ordered , but it was insufficient amount of pleural fluid for thoracentesis as per interventional radiology while doing the ultrasound of the chest. Pulse oximetry stable on room air. DVT and GI prophylaxis provided. Oncologist followed. Metastatic breast cancer was diagnosed about 1 year ago with multiply bone and liver metastasis. Patient was currently undergoing chemotherapy and radiation . Left upper arm swelling was likely due to lymphedema. Hemoglobin and hematocrit were closely monitored with goal to keep hemoglobin above 7. Hemoglobin and hematocrit remained at the baseline. Prior to discharge i hemoglobin 12.9, hematocrit 25.8. Patient clinically stabilized and was ready for transfer to halfway facility. Follow-up with the oncologist office as an outpatient. FINAL DIAGNOSES: Cellulitis left upper extremity Probably lymphedema Metastatic breast cancer to the bone and liver Small pleural effusion Anemia DISCHARGE MEDICATIONS: See Medication Reconciliation list. DISCHARGE INSTRUCTIONS: Patient was discharged to the halfway facility. Follow up with medical doctor at the facility. I have been assigned to dictate discharge summary for this account. I was not involved in the patient's management. Obdulia Zuniga NP Jan 13, 2019 10:11
== END 2019-01-10 14:35 | DRG 383 ==
LOC: EDBD 16:10 → EDUNIT# 16:10 → EMR 17:35 → 4E 18:26 → EDBEDREQ 19:13
DX: L03.114 Cellulitis of left upper limb (principal); N39.0 Urinary tract infection, site not specified; I89.0 Lymphedema, not elsewhere classified; C50.912 Malignant neoplasm of unspecified site of left female breast; C78.7 Secondary malignant neoplasm of liver and intrahepatic bile duct; C79.51 Secondary malignant neoplasm of bone; J90 Pleural effusion, not elsewhere classified; R09.02 Hypoxemia; Z96.642 Presence of left artificial hip joint; E86.0 Dehydration; Z92.3 Personal history of irradiation; F43.10 Post-traumatic stress disorder, unspecified; F41.9 Anxiety disorder, unspecified; D63.8 Anemia in other chronic diseases classified elsewhere; Z66 Do not resuscitate
CPT/HCPCS: 36415; 71045; 76604; 78579; 78580; 80048; 80053; 81003; 83605; 83615; 83880; 85025; 85610; 85730; 87040; 87086; 93931; 93970; 96361; 96365; 99285; A9503; J7030; J8499

== ENCOUNTER 2019-02-27 22:29 | Inpatient (IN) | payer MEDICAID ==
[~2019-02-27] VITALS: Ht 162.6 cm; Wt 92.1 kg
[~2019-02-27 22:29] MED LIST changes: +ACETAMINOPHEN325 M1 ORAL; +BISACODYL5 MG ORAL; +BUMETANIDE0.5 MG ORAL; +CEPHALEXIN500 MG ORAL; +DOCUSATE SODIU100 MG ORAL; +FERROUS SULFAT325 MG ORAL; +LORATADINE10 M2 PO; +MULTIVITAMINS1 EAC2 ORAL; +NORCO 5-325 TA1 EACH ORAL; +PANTOPRAZOLE SO20 MG ORAL; +POTASSIUM CHLO20 ME1 ORAL; +ROXICODONE5 MG ORAL; +SPIRONOLACTONE100 MG ORAL; +VITAMIN B122500 MCG PO; +VITAMIN D22000 UNIT PO; +VITAMIN D250000 UNI1 ORAL; +ZAROXOLYN2.5 MG ORAL; +[UNRECOGNIZED DRUG - OTHER] ORAL
[2019-02-27 22:30] VITALS: BP 135/94
--- NOTE | 2019-02-27 22:30 | NUR ---
ED Nurse Note: Patient brought in by ambulance from [facility] d/t SOB and severe neck pain. Patient aao x 4 and ambulatory with cane. Patient pain level 8/10. Patient placed in gown and panel monitor. no acute distress noted.
[2019-02-27] MEDS ORDERED: Morphine Sulfate 2mg/ml Inj(IV/IM USE ONLY) IVP ONE (22:45)
[2019-02-27 23:29] LABS: HEMOGLOBIN 10.5 G/DL (12.0-16.0); MEAN CORPUSCULAR VOLUME 95 FL (80-99); PLATELET COUNT 231 K/UL (150-450); RED BLOOD COUNT 3.05 M/UL (4.20-5.40); RED CELL DISTRIBUTION WIDTH 10.1 % (11.6-14.8); WHITE BLOOD COUNT 3.2 K/UL (4.8-10.8)
[2019-02-27 23:43] LABS: ANION GAP 6 mmol/L (5-15); BLOOD UREA NITROGEN 31 mg/dL (7-18); CALCIUM 8.8 MG/DL (8.5-10.1); CARBON DIOXIDE 33 MMOL/L (21-32); CHLORIDE 99 MMOL/L (98-107); CREATININE 1.1 MG/DL (0.55-1.30); POTASSIUM 4.1 MMOL/L (3.5-5.1); SODIUM 138 MMOL/L (136-145)
[2019-02-27 23:54] LABS: ALANINE AMINOTRANSFERASE 24 U/L (12-78); ALBUMIN 3.2 G/DL (3.4-5.0); ALBUMIN/GLOBULIN RATIO 0.8 (1.0-2.7); ALKALINE PHOSPHATASE 68 U/L (46-116); ASPARTATE AMINO TRANSFERASE 20 U/L (15-37); BILIRUBIN,TOTAL 0.4 MG/DL (0.2-1.0)
[2019-02-28 00:38] LABS: APPEARANCE,URINE CLEAR; BILIRUBIN, URINE NEGATIVE (NEGATIVE); COLOR,URINE PALE YELLOW; GLUCOSE, URINE (UA) NEGATIVE (NEGATIVE); KETONES,URINE NEGATIVE (NEGATIVE); LEUKOCYTE ESTERASE ,URINE 1+ (NEGATIVE); NITRITE,URINE NEGATIVE (NEGATIVE); PH,URINE 7 (4.5-8.0); PROTEIN,URINE NEGATIVE (NEGATIVE); UROBILINOGEN,URINE NORMAL MG/DL (0.0-1.0)
[2019-02-28] MEDS ORDERED: LORazepam Inj 2mg/ml 1ml ONE ×3 (00:44→00:56)
--- NOTE | 2019-02-28 01:19 | Emergency Room Report ---
History of Present Illness General Chief Complaint: Upper Respiratory Illness Source: Patient Present Illness HPI 58-year-old female presents the ED for evaluation. Brought in by EMS from nursing home facility for shortness of breath. Started today around 10 AM after receiving chemotherapy. Patient describes shortness of breath at this time. Denies chest pain. Denies cough. Denies fevers or chills. No other aggravating relieving factors. Denies any other associated symptoms Allergies: Coded Allergies: No Known Allergies (Unverified , 11/07/18) Patient History Past Medical History: other - breast cancer Past Surgical History: none Pertinent Family History: none Social History: Denies: smoking, alcohol use, drug use Now: No Immunizations: UTD Reviewed Nursing Documentation: PMH: Agreed; PSxH: Agreed Nursing Documentation-PMH Hx Cardiac Problems: No Hx Cancer: Yes - breast Hx Gastrointestinal Problems: No Hx Neurological Problems: No Review of Systems All Other Systems: negative except mentioned in HPI Physical Exam Vital Signs Date Time Temp Pulse Resp B/P (MAP) Pulse Ox O2 Delivery O2 Flow Rate FiO2 02/27/19 22:23 97.7 85 20 120/90 (100) 94 Nasal Cannula 3.0 Sp02 EP Interpretation: reviewed, normal General Appearance: no apparent distress, alert, GCS 15, non-toxic Head: normocephalic, atraumatic Eyes: bilateral eye normal inspection, bilateral eye PERRL ENT: hearing grossly normal, normal pharynx, no angioedema, normal voice Neck: full range of motion, supple/symm/no masses Respiratory: chest non-tender, lungs clear, normal breath sounds, speaking full sentences Cardiovascular #1: regular rate, rhythm, no edema Cardiovascular #2: 2+ carotid (R), 2+ carotid (L), 2+ radial (R), 2+ radial (L) , 2+ dorsalis pedis (R), 2+ dorsalis pedis (L) Gastrointestinal: normal bowel sounds, non tender, soft, non-distended, no guarding, no rebound Rectal: deferred Genitourinary: normal inspection, no CVA tenderness Musculoskeletal: back normal, normal range of motion, gait/station normal, non- tender Neurologic: alert, motor strength/tone normal, oriented x3, sensory intact, responsive, speech normal Psychiatric: judgement/insight normal, memory normal, mood/affect normal, no suicidal/homicidal ideation Reflexes: 3+ bicep (R), 3+ bicep (L), 3+ tricep (R), 3+ tricep (L), 3+ knee (R) , 3+ knee (L) Skin: other - see nursing skin notes Lymphatic: no adenopathy Medical Decision Making Diagnostic Impression: Primary Impression: Dyspnea Qualified Codes: R06.00 - Dyspnea, unspecified Additional Impression: Breast cancer Qualified Codes: C50.919 - Malignant neoplasm of unspecified site of unspecified female breast ER Course Hospital Course 58-year-old female presents ED complaining of shortness of breath after chemotherapy Differential diagnoses include: CT/unstable angina, contusion, muscle strain, PTX, rib fracture Clinical course Patient placed on stretcher. on quality assurance monitor chassis. After initial history and physical I ordered labs, EKG, chest x-ray labs reviewed- no leukocytosis, hemoglobin/hematocrit stable, creatinine elevated, troponins negative, BNP within normal limits EKG - NSR no acute ischemic changes interpreted by me Chest x-ray- no acute process. portacath in place given abx. patient is DNR/comfort. Case discussed with Dr. Szymanski and he agreed to accept the patient to his service for further care and support I. I feel this is a highly complex case requiring extensive working including EKG/Rhythm strip, Xray/CT/US, Blood/urine lab work, repeat exams while in ED, and administration of strong opiates/narcotics for pain control, admission to hospital or close patient follow up. Diagnosis - dyspnea, breast cancer admitted to floor in serious condtion Labs Test 02/27/19 23:05 02/27/19 23:59 White Blood Count 3.2 K/UL (4.8-10.8) Red Blood Count 3.05 M/UL (4.20-5.40) Hemoglobin 10.5 G/DL (12.0-16.0) Hematocrit 29.0 % (37.0-47.0) Mean Corpuscular Volume 95 FL (80-99) Mean Corpuscular Hemoglobin 34.6 PG (27.0-31.0) Mean Corpuscular Hemoglobin Concent 36.3 G/DL (32.0-36.0) Red Cell Distribution Width 10.1 % (11.6-14.8) Platelet Count 231 K/UL (150-450) Mean Platelet Volume 6.3 FL (6.5-10.1) Neutrophils (%) (Auto) % (45.0-75.0) Lymphocytes (%) (Auto) % (20.0-45.0) Monocytes (%) (Auto) % (1.0-10.0) Eosinophils (%) (Auto) % (0.0-3.0) Basophils (%) (Auto) % (0.0-2.0) Sodium Level 138 MMOL/L (136-145) Potassium Level 4.1 MMOL/L (3.5-5.1) Chloride Level 99 MMOL/L (98-107) Carbon Dioxide Level 33 MMOL/L (21-32) Anion Gap 6 mmol/L (5-15) Blood Urea Nitrogen 31 mg/dL (7-18) Creatinine 1.1 MG/DL (0.55-1.30) Estimat Glomerular Filtration Rate 50.8 mL/min (>60) Glucose Level 139 MG/DL (74-106) Calcium Level 8.8 MG/DL (8.5-10.1) Total Bilirubin 0.4 MG/DL (0.2-1.0) Aspartate Amino Transf (AST/SGOT) 20 U/L (15-37) Alanine Aminotransferase (ALT/SGPT) 24 U/L (12-78) Alkaline Phosphatase 68 U/L (46-116) Troponin I 0.011 ng/mL (0.000-0.056) Pro-B-Type Natriuretic Peptide 417 pg/mL (0-125) Total Protein 7.1 G/DL (6.4-8.2) Albumin 3.2 G/DL (3.4-5.0) Globulin 3.9 g/dL Albumin/Globulin Ratio 0.8 (1.0-2.7) Urine Color Pale yellow Urine Appearance Clear Urine pH 7 (4.5-8.0) Urine Specific [place] 1.010 (1.005-1.035) Urine Protein Negative (NEGATIVE) Urine Glucose (UA) Negative (NEGATIVE) Urine Ketones Negative (NEGATIVE) Urine Blood Negative (NEGATIVE) Urine Nitrite Negative (NEGATIVE) Urine Bilirubin Negative (NEGATIVE) Urine Urobilinogen Normal MG/DL (0.0-1.0) Urine Leukocyte Esterase 1+ (NEGATIVE) Urine RBC 0-2 /HPF (0 - 2) Urine WBC 0-2 /HPF (0 - 2) Urine Squamous Epithelial Cells Few /LPF (NONE/OCC) Urine Bacteria None /HPF (NONE) Lactic Acid Level 0.80 mmol/L (0.4-2.0) EKG Diagnostic Results Rate: normal Rhythm: NSR ST Segments: no acute changes ASA given to the pt in ED: No Rhythm Strip Diag. Results EP Interpretation: yes Rhythm: NSR, no PVC's, no ectopy Chest X-Ray Diagnostic Results Chest X-Ray Diagnostic Results : Chest X-Ray Ordered: Yes # of Views/Limited/Complete: 1 View Indication: Shortness of Breath EP Interpretation: Yes Interpretation: no consolidation, no effusion, no pneumothorax, no acute cardiopulmonary disease, other - portacath Impression: No acute disease Electronically Signed by: Electronically signed by Liu Lau MD Last Vital Signs Date Time Temp Pulse Resp B/P (MAP) Pulse Ox O2 Delivery O2 Flow Rate FiO2 02/27/19 23:43 97.7 02/27/19 22:23 85 20 120/90 (100) 94 Nasal Cannula 3.0 Status: improved Disposition: ADMITTED INPATIENT Condition: Serious Referrals: NON PHYSICIAN (PCP) Liu Lau MD Feb 28, 2019 01:18
--- NOTE | 2019-02-28 01:55 | NUR ---
ED Nurse Note: Report given to KYREE Stafford in med surg.
--- NOTE | 2019-02-28 02:30 | NUR ---
ED Nurse Note: Patient transferred to tele floor via gurney with gear technician in stable condition.
[2019-02-28 04:00] VITALS: BP 139/99
[2019-02-28 05:57] LABS: BASOPHILS % (AUTO) 1.5 % (0.0-2.0); EOSINOPHILS % (AUTO) 0.3 % (0.0-3.0); HEMATOCRIT 29.3 % (37.0-47.0); HEMOGLOBIN 10.5 G/DL (12.0-16.0); LYMPHOCYTES % (AUTO) 46.2 % (20.0-45.0); MEAN CORPUSCULAR VOLUME 97 FL (80-99); MONOCYTES % (AUTO) 12.3 % (1.0-10.0); NEUTROPHILS % (AUTO) 39.6 % (45.0-75.0); PLATELET COUNT 219 K/UL (150-450); RED BLOOD COUNT 3.03 M/UL (4.20-5.40); RED CELL DISTRIBUTION WIDTH 11.3 % (11.6-14.8); WHITE BLOOD COUNT 3.8 K/UL (4.8-10.8)
[2019-02-28] MEDS: Albuterol/Ipratropium 3ml neb HHN PRN ×2 (06:07→19:45)
[2019-02-28 06:14] LABS: ALANINE AMINOTRANSFERASE 23 U/L (12-78); ALBUMIN 2.9 G/DL (3.4-5.0); ALBUMIN/GLOBULIN RATIO 0.7 (1.0-2.7); ALKALINE PHOSPHATASE 64 U/L (46-116); ANION GAP 8 mmol/L (5-15); ASPARTATE AMINO TRANSFERASE 19 U/L (15-37); BILIRUBIN,TOTAL 0.4 MG/DL (0.2-1.0); BLOOD UREA NITROGEN 28 mg/dL (7-18); CALCIUM 8.4 MG/DL (8.5-10.1); CARBON DIOXIDE 32 MMOL/L (21-32); CHLORIDE 100 MMOL/L (98-107); CREATININE 1.1 MG/DL (0.55-1.30); SODIUM 139 MMOL/L (136-145)
[2019-02-28] MEDS ORDERED: Omnipaque-300 100ml vial INJ ONE (06:15)
--- NOTE | 2019-02-28 06:29 | NUR ---
NURSE NOTES: Instructed patient on NPO for CT with contrast. Per patient, the last time she ate was apple at 3AM and drank water at 2am.
--- NOTE | 2019-02-28 06:51 | Consultation ---
History of Present Illness General Chief Complaint: Upper Respiratory Illness Present Illness Allergies: Coded Allergies: No Known Allergies (Unverified , 11/07/18) Medication History Scheduled Anastrozole* (Arimidex*), 1 MG PO DAILY, (Reported) Bumetanide* (Bumetanide*), 0.5 MG ORAL BID, (Reported) Carvedilol (Coreg), 3.125 MG ORAL EVERY 12 HOURS, (Reported) Cyanocobalamin (Vitamin B-12) (Vitamin B12), 1,000 MCG PO DAILY, (Reported) Docusate Sodium* (Docusate Sodium*), 100 MG ORAL TWICE A DAY, (Reported) Enoxaparin* (Lovenox*), 40 MG SUBQ DAILY, (Reported) Ergocalciferol (Vitamin D2)* (Vitamin D*), 50,000 UNIT ORAL ONCE A WEEK, ( Reported) Ferrous Sulfate* (Ferrous Sulfate*), 325 MG ORAL DAILY, (Reported) Loratadine (Loratadine), 10 MG PO DAILY, (Reported) Metolazone (Metolazone), 2.5 MG ORAL BID, (Reported) Multivitamins* (Multivitamins*), 1 TAB ORAL DAILY, (Reported) Pantoprazole (Pantoprazole), 40 MG ORAL DAILY, (Reported) Polyethylene Glycol 3350* (Miralax*), 17 GM ORAL DAILY, (Reported) Potassium Chloride* (K-Dur*), 20 MEQ ORAL TID, (Reported) Spironolactone* (Spironolactone*), 50 MG ORAL DAILY, (Reported) [Prostat Sugar], 30 ML ORAL DAILY, (Reported) Scheduled PRN Acetaminophen* (Acetaminophen 325MG Tablet*), 650 MG ORAL Q4H PRN for For Pain, (Reported) Bisacodyl* (Dulcolax*), 10 MG ORAL ONCE PRN for Constipation, (Reported) Hydrocodone Bit/Acetaminophen 5-325* ([place] 5-325*), 1 TAB ORAL Q6H PRN for For Pain, (Reported) Ibuprofen* (Motrin*), 400 MG ORAL Q6H PRN for For Pain, (Reported) Oxycodone HCl (Oxycodone HCl), 20 MG ORAL Q12HR PRN for For Pain, (Reported) Discontinued Medications Cephalexin* (Keflex*), 500 MG ORAL EVERY 6 HOURS, (Reported) Discontinued Reason: MD discontinued med Escitalopram Oxalate* (Lexapro*), 10 MG ORAL DAILY, (Reported) Discontinued Reason: MD discontinued med Patient History Healthcare decision maker Resuscitation status Do Not Resuscitate Advanced Directive on File Physical Exam Last 24 Hour Vital Signs Date Time Temp Pulse Resp B/P (MAP) Pulse Ox O2 Delivery O2 Flow Rate FiO2 02/28/19 06:08 81 18 95 02/28/19 04:00 93 18 139/99 (112) 96 02/28/19 03:44 Room Air 02/28/19 03:02 97.5 75 20 125/86 96 Room Air 02/27/19 23:43 97.7 02/27/19 22:30 97.5 89 16 135/94 96 Room Air 02/27/19 22:30 89 16 Room Air 02/27/19 22:23 97.7 85 20 120/90 (100) 94 Nasal Cannula 3.0 Intake and Output 02/27/19 02/28/19 19:00 07:00 Intake Total 650 ml Balance 650 ml Intake IV Total 650 ml Laboratory Tests Test 02/27/19 23:05 02/27/19 23:59 02/28/19 05:17 White Blood Count 3.2 K/UL (4.8-10.8) L 3.8 K/UL (4.8-10.8) L Red Blood Count 3.05 M/UL (4.20-5.40) L 3.03 M/UL (4.20-5.40) L Hemoglobin 10.5 G/DL (12.0-16.0) L 10.5 G/DL (12.0-16.0) L Hematocrit 29.0 % (37.0-47.0) L 29.3 % (37.0-47.0) L Mean Corpuscular Volume 95 FL (80-99) 97 FL (80-99) Mean Corpuscular Hemoglobin 34.6 PG (27.0-31.0) H 34.6 PG (27.0-31.0) H Mean Corpuscular Hemoglobin Concent 36.3 G/DL (32.0-36.0) H 35.9 G/DL (32.0-36.0) Red Cell Distribution Width 10.1 % (11.6-14.8) L 11.3 % (11.6-14.8) L Platelet Count 231 K/UL (150-450) 219 K/UL (150-450) Mean Platelet Volume 6.3 FL (6.5-10.1) L 6.3 FL (6.5-10.1) L Neutrophils (%) (Auto) % (45.0-75.0) 39.6 % (45.0-75.0) L Lymphocytes (%) (Auto) % (20.0-45.0) 46.2 % (20.0-45.0) H Monocytes (%) (Auto) % (1.0-10.0) 12.3 % (1.0-10.0) H Eosinophils (%) (Auto) % (0.0-3.0) 0.3 % (0.0-3.0) Basophils (%) (Auto) % (0.0-2.0) 1.5 % (0.0-2.0) Sodium Level 138 MMOL/L (136-145) 139 MMOL/L (136-145) Potassium Level 4.1 MMOL/L (3.5-5.1) 4.0 MMOL/L (3.5-5.1) Chloride Level 99 MMOL/L (98-107) 100 MMOL/L (98-107) Carbon Dioxide Level 33 MMOL/L (21-32) H 32 MMOL/L (21-32) Anion Gap 6 mmol/L (5-15) 8 mmol/L (5-15) Blood Urea Nitrogen 31 mg/dL (7-18) H 28 mg/dL (7-18) H Creatinine 1.1 MG/DL (0.55-1.30) 1.1 MG/DL (0.55-1.30) Estimat Glomerular Filtration Rate 50.8 mL/min (>60) 50.8 mL/min (>60) Glucose Level 139 MG/DL (74-106) H 126 MG/DL (74-106) H Calcium Level 8.8 MG/DL (8.5-10.1) 8.4 MG/DL (8.5-10.1) L Total Bilirubin 0.4 MG/DL (0.2-1.0) 0.4 MG/DL (0.2-1.0) Aspartate Amino Transf (AST/SGOT) 20 U/L (15-37) 19 U/L (15-37) Alanine Aminotransferase (ALT/SGPT) 24 U/L (12-78) 23 U/L (12-78) Alkaline Phosphatase 68 U/L (46-116) 64 U/L (46-116) Troponin I 0.011 ng/mL (0.000-0.056) Pro-B-Type Natriuretic Peptide 417 pg/mL (0-125) H Total Protein 7.1 G/DL (6.4-8.2) 6.8 G/DL (6.4-8.2) Albumin 3.2 G/DL (3.4-5.0) L 2.9 G/DL (3.4-5.0) L Globulin 3.9 g/dL 3.9 g/dL Albumin/Globulin Ratio 0.8 (1.0-2.7) L 0.7 (1.0-2.7) L Urine Color Pale yellow Urine Appearance Clear Urine pH 7 (4.5-8.0) Urine Specific [place] 1.010 (1.005-1.035) Urine Protein Negative (NEGATIVE) Urine Glucose (UA) Negative (NEGATIVE) Urine Ketones Negative (NEGATIVE) Urine Blood Negative (NEGATIVE) Urine Nitrite Negative (NEGATIVE) Urine Bilirubin Negative (NEGATIVE) Urine Urobilinogen Normal MG/DL (0.0-1.0) Urine Leukocyte Esterase 1+ (NEGATIVE) H Urine RBC 0-2 /HPF (0 - 2) Urine WBC 0-2 /HPF (0 - 2) Urine Squamous Epithelial Cells Few /LPF (NONE/OCC) Urine Bacteria None /HPF (NONE) Lactic Acid Level 0.80 mmol/L (0.4-2.0) Height (Feet): 5 Height (Inches): 4.00 Weight (Pounds): 203 Medications Current Medications Medications (Trade) Dose Ordered Sig/Kaushal Route PRN Reason Start Time Stop Time Status Last Admin Dose Admin Acetaminophen (Tylenol) 650 mg Q4H PRN ORAL Mild Pain/Temp > 100.5 02/28/19 02:00 03/30/19 01:59 Albuterol/ Ipratropium (Albuterol/ Ipratropium) 3 ml Q4H PRN HHN Shortness of Breath 02/28/19 02:00 03/05/19 01:59 02/28/19 06:07 Barium Sulfate (Readi-Cat 2) 450 ml NOW PRN ORAL Radiology Procedure 02/28/19 06:15 03/02/19 06:07 Assessment/Plan Assessment/Plan: Oncology Consultation LORIE MD: Sachin Landrum RFC: Metastatic breast eval and recent chemo DOS: 02/28/2019 ID 58-year-old [place] arabian-speaking female, well known to me, originally from [facility], gets chemotherapy with my mom at the office, with a history of metastatic breast cancer with multiple bony and liver mets, currently undergoing chemotherapy and radiation presenting for shortness of breath, has had similar findings before has require thoras. On arimidex now as horomonal treatment. Unable to add faslodex based on insurance, has received thora in the prior 2018 admission. She has been complaining of sob and a cxr was done in the er. She has required thoracentesis in the past, last time 09/2018 and 10/2018. Denying chest pain. No other symptoms at this time. No recent cough, fevers, sore throat, abdominal pain, vomiting, diarrhea or skin rash. Otherwise has been feeling better. At this time, have ordered a ct c/a/p, dw Dr. Felisa Jeff, pending results for restaging purposes, also has been complaining of left leg pain. PMH: Metastatic breast cancer PSH: Hip surgery Allergies: Denies Social Hx: [place] drug, alcohol, tobacco use Coded Allergies: No Known Allergies (Unverified , 11/07/18) Patient History Last Menstrual Period: na Nursing Documentation-PMH Past Medical History: No History, Except For Hx Cancer: Yes - left breast with metastisis to liver and bones History Of Psychiatric Problem: Yes - PTSD, anxiety Review of Systems All Other Systems: negative except mentioned in HPI Physical Exam Vital Signs reviewed Gen: Awake and alert, no acute distress HEENT: NC/AT. EOMI. Neck: Supple, trachea midline Chest Wall: No tenderness Cardiovascular: RRR. S1 and S2 normal Resp: Mild tachypnea with increased work of breathing Abdomen: Abdomen is soft, nondistended Skin: Intact. No abrasions, lacer, rash Ext: left upper arm swelling compared to the right side, worse L>R Neuro: Awake and alert Labs: noted Imaging: reviewed Assessment and Recs: # Metastatic breast cancer -- diagnosed approx 1 year ago with multiple bony and liver mets, currently undergoing chemotherapy and radiation presenting for shortness of breath, on taxotere in office. On arimidex now as horomonal treatment. --> at this time, reviewed recent restaging scan on prior admission, 11/09/18 -- > Evidence of metastatic malignant neoplasm involving the bones. There is extensive involvement of the spine and sternum pelvic bones. Nonspecific hypodensities within the liver. Metastatic neoplasm is in the differential diagnosis. Abnormal appearance of the left anterior chest wall with subcutaneous reticulation and skin thickening presumably on the basis of previous radiation and/or surgery. --> tumor markers ca125 80, cea 6 --> will need thoracentesis prn basis --> imaging to be reviewed --> recently on chemo in the office (02/2019) # Shortness of breath with Plueral effusion in the past --> obtain cxr v ct chest which has been ordered --> perform cytology of pleural fluid --> Dr. Renee is aware and appreciate recs # Anemia of chronic disease --> recently on chemo --> is related to ongoing chronic disease # Leukopenia --> also s/p chemo # Left upper arm swelling L>R, slowly improving over last few months, likely LYMPHEDEMA --> s/p duplex scan and does not show dvt --> currently appears improved --> per id care # Hypoxia due to effusion --> obtain v/q scan with pulm # DVT ppx heparin sq Greatly appreciate consultation and dw Esdras Alvarenga MD Feb 28, 2019 06:51
--- NOTE | 2019-02-28 07:42 | NUR ---
HAND-OFF: Report given to KYREE Blood.
--- NOTE | 2019-02-28 07:45 | NUR ---
NURSE NOTES: Received pt from Luis in bed resting. Pt is AAO X4, denies any pain at this time. Pt is on NPO for CT with contrast. It was endorsed that Per patient, the last time she ate was apple at 3AM and drank water at 2am. Bed is in lowest position with bedside rails up x2, call light is within reach. Will continue with the plan of care.
[2019-02-28 08:00] VITALS: BP 139/99
--- NOTE | 2019-02-28 10:32 | NUR ---
SAMPLE CUTTER SW received a notification for SS concern on 02/27/2019. SW met w/pt and completed psychosocial assessment on 02/28/2019. Pt presents as A&O4x and cooperative. Pt has been residing at [facility] [address] [id number] for 4 months. Pt is , has no income and has two adult daughters living in [place]. PT occasionally talks to her family on the phone. PT does not have any family members in [place] Pt is the primary decision maker. Pt has no family support and has poor social support. Emergency contact is provided as pt's best friend, Heather Sánchez [phone]. PT is ambulatory w/ walker. Pt has her walker on her bedside. Pt states she is independent w/ dressing but needs assistance w/ bathing/showering. SW reviewed SUB/TOB use hx w/ pt. Pt denies current substance abuse/tobacco use. Pt declined counseling/tx intervention/resource on substance/tobacco abuse.Pt denies hx of mental illness/hx of abuse. Pt did not share any concern/issue at this time. Pt plans to return [facility] upon DC. Signed: 02/28/19 at 1042 by ISAIAH LOMBARDO <Co-Signature Required>
[2019-02-28 12:00] VITALS: BP 110/77
--- NOTE | 2019-02-28 12:57 | Diagnostic Imaging Report ---
Indication: Shortness of breath Technique: XRAY Chest 1v Comparison: 01/08/2019 Findings: Heart size and mediastinal contours stable compared to the prior exam. A right-sided Mediport is noted with the catheter tip in the region of the cavoatrial junction. Port is currently accessed with a Jorge needle. There is low lung volumes. Vascular crowding/expiratory atelectatic changes at the bases. No definite focal consolidation. No radiographically appreciable pleural effusion or pneumothorax. There are degenerative changes of the spine. No acute osseous abnormality. Impression: Limited exam. Low lung volumes with vascular crowding/expiratory atelectatic changes at the bases. No definite focal consolidation. Mediport in place.
--- NOTE | 2019-02-28 13:31 | NUR ---
SWALLOW/SPEECH THERAPY NOTE AND D/C SUMMARY: ORDER RECEIVED FOR SPEECH AND LANGUAGE EVALUATION BY DR ZAFAR. ORDER LIKELY FOR BEDSIDE SWALLOW EVALUATION PER RN, TITUS, PATIENT HAS NO PROBLEMS WITH COMMUNICATION. PATIENT HAS ALREADY TOLERATED HER DIET OF PUREED AND THIN LIQUIDS AND WHOLE PILLS WITH WATER W/O OVERT ASPIRATION. NO H/O OF SWALLOWING PROBLEMS PER PATIENT WHO DOES NOT WANT A SWALLOW EVALUATION. PLAN: D/C FROM [facility] [facility] AT THIS TIME, NO NEED FOR SWALLOW EVAL PATIENT HAS A GROSSLY FUNCTIONAL SWALLOW AND IS DECLINING AN ASSESSMENT. UPGRADE DIET TOLERATED. DIET TYPE PER RD (DIETITIAN) Addendum: 02/28/19 at 1337 by ALON BELTRAN [employer] UNLIKELY SILENT ASPIRATION AND RESP RATE ADEQUATE AT THIS TIME. Addendum: 02/28/19 at 1341 by ALON BELTRAN [employer] PATIENT WAS ON A CARDIAC DIET IN DEC 2018 EDIE QURESHI RN, TO ASK DR ZAFAR REGARDING DIET TYPE UNTIL RD ASSESSES THIS ADMIT.
--- NOTE | 2019-02-28 15:38 | Diagnostic Imaging Report ---
Indication: Abdominal pain, chest pain, shortness of breath. History of metastatic breast cancer on chemotherapy Technique: Continuous helical transaxial imaging of the chest, abdomen and pelvis was obtained from the lung bases to the pubic symphysis during intravenous contrast administration. Multiple phases of enhancement obtained. Coronal 2-D reformats were also obtained. Study obtained in a Siemens sensation [address] Automatic Exposure Control was utilized. Total Dose length Product (DLP): 2220.[address] Dose Index Volume (CTDIvol): 180.7 mGy Comparison: 11/09/2018 Findings: CT CHEST: There are small bilateral pleural effusions with adjacent opacities in the bilateral lower lobes most likely related to compressive atelectasis. Possibility of pneumonia in the atelectatic lung not excluded. No discrete pulmonary mass lesion is appreciated. Right chest wall Mediport has its catheter tip at the cavoatrial junction. Heart is normal in size. Trace pericardial effusion is again noted. There is a small left para-aortic lymph node which is stable in size compared to the prior exam. Conventional branching anatomy of the aortic arch is again noted. No evidence of aortic aneurysm or dissection. No saddle or large central pulmonary embolism. Note that exam is optimized to evaluate smaller is pulmonary arteries. Main pulmonary artery appears normal in caliber. Thyroid is normal in appearance. Postoperative changes noted in the right breast. Asymmetric skin thickening is noted in the left breast. CT abdomen pelvis: Previously described hepatic hypodensities are stable and size and number compared to the prior exam. Again given history of metastatic foci cannot be excluded. There is cholelithiasis. No CT evidence to suggest acute cholecystitis. Adrenal glands are normal in appearance and without evidence of mass. Spleen and pancreas unremarkable. Kidneys enhance symmetrically. There is an unchanged low-attenuation likely cyst in the right kidney. There is no hydronephrosis or urinary tract stone. There is no free intraperitoneal air or fluid. There is significant colonic stool burden. There is also fecalization of contents in some distal small bowel loops, including the terminal ileum. There is mild distention of some small bowel loops in the central abdomen likely related to the degree of constipation. Developing small bowel obstruction not excluded and follow-up recommended. Abdominal aorta is normal in caliber. There is mild atherosclerotic calcification. There are small retroperitoneal and iliac chain lymph nodes. These are overall similar compared to the prior exam. There is a small fat-containing umbilical hernia. A right hip prosthesis is again noted. There is diffuse heterogeneity of the osseous structures with mixed lytic and sclerotic lesions, compatible with osseous metastasis. There are multiple vertebral body compression fractures. The compression fracture at T6 is slightly worsened compared to the prior exam. Additional compression deformities are stable. No acute fractures identified. IMPRESSION: * Diffuse bony metastases with multifocal vertebral compression deformities with slight worsening of compression deformity at T6 compared to the prior exam. Additional compression deformity is overall stable. * Large colonic stool burden suggesting constipation. Fecalization of contents in distal small bowel loops, some which are mildly dilated, may be related to degree of constipation. A developing secondary small bowel obstruction can be considered. Follow-up recommended. * Hypodense lesions within the liver again concerning for metastatic disease, size and number stable compared to the prior exam. * Asymmetric thickening of the skin of the left breast which is partially visualized. Correlation with physical exam recommended. * Small bilateral pleural effusions with adjacent opacities in the bilateral lower lobes which may be related to compressive atelectasis. Superimposed pneumonia needs to be excluded clinically. * Trace pericardial effusion, stable compared to the prior exam. * Cholelithiasis without CT evidence to suggest an acute cholecystitis. The CT scanner at [facility] is accredited by the [employer] and the scans are performed using dose optimization techniques as appropriate to a performed exam including Automatic Exposure control.
[2019-02-28 16:00] VITALS: BP 111/74
--- NOTE | 2019-02-28 17:15 | Consultation ---
DATE OF CONSULTATION: 02/28/2019 INFECTIOUS DISEASE CONSULTATION CONSULTING PHYSICIAN: Jaycob Noble M.D. PRIMARY ATTENDING PHYSICIAN: Sachin Szymanski M.D. REASON FOR CONSULTATION: Shortness of breath. HISTORY OF PRESENT ILLNESS: This is a 58-year-old white female, admitted last night from a nursing facility because of shortness of breath. The patient had a history of breast cancer, is on chemotherapy. She has also history of pleural effusion and shortness of breath in the past admission. No fever and no other systemic symptoms. PAST MEDICAL HISTORY: Breast cancer, metastatic to bone and liver, on chemotherapy. Breast cancer was diagnosed one year ago, involving sternum, vertebra pelvic bone. She has chronic edema of left upper extremity, has right hip replacement. She has anemia. ALLERGIES: No known drug allergies. MEDICATIONS: Albuterol, ipratropium inhaler, and Tylenol and get a dose of Levaquin in the ER. SOCIAL HISTORY: senior living resident. . Originally from [facility]. She has children and grandchildren. No history of alcohol, drug abuse, or smoking. REVIEW OF SYSTEMS: No sore throat. No runny nose. Feels short of breath. No chest pain. No nausea. No vomiting. No dysuria. She has chronic edema of right arm. She has difficulty of walking, uses walker. PHYSICAL EXAMINATION: VITAL SIGNS: Temperature 97.5, pulse 81, blood pressure 139/99. GENERAL APPEARANCE: No acute distress. Well developed. HEAD AND NECK: [place] conjunctivae. HEART: Normal rate. LUNGS: Clear. ABDOMEN: Soft, nontender. EXTREMITIES: Has left arm edema. NEUROLOGIC: She is awake, alert, oriented x3. LABORATORY AND DIAGNOSTIC DATA: Sodium 139, potassium 4, chloride 100, bicarbonate 22, BUN 28, creatinine 1.1, glucose is 126. WBC 13.8, hemoglobin 10.5, hematocrit 29.2, platelets 219,000. UA was negative. Chest x-ray official report is pending, the preliminary does not seem to have significant infiltrate or effusion. IMPRESSION: 1. Shortness of breat, Dyspnea. 2. Breast cancer. 3. Anemia. 4. History of pleural effusion. 5. History of right hip replacement. RECOMMENDATIONS: Observe off antibiotic. We will follow up CT scan of the abdomen and pelvis, ordered by automatic engraver. At the end of my exam, I thank Dr. Szymanski for involving me in the care of this patient. Jaycob Noble M.D. DR: GERMAINE JOB#: [id number] CC: ASHLEIGH
--- NOTE | 2019-02-28 17:28 | NUR ---
CASE MANAGEMENT: INITIAL REVIEW 58YR OLD FEMALE BIBA FROM [facility] CC: UPPER RESP ILLNESS, NECK PAIN SI:DYSPNEA . BREAST CANCER 97.7 85 20 120/90 94% ON RA WBC 3.2 H/H 10.5/29 BUN 31 CO2 33 BG 139 BNP 417 IS:IVF NS BOLUS X1 IV MORPHINE X1 \: 4E MED SURG UNIT DCP: RETURN TO [facility] WHEN MEDICALLY CLEARED CASE MANAGEMENT: REVIEW 02/28/2019 SI:DYSPNEA . BREAST CANCER 97.7 85 20 120/90 94% ON RA WBC 3.8 H/H 10.5/29.3 BUN 28 BG 126 CA+ 8.4 IS:ALBUTEROL Q4/PRN IV LEVOFLOXACIN X1 \: 4E MED SURG UNIT DCP: RETURN TO [facility] WHEN MEDICALLY CLEARED PLAN: CA 125- PENDING
[2019-02-28] MEDS ORDERED: BISACODYL10 M1 RC (18:16)
[2019-02-28] MEDS ORDERED: COMPAZINE10 MG ORAL (18:18)
[2019-02-28] MEDS ORDERED: GABAPENTIN100 MG ORAL (18:22)
[2019-02-28] MEDS ORDERED: MAGNESIUM OXID400 M1 ORAL (18:25)
[2019-02-28] MEDS ORDERED: OXYCONTIN20 MG ORAL (18:31)
[2019-02-28] MEDS ORDERED: PRO-STAT LIQUID30 ML ORAL (18:35)
[2019-02-28] MEDS ORDERED: TRAZODONE HCL100 MG ORAL (18:40)
--- NOTE | 2019-02-28 19:24 | NUR ---
HAND-OFF: Report given to Luis ADORNO.Patient is in stable condition.
--- NOTE | 2019-02-28 19:27 | NUR ---
NURSE NOTES: Patient awake resting in bed, asking for breathing treatment. Respiratory therapist made aware. Call light and needs in reach. Will continue to monitor.
[2019-02-28 20:00] VITALS: BP 111/69
--- NOTE | 2019-02-28 20:01 | Consultation ---
DATE OF CONSULTATION: 02/28/2019 PULMONARY CONSULTATION CONSULTING PHYSICIAN: Tony Renee M.D. REFERRING PHYSICIAN: Esdras Jeff M.D. REASON FOR CONSULT: Upper respiratory infection. HISTORY OF PRESENT ILLNESS: This is a 58-year-old female who presented to the ER yesterday for evaluation. She was sent from retirement. She is on chemotherapy. The patient reports that she is having shortness of breath and mild chest congestion. She has history of breast carcinoma and currently is getting chemotherapy as per Dr. Jeff's notes. The patient is unable to provide any significant history and most of the history is obtained from reviewing records. HOME MEDICATIONS: Include Arimidex, Bumex, Coreg, vitamin B12, Colace, Lovenox, vitamin D2, ferrous sulfate, , metolazone, Protonix, spironolactone as well as p.r.n. medications. CODE STATUS: DNR. REVIEW OF SYSTEMS: Denies any headaches, hematemesis, melena, hematochezia, night sweats, or weight loss. PAST MEDICAL HISTORY: Notable for chronic heart disease, hypertension. She also has CHF, obesity, and breast cancer. PREVIOUS SURGERIES: Notable for hip surgery. ALLERGIES: None. PHYSICAL EXAMINATION: GENERAL: Reveals an obese female. HEENT: Unremarkable. VITAL SIGNS: Blood pressure is 130/90, heart rate 84, respiratory rate , she is afebrile. CHEST: Decreased breath sounds bilaterally. CARDIAC: Normal heart sounds. ABDOMEN: Soft. EXTREMITIES: There is no edema. NEUROLOGIC: Nonfocal. LABORATORY DATA: Hemoglobin 10.5, otherwise normal CBC and BMP. Creatinine is 1.1. IMAGING STUDIES: The patient underwent an x-ray of her chest, which shows evidence of atelectasis. IMPRESSION: 1. Nonspecific atelectasis. 2. Status post chemotherapy. DISCUSSION: Continue present medications and care. The patient appears to be nontoxic. I suspect she can be discharged back to nursing facility once cleared by Hematology. We will follow as dianeticist. Tony Renee M.D. DR: LIZET JOB#: [id number] CC:
[2019-02-28] MEDS: Morphine Sulfate 2mg/ml Inj(IV/IM USE ONLY) IVP PRN (21:50)
[2019-02-28] MEDS: oxyCONTIN 20mg tab ORAL SCH (22:03)
[2019-02-28] MEDS: Docusate 100mg cap ORAL SCH (22:03)
--- NOTE | 2019-02-28 22:15 | NUR ---
NURSE NOTES: Patient complained about her Oxycontin and morphine shot. Called Dr. Szymanski for orders but spoke with Dr. Jeff and obtained orders.
--- NOTE | 2019-02-28 23:34 | NUR ---
NURSE NOTES: Received patient in bed. Awake A/O x4. Patient laying in semi-fowlers, 1/2 side rails up. NC in place flowing at 2 lpm. Right upper chest portacath noted with dry dressing intact. Walker at bedside. patient denies pain at this time.
--- NOTE | 2019-02-28 23:46 | NUR ---
HAND-OFF: Report given to KYREE Corley.
[2019-02-28 23:59] VITALS: BP 104/76
--- NOTE | 2019-03-01 01:01 | History and Physical Report ---
DATE OF ADMISSION: 02/27/2019 HISTORY OF PRESENT ILLNESS: The patient comes in because of shortness of breath. The patient is getting chemotherapy. The patient came from the facility because of shortness of breath. It happened after receiving chemotherapy. The patient denies chest pain. Denies cold symptoms. Denies nausea, vomiting, or diarrhea. Denies wheezing. The patient also has history of breast cancer. Past medical history of breast cancer. The patient also has history of GERD. The patient apparently is also DNR. PAST MEDICAL HISTORY: Significant for breast cancer, hypertension, constipation, vitamin D deficiency, iron deficiency anemia, chronic pain syndrome, GERD. PAST SURGERIES: Related to breast cancer. MEDICATIONS: Coreg, Arimidex, gabapentin, ibuprofen, vitamin B12, potassium, Protonix, oxycodone, and multivitamin. FAMILY HISTORY: Does have history of cancer. SOCIAL HISTORY: Denies history of alcohol or illicit drugs. REVIEW OF SYSTEMS: HEENT: Denies headaches. RESPIRATORY: Reports shortness of breath. Denies cough. Denies wheezing. CARDIOVASCULAR: Denies chest pain. No orthopnea. GASTROINTESTINAL: Denies nausea, vomiting, or diarrhea. Does have chronic pain syndrome. CENTRAL NERVOUS SYSTEM: Narciso any change in speech pattern. Feels very weak. PHYSICAL EXAMINATION: VITAL SIGNS: Temperature is 97.7, pulse is 84, blood pressure is 110/77. HEENT: PERRLA. NECK: Supple. No lymphadenopathy. CHEST: Clear to auscultation. CARDIOVASCULAR: Regular rate and rhythm. No murmurs or extra sounds. GASTROINTESTINAL: Soft, nontender, nondistended. No organomegaly. EXTREMITIES: 1+ edema. Reflexes equal on both sides. Moves all four extremities. Dorsalis pedis pulses present. LABORATORY DATA: WBC of 3.3, hemoglobin 10.5, platelets 231. Sodium 138, potassium 4.1, BUN of 31, creatinine 1.1, glucose of 139. Troponin of 0.011. ASSESSMENT AND PLAN: Shortness of breath, breast cancer, chronic pain syndrome. The patient also complains of dyspnea. The patient is DNR. Dyspnea, chemotherapy, chronic pain syndrome, rule out infectious etiology. I have consulted Dr. Renee, Dr. Esdras Jeff, and Dr. Jaycob Noble to rule out bronchitis, coughing that will be also contributing to shortness of breath. So, I have consulted the Infectious Disease doctor again to rule out bronchitis. Sachin Szymanski M.D. DR: LISA JOB#: [id number] CC:
[2019-03-01 04:00] VITALS: BP 118/72
--- NOTE | 2019-03-01 06:19 | Hematology/Onc Progress Note ---
Assessment/Plan Assessment/Plan Assessment and Recs: # Metastatic breast cancer -- diagnosed approx 1 year ago with multiple bony and liver mets, currently undergoing chemotherapy and radiation presenting for shortness of breath, on taxotere in office. On arimidex now as horomonal treatment. --> at this time, reviewed recent restaging scan on prior admission, 11/09/18 -- > Evidence of metastatic malignant neoplasm involving the bones. There is extensive involvement of the spine and sternum pelvic bones. Nonspecific hypodensities within the liver. Metastatic neoplasm is in the differential diagnosis. Abnormal appearance of the left anterior chest wall with subcutaneous reticulation and skin thickening presumably on the basis of previous radiation and/or surgery. --> tumor markers ca125 80, cea 6 --> thoracentesis prn basis --> imaging to be reviewed --> recently on chemo in the office (02/2019) # Pneumonia on ct iamging --- p/w shortness of breath with Plueral effusion in the past --> obtain cxr v ct chest which has been ordered --> throa prn basis --> Dr. Renee is aware and appreciate recs --> vanc/zosyn 03/01 # Anemia of chronic disease --> recently on chemo --> is related to ongoing chronic disease # Leukopenia --> also s/p chemo # Left upper arm swelling L>R, slowly improving over last few months, likely LYMPHEDEMA --> s/p duplex scan and does not show dvt --> currently appears improved --> per id care # Hypoxia due to effusion --> obtain v/q scan with pulm # DVT ppx heparin sq Greatly appreciate consultation and dw RN Subjective Constitutional: Denies: no symptoms, chills, fever, malaise, weakness, other Cardiovascular: Denies: no symptoms, chest pain, edema, irregular heart rate, lightheadedness, palpitations, syncope, other Respiratory: Denies: no symptoms, cough, shortness of breath, SOB with excertion, SOB at rest, sputum, wheezing, other Gastrointestinal/Abdominal: Denies: no symptoms, abdomen distended, abdominal pain, black stools, tarry stools, blood in stool, constipated, diarrhea, difficulty swallowing, nausea, poor appetite, poor fluid intake, rectal bleeding , vomiting, other Genitourinary: Denies: no symptoms, burning, discharge, frequency, flank pain, hematuria, incontinence, pain, urgency, other Neurologic/Psychiatric: Denies: no symptoms, anxiety, depressed, emotional problems, headache, numbness, paresthesia, pre-existing deficit, seizure, tingling, tremors, weakness, other Endocrine: Denies: no symptoms, excessive sweating, flushing, intolerance to cold, intolerance to heat, increased hunger, increased thirst, increased urine, unexplained weight gain, unexplained weight loss, other Allergies: Coded Allergies: No Known Allergies (Unverified , 11/07/18) Subjective 03/01: less pain this am, complaining of chills severe overnight, hx of recurrent infection, ct showed pna Objective Objective Current Medications Medications (Trade) Dose Ordered Sig/[place] Route PRN Reason Start Time Stop Time Status Last Admin Dose Admin Acetaminophen (Tylenol) 650 mg Q4H PRN ORAL Mild Pain/Temp > 100.5 02/28/19 02:00 03/30/19 01:59 Albuterol/ Ipratropium (Albuterol/ Ipratropium) 3 ml Q4H PRN HHN Shortness of Breath 02/28/19 02:00 03/05/19 01:59 02/28/19 19:45 Barium Sulfate (Readi-Cat 2) 450 ml NOW PRN ORAL Radiology Procedure 02/28/19 06:15 03/02/19 06:07 02/28/19 09:13 Chlorhexidine Gluconate (Kaye-Hex 2%) 1 applic DAILY@1999 TOPIC 03/01/19 20:00 03/31/19 19:59 Docusate Sodium (Colace) 100 mg TWICE A DAY ORAL 02/28/19 22:00 03/30/19 21:59 02/28/19 22:03 Morphine Sulfate (Morphine Sulfate) 1 mg Q8H PRN IVP Severe Pain (Pain Scale 7-10) 02/28/19 21:42 03/07/19 21:41 02/28/19 21:50 Oxycodone HCl (OxyCONTIN) 20 mg EVERY 12 HOURS ORAL 02/28/19 22:00 03/07/19 21:59 02/28/19 22:03 Last 24 Hour Vital Signs Date Time Temp Pulse Resp B/P (MAP) Pulse Ox O2 Delivery O2 Flow Rate FiO2 03/01/19 04:00 97.3 74 18 118/72 (87) 98 02/28/19 23:59 97.7 82 18 104/76 (85) 98 02/28/19 21:56 Nasal Cannula 2.0 02/28/19 20:00 97.6 87 18 111/69 (83) 99 02/28/19 19:45 86 15 99 Room Air 21 84 17 98 02/28/19 16:00 98.0 82 18 111/74 (86) 100 02/28/19 12:00 97.7 84 18 110/77 (88) 96 02/28/19 09:00 Nasal Cannula 2.0 02/28/19 08:00 97.5 89 19 139/99 (112) 97 02/28/19 06:08 81 18 95 02/28/19 04:00 93 18 139/99 (112) 96 02/28/19 03:44 Room Air 02/28/19 03:02 97.5 75 20 125/86 96 Room Air 02/27/19 23:43 97.7 02/27/19 22:30 97.5 89 16 135/94 96 Room Air 02/27/19 22:30 89 16 Room Air 02/27/19 22:23 97.7 85 20 120/90 (100) 94 Nasal Cannula 3.0 Intake and Output 02/28/19 03/01/19 19:00 07:00 Intake Total 600 ml Balance 600 ml Intake Oral 600 ml # Voids 6 # Bowel Movements 1 Labs Test 02/27/19 23:05 02/27/19 23:59 02/28/19 05:17 White Blood Count 3.2 K/UL (4.8-10.8) 3.8 K/UL (4.8-10.8) Red Blood Count 3.05 M/UL (4.20-5.40) 3.03 M/UL (4.20-5.40) Hemoglobin 10.5 G/DL (12.0-16.0) 10.5 G/DL (12.0-16.0) Hematocrit 29.0 % (37.0-47.0) 29.3 % (37.0-47.0) Mean Corpuscular Volume 95 FL (80-99) 97 FL (80-99) Mean Corpuscular Hemoglobin 34.6 PG (27.0-31.0) 34.6 PG (27.0-31.0) Mean Corpuscular Hemoglobin Concent 36.3 G/DL (32.0-36.0) 35.9 G/DL (32.0-36.0) Red Cell Distribution Width 10.1 % (11.6-14.8) 11.3 % (11.6-14.8) Platelet Count 231 K/UL (150-450) 219 K/UL (150-450) Mean Platelet Volume 6.3 FL (6.5-10.1) 6.3 FL (6.5-10.1) Neutrophils (%) (Auto) % (45.0-75.0) 39.6 % (45.0-75.0) Lymphocytes (%) (Auto) % (20.0-45.0) 46.2 % (20.0-45.0) Monocytes (%) (Auto) % (1.0-10.0) 12.3 % (1.0-10.0) Eosinophils (%) (Auto) % (0.0-3.0) 0.3 % (0.0-3.0) Basophils (%) (Auto) % (0.0-2.0) 1.5 % (0.0-2.0) Sodium Level 138 MMOL/L (136-145) 139 MMOL/L (136-145) Potassium Level 4.1 MMOL/L (3.5-5.1) 4.0 MMOL/L (3.5-5.1) Chloride Level 99 MMOL/L (98-107) 100 MMOL/L (98-107) Carbon Dioxide Level 33 MMOL/L (21-32) 32 MMOL/L (21-32) Anion Gap 6 mmol/L (5-15) 8 mmol/L (5-15) Blood Urea Nitrogen 31 mg/dL (7-18) 28 mg/dL (7-18) Creatinine 1.1 MG/DL (0.55-1.30) 1.1 MG/DL (0.55-1.30) Estimat Glomerular Filtration Rate 50.8 mL/min (>60) 50.8 mL/min (>60) Glucose Level 139 MG/DL (74-106) 126 MG/DL (74-106) Calcium Level 8.8 MG/DL (8.5-10.1) 8.4 MG/DL (8.5-10.1) Total Bilirubin 0.4 MG/DL (0.2-1.0) 0.4 MG/DL (0.2-1.0) Aspartate Amino Transf (AST/SGOT) 20 U/L (15-37) 19 U/L (15-37) Alanine Aminotransferase (ALT/SGPT) 24 U/L (12-78) 23 U/L (12-78) Alkaline Phosphatase 68 U/L (46-116) 64 U/L (46-116) Troponin I 0.011 ng/mL (0.000-0.056) Pro-B-Type Natriuretic Peptide 417 pg/mL (0-125) Total Protein 7.1 G/DL (6.4-8.2) 6.8 G/DL (6.4-8.2) Albumin 3.2 G/DL (3.4-5.0) 2.9 G/DL (3.4-5.0) Globulin 3.9 g/dL 3.9 g/dL Albumin/Globulin Ratio 0.8 (1.0-2.7) 0.7 (1.0-2.7) Urine Color Pale yellow Urine Appearance Clear Urine pH 7 (4.5-8.0) Urine Specific [place] 1.010 (1.005-1.035) Urine Protein Negative (NEGATIVE) Urine Glucose (UA) Negative (NEGATIVE) Urine Ketones Negative (NEGATIVE) Urine Blood Negative (NEGATIVE) Urine Nitrite Negative (NEGATIVE) Urine Bilirubin Negative (NEGATIVE) Urine Urobilinogen Normal MG/DL (0.0-1.0) Urine Leukocyte Esterase 1+ (NEGATIVE) Urine RBC 0-2 /HPF (0 - 2) Urine WBC 0-2 /HPF (0 - 2) Urine Squamous Epithelial Cells Few /LPF (NONE/OCC) Urine Bacteria None /HPF (NONE) Lactic Acid Level 0.80 mmol/L (0.4-2.0) Height (Feet): 5 Height (Inches): 4.00 Weight (Pounds): 203 Objective Vital Signs reviewed Gen: Awake and alert, no acute distress HEENT: NC/AT. EOMI. Neck: Supple, trachea midline Chest Wall: No tenderness Cardiovascular: RRR. S1 and S2 normal Resp: Mild tachypnea with increased work of breathing Abdomen: Abdomen is soft, nondistended Skin: Intact. No abrasions, lacer, rash Ext: left upper arm swelling compared to the right side, worse L>R Neuro: Awake and alert Esdras Jeff MD Mar 01, 2019 06:19
[2019-03-01] MEDS ORDERED: Piperacillin/Tazobactam 3.375 GM in NS 110 ML IVPB SCH ×2 (06:30→09:00)
[2019-03-01] MEDS ORDERED: Vancomycin 1 GM in D5W 275 ML IVPB SCH ×2 (07:00→09:00)
--- NOTE | 2019-03-01 07:20 | NUR ---
HAND-OFF: Report given to Zan ADORNO.
--- NOTE | 2019-03-01 07:21 | NUR ---
NURSE NOTES: Report received from Landen ADORNO. Patient awake and alert x 4 sitting at edge of bed eating breakfast. Patient currently on 2 L via nasal canula, does not appear to be in respiratory distress at this time. Patient does not have any complaints at this time. Noted to have port a cath in right upper chest with current access. Bed locked and in lowest position. Call light within reach. Will continue to follow plan of care. Addendum: 03/01/19 at 0735 by Zan Jarvis RN Patient noted to have swelling and erythema of the left upper extremity. This is not a new finding. Patient does not complain of pain in this extremity. Will continue to monitor.
[2019-03-01 08:00] VITALS: BP 125/89
[2019-03-01] MEDS: Docusate 100mg cap ORAL SCH ×2 (09:01→18:47)
[2019-03-01] MEDS: oxyCONTIN 20mg tab ORAL SCH ×2 (09:01→21:00)
--- NOTE | 2019-03-01 10:47 | Pulmonology Progress Note ---
Assessment/Plan Assessment/Plan IMPRESSION: 1. Nonspecific atelectasis. 2. Status post chemotherapy. DISCUSSION: Continue present medications and care. The patient appears to be nontoxic. CT chest reviewed; has small bilateral effusions. I will follow as engineer sergeant. Tony Renee M.D. Subjective Interval Events: None new; CT reviewed Constitutional: Reports: no symptoms HEENT: Repors: no symptoms Respiratory: Reports: no symptoms Cardiovascular: Reports: no symptoms Gastrointestinal/Abdominal: Reports: no symptoms Genitourinary: Reports: no symptoms Allergies: Coded Allergies: No Known Allergies (Unverified , 11/07/18) Objective Last 24 Hour Vital Signs Date Time Temp Pulse Resp B/P (MAP) Pulse Ox O2 Delivery O2 Flow Rate FiO2 03/01/19 09:48 97 Nasal Cannula 2.0 28 03/01/19 04:00 97.3 74 18 118/72 (87) 98 02/28/19 23:59 97.7 82 18 104/76 (85) 98 02/28/19 21:56 Nasal Cannula 2.0 02/28/19 20:00 97.6 87 18 111/69 (83) 99 02/28/19 19:45 86 15 99 Room Air 21 84 17 98 02/28/19 16:00 98.0 82 18 111/74 (86) 100 02/28/19 12:00 97.7 84 18 110/77 (88) 96 Intake and Output 02/28/19 03/01/19 19:00 07:00 Intake Total 600 ml Balance 600 ml Intake Oral 600 ml # Voids 6 2 # Bowel Movements 1 General Appearance: no acute distress HEENT: normocephalic Respiratory/Chest: chest wall non-tender, lungs clear Cardiovascular: normal peripheral pulses Abdomen: normal bowel sounds Microbiology Date/Time Source Procedure Growth Status 02/27/19 23:05 Blood Blood Culture - Preliminary NO GROWTH AFTER 24 HOURS Resulted 02/27/19 22:45 Blood Blood Culture - Preliminary NO GROWTH AFTER 24 HOURS Resulted Current Medications Medications (Trade) Dose Ordered Sig/Kaushal Route PRN Reason Start Time Stop Time Status Last Admin Dose Admin Acetaminophen (Tylenol) 650 mg Q4H PRN ORAL Mild Pain/Temp > 100.5 02/28/19 02:00 03/30/19 01:59 Albuterol/ Ipratropium (Albuterol/ Ipratropium) 3 ml Q4H PRN HHN Shortness of Breath 02/28/19 02:00 03/05/19 01:59 02/28/19 19:45 Barium Sulfate (Readi-Cat 2) 450 ml NOW PRN ORAL Radiology Procedure 02/28/19 06:15 03/02/19 06:07 02/28/19 09:13 Chlorhexidine Gluconate (Kaye-Hex 2%) 1 applic DAILY@2000 TOPIC 03/01/19 20:00 03/31/19 19:59 Docusate Sodium (Colace) 100 mg TWICE A DAY ORAL 02/28/19 22:00 03/30/19 21:59 03/01/19 09:01 Morphine Sulfate (Morphine Sulfate) 1 mg Q8H PRN IVP Severe Pain (Pain Scale 7-10) 02/28/19 21:42 03/07/19 21:41 02/28/19 21:50 Oxycodone HCl (OxyCONTIN) 20 mg EVERY 12 HOURS ORAL 02/28/19 22:00 03/07/19 21:59 03/01/19 09:01 Piperacillin Sod/ Tazobactam Sod 3.375 gm/Sodium Chloride 110 ml @ 27.5 mls/hr Q8H IVPB 03/01/19 10:00 03/08/19 09:59 Vancomycin HCl 1 gm/Dextrose 275 ml @ 183.708 mls/hr Q12H IVPB 03/01/19 09:00 03/06/19 08:59 03/01/19 09:01 Tony Renee MD Mar 01, 2019 10:47
[2019-03-01] MEDS: Piperacillin/Tazobactam 3.375 GM in NS 110 ML IVPB SCH ×2 (11:16→18:48)
[2019-03-01 12:00] VITALS: BP 122/80
--- NOTE | 2019-03-01 12:36 | General Progress Note ---
Assessment/Plan Problem List: (1) Dyspnea ICD Codes: R06.00 - Dyspnea, unspecified SNOMED: 734439196 Qualifiers: Qualified Codes: R06.00 - Dyspnea, unspecified (2) Breast cancer ICD Codes: C50.919 - Malignant neoplasm of unspecified site of unspecified female breast SNOMED: 053098604 Qualifiers: Qualified Codes: C50.919 - Malignant neoplasm of unspecified site of unspecified female breast (3) Shortness of breath ICD Codes: R06.02 - Shortness of breath SNOMED: 944133232 Status: progressing Assessment/Plan: chronic pain dr umanzor adjuste pain med for pt pain due to breast cancer sob w/u per pulmonary in progress reviewed chart and labs Subjective ROS Limited/Unobtainable: Yes Allergies: Coded Allergies: No Known Allergies (Unverified , 11/07/18) Objective Last 24 Hour Vital Signs Date Time Temp Pulse Resp B/P (MAP) Pulse Ox O2 Delivery O2 Flow Rate FiO2 03/01/19 12:00 96.6 79 20 122/80 (94) 98 03/01/19 09:48 97 Nasal Cannula 2.0 28 03/01/19 09:00 Nasal Cannula 2.0 03/01/19 08:00 98.5 90 20 125/89 (101) 99 03/01/19 04:00 97.3 74 18 118/72 (87) 98 02/28/19 23:59 97.7 82 18 104/76 (85) 98 02/28/19 21:56 Nasal Cannula 2.0 02/28/19 20:00 97.6 87 18 111/69 (83) 99 02/28/19 19:45 86 15 99 Room Air 21 84 17 98 02/28/19 16:00 98.0 82 18 111/74 (86) 100 Intake and Output 02/28/19 03/01/19 19:00 07:00 Intake Total 600 ml Balance 600 ml Intake Oral 600 ml # Voids 6 2 # Bowel Movements 1 Height (Feet): 5 Height (Inches): 4.00 Weight (Pounds): 203 Neck: supple Cardiovascular: normal rate Respiratory/Chest: lungs clear Abdomen: soft Sachin Szymanski MD Mar 01, 2019 12:36
--- NOTE | 2019-03-01 13:26 | Infectious Diseases Prog Note ---
Assessment/Plan Assessment/Plan A; 1. Atelectasis/ pneumonia 2. Breast cancer. 3. Anemia. 4. History of pleural effusion. 5. History of right hip replacement. 6. 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 Cardiovascular: Reports: no symptoms Gastrointestinal/Abdominal: Reports: no symptoms Genitourinary: Reports: no symptoms Musculoskeletal: Reports: pain, other - back pain Allergies: Coded Allergies: No Known Allergies (Unverified , 11/07/18) Objective Vital Signs Last 24 Hour Vital Signs Date Time Temp Pulse Resp B/P (MAP) Pulse Ox O2 Delivery O2 Flow Rate FiO2 03/01/19 12:00 96.6 79 20 122/80 (94) 98 03/01/19 09:48 97 Nasal Cannula 2.0 28 03/01/19 09:00 Nasal Cannula 2.0 03/01/19 08:00 98.5 90 20 125/89 (101) 99 03/01/19 04:00 97.3 74 18 118/72 (87) 98 02/28/19 23:59 97.7 82 18 104/76 (85) 98 02/28/19 21:56 Nasal Cannula 2.0 02/28/19 20:00 97.6 87 18 111/69 (83) 99 02/28/19 19:45 86 15 99 Room Air 21 84 17 98 02/28/19 16:00 98.0 82 18 111/74 (86) 100 Height (Feet): 5 Height (Inches): 4.00 Weight (Pounds): 203 General Appearance: no acute distress HEENT: mucous membranes moist Respiratory/Chest: lungs clear Cardiovascular: normal rate, other - Portocath Abdomen: soft, non tender Extremities: other - left arm edema Neurologic/Psychiatric: alert, oriented x 3, responsive Microbiology Date/Time Source Procedure Growth Status 02/27/19 23:05 Blood Blood Culture - Preliminary NO GROWTH AFTER 24 HOURS Resulted 02/27/19 22:45 Blood Blood Culture - Preliminary NO GROWTH AFTER 24 HOURS Resulted Current Medications Medications (Trade) Dose Ordered Sig/Kaushal Route PRN Reason Start Time Stop Time Status Last Admin Dose Admin Acetaminophen (Tylenol) 650 mg Q4H PRN ORAL Mild Pain/Temp > 100.5 02/28/19 02:00 03/30/19 01:59 Albuterol/ Ipratropium (Albuterol/ Ipratropium) 3 ml Q4H PRN HHN Shortness of Breath 02/28/19 02:00 03/05/19 01:59 02/28/19 19:45 Barium Sulfate (Readi-Cat 2) 450 ml NOW PRN ORAL Radiology Procedure 02/28/19 06:15 03/02/19 06:07 02/28/19 09:13 Chlorhexidine Gluconate (Kaye-Hex 2%) 1 applic DAILY@2000 TOPIC 03/01/19 20:00 03/31/19 19:59 Docusate Sodium (Colace) 100 mg TWICE A DAY ORAL 02/28/19 22:00 03/30/19 21:59 03/01/19 09:01 Morphine Sulfate (Morphine Sulfate) 1 mg Q8H PRN IVP Severe Pain (Pain Scale 7-10) 02/28/19 21:42 03/07/19 21:41 02/28/19 21:50 Oxycodone HCl (OxyCONTIN) 20 mg EVERY 12 HOURS ORAL 02/28/19 22:00 03/07/19 21:59 03/01/19 09:01 Piperacillin Sod/ Tazobactam Sod 3.375 gm/Sodium Chloride 110 ml @ 27.5 mls/hr Q8H IVPB 03/01/19 10:00 03/08/19 09:59 03/01/19 11:16 Vancomycin HCl 1 gm/Dextrose 275 ml @ 183.708 mls/hr Q12H IVPB 03/01/19 09:00 03/06/19 08:59 03/01/19 09:01 Jaycob Noble MD Mar 01, 2019 13:26
[2019-03-01 16:00] VITALS: BP 109/65
[2019-03-01] MEDS: Morphine Sulfate 2mg/ml Inj(IV/IM USE ONLY) IVP PRN (19:39)
--- NOTE | 2019-03-01 19:43 | NUR ---
HAND-OFF: Report given to Gisel ADORNO.
[2019-03-01 20:00] VITALS: BP 118/75
[2019-03-01] MEDS ORDERED: Dyna-Hex 2% Top Sol 2oz TOPIC SCH (20:00)
--- NOTE | 2019-03-01 20:04 | NUR ---
NURSE NOTES: Received patient in bed, awake, alert, oriented, ambulates with a walker, patient has a port a cath, no skin issues, patient is able to verbalize her needs. Call light is within reach, bed is lowered, locked and alarm is on, will continue to monitor for comfort and safety.
[2019-03-01 21:42] VITALS: BP 118/75
[2019-03-02] VITALS: BP 117/81
[2019-03-02] MEDS: Piperacillin/Tazobactam 3.375 GM in NS 110 ML IVPB SCH ×2 (01:15→10:00)
[2019-03-02 04:00] VITALS: BP 99/71
--- NOTE | 2019-03-02 07:20 | NUR ---
pt awake, A/O x 4, calm, complained of pain, no cough, no SOB noted, port R chest, pts on Abx, fall precaution maintained.
--- NOTE | 2019-03-02 07:41 | NUR ---
HAND-OFF: Report given to Kendal ADORNO.
[2019-03-02 08:00] VITALS: BP 117/70
[2019-03-02] MEDS: oxyCONTIN 20mg tab ORAL SCH (08:33)
[2019-03-02] MEDS: Docusate 100mg cap ORAL SCH (08:34)
--- NOTE | 2019-03-02 09:00 | Hematology/Onc Progress Note ---
Assessment/Plan Assessment/Plan Assessment and Recs: # Metastatic breast cancer -- diagnosed approx 1 year ago with multiple bony and liver mets, currently undergoing chemotherapy and radiation presenting for shortness of breath, on taxotere in office. On arimidex now as horomonal treatment. --> at this time, reviewed recent restaging scan on prior admission, 11/09/18 -- > Evidence of metastatic malignant neoplasm involving the bones. There is extensive involvement of the spine and sternum pelvic bones. Nonspecific hypodensities within the liver. Metastatic neoplasm is in the differential diagnosis. Abnormal appearance of the left anterior chest wall with subcutaneous reticulation and skin thickening presumably on the basis of previous radiation and/or surgery. --> tumor markers ca125 80, cea 6 --> thoracentesis prn basis --> imaging to be reviewed --> recently on chemo in the office (02/2019) # Pneumonia on ct iamging --- p/w shortness of breath with Plueral effusion in the past --> obtain cxr v ct chest which has been ordered --> throa prn basis --> Dr. Renee is aware and appreciate recs --> vanc/zosyn 03/01 # Anemia of chronic disease --> recently on chemo --> is related to ongoing chronic disease # Leukopenia --> also s/p chemo # Left upper arm swelling L>R, slowly improving over last few months, likely LYMPHEDEMA --> s/p duplex scan and does not show dvt --> currently appears improved --> per id care # Hypoxia due to effusion --> obtain v/q scan with pulm # DVT ppx heparin sq Greatly appreciate consultation and dw RN Subjective Allergies: Coded Allergies: No Known Allergies (Unverified , 11/07/18) Subjective 03/01: less pain this am, complaining of chills severe overnight, hx of recurrent infection, ct showed pna 03/02: awake and alert, low bp this morning, ambulates with walker Objective Objective Current Medications Medications (Trade) Dose Ordered Sig/Kaushal Route PRN Reason Start Time Stop Time Status Last Admin Dose Admin Acetaminophen (Tylenol) 650 mg Q4H PRN ORAL Mild Pain/Temp > 100.5 02/28/19 02:00 03/30/19 01:59 Albuterol/ Ipratropium (Albuterol/ Ipratropium) 3 ml Q4H PRN HHN Shortness of Breath 02/28/19 02:00 03/05/19 01:59 02/28/19 19:45 Chlorhexidine Gluconate (Kaye-Hex 2%) 1 applic DAILY@2000 TOPIC 03/01/19 20:00 03/31/19 19:59 03/01/19 20:00 Docusate Sodium (Colace) 100 mg TWICE A DAY ORAL 02/28/19 22:00 03/30/19 21:59 03/01/19 18:47 Morphine Sulfate (Morphine Sulfate) 1 mg Q8H PRN IVP Severe Pain (Pain Scale 7-10) 02/28/19 21:42 03/07/19 21:41 03/01/19 19:39 Ondansetron HCl (Zofran) 4 mg Q6H PRN IVP Nausea & Vomiting 03/01/19 21:45 03/31/19 21:44 03/01/19 22:20 Oxycodone HCl (OxyCONTIN) 20 mg EVERY 12 HOURS ORAL 02/28/19 22:00 03/07/19 21:59 03/02/19 08:33 Piperacillin Sod/ Tazobactam Sod 3.375 gm/Sodium Chloride 110 ml @ 27.5 mls/hr Q8H IVPB 03/01/19 10:00 03/08/19 09:59 03/02/19 01:15 Last 24 Hour Vital Signs Date Time Temp Pulse Resp B/P (MAP) Pulse Ox O2 Delivery O2 Flow Rate FiO2 03/02/19 04:00 98.8 74 18 99/71 (80) 98 03/02/19 01:21 96 Nasal Cannula 2.0 28 03/02/19 00:00 98.7 78 18 117/81 (93) 97 03/01/19 21:42 98.7 78 18 118/75 (89) 98 03/01/19 21:35 Nasal Cannula 2.0 03/01/19 20:34 97.0 03/01/19 20:00 97.8 78 18 118/75 (89) 98 03/01/19 16:00 97.0 75 20 109/65 (80) 96 03/01/19 12:00 96.6 79 20 122/80 (94) 98 03/01/19 09:48 97 Nasal Cannula 2.0 28 03/01/19 09:00 Nasal Cannula 2.0 03/01/19 08:00 98.5 90 20 125/89 (101) 99 03/01/19 04:00 97.3 74 18 118/72 (87) 98 02/28/19 23:59 97.7 82 18 104/76 (85) 98 02/28/19 21:56 Nasal Cannula 2.0 02/28/19 20:00 97.6 87 18 111/69 (83) 99 02/28/19 19:45 86 15 99 Room Air 21 84 17 98 02/28/19 16:00 98.0 82 18 111/74 (86) 100 02/28/19 12:00 97.7 84 18 110/77 (88) 96 02/28/19 09:00 Nasal Cannula 2.0 Intake and Output 03/01/19 03/02/19 19:00 07:00 Intake Total 1105.000 ml Balance 1105.000 ml Intake Oral 720 ml IV Total 385.000 ml # Voids 3 Labs Test 02/27/19 23:05 02/27/19 23:59 02/28/19 05:17 White Blood Count 3.2 K/UL (4.8-10.8) 3.8 K/UL (4.8-10.8) Red Blood Count 3.05 M/UL (4.20-5.40) 3.03 M/UL (4.20-5.40) Hemoglobin 10.5 G/DL (12.0-16.0) 10.5 G/DL (12.0-16.0) Hematocrit 29.0 % (37.0-47.0) 29.3 % (37.0-47.0) Mean Corpuscular Volume 95 FL (80-99) 97 FL (80-99) Mean Corpuscular Hemoglobin 34.6 PG (27.0-31.0) 34.6 PG (27.0-31.0) Mean Corpuscular Hemoglobin Concent 36.3 G/DL (32.0-36.0) 35.9 G/DL (32.0-36.0) Red Cell Distribution Width 10.1 % (11.6-14.8) 11.3 % (11.6-14.8) Platelet Count 231 K/UL (150-450) 219 K/UL (150-450) Mean Platelet Volume 6.3 FL (6.5-10.1) 6.3 FL (6.5-10.1) Neutrophils (%) (Auto) % (45.0-75.0) 39.6 % (45.0-75.0) Lymphocytes (%) (Auto) % (20.0-45.0) 46.2 % (20.0-45.0) Monocytes (%) (Auto) % (1.0-10.0) 12.3 % (1.0-10.0) Eosinophils (%) (Auto) % (0.0-3.0) 0.3 % (0.0-3.0) Basophils (%) (Auto) % (0.0-2.0) 1.5 % (0.0-2.0) Sodium Level 138 MMOL/L (136-145) 139 MMOL/L (136-145) Potassium Level 4.1 MMOL/L (3.5-5.1) 4.0 MMOL/L (3.5-5.1) Chloride Level 99 MMOL/L (98-107) 100 MMOL/L (98-107) Carbon Dioxide Level 33 MMOL/L (21-32) 32 MMOL/L (21-32) Anion Gap 6 mmol/L (5-15) 8 mmol/L (5-15) Blood Urea Nitrogen 31 mg/dL (7-18) 28 mg/dL (7-18) Creatinine 1.1 MG/DL (0.55-1.30) 1.1 MG/DL (0.55-1.30) Estimat Glomerular Filtration Rate 50.8 mL/min (>60) 50.8 mL/min (>60) Glucose Level 139 MG/DL (74-106) 126 MG/DL (74-106) Calcium Level 8.8 MG/DL (8.5-10.1) 8.4 MG/DL (8.5-10.1) Total Bilirubin 0.4 MG/DL (0.2-1.0) 0.4 MG/DL (0.2-1.0) Aspartate Amino Transf (AST/SGOT) 20 U/L (15-37) 19 U/L (15-37) Alanine Aminotransferase (ALT/SGPT) 24 U/L (12-78) 23 U/L (12-78) Alkaline Phosphatase 68 U/L (46-116) 64 U/L (46-116) Troponin I 0.011 ng/mL (0.000-0.056) Pro-B-Type Natriuretic Peptide 417 pg/mL (0-125) Total Protein 7.1 G/DL (6.4-8.2) 6.8 G/DL (6.4-8.2) Albumin 3.2 G/DL (3.4-5.0) 2.9 G/DL (3.4-5.0) Globulin 3.9 g/dL 3.9 g/dL Albumin/Globulin Ratio 0.8 (1.0-2.7) 0.7 (1.0-2.7) Urine Color Pale yellow Urine Appearance Clear Urine pH 7 (4.5-8.0) Urine Specific [place] 1.010 (1.005-1.035) Urine Protein Negative (NEGATIVE) Urine Glucose (UA) Negative (NEGATIVE) Urine Ketones Negative (NEGATIVE) Urine Blood Negative (NEGATIVE) Urine Nitrite Negative (NEGATIVE) Urine Bilirubin Negative (NEGATIVE) Urine Urobilinogen Normal MG/DL (0.0-1.0) Urine Leukocyte Esterase 1+ (NEGATIVE) Urine RBC 0-2 /HPF (0 - 2) Urine WBC 0-2 /HPF (0 - 2) Urine Squamous Epithelial Cells Few /LPF (NONE/OCC) Urine Bacteria None /HPF (NONE) Lactic Acid Level 0.80 mmol/L (0.4-2.0) CA 125 Antigen 55.8 U/mL (0.0-38.1) Height (Feet): 5 Height (Inches): 4.00 Weight (Pounds): 203 Objective Vital Signs reviewed Gen: Awake and alert, no acute distress HEENT: NC/AT. EOMI. Neck: Supple, trachea midline Chest Wall: No tenderness Cardiovascular: RRR. S1 and S2 normal Resp: Mild tachypnea with increased work of breathing Abdomen: Abdomen is soft, nondistended Skin: Intact. No abrasions, lacer, rash Ext: left upper arm swelling compared to the right side, worse L>R Neuro: Awake and alert Esdras Jeff MD Mar 02, 2019 09:00
[2019-03-02 11:19] VITALS: BP 130/84
--- NOTE | 2019-03-02 12:35 | Infectious Diseases Prog Note ---
Assessment/Plan Assessment/Plan A; 1. Atelectasis/ pneumonia 2. Breast cancer. 3. Anemia. 4. History of pleural effusion. 5. History of right hip replacement. 6. Cholelithiasis RECOMMENDATIONS: discontinue Zosyn Can be discharged with PO Levaquin X 6 Subjective ROS Limited/Unobtainable: No Constitutional: Reports: no symptoms, other - feels better Respiratory: Denies: shortness of breath Gastrointestinal/Abdominal: Reports: no symptoms Genitourinary: Reports: no symptoms Musculoskeletal: Reports: pain, other - back pain Allergies: Coded Allergies: No Known Allergies (Unverified , 11/07/18) Objective Vital Signs Last 24 Hour Vital Signs Date Time Temp Pulse Resp B/P (MAP) Pulse Ox O2 Delivery O2 Flow Rate FiO2 03/02/19 11:23 Nasal Cannula 2.0 03/02/19 11:19 98.4 79 20 130/84 (99) 98 03/02/19 09:03 98.8 03/02/19 08:00 98.8 79 18 117/70 (86) 98 03/02/19 04:00 98.8 74 18 99/71 (80) 98 03/02/19 01:21 96 Nasal Cannula 2.0 28 03/02/19 00:00 98.7 78 18 117/81 (93) 97 03/01/19 21:42 98.7 78 18 118/75 (89) 98 03/01/19 21:35 Nasal Cannula 2.0 03/01/19 20:34 97.0 03/01/19 20:00 97.8 78 18 118/75 (89) 98 03/01/19 16:00 97.0 75 20 109/65 (80) 96 Height (Feet): 5 Height (Inches): 4.00 Weight (Pounds): 203 General Appearance: no acute distress HEENT: mucous membranes moist Respiratory/Chest: lungs clear Cardiovascular: normal rate Abdomen: soft, non tender Extremities: other - edema of left arm Neurologic/Psychiatric: alert, oriented x 3, responsive Microbiology Date/Time Source Procedure Growth Status 02/27/19 23:05 Blood Blood Culture - Preliminary NO GROWTH AFTER 48 HOURS Resulted 02/27/19 22:45 Blood Blood Culture - Preliminary NO GROWTH AFTER 48 HOURS Resulted 02/28/19 00:36 Rectum - Final NO CARBAPENEM-RESISTANT ENTEROBACTERI... Complete 1/15/20 00:36 Rectum VRE Culture - Final NO VANCOMYCIN RESISTANT ENTEROCOCCUS ... Complete Current Medications Medications (Trade) Dose Ordered Sig/Kauhsal Route PRN Reason Start Time Stop Time Status Last Admin Dose Admin Acetaminophen (Tylenol) 650 mg Q4H PRN ORAL Mild Pain/Temp > 100.5 02/28/19 02:00 03/30/19 01:59 Albuterol/ Ipratropium (Albuterol/ Ipratropium) 3 ml Q4H PRN HHN Shortness of Breath 02/28/19 02:00 03/05/19 01:59 02/28/19 19:45 Chlorhexidine Gluconate (Kaye-Hex 2%) 1 applic DAILY@2000 TOPIC 03/01/19 20:00 03/31/19 19:59 03/01/19 20:00 Docusate Sodium (Colace) 100 mg TWICE A DAY ORAL 02/28/19 22:00 03/30/19 21:59 03/01/19 18:47 Morphine Sulfate (Morphine Sulfate) 1 mg Q8H PRN IVP Severe Pain (Pain Scale 7-10) 02/28/19 21:42 03/07/19 21:41 03/01/19 19:39 Ondansetron HCl (Zofran) 4 mg Q6H PRN IVP Nausea & Vomiting 03/01/19 21:45 03/31/19 21:44 03/01/19 22:20 Oxycodone HCl (OxyCONTIN) 20 mg EVERY 12 HOURS ORAL 02/28/19 22:00 03/07/19 21:59 03/02/19 08:33 Piperacillin Sod/ Tazobactam Sod 3.375 gm/Sodium Chloride 110 ml @ 27.5 mls/hr Q8H IVPB 03/01/19 10:00 03/08/19 09:59 03/02/19 10:00 Jaycob Noble MD Mar 02, 2019 12:35
--- NOTE | 2019-03-02 13:48 | NUR ---
DISCHARGE PLANNED: DISCUSSED DISCHARGE WITH MD PATIENT IS RETURNING TO [facility] T: [phone] FOR NURSE TO NURSE REPORT ROOM# 3A [facility] PICKUP TIME @330PM INFORMED FRIEND (JUDY) OF DISCHARGE T: [phone] Addendum: 03/02/19 at 1407 by LEOBARDO REDDING LVN CONFIRMED BY DEXTER
[2019-03-02] MEDS ORDERED: Levofloxacin 750mg tab ORAL SCH (14:00)
[2019-03-02 16:00] VITALS: BP 125/82
--- NOTE | 2019-03-02 16:02 | Pulmonology Progress Note ---
Assessment/Plan Assessment/Plan IMPRESSION: 1. Likely pneumonia; as seen on CT 2. Status post chemotherapy. DISCUSSION: Continue present medications and care. The patient appears to be nontoxic. I will follow as emergency dispatcher. Tony Renee M.D. Subjective Interval Events: None new Constitutional: Reports: no symptoms HEENT: Repors: no symptoms Respiratory: Reports: no symptoms Cardiovascular: Reports: no symptoms Gastrointestinal/Abdominal: Reports: no symptoms Genitourinary: Reports: no symptoms Allergies: Coded Allergies: No Known Allergies (Unverified , 11/07/18) Objective Last 24 Hour Vital Signs Date Time Temp Pulse Resp B/P (MAP) Pulse Ox O2 Delivery O2 Flow Rate FiO2 03/02/19 11:23 Nasal Cannula 2.0 03/02/19 11:19 98.4 79 20 130/84 (99) 98 03/02/19 09:03 98.8 03/02/19 08:00 98.8 79 18 117/70 (86) 98 03/02/19 04:00 98.8 74 18 99/71 (80) 98 03/02/19 01:21 96 Nasal Cannula 2.0 28 03/02/19 00:00 98.7 78 18 117/81 (93) 97 03/01/19 21:42 98.7 78 18 118/75 (89) 98 03/01/19 21:35 Nasal Cannula 2.0 03/01/19 20:34 97.0 03/01/19 20:00 97.8 78 18 118/75 (89) 98 Intake and Output 03/01/19 03/02/19 19:00 07:00 Intake Total 1105.000 ml Balance 1105.000 ml Intake Oral 720 ml IV Total 385.000 ml # Voids 3 General Appearance: no acute distress HEENT: normocephalic Respiratory/Chest: chest wall non-tender, lungs clear Cardiovascular: normal peripheral pulses Microbiology Date/Time Source Procedure Growth Status 02/27/19 23:05 Blood Blood Culture - Preliminary NO GROWTH AFTER 48 HOURS Resulted 02/27/19 22:45 Blood Blood Culture - Preliminary NO GROWTH AFTER 48 HOURS Resulted 02/28/19 00:36 Rectum - Final NO CARBAPENEM-RESISTANT ENTEROBACTERI... Complete 02/28/19 00:36 Rectum VRE Culture - Final NO VANCOMYCIN RESISTANT ENTEROCOCCUS ... Complete Current Medications Medications (Trade) Dose Ordered Sig/Kaushal Route PRN Reason Start Time Stop Time Status Last Admin Dose Admin Acetaminophen (Tylenol) 650 mg Q4H PRN ORAL Mild Pain/Temp > 100.5 02/28/19 02:00 03/30/19 01:59 Albuterol/ Ipratropium (Albuterol/ Ipratropium) 3 ml Q4H PRN HHN Shortness of Breath 02/28/19 02:00 03/05/19 01:59 02/28/19 19:45 Chlorhexidine Gluconate (Kaye-Hex 2%) 1 applic DAILY@1999 TOPIC 03/01/19 20:00 03/31/19 19:59 03/01/19 20:00 Docusate Sodium (Colace) 100 mg TWICE A DAY ORAL 02/28/19 22:00 03/30/19 21:59 03/01/19 18:47 Levofloxacin (Levaquin) 750 mg DAILY ORAL 03/02/19 14:00 03/09/19 13:59 03/02/19 15:28 Morphine Sulfate (Morphine Sulfate) 1 mg Q8H PRN IVP Severe Pain (Pain Scale 7-10) 02/28/19 21:42 03/07/19 21:41 03/01/19 19:39 Ondansetron HCl (Zofran) 4 mg Q6H PRN IVP Nausea & Vomiting 03/01/19 21:45 03/31/19 21:44 03/01/19 22:20 Oxycodone HCl (OxyCONTIN) 20 mg EVERY 12 HOURS ORAL 02/28/19 22:00 03/07/19 21:59 03/02/19 08:33 Tony Renee MD Mar 02, 2019 16:02
--- NOTE | 2019-03-02 17:19 | NUR ---
CASE MANAGEMENT: REVIEW 03/01/2019 SI:DYSPNEA . BREAST CANCER 97.0 75 20 109/65 96% ON RA IS:ALBUTEROL Q4/PRN IV LEVOFLOXACIN PO QD IV ZOSYN Q8HR IV OXYCONTIN PO BID IV ZOFRAN Q6HR/PRN \: 4E MED SURG UNIT DCP: RETURN TO [facility] WHEN MEDICALLY CLEARED
--- NOTE | 2019-03-02 17:21 | NUR ---
received order to DC to [facility] conv. pt stable condition, VS stable, RA sat 98%, no SOB noted, port right chest , needle removed per pt request, dressing on. dc instruction given, verbalize understanding. belongings with pt, pt dc with po abx. family notified.
--- NOTE | 2019-03-03 21:25 | Discharge Summary ---
Discharge Summary Discharge Summary _ DATE OF ADMISSION: 02/27/2019 DATE OF DISCHARGE: 03/02/2019 DISCHARGED BY: Dr. Sachin Blanc CONSULTANTS: Dr. [place] Jeff BRIEF HOSPITAL COURSE: Patient is a 58-year-old female, who was brought in by EMS from alf facility. Symptoms started in the morning after receiving chemotherapy. She has history of breast cancer. Patient described shortness of breath. Denied chest pain. Denies cough. Denied fever or chills. There was no aggravating or relieving factors. Upon evaluation at ED, vital signs were stable. She was saturating 94% on 3 L nasal cannula. Blood work showed WBC 3.2. Hemoglobin 10, hematocrit 29. Creatinine was elevated. Troponin was negative. EKG showed normal sinus rhythm with no acute ischemic changes. Chest x-ray did not show any acute process. Port-A-Cath in place. She was given empiric antibiotics. Patient is DNR/comfort care. She was admitted for evaluation of dyspnea. Patient with history of metastatic breast cancer diagnosed approximately a year ago with bony and liver mets. She is currently undergoing chemotherapy and radiation. She is on Taxotere and Arimidex. Scan on prior admission on 2018 showed evidence of metastatic malignant neoplasm involving the bones. There is extensive involvement of the spine and sternum no, and pelvic bones. Nonspecific hypodensities within the liver. She was given heparin sub. Cutaneous injections for DVT prophylaxis. Ca 125 is 58. She has left more than right arm swelling. Venous scan did not show any acute DVT. Swelling likely from lymphedema. She was observed off antibiotics. CT of the abdomen chest and pelvis showed diffuse bony metastasis with multifocal vertebral compression deformities with slight worsening of compression deformity at T6 compared to prior exams. Large colonic stool burden suggestive of constipation. Hypodense lesions within the liver concerning for metastatic disease. Trace pericardial effusion, stable compared to prior exam. Small bilateral pleural effusions with adjacent opacities in the bilateral lower lobes which may be related to compressive atelectasis. She was given Zosyn. Blood culture did not isolate any growth. She was eventually discharged back to [facility]. FINAL DIAGNOSES: Metastatic breast cancer on chemotherapy and radiation therapy Dyspnea likely pneumonia as seen on CT. Anemia of chronic disease Leukopenia secondary to chemotherapy Lymphedema left more than right Hypoxia due to effusion DISPOSITION: She was discharged back to [facility]. DISCHARGE MEDICATIONS: Refer to Discharge Medication List. I have been assigned to complete a discharge summary on this account, I was not involved with the patient's management.--CESARIO Hill Jacqueline Robles NP Mar 03, 2019 21:25
--- NOTE | 2019-03-04 11:46 | NUR ---
CASE MANAGEMENT: CM review and clinical information (face sheet/ H&P/ ER MD report/ DC summary) faxed to [facility] @ [phone]. t# [id number].
== END 2019-03-02 17:18 | DRG 194 ==
LOC: EDBD 22:29 → EMR 22:48 → 4E 23:10 → EDBEDREQ 02-28 00:30
DX: J18.9 Pneumonia, unspecified organism (principal); J98.11 Atelectasis; C79.51 Secondary malignant neoplasm of bone; C78.7 Secondary malignant neoplasm of liver and intrahepatic bile duct; C50.919 Malignant neoplasm of unspecified site of unspecified female breast; Z66 Do not resuscitate; Z79.899 Other long term (current) drug therapy; D63.8 Anemia in other chronic diseases classified elsewhere; T45.1X5A Adverse effect of antineoplastic and immunosuppressive drugs, initial encounter; D70.1 Agranulocytosis secondary to cancer chemotherapy; I89.0 Lymphedema, not elsewhere classified; R09.02 Hypoxemia; Z96.641 Presence of right artificial hip joint; I50.9 Heart failure, unspecified; E66.9 Obesity, unspecified
CPT/HCPCS: 36415; 71045; 71260; 74177; 80053; 81003; 83605; 83880; 84484; 85025; 86304; 87040; 87081; 93005; 94640; 96365; 96375; 99285; J2405; J7620

== ENCOUNTER 2019-09-18 19:16 | Inpatient (IN) | payer MEDICAID ==
[~2019-09-18] VITALS: Ht 152.4 cm; Wt 90.7 kg
[2019-09-18 19:16] VITALS: BP 158/92
[~2019-09-18 19:16] MED LIST changes: +BISACODYL10 M1 RC; +COMPAZINE10 MG ORAL; +GABAPENTIN100 MG ORAL; +MAGNESIUM OXID400 M1 ORAL; +PRO-STAT LIQUID30 ML ORAL; +TRAZODONE HCL100 MG ORAL
--- NOTE | 2019-09-18 19:16 | NUR ---
ED Nurse Note: Patient brought in by BLS ambulance transport from [facility] d/t left axillary and left breast edema. Patient aao x 4 and ambulatory with walker. Patient reports aching chronic back pain 08/23. Patient brought her own walker with her. Patient reports history of breast cancer and had chemotherapy today. Patient has port-a-cath on right subclavian, states it was used today. Patient changed into gown and placed on sterile processing technician. No acute distress noted during assessment.
[2019-09-18] MEDS ORDERED: ELIQUIS2.5 MG PO (19:26)
[2019-09-18] MEDS ORDERED: NORCO 5-325 TA1 EAC1 ORAL (19:26)
--- NOTE | 2019-09-18 19:34 | Emergency Room Report ---
History of Present Illness General Chief Complaint: Edema Source: Patient Present Illness HPI Disclaimer: Please note that this report is being documented using DRAGON technology. This can lead to erroneous entry secondary to incorrect interpretation by the dictating instrument. HPI: 58-year-old female history of hypertension, breast cancer with metastatic disease to the liver and bone, currently on chemotherapy, [facility] from [facility] due to left upper extremity swelling left breast edema. Patient sent by her oncologist. She did have chemotherapy today. She denies any fevers but reports an occasional cough. No shortness of breath nausea or vomiting. Denies diarrhea. PMH: Hypertension, breast cancer with metastatic disease PSH: Reviewed Social Hx: Currently resides in a detention facility Allergies: Coded Allergies: No Known Allergies (Unverified , 11/07/18) COVID-19 Screening Contact w/high risk pt: No Experienced COVID-19 symptoms?: No COVID-19 Testing performed CONSTRUCTION CONSULTANT: No Patient History Last Menstrual Period: na Reviewed Nursing Documentation: PMH: Agreed; PSxH: Agreed Nursing Documentation-PMH Past Medical History: No History, Except For Hx Hypertension: Yes Hx Cancer: Yes - breast Hx Gastrointestinal Problems: Yes - GERD History Of Psychiatric Problem: Yes - PTSD, depression Hx Neurological Problems: No Review of Systems All Other Systems: negative except mentioned in HPI Physical Exam Vital Signs Date Time Temp Pulse Resp B/P (MAP) Pulse Ox O2 Delivery O2 Flow Rate FiO2 09/18/19 19:05 98.1 84 20 118/76 (90) 94 Room Air Sp02 EP Interpretation: reviewed, normal General Appearance: well appearing, no apparent distress Head: normocephalic, atraumatic Eyes: bilateral eye PERRL, bilateral eye EOMI ENT: hearing grossly normal, moist mucus membranes Neck: full range of motion, supple Respiratory: lungs clear, normal breath sounds, no rhonchi, no respiratory distress, no retraction, no wheezing Cardiovascular #1: normal peripheral pulses, regular rate, rhythm, no murmur Gastrointestinal: non tender, soft, non-distended, no guarding Musculoskeletal: other - Left upper extremity edematous, pulses 2+ no erythema Neurologic: alert, oriented x3, no focal defects Skin: normal color, warm/dry Medical Decision Making Diagnostic Impression: Primary Impression: Lymphedema Additional Impression: Breast cancer ER Course MDM: Differential included but not limited to lymphedema, infectious process, pancytopenia, pleural effusion, pneumonia to name a few Clinical course-patient in no acute distress on exam. Nontoxic-appearing. Examination did demonstrate evidence of lymphedema of the left upper extremity. Ultrasound was ordered showed no evidence of DVT. Chest x-ray showed mild cardiomegaly no obvious infiltrate. Will place patient on the medical floor for further observation and treatment. Patient admitted to Dr. Szymanski per oncologist request Labs - Laboratory Tests Test 09/18/19 19:37 White Blood Count 5.8 K/UL (4.8-10.8) Red Blood Count 3.79 M/UL (4.20-5.40) L Hemoglobin 13.0 G/DL (12.0-16.0) Hematocrit 38.5 % (37.0-47.0) Mean Corpuscular Volume 102 FL (80-99) H Mean Corpuscular Hemoglobin 34.4 PG (27.0-31.0) H Mean Corpuscular Hemoglobin Concent 33.8 G/DL (32.0-36.0) Red Cell Distribution Width 12.9 % (11.6-14.8) Platelet Count 191 K/UL (150-450) Mean Platelet Volume 6.6 FL (6.5-10.1) Neutrophils (%) (Auto) 72.9 % (45.0-75.0) Lymphocytes (%) (Auto) 24.0 % (20.0-45.0) Monocytes (%) (Auto) 2.4 % (1.0-10.0) Eosinophils (%) (Auto) 0.1 % (0.0-3.0) Basophils (%) (Auto) 0.7 % (0.0-2.0) Prothrombin Time 10.7 SEC (9.30-11.50) Prothrombin Time INR 1.0 (0.9-1.1) Activated Partial Thromboplast Time 38 SEC (23-33) H Sodium Level 136 MMOL/L (136-145) Potassium Level 4.5 MMOL/L (3.5-5.1) Chloride Level 99 MMOL/L (98-107) Carbon Dioxide Level 32 MMOL/L (21-32) Anion Gap 5 mmol/L (5-15) Blood Urea Nitrogen 34 mg/dL (7-18) H Creatinine 1.6 MG/DL (0.55-1.30) H Estimated Glomerular Filtration Rate 33.0 mL/min (>60) Glucose Level 159 MG/DL (74-106) H Calcium Level 9.1 MG/DL (8.5-10.1) Total Bilirubin 0.4 MG/DL (0.2-1.0) Aspartate Amino Transferase (AST) 23 U/L (15-37) Alanine Aminotransferase (ALT) 25 U/L (12-78) Alkaline Phosphatase 75 U/L (46-116) Troponin I 0.000 ng/mL (0.000-0.056) Pro-B-Type Natriuretic Peptide 517 pg/mL (0-125) H Total Protein 7.2 G/DL (6.4-8.2) Albumin 3.4 G/DL (3.4-5.0) Globulin 3.8 g/dL Albumin/Globulin Ratio 0.9 (1.0-2.7) L EKG Diagnostic Results Rate: normal Rhythm: NSR ST Segments: no acute changes Other Impression PACs Last Vital Signs Date Time Temp Pulse Resp B/P (MAP) Pulse Ox O2 Delivery O2 Flow Rate FiO2 09/18/19 19:05 98.1 84 20 118/76 (90) 94 Room Air Disposition: ADMITTED INPATIENT Condition: Serious Deacon Lopez M.D. Sep 18, 2019 19:34
--- NOTE | 2019-09-18 19:39 | NUR ---
ED Nurse Note: Blood drawn and sent to lab
[2019-09-18 19:50] LABS: BASOPHILS % (AUTO) 0.7 % (0.0-2.0); EOSINOPHILS % (AUTO) 0.1 % (0.0-3.0); HEMATOCRIT 38.5 % (37.0-47.0); MEAN CORPUSCULAR VOLUME 102 FL (80-99); MONOCYTES % (AUTO) 2.4 % (1.0-10.0); NEUTROPHILS % (AUTO) 72.9 % (45.0-75.0); PLATELET COUNT 191 K/UL (150-450); RED BLOOD COUNT 3.79 M/UL (4.20-5.40); RED CELL DISTRIBUTION WIDTH 12.9 % (11.6-14.8); WHITE BLOOD COUNT 5.8 K/UL (4.8-10.8)
[2019-09-18 20:08] LABS: ANION GAP 5 mmol/L (5-15); BLOOD UREA NITROGEN 34 mg/dL (7-18); CALCIUM 9.1 MG/DL (8.5-10.1); CARBON DIOXIDE 32 MMOL/L (21-32); CHLORIDE 99 MMOL/L (98-107); CREATININE 1.6 MG/DL (0.55-1.30); POTASSIUM 4.5 MMOL/L (3.5-5.1); SODIUM 136 MMOL/L (136-145)
--- NOTE | 2019-09-18 20:12 | NUR ---
ED Nurse Note: US at bedside
[2019-09-18 20:19] LABS: ALANINE AMINOTRANSFERASE 25 U/L (12-78); ALBUMIN 3.4 G/DL (3.4-5.0); ALBUMIN/GLOBULIN RATIO 0.9 (1.0-2.7); ALKALINE PHOSPHATASE 75 U/L (46-116); ASPARTATE AMINO TRANSFERASE 23 U/L (15-37); BILIRUBIN,TOTAL 0.4 MG/DL (0.2-1.0)
--- NOTE | 2019-09-18 20:55 | NUR ---
ED Nurse Note: MRSA, CRE, VRE swabs collected and sent to lab
--- NOTE | 2019-09-18 21:07 | NUR ---
ED Nurse Note: Report given to KYREE Culp.
--- NOTE | 2019-09-18 21:10 | NUR ---
NURSE NOTES: Pt. received from KYREE Rose. Pt. AAOx4, ambulatory with walker at bedside, breathing is even and unlabored on room air, no indications of respiratory distress and no complaints of pain at this time. Right upper chest port-a-cath noted right upper chest intact. Swelling noted left upper extremity. Pt. oriented to room and use of call light for assistance. Bed is low and locked, side rails x2 up, and call light in reach. Will follow up with Dr. Szymanski for admission orders.
--- NOTE | 2019-09-18 21:20 | NUR ---
TRANSFER TO FLOOR: Patient transferred to med surg as ordered, per ERMD. Report given to KYREE Culp. Patient transported via gurney accompanied by 2 RN in stable condition.
--- NOTE | 2019-09-18 21:54 | NUR ---
NURSE NOTES: Message left for Dr. Szymanski for admission orders, awaiting return call.
--- NOTE | 2019-09-18 22:24 | NUR ---
NURSE NOTES: Orders received from Dr. Szymanski, will continue with plan of care.
[2019-09-18] MEDS ORDERED: Acetaminophen 500mg (ES) tab ORAL PRN (23:00)
[2019-09-19] VITALS: BP 115/75
[2019-09-19 04:00] VITALS: BP 126/84
[2019-09-19 06:36] LABS: BASOPHILS % (AUTO) 0.8 % (0.0-2.0); EOSINOPHILS % (AUTO) 0.2 % (0.0-3.0); HEMATOCRIT 35.6 % (37.0-47.0); HEMOGLOBIN 12.1 G/DL (12.0-16.0); LYMPHOCYTES % (AUTO) 23.8 % (20.0-45.0); MEAN CORPUSCULAR VOLUME 102 FL (80-99); MONOCYTES % (AUTO) 6.1 % (1.0-10.0); NEUTROPHILS % (AUTO) 69.1 % (45.0-75.0); PLATELET COUNT 182 K/UL (150-450); RED BLOOD COUNT 3.49 M/UL (4.20-5.40); RED CELL DISTRIBUTION WIDTH 12.4 % (11.6-14.8); WHITE BLOOD COUNT 6.1 K/UL (4.8-10.8)
--- NOTE | 2019-09-19 06:53 | NUR ---
RADIOLOGY DEPT., LATE ENTRY, CHEST X-RAY DONE ON ADMIT.BARTOLOME
[2019-09-19 07:01] LABS: ALANINE AMINOTRANSFERASE 26 U/L (12-78); ALBUMIN/GLOBULIN RATIO 0.8 (1.0-2.7); ALKALINE PHOSPHATASE 71 U/L (46-116); ANION GAP 4 mmol/L (5-15); ASPARTATE AMINO TRANSFERASE 23 U/L (15-37); BILIRUBIN,TOTAL 0.3 MG/DL (0.2-1.0); BLOOD UREA NITROGEN 31 mg/dL (7-18); CALCIUM 8.4 MG/DL (8.5-10.1); CARBON DIOXIDE 32 MMOL/L (21-32); CHLORIDE 102 MMOL/L (98-107); CREATININE 1.5 MG/DL (0.55-1.30); POTASSIUM 4.1 MMOL/L (3.5-5.1); SODIUM 138 MMOL/L (136-145)
--- NOTE | 2019-09-19 07:24 | NUR ---
HAND-OFF: Report given to KYREE Cardoso. Endorsed plan of care.
--- NOTE | 2019-09-19 07:45 | NUR ---
NURSE NOTES: PT AXOX4, CALM, RESTING IN BED. PT STATES PAIN OF RIGHT HIP 5-6/10. RN MADE PT AWARE THERE IS PAIN SPECIALIST CONSULT TO SEE PT TODAY. PT VERBALIZED UNDERSTANDING. PT REFUSED AVAILABLE PRN TYLENOL 500MG PRN. PT EDUCATED ON PLAN FOR CT NECK/ CHEST/ ABDOMEN/ PELVIS. PT VERBALIZED UNDERSTANDING. WILL CONTINUE TO MONITOR.
[2019-09-19 08:00] VITALS: BP 129/79
--- NOTE | 2019-09-19 08:19 | Consultation ---
History of Present Illness General Chief Complaint: Edema Present Illness Allergies: Coded Allergies: No Known Allergies (Unverified , 11/07/18) Medication History Scheduled Amino Acids/Protein Hydrolys (Pro-Stat Liquid), 30 ML ORAL DAILY, (Reported) Anastrozole* (Arimidex*), 1 MG PO DAILY, (Reported) Bumetanide* (Bumetanide*), 0.5 MG ORAL BID, (Reported) Carvedilol (Coreg), 3.125 MG ORAL EVERY 12 HOURS, (Reported) Cyanocobalamin (Vitamin B-12) (Vitamin B12), 1,000 MCG PO DAILY, (Reported) Docusate Sodium* (Docusate Sodium*), 100 MG ORAL TWICE A DAY, (Reported) Enoxaparin* (Lovenox*), 40 MG SUBQ DAILY, (Reported) Ergocalciferol (Vitamin D2)* (Vitamin D*), 50,000 UNIT ORAL ONCE A WEEK, ( Reported) Ferrous Sulfate* (Ferrous Sulfate*), 325 MG ORAL DAILY, (Reported) Gabapentin* (Gabapentin*), 200 MG ORAL QHS, (Reported) Loratadine (Loratadine), 10 MG PO DAILY, (Reported) Magnesium Oxide (Magnesium Oxide), 400 MG ORAL DAILY, (Reported) Metolazone (Metolazone), 2.5 MG ORAL BID, (Reported) Multivitamins* (Multivitamins*), 1 TAB ORAL DAILY, (Reported) Oxycodone Hcl Er* (Oxycontin*), 20 MG ORAL EVERY 12 HOURS, (Reported) Pantoprazole (Pantoprazole), 40 MG ORAL ACBREAKFAST, (Reported) Polyethylene Glycol 3350* (Miralax*), 17 GM ORAL DAILY, (Reported) Potassium Chloride* (K-Dur*), 20 MEQ ORAL TID, (Reported) Spironolactone* (Spironolactone*), 50 MG ORAL DAILY, (Reported) Trazodone Hcl* (Desyrel*), 100 MG ORAL BEDTIME, (Reported) Scheduled PRN Acetaminophen* (Acetaminophen 325MG Tablet*), 325 MG ORAL Q6H PRN for Mild Pain/ Temp > 100.5, (Reported) Bisacodyl (Bisacodyl), 10 MG RC DAILY PRN for Constipation, (Reported) Hydrocodone Bit/Acetaminophen 5-325* ([place] 5-325 Tablet*), 1 TAB ORAL Q6H PRN for FOR PAIN, (Reported) Ibuprofen (Motrin), 400 MG ORAL Q6H PRN for Moderate Pain (Pain Scale 4-6), ( Reported) Prochlorperazine (Compazine*), 10 MG ORAL Q6H PRN for Nausea & Vomiting, ( Reported) Miscellaneous Medications Apixaban (Eliquis), 2.5 MG PO, (Reported) Discontinued Medications Hydrocodone Bit/Acetaminophen 5-325* ([place] 5-325*), 1 TAB ORAL Q6H PRN for Severe Pain (Pain Scale 7-10), (Reported) Discontinued Reason: Therapy completed Patient History Healthcare decision maker Resuscitation status Advanced Directive on File Physical Exam Last 24 Hour Vital Signs Date Time Temp Pulse Resp B/P (MAP) Pulse Ox O2 Delivery O2 Flow Rate FiO2 09/19/19 08:00 97.4 77 20 129/79 (96) 95 09/19/19 04:00 97.5 69 20 126/84 (98) 93 09/19/19 00:00 97.7 76 20 115/75 (88) 93 09/18/19 22:59 Room Air 09/18/19 21:20 98.0 80 20 126/82 97 Room Air 09/18/19 20:35 98.1 09/18/19 19:16 98.1 84 19 158/92 96 Room Air 09/18/19 19:16 84 19 Room Air 09/18/19 19:05 98.1 84 20 118/76 (90) 94 Room Air Intake and Output 09/18/19 09/19/19 19:00 07:00 Intake Total 360 ml Balance 360 ml Intake Oral 0 ml Other 360 ml # Voids 1 Laboratory Tests Test 09/18/19 19:37 09/19/19 05:40 White Blood Count 5.8 K/UL (4.8-10.8) 6.1 K/UL (4.8-10.8) Red Blood Count 3.79 M/UL (4.20-5.40) L 3.49 M/UL (4.20-5.40) L Hemoglobin 13.0 G/DL (12.0-16.0) 12.1 G/DL (12.0-16.0) Hematocrit 38.5 % (37.0-47.0) 35.6 % (37.0-47.0) L Mean Corpuscular Volume 102 FL (80-99) H 102 FL (80-99) H Mean Corpuscular Hemoglobin 34.4 PG (27.0-31.0) H 34.5 PG (27.0-31.0) H Mean Corpuscular Hemoglobin Concent 33.8 G/DL (32.0-36.0) 33.8 G/DL (32.0-36.0) Red Cell Distribution Width 12.9 % (11.6-14.8) 12.4 % (11.6-14.8) Platelet Count 191 K/UL (150-450) 182 K/UL (150-450) Mean Platelet Volume 6.6 FL (6.5-10.1) 7.3 FL (6.5-10.1) Neutrophils (%) (Auto) 72.9 % (45.0-75.0) 69.1 % (45.0-75.0) Lymphocytes (%) (Auto) 24.0 % (20.0-45.0) 23.8 % (20.0-45.0) Monocytes (%) (Auto) 2.4 % (1.0-10.0) 6.1 % (1.0-10.0) Eosinophils (%) (Auto) 0.1 % (0.0-3.0) 0.2 % (0.0-3.0) Basophils (%) (Auto) 0.7 % (0.0-2.0) 0.8 % (0.0-2.0) Prothrombin Time 10.7 SEC (9.30-11.50) Prothromb Time International Ratio 1.0 (0.9-1.1) Activated Partial Thromboplast Time 38 SEC (23-33) H Sodium Level 136 MMOL/L (136-145) 138 MMOL/L (136-145) Potassium Level 4.5 MMOL/L (3.5-5.1) 4.1 MMOL/L (3.5-5.1) Chloride Level 99 MMOL/L (98-107) 102 MMOL/L (98-107) Carbon Dioxide Level 32 MMOL/L (21-32) 32 MMOL/L (21-32) Anion Gap 5 mmol/L (5-15) 4 mmol/L (5-15) L Blood Urea Nitrogen 34 mg/dL (7-18) H 31 mg/dL (7-18) H Creatinine 1.6 MG/DL (0.55-1.30) H 1.5 MG/DL (0.55-1.30) H Estimat Glomerular Filtration Rate 33.0 mL/min (>60) 35.5 mL/min (>60) Glucose Level 159 MG/DL (74-106) H 144 MG/DL (74-106) H Calcium Level 9.1 MG/DL (8.5-10.1) 8.4 MG/DL (8.5-10.1) L Total Bilirubin 0.4 MG/DL (0.2-1.0) 0.3 MG/DL (0.2-1.0) Aspartate Amino Transf (AST/SGOT) 23 U/L (15-37) 23 U/L (15-37) Alanine Aminotransferase (ALT/SGPT) 25 U/L (12-78) 26 U/L (12-78) Alkaline Phosphatase 75 U/L (46-116) 71 U/L (46-116) Troponin I 0.000 ng/mL (0.000-0.056) Pro-B-Type Natriuretic Peptide 517 pg/mL (0-125) H Total Protein 7.2 G/DL (6.4-8.2) 6.6 G/DL (6.4-8.2) Albumin 3.4 G/DL (3.4-5.0) 3.0 G/DL (3.4-5.0) L Globulin 3.8 g/dL 3.6 g/dL Albumin/Globulin Ratio 0.9 (1.0-2.7) L 0.8 (1.0-2.7) L Microbiology Date/Time Source Procedure Growth Status 09/18/19 20:49 Rectum Received Height (Feet): 5 Height (Inches): 0.00 Weight (Pounds): 200 Medications Current Medications Medications (Trade) Dose Ordered Sig/[place] Route PRN Reason Start Time Stop Time Status Last Admin Dose Admin Acetaminophen (Tylenol) 500 mg Q4H PRN ORAL Mild Pain (Pain Scale 1-3) 09/18/19 23:00 10/18/19 22:59 09/19/19 03:55 Barium Sulfate (Readi-Cat 2) 450 ml NOW PRN ORAL Radiology Procedure 09/19/19 07:30 09/21/19 07:21 Assessment/Plan Assessment/Plan: Oncology Consultation REQ MD: Sachin Landrum RFC: Metastatic breast eval and recent chemo DOS: 09/19/2019 ID 58-year-old chadian-speaking female, well known to me, originally from [place], gets chemotherapy with Dr. Ac Jeff at his office, with a history of metastatic breast cancer with multiple bony and liver mets, currently undergoing chemotherapy and radiation presenting for shortness of breath, has had similar findings before has require thoras. On arimidex now as horomonal treatment. Unable to add faslodex based on insurance, has received thora in the prior 10/2018 admission. She has been complaining of sob and left upper ext edema. She has required thoracentesis in the past, last time 09/2018 and 10/2018 , 02/2019. Denying chest pain. No other symptoms at this time. No recent cough , fevers, sore throat, abdominal pain, vomiting, diarrhea or skin rash. Otherwise has been feeling better. At this time, ordered duplex upper arm, xray of chest and ct neck/chest/abdo/ pelvis. PMH: Metastatic breast cancer PSH: Hip surgery Allergies: Denies Social Hx: [place] drug, alcohol, tobacco use Coded Allergies: No Known Allergies (Unverified , 11/07/18) Patient History Last Menstrual Period: na Nursing Documentation-PMH Past Medical History: No History, Except For Hx Cancer: Yes - left breast with metastisis to liver and bones History Of Psychiatric Problem: Yes - PTSD, anxiety Review of Systems All Other Systems: negative except mentioned in HPI Physical Exam Vital Signs reviewed Gen: Awake and alert, no acute distress HEENT: NC/AT. EOMI. Neck: Supple, trachea midline Chest Wall: No tenderness Cardiovascular: RRR. S1 and S2 normal Resp: Mild tachypnea with increased work of breathing Abdomen: Abdomen is soft, nondistended Skin: Intact. No abrasions, lacer, rash Ext: left upper arm swelling compared to the right side, worse L>R Neuro: Awake and alert Labs: noted Imaging: reviewed Assessment and Recs: # Metastatic breast cancer -- diagnosed approx 1 year ago with multiple bony and liver mets, currently undergoing chemotherapy and radiation presenting for shortness of breath, on taxotere in office. On arimidex now as horomonal treatment. --> at this time, reviewed recent restaging scan on prior admission, 11/09/18 -- > Evidence of metastatic malignant neoplasm involving the bones. There is extensive involvement of the spine and sternum pelvic bones. Nonspecific hypodensities within the liver. Metastatic neoplasm is in the differential diagnosis. Abnormal appearance of the left anterior chest wall with subcutaneous reticulation and skin thickening presumably on the basis of previous radiation and/or surgery. --> tumor markers ca125 80, cea 6 --> will need thoracentesis prn basis --> imaging to be reviewed CT neck/chest/abd/pelvis --> recently on chemo in the office (09/2019) # Shortness of breath with Plueral effusion in the past --> obtain cxr and ct chest which has been ordered --> prior cytology of thora was negative --> Dr. Renee is aware and appreciate recs # Anemia of chronic disease --> recently on chemo --> is related to ongoing chronic disease # Leukopenia --> also s/p chemo # Left upper arm swelling L>R, slowly improving over last few months, likely [id number] --> s/p duplex scan and does not show dvt (done in the ER) --> currently appears improved # Hypoxia due to effusion --> obtain repeat ct # DVT ppx lovenox sq Greatly appreciate consultation and dw Esdras Alvarenga MD Sep 19, 2019 08:19
--- NOTE | 2019-09-19 08:47 | Consultation ---
History of Present Illness General Date patient seen: Sep 19, 2019 Chief Complaint: Edema Present Illness Allergies: Coded Allergies: No Known Allergies (Unverified , 11/07/18) Medication History Scheduled Amino Acids/Protein Hydrolys (Pro-Stat Liquid), 30 ML ORAL DAILY, (Reported) Anastrozole* (Arimidex*), 1 MG PO DAILY, (Reported) Bumetanide* (Bumetanide*), 0.5 MG ORAL BID, (Reported) Carvedilol (Coreg), 3.125 MG ORAL EVERY 12 HOURS, (Reported) Cyanocobalamin (Vitamin B-12) (Vitamin B12), 1,000 MCG PO DAILY, (Reported) Docusate Sodium* (Docusate Sodium*), 100 MG ORAL TWICE A DAY, (Reported) Enoxaparin* (Lovenox*), 40 MG SUBQ DAILY, (Reported) Ergocalciferol (Vitamin D2)* (Vitamin D*), 50,000 UNIT ORAL ONCE A WEEK, ( Reported) Ferrous Sulfate* (Ferrous Sulfate*), 325 MG ORAL DAILY, (Reported) Gabapentin* (Gabapentin*), 200 MG ORAL QHS, (Reported) Loratadine (Loratadine), 10 MG PO DAILY, (Reported) Magnesium Oxide (Magnesium Oxide), 400 MG ORAL DAILY, (Reported) Metolazone (Metolazone), 2.5 MG ORAL BID, (Reported) Multivitamins* (Multivitamins*), 1 TAB ORAL DAILY, (Reported) Oxycodone Hcl Er* (Oxycontin*), 20 MG ORAL EVERY 12 HOURS, (Reported) Pantoprazole (Pantoprazole), 40 MG ORAL ACBREAKFAST, (Reported) Polyethylene Glycol 3350* (Miralax*), 17 GM ORAL DAILY, (Reported) Potassium Chloride* (K-Dur*), 20 MEQ ORAL TID, (Reported) Spironolactone* (Spironolactone*), 50 MG ORAL DAILY, (Reported) Trazodone Hcl* (Desyrel*), 100 MG ORAL BEDTIME, (Reported) Scheduled PRN Acetaminophen* (Acetaminophen 325MG Tablet*), 325 MG ORAL Q6H PRN for Mild Pain/ Temp > 100.5, (Reported) Bisacodyl (Bisacodyl), 10 MG RC DAILY PRN for Constipation, (Reported) Hydrocodone Bit/Acetaminophen 5-325* ([place] 5-325 Tablet*), 1 TAB ORAL Q6H PRN for FOR PAIN, (Reported) Ibuprofen (Motrin), 400 MG ORAL Q6H PRN for Moderate Pain (Pain Scale 4-6), ( Reported) Prochlorperazine (Compazine*), 10 MG ORAL Q6H PRN for Nausea & Vomiting, ( Reported) Miscellaneous Medications Apixaban (Eliquis), 2.5 MG PO, (Reported) Discontinued Medications Hydrocodone Bit/Acetaminophen 5-325* ([place] 5-325*), 1 TAB ORAL Q6H PRN for Severe Pain (Pain Scale 7-10), (Reported) Discontinued Reason: Therapy completed Patient History Healthcare decision maker Resuscitation status Advanced Directive on File Physical Exam Last 24 Hour Vital Signs Date Time Temp Pulse Resp B/P (MAP) Pulse Ox O2 Delivery O2 Flow Rate FiO2 09/19/19 08:00 97.4 77 20 129/79 (96) 95 09/19/19 04:00 97.5 69 20 126/84 (98) 93 09/19/19 00:00 97.7 76 20 115/75 (88) 93 09/18/19 22:59 Room Air 09/18/19 21:20 98.0 80 20 126/82 97 Room Air 09/18/19 20:35 98.1 09/18/19 19:16 98.1 84 19 158/92 96 Room Air 09/18/19 19:16 84 19 Room Air 09/18/19 19:05 98.1 84 20 118/76 (90) 94 Room Air Intake and Output 09/18/19 09/19/19 19:00 07:00 Intake Total 360 ml Balance 360 ml Intake Oral 0 ml Other 360 ml # Voids 1 Laboratory Tests Test 09/18/19 19:37 09/19/19 05:40 White Blood Count 5.8 K/UL (4.8-10.8) 6.1 K/UL (4.8-10.8) Red Blood Count 3.79 M/UL (4.20-5.40) L 3.49 M/UL (4.20-5.40) L Hemoglobin 13.0 G/DL (12.0-16.0) 12.1 G/DL (12.0-16.0) Hematocrit 38.5 % (37.0-47.0) 35.6 % (37.0-47.0) L Mean Corpuscular Volume 102 FL (80-99) H 102 FL (80-99) H Mean Corpuscular Hemoglobin 34.4 PG (27.0-31.0) H 34.5 PG (27.0-31.0) H Mean Corpuscular Hemoglobin Concent 33.8 G/DL (32.0-36.0) 33.8 G/DL (32.0-36.0) Red Cell Distribution Width 12.9 % (11.6-14.8) 12.4 % (11.6-14.8) Platelet Count 191 K/UL (150-450) 182 K/UL (150-450) Mean Platelet Volume 6.6 FL (6.5-10.1) 7.3 FL (6.5-10.1) Neutrophils (%) (Auto) 72.9 % (45.0-75.0) 69.1 % (45.0-75.0) Lymphocytes (%) (Auto) 24.0 % (20.0-45.0) 23.8 % (20.0-45.0) Monocytes (%) (Auto) 2.4 % (1.0-10.0) 6.1 % (1.0-10.0) Eosinophils (%) (Auto) 0.1 % (0.0-3.0) 0.2 % (0.0-3.0) Basophils (%) (Auto) 0.7 % (0.0-2.0) 0.8 % (0.0-2.0) Prothrombin Time 10.7 SEC (9.30-11.50) Prothromb Time International Ratio 1.0 (0.9-1.1) Activated Partial Thromboplast Time 38 SEC (23-33) H Sodium Level 136 MMOL/L (136-145) 138 MMOL/L (136-145) Potassium Level 4.5 MMOL/L (3.5-5.1) 4.1 MMOL/L (3.5-5.1) Chloride Level 99 MMOL/L (98-107) 102 MMOL/L (98-107) Carbon Dioxide Level 32 MMOL/L (21-32) 32 MMOL/L (21-32) Anion Gap 5 mmol/L (5-15) 4 mmol/L (5-15) L Blood Urea Nitrogen 34 mg/dL (7-18) H 31 mg/dL (7-18) H Creatinine 1.6 MG/DL (0.55-1.30) H 1.5 MG/DL (0.55-1.30) H Estimat Glomerular Filtration Rate 33.0 mL/min (>60) 35.5 mL/min (>60) Glucose Level 159 MG/DL (74-106) H 144 MG/DL (74-106) H Calcium Level 9.1 MG/DL (8.5-10.1) 8.4 MG/DL (8.5-10.1) L Total Bilirubin 0.4 MG/DL (0.2-1.0) 0.3 MG/DL (0.2-1.0) Aspartate Amino Transf (AST/SGOT) 23 U/L (15-37) 23 U/L (15-37) Alanine Aminotransferase (ALT/SGPT) 25 U/L (12-78) 26 U/L (12-78) Alkaline Phosphatase 75 U/L (46-116) 71 U/L (46-116) Troponin I 0.000 ng/mL (0.000-0.056) Pro-B-Type Natriuretic Peptide 517 pg/mL (0-125) H Total Protein 7.2 G/DL (6.4-8.2) 6.6 G/DL (6.4-8.2) Albumin 3.4 G/DL (3.4-5.0) 3.0 G/DL (3.4-5.0) L Globulin 3.8 g/dL 3.6 g/dL Albumin/Globulin Ratio 0.9 (1.0-2.7) L 0.8 (1.0-2.7) L Microbiology Date/Time Source Procedure Growth Status 09/18/19 20:49 Rectum Received Height (Feet): 5 Height (Inches): 0.00 Weight (Pounds): 200 Medications Current Medications Medications (Trade) Dose Ordered Sig/Kaushal Route PRN Reason Start Time Stop Time Status Last Admin Dose Admin Acetaminophen (Tylenol) 500 mg Q4H PRN ORAL Mild Pain (Pain Scale 1-3) 09/18/19 23:00 10/18/19 22:59 09/19/19 03:55 Barium Sulfate (Readi-Cat 2) 450 ml NOW PRN ORAL Radiology Procedure 09/19/19 07:30 09/21/19 07:21 Enoxaparin Sodium (Lovenox) 30 mg DAILY SUBQ 09/19/19 09:00 12/18/19 08:59 Assessment/Plan Assessment/Plan: (1) Metastatic Breast Cancer (2) Intractable pain Seen dictated Eugene Bell Sep 19, 2019 08:47
[2019-09-19] MEDS: Enoxaparin 30mg Inj SUBQ SCH (08:59)
--- NOTE | 2019-09-19 09:45 | NUR ---
NURSE NOTES: PT EDUCATED TO KEEP LEFT ARM ELEVATED TO HELP PREVENT FURTHER SWELLING AND PROVIDED PILLOWS. PT VERBALIZED UNDERSTANDING. IN NO APPARENT DISTRESS AT THIS TIME. PT HAS HER OWN WALKER AT BEDSIDE. PT AMBULATES STEADILY WITH WALKER. DENIES SOB OR LIGHTHEADEDNESS WHEN AMBULATING. PT EDUCATED HOW TO USE CALL LIGHT FOR ASSISTANCE. WILL CONTINUE TO MONITOR.
--- NOTE | 2019-09-19 11:21 | Diagnostic Imaging Report ---
EXAM: ULTRASOUND Venous Duplex UPPR EXT Bilat CLINICAL HISTORY: Leg pain and edema. COMPARISON: None TECHNIQUE: Doppler examination include grayscale images obtained with and without compression, and color and spectral doppler analysis. FINDINGS: Doppler examination shows normal spontaneity, phasicity, compressibility in the bilateral lower extremities. There is no thrombus identified by grayscale. Normal color and spectral flow is identified. There is no evidence of valvular incompetency or insufficiency. IMPRESSION: UNREMARKABLE VENOUS DUPLEX.
[2019-09-19 12:00] VITALS: BP 109/84
--- NOTE | 2019-09-19 12:15 | Consultation ---
DATE OF CONSULTATION: 09/19/2019 PAIN MANAGEMENT CONSULTATION CONSULTING PHYSICIAN: Deedee Crump MD. REFERRING PHYSICIAN: Sachin Szymanski MD. PHYSICIAN COMMUNITY CENTER WORKER: BIANCA Ibrahim. CHIEF COMPLAINT: Generalized body pain. HISTORY OF PRESENT ILLNESS: This is a 58-year-old female, who is being seen on the telemetry floor of [facility] for initial pain management consultation. The patient was admitted under the care of Dr. Szymanski due to lymphedema. Reports that she has metastatic breast cancer to the bone, having pain, receiving oxycodone 10 mg tablets as an outpatient. Here only on Tylenol and rates her pain as 7/10, describes the pain as a sharp pain in her back with movement and radiating into the lower extremity. We were consulted so the patient would have adequate pain control while here in the hospital. PAST MEDICAL HISTORY: Breast cancer. PAST SURGICAL HISTORY: Right hip replacement. SOCIAL HISTORY: Denies smoking, drinking, and IV drug abuse. ALLERGIES: No known drug allergies. MEDICATIONS: Oxycodone, Arimidex, bumetanide, Coreg, docusate, Lovenox, vitamin D, ferrous sulfate, Neurontin, loratadine, metronidazole, pantoprazole, MiraLAX, K-Dur, spironolactone, and Compazine. REVIEW OF SYSTEMS: Denies rash, fever, chills, sweating, dizziness, drowsiness, blurred vision, sore throat, or change in her weight. No chest pain, palpitations, or cough. No nausea, vomiting, diarrhea, or blood in the stool or urine. No dysuria. PHYSICAL EXAMINATION: GENERAL: Alert, awake, and oriented. VITAL SIGNS: Blood pressure 129/79, heart rate 72, oxygen saturation 97%, respiratory rate 18, and temperature 98.4 degrees Fahrenheit. HEENT: PERRLA. NECK: Range of motion is full. No tenderness to paracervical muscles. No adenopathy. LUNGS: Decreased breath sounds bilaterally. HEART: S1 and S2 regular. ABDOMEN: Obese. BACK: Range of motion is decreased in flexion and extension. EXTREMITIES: Upper and lower extremity range of motion is decreased due to the patient's condition. No cyanosis. No clubbing. Sensory is reduced. Reflexes are not obtainable. No adenopathy. ASSESSMENT AND PLAN: This is a 58-year-old female with metastatic breast cancer and intractable pain. The patient will be started on Percocet 10/325 mg one tablet every hours as needed for severe pain and Neurontin 300 mg tablet three times a day. The patient was discussed with Dr. Crump and Dr. Crump concurred. We will follow up with the patient. Thank you very much for the courtesy of this consultation. Deedee Crump M.D. BIANCA Ibrahim DR: OSMAN JOB#: [id number] CC: ASHLEIGH
--- NOTE | 2019-09-19 12:30 | Consultation ---
DATE OF CONSULTATION: 09/19/2019 PULMONARY CONSULTATION CONSULTING PHYSICIAN: Tony Renee MD. HISTORY OF PRESENT ILLNESS: This is a 58-year-old female who is known to have metastatic breast carcinoma with known multiple bony and liver metastases. She is currently on chemo and radiation. She came to the hospital with shortness of breath. In the past, she has had thoracentesis. She also reported increasing edema as well as shortness of breath. PAST MEDICAL HISTORY: Notable for metastatic breast carcinoma, previous thoracentesis. PAST SURGICAL HISTORY: Previous hip surgery. HOME MEDICATIONS: Reviewed and reconciled in the chart. ALLERGIES: None. PHYSICAL EXAMINATION: GENERAL: Reveals a 58-year-old female. VITAL SIGNS: Blood pressure is 120/70, heart rate 84, respirations 18. O2 saturation 95% on room air. HEENT: Unremarkable. CHEST: Decreased breath sounds bilaterally with normal heart sounds ABDOMEN: Soft. EXTREMITIES: There is 1+ edema bilaterally. IMAGING STUDIES: None obtained in the last 24 hours. LABORATORY DATA: Lab testing shows normal CBC and BMP with a creatinine 1.5. IMPRESSION: 1. Shortness of breath suspect due to underlying malignancy. 2. Pedal edema. 3. Metastatic breast cancer. DISCUSSION: We will obtain chest x-ray if not already obtained. We will review and determine the need for thoracentesis. We will follow as podiatric surgeon. Tony Renee M.D. DR: MISHEL JOB#: [id number] CC:
--- NOTE | 2019-09-19 14:34 | Diagnostic Imaging Report ---
Indication: Shortness of breath Technique: XRAY Chest 1v Comparison: 02/27/2019 Findings: Heart size and mediastinal contours are stable. There is a right chest wall Mediport with its catheter tip the region of the cavoatrial junction. The port is accessed with a Jorge needle there are streaky opacities at the bilateral bases. Slight blunting of the bilateral costophrenic sulci. No evidence of pneumothorax. No acute osseous abnormalities appreciated. Subtle patchy sclerosis is noted within the bones. Impression: Streaky opacities at the bilateral bases and minimal blunting of the bilateral costophrenic sulci. Findings suggest trace to small pleural effusions and bibasilar atelectasis. Possibility of superimposed pneumonia needs to be excluded clinically. Indwelling Mediport. Very subtle patchy sclerosis in the bones which may be related to previously seen bone metastases.
--- NOTE | 2019-09-19 14:37 | Diagnostic Imaging Report ---
Indication: Left arm pain and swelling Technique: Grayscale and duplex Doppler imaging of the veins in left upper extremity performed in real time utilizing compression and augmentation. Comparison: None Findings: Left internal jugular vein is patent and normally compressible with normal color flow. Imaged portions of the left subclavian vein appear patent with demonstrable color flow. Left axillary vein is patent and normally compressible and with demonstrable color flow. Visualized portions of the left brachial, basilic and cephalic veins are patent with normal compressibility and color flow. There is subcutaneous edema in the left arm however no subcutaneous fluid collection is seen. IMPRESSION: No evidence of deep venous thrombosis involving the visualized veins of the left upper extremity
--- NOTE | 2019-09-19 15:37 | NUR ---
NURSE NOTES: PT REPORTS MINIMAL PAIN AT THIS TIME. PT COMPLETED CT SCANS ORDERED FOR TODAY. RN LEFT MESSAGE FOR DR JOSEPH, NEED CLARIFICATION IF HE WANTS REPEAT CXR FOR TODAY. CXR WAS DONE YESTERDAY. AWAITING NEW ORDERS.
[2019-09-19 15:46] VITALS: BP 106/79
--- NOTE | 2019-09-19 16:09 | NUR ---
CASE MANAGEMENT INSURANCE UPDATE HN Tracking#pending #[phone] fax#[phone]
--- NOTE | 2019-09-19 16:13 | Diagnostic Imaging Report ---
Indication: Metastatic breast cancer. Neck pain. Shortness of breath. Technique: Noncontrast CT of the neck utilizing automated exposure control. Axial, sagittal and coronal reformats presented. CT dose: Total DLP 249.8 mGycm; CTDI vol 8.7 mGy Comparison: None Findings: Please note that evaluation of the soft tissues of the neck and vascular structures is limited without the use of intravenous and oral contrast. Within these limitations the following observations are made: Small nonspecific bilateral cervical lymph nodes are noted. No bulky/conglomerate cervical lymphadenopathy is identified. No discrete mass lesion is appreciated involving the deep spaces of the neck however note that evaluation is limited without intravenous contrast and subtle abnormalities may be missed. The airway is patent. The thyroid is unremarkable in appearance. There is diffuse bony metastasis. There is very mild compression deformity of the T4 vertebral body. Mastoid air cells and paranasal sinuses are clear. Imaged intracranial compartment grossly unremarkable. IMPRESSION: Limited evaluation of the soft tissues of the neck without intravenous contrast. Note that subtle abnormalities may be missed. Repeat exam with IV contrast can be obtained for more sensitive evaluation as clinically indicated. Within the limitations of this exam: * Small nonspecific bilateral cervical lymph nodes, none demonstrate pathologic enlargement in size. No bulky/conglomerate lymphadenopathy is seen. * Diffuse osseous metastases. The CT scanner at [facility] is accredited by the [employer] and the scans are performed using protocols designed to limit radiation exposure to as low as reasonably achievable to attain images of sufficient resolution adequate for diagnostic evaluation.
--- NOTE | 2019-09-19 16:40 | Diagnostic Imaging Report ---
Indication: Abdominal pain, chest pain, shortness of breath. History of metastatic breast cancer on chemotherapy Technique: Noncontrast CT scan of the chest, abdomen and pelvis obtained utilizing automated exposure control. Sagittal and coronal reformats created. Oral contrast was administered. Total Dose length Product (DLP): 769.[address] Dose Index Volume (CTDIvol): Total mGy Comparison: 02/28/2019 Findings: Note that evaluation of the vascular structures as well as the abdominal and pelvic viscera is limited without the use of intravenous contrast. Within these limitations the following observations are made: CT CHEST: There are small bilateral pleural effusions with adjacent opacities in the bilateral lower lobes. Related to compressive atelectasis. Superimposed pneumonia needs to be excluded clinically. There is a 4 mm nodule in the right lower lobe. Additionally there is a 2 mm nodule in the lingula and a 4 mm nodule in the right lower lobe in the region of the costophrenic sulcus (axial image #58). These are not definitively visualized previously. There is no evidence of pneumothorax. Right chest wall Mediport has its catheter tip at the cavoatrial junction. Heart is normal in size. Trace pericardial effusion is again noted. Small mediastinal lymph nodes are again seen, similar to the prior exam. Imaged portions of the thyroid unremarkable in appearance. Thoracic aorta and main pulmonary artery normal in caliber. There is asymmetric skin thickening of the left breast. CT abdomen pelvis: Previously described hepatic hypodensities are grossly stable in size and number compared to the prior exam although note that sensitivity in evaluation for new lesions is limited on today's exam given lack of IV contrast. The largest such lesion in the liver is in the right hepatic lobe measures approximately 2 cm, similar to the prior exam. There is cholelithiasis. No pericholecystic inflammatory changes or other discrete CT evidence to suggest acute cholecystitis. No appreciable biliary ductal dilatation. Noncontrast evaluation of the spleen, adrenal glands and pancreas unremarkable. A low-attenuation likely cyst in the right kidney, better appreciated on the previous contrast-enhanced exam. There is no urinary tract stone or hydronephrosis. There is thickening of the wall the bladder. There is no free intraperitoneal air or fluid. Appendix is normal in caliber. No periappendiceal inflammatory changes. There is no evidence of small bowel obstruction. No appreciable focal bowel wall thickening is seen. Abdominal aorta is normal in caliber. There is mild atherosclerotic calcification. There is a small fat-containing umbilical hernia. A right hip prosthesis is again noted. There is diffuse heterogeneity of the osseous structures with mixed lytic and sclerotic lesions, compatible with osseous metastasis. There are multiple vertebral body compression fractures which are overall stable compared to the prior exam. IMPRESSION: * Small bilateral pleural effusions with adjacent opacities in the bilateral lower lobes which may be related to compressive atelectasis. Superimposed pneumonia needs to be excluded clinically. * 3 subcentimeter nodules noted in the lungs, not definitively seen on the prior exam. These may potentially be infectious or inflammatory in etiology however metastases not excluded given history. * Diffuse bony metastases with multifocal vertebral compression deformities, grossly stable compared to the prior exam. * Hypodense lesions within the liver again concerning for metastatic disease. Size and number stable compared to the prior exam. * Asymmetric thickening of the skin of the left breast which is partially visualized. Correlation with physical exam recommended. * Trace pericardial effusion, stable compared to the prior exam. * Cholelithiasis without CT evidence to suggest an acute cholecystitis. * Bladder wall thickening which may related to underdistention versus cystitis. Correlation with urinalysis recommended. The CT scanner at [facility] is accredited by the [employer] and the scans are performed using dose optimization techniques as appropriate to a performed exam including Automatic Exposure control.
--- NOTE | 2019-09-19 19:13 | NUR ---
HAND-OFF: Report given to Shruthi DUMONT RN.
--- NOTE | 2019-09-19 19:26 | Cardiology Progress Note ---
Assessment/Plan Assessment/Plan The patient is seen and examined, full consult note is dictated. Objective Last 24 Hour Vital Signs Date Time Temp Pulse Resp B/P (MAP) Pulse Ox O2 Delivery O2 Flow Rate FiO2 09/19/19 15:46 97.3 76 20 106/79 (88) 96 09/19/19 12:00 97.0 72 20 109/84 (92) 95 09/19/19 09:00 Room Air 09/19/19 08:00 97.4 77 20 129/79 (96) 95 09/19/19 04:00 97.5 69 20 126/84 (98) 93 09/19/19 00:00 97.7 76 20 115/75 (88) 93 09/18/19 22:59 Room Air 09/18/19 21:20 98.0 80 20 126/82 97 Room Air 09/18/19 20:35 98.1 Intake and Output 09/18/19 09/19/19 19:00 07:00 Intake Total 360 ml Balance 360 ml Intake Oral 0 ml Other 360 ml # Voids 1 Laboratory Tests Test 09/18/19 19:37 09/19/19 05:40 White Blood Count 5.8 K/UL (4.8-10.8) 6.1 K/UL (4.8-10.8) Red Blood Count 3.79 M/UL (4.20-5.40) L 3.49 M/UL (4.20-5.40) L Hemoglobin 13.0 G/DL (12.0-16.0) 12.1 G/DL (12.0-16.0) Hematocrit 38.5 % (37.0-47.0) 35.6 % (37.0-47.0) L Mean Corpuscular Volume 102 FL (80-99) H 102 FL (80-99) H Mean Corpuscular Hemoglobin 34.4 PG (27.0-31.0) H 34.5 PG (27.0-31.0) H Mean Corpuscular Hemoglobin Concent 33.8 G/DL (32.0-36.0) 33.8 G/DL (32.0-36.0) Red Cell Distribution Width 12.9 % (11.6-14.8) 12.4 % (11.6-14.8) Platelet Count 191 K/UL (150-450) 182 K/UL (150-450) Mean Platelet Volume 6.6 FL (6.5-10.1) 7.3 FL (6.5-10.1) Neutrophils (%) (Auto) 72.9 % (45.0-75.0) 69.1 % (45.0-75.0) Lymphocytes (%) (Auto) 24.0 % (20.0-45.0) 23.8 % (20.0-45.0) Monocytes (%) (Auto) 2.4 % (1.0-10.0) 6.1 % (1.0-10.0) Eosinophils (%) (Auto) 0.1 % (0.0-3.0) 0.2 % (0.0-3.0) Basophils (%) (Auto) 0.7 % (0.0-2.0) 0.8 % (0.0-2.0) Prothrombin Time 10.7 SEC (9.30-11.50) Prothromb Time International Ratio 1.0 (0.9-1.1) Activated Partial Thromboplast Time 38 SEC (23-33) H Sodium Level 136 MMOL/L (136-145) 138 MMOL/L (136-145) Potassium Level 4.5 MMOL/L (3.5-5.1) 4.1 MMOL/L (3.5-5.1) Chloride Level 99 MMOL/L (98-107) 102 MMOL/L (98-107) Carbon Dioxide Level 32 MMOL/L (21-32) 32 MMOL/L (21-32) Anion Gap 5 mmol/L (5-15) 4 mmol/L (5-15) L Blood Urea Nitrogen 34 mg/dL (7-18) H 31 mg/dL (7-18) H Creatinine 1.6 MG/DL (0.55-1.30) H 1.5 MG/DL (0.55-1.30) H Estimat Glomerular Filtration Rate 33.0 mL/min (>60) 35.5 mL/min (>60) Glucose Level 159 MG/DL (74-106) H 144 MG/DL (74-106) H Calcium Level 9.1 MG/DL (8.5-10.1) 8.4 MG/DL (8.5-10.1) L Total Bilirubin 0.4 MG/DL (0.2-1.0) 0.3 MG/DL (0.2-1.0) Aspartate Amino Transf (AST/SGOT) 23 U/L (15-37) 23 U/L (15-37) Alanine Aminotransferase (ALT/SGPT) 25 U/L (12-78) 26 U/L (12-78) Alkaline Phosphatase 75 U/L (46-116) 71 U/L (46-116) Troponin I 0.000 ng/mL (0.000-0.056) Pro-B-Type Natriuretic Peptide 517 pg/mL (0-125) H Total Protein 7.2 G/DL (6.4-8.2) 6.6 G/DL (6.4-8.2) Albumin 3.4 G/DL (3.4-5.0) 3.0 G/DL (3.4-5.0) L Globulin 3.8 g/dL 3.6 g/dL Albumin/Globulin Ratio 0.9 (1.0-2.7) L 0.8 (1.0-2.7) L Microbiology Date/Time Source Procedure Growth Status 09/18/19 20:49 Rectum Received Frank Camejo MD Sep 19, 2019 19:26
--- NOTE | 2019-09-19 19:41 | NUR ---
NURSE NOTES: Patient ambulating in the room, independent. Encouraged pt to use call light for help. Call light in reach. Bed in lowest and lock engaged. Will continue plan of care.
[2019-09-19 20:00] VITALS: BP 121/77
[2019-09-19] MEDS ORDERED: Dyna-Hex 2% Top Sol 2oz TOPIC SCH (20:00)
--- NOTE | 2019-09-19 20:45 | Consultation ---
DATE OF CONSULTATION: 09/19/2019 CARDIOLOGY CONSULTATION REFERRING PHYSICIAN: Sachin Szymanski M.D. REASON FOR CONSULTATION: Management of palpitation. HISTORY OF PRESENT ILLNESS: The patient is a very unfortunate 58-year-old female with history of breast cancer with metastases to liver and bone, status post chemotherapy, history of hypertension, resident of a [place] [facility] facility, who was brought in for left upper extremity swelling, left breast edema, as well as palpitation. The patient states that after chemotherapy she had a few episodes of fast heart beat. She has been complaining about nausea, but has not had any emesis. Denies any diarrhea or any GI bleed. The patient denies any prior history of congestive heart failure, coronary artery disease, or cardiac arrhythmia. Her coronary artery disease risk factors include hypertension. PAST MEDICAL HISTORY: Hypertension, metastatic breast cancer to bone and liver, status post chemotherapy, history of PTSD, history of depression, history of GERD. PAST SURGICAL HISTORY: None. SOCIAL HISTORY: Denies any tobacco, alcohol, or illicit drug use. Resident of a [place] [facility] facility. ALLERGIES: No known drug allergies. FAMILY HISTORY: No premature coronary artery disease in the first-degree relatives. REVIEW OF SYSTEMS: A 12-system review done and essentially negative except what is mentioned in history of present illness. MEDICATIONS: List of medications in the nursing facility includes: 1. Acetaminophen 325 mg q.6h. p.r.n. pain and temperature above 100.5. 2. Pro-stat liquid 30 mL p.o. daily. 3. Anastrozole 1 mg p.o. daily. 4. twice daily. 5. Bisacodyl 10 mg rectal p.r.n. constipation. 6. Bumetanide 0.5 mg twice daily. 7. Carvedilol 3.125 mg twice a day. 8. Vitamin B12 1000 mcg p.o. daily. 9. Colace 100 mg p.o. twice daily. 10. Lovenox 40 mg subcu once daily. 11. Vitamin D 50,000 international units once weekly. 12. Ferrous sulfate 325 mg daily. 13. Gabapentin 200 mg at bedtime. 14. [place] 5/325 mg 1 tablet q.6h. p.r.n. pain. 15. Ibuprofen 400 mg q.6h. p.r.n. moderate pain. 16. Loratadine 10 mg p.o. daily. 17. Magnesium oxide 400 mg daily. 18. Metolazone 2.5 mg twice daily. 19. Multivitamin 1 tablet p.o. daily. 20. OxyContin 20 mg p.o. twice daily. 21. Pantoprazole 40 mg p.o. before meals. 22. MiraLAX 17 g p.o. daily. 23. K-Dur 20 mEq 3 times a day. 24. Compazine 10 mg p.o. q.6h. p.r.n. for nausea, vomiting. 25. Spironolactone 100 mg half a tablet p.o. daily. 26. Trazodone 100 mg p.o. at bedtime. PHYSICAL EXAMINATION: VITAL SIGNS: Blood pressure at the time of arrival to the hospital was 118/76, pulse of 84, respirations 20, temperature 98.1 degrees Fahrenheit, O2 saturation 94% on room air. GENERAL: The patient is a very unfortunate 58-year-old female in no apparent respiratory distress. Alert and oriented x4. HEENT: Atraumatic and normocephalic head. Pupils are equal, round, and reactive to light and accommodation. Extraocular muscles intact. NECK: JVP less than 5 cm. No carotid bruit. Carotid upstrokes 2+ bilaterally. CARDIOVASCULAR: Normal S1, S2. Regular rate and rhythm. No murmurs, gallops, or rubs. PMI is at fourth intercostal space in the midclavicular line. LUNGS: Diminished breath sounds in the left base, otherwise clear. ABDOMEN: Soft, nontender, nondistended. No hepatosplenomegaly. Positive bowel sounds. EXTREMITIES: Left upper extremity with edema. Lower extremities, no evidence of edema, clubbing, or cyanosis. LABORATORY FINDINGS: WBC is 5.8, hemoglobin 13.0, hematocrit of 38.5%, and platelet count is 191. Sodium is 136, potassium is 4.5, chloride 99, bicarbonate 32, BUN 34, and creatinine 1.6. Glucose is 159. Calcium is 9.1. Troponin I is 0. ProBNP was 517. A 12-lead electrocardiogram shows sinus rhythm with atrial premature complexes and no acute ischemic changes. Chest x-ray, small pleural effusion and bibasilar atelectasis. Superimposed pneumonia needs to be excluded clinically. Presence of indwelling Mediport. Duplex study of upper extremities bilaterally showed no evidence of thrombus. ASSESSMENT/PLAN: The patient is a very unfortunate 58-year-old female seen in cardiology consultation. 1. Palpitations, probably intravascular volume depletion. The patient's medication list was reviewed and started the patient on metolazone. There is also prerenal picture on the study of BUN/creatinine ratio. I would consider discontinuation of diuretics. The patient may in fact require fluid in view of prerenal azotemia. 2. History of hypertension. Blood pressure is currently well controlled with no blood pressure medication. We will continue to monitor that. 3. Bilateral pleural effusions, probably due to metastatic breast cancer, although underlying pneumonia should be excluded. I would like to obtain 2D echocardiography for assessment of LV systolic and diastolic function and to rule out pericardial effusion. 4. Further therapeutic and diagnostic decision will be based on the results of the above tests. I would like to thank Dr. Szymanski for the courtesy of this consultation. Frank Camejo M.D. DR: MANSI JOB#: [id number] CC:
--- NOTE | 2019-09-19 21:30 | NUR ---
NURSE NOTES: Patient complained of nausea. Dr. Szymanski made aware. Obtained order for Zofran. Given as ordered.
--- NOTE | 2019-09-19 22:30 | History and Physical Report ---
DATE OF ADMISSION: 09/18/2019 HISTORY OF PRESENT ILLNESS: The patient was admitted for shortness of breath. The patient also has history of breast cancer that has metastasized to liver and bone, currently getting chemotherapy by Dr. Jeff. The patient also has left upper extremity swelling. Denies fever or chills. Denies nausea, vomiting, or diarrhea. Denies shortness of breath. Denies cough. Denies diarrhea. She was admitted for shortness of breath. PAST MEDICAL HISTORY: Metastatic breast cancer, GERD, PTSD, depression, hypertension, chronic pain syndrome, iron-deficiency anemia, constipation. PAST SURGICAL HISTORY: Removal of the breast cancer. ALLERGIES: No known allergies. MEDICATIONS: Ferrous sulfate, vitamin D, gabapentin, Protonix, spironolactone. FAMILY HISTORY: Noncontributory. SOCIAL HISTORY: Denies history of smoking. Denies history of alcohol and illicit drugs. REVIEW OF SYSTEMS: HEENT: Denies headaches. RESPIRATORY: Reports shortness of breath. Denies cough. CARDIOVASCULAR: Denies chest pain and orthopnea. GASTROINTESTINAL: Denies nausea, vomiting, or diarrhea. EXTREMITIES: Does have leg edema. CENTRAL NERVOUS SYSTEM: Denies change in speech pattern. PHYSICAL EXAMINATION: VITAL SIGNS: Temperature 97.4, pulse 77, blood pressure 113/79. HEENT: PERRLA. CHEST: Clear to auscultation. CARDIOVASCULAR: Regular rate and rhythm. ABDOMEN: Soft and nontender. No organomegaly. EXTREMITIES: A 1+ edema. Able to move extremities. Generalized weakness. Dorsalis pedis pulses are present. LABORATORY DATA: WBC 5.8, hemoglobin 13, platelet 191. Sodium 137, potassium 4.1, BUN of 34, creatinine 1.6. ASSESSMENT AND PLAN: Acute kidney injury, dehydration, shortness of breath, metastatic breast cancer, rule out cardiomyopathy so we have consulted Dr. Renee; Dr. Esdras Jeff, Dr. Camejo, Dr. Crump for pain management and further workup of shortness of breath and also to help with the metastatic breast cancer workup. Sachin Szymanski M.D. DR: Vaina JOB#: [id number] CC:
[2019-09-20] VITALS: BP 118/77
[2019-09-20 04:00] VITALS: BP 138/82
--- NOTE | 2019-09-20 07:40 | NUR ---
HAND-OFF: Report given to KYREE Hull.
[2019-09-20 08:00] VITALS: BP 122/81
[2019-09-20] MEDS: Enoxaparin 30mg Inj SUBQ SCH (08:27)
--- NOTE | 2019-09-20 09:13 | NUR ---
NURSE NOTES: Report received from David ADORNO. Patient seen on rounds, AxOx4, not in distress, no complaints of pain. Pt does have some mild nausea and was given Zofran overnight but would like to try some saltine crackers and Gingerale. Noted some edema on left arm, precautions is place. Pt has portacath over right chest patent and intact. Pt is able to ambulate with a walker. Bed low and locked, siderails up x2, call light placed within reach and instructed to call nurse for assistance. Will continue to monitor.
[2019-09-20 12:00] VITALS: BP 129/80
--- NOTE | 2019-09-20 12:42 | Hematology/Onc Progress Note ---
Assessment/Plan Assessment/Plan Assessment and Recs: # Metastatic breast cancer -- diagnosed approx 1 year ago with multiple bony and liver mets, currently undergoing chemotherapy and radiation presenting for shortness of breath, on taxotere in office. On arimidex now as horomonal treatment. --> 11/09/18 --> Evidence of metastatic malignant neoplasm involving the bones. There is extensive involvement of the spine and sternum pelvic bones. Nonspecific hypodensities within the liver. Metastatic neoplasm is in the differential diagnosis. Abnormal appearance of the left anterior chest wall with subcutaneous reticulation and skin thickening presumably on the basis of previous radiation and/or surgery. --> 09/20/19 ct chest/abd/pelvis * Diffuse bony metastases with multifocal vertebral compression deformities, grossly stable compared to the prior exam. * Hypodense lesions within the liver again concerning for metastatic disease. Size and number stable compared to the prior exam --> tumor markers ca125 80, cea 6 --> will need thoracentesis prn basis --> recently on chemo in the office (09/2019) # Shortness of breath with Plueral effusion in the past --> obtain cxr and ct chest which has been ordered --> prior cytology of thora was negative --> Dr. Renee is aware and appreciate recs # Anemia of chronic disease --> recently on chemo --> is related to ongoing chronic disease # Leukopenia --> also s/p chemo # Left upper arm swelling L>R, slowly improving over last few months, likely LYMPHEDEMA --> s/p duplex scan and does not show dvt (done in the ER) --> currently appears improved # Hypoxia due to effusion --> obtain repeat ct # DVT ppx lovenox sq Greatly appreciate consultation and christy RN Subjective Constitutional: Denies: no symptoms, chills, fever, malaise, weakness, other Respiratory: Denies: no symptoms, cough, shortness of breath, SOB with excertion, SOB at rest, sputum, wheezing, other Gastrointestinal/Abdominal: Denies: no symptoms, abdomen distended, abdominal pain, black stools, tarry stools, blood in stool, constipated, diarrhea, difficulty swallowing, nausea, poor appetite, poor fluid intake, rectal bleeding , vomiting, other Genitourinary: Denies: no symptoms, burning, discharge, frequency, flank pain, hematuria, incontinence, pain, urgency, other Neurologic/Psychiatric: Denies: no symptoms, anxiety, depressed, emotional problems, headache, numbness, paresthesia, pre-existing deficit, seizure, tingling, tremors, weakness, other Endocrine: Denies: no symptoms, excessive sweating, flushing, intolerance to cold, intolerance to heat, increased hunger, increased thirst, increased urine, unexplained weight gain, unexplained weight loss, other Allergies: Coded Allergies: No Known Allergies (Unverified , 11/07/18) Subjective 09/19 no new changes, imaging shows no progression of disease, dc planning, cleared by onco Objective Objective Current Medications Medications (Trade) Dose Ordered Sig/Kaushal Route PRN Reason Start Time Stop Time Status Last Admin Dose Admin Acetaminophen (Tylenol) 500 mg Q4H PRN ORAL Mild Pain (Pain Scale 1-3) 09/18/19 23:00 10/18/19 22:59 09/19/19 03:55 Barium Sulfate (Readi-Cat 2) 450 ml NOW PRN ORAL Radiology Procedure 09/19/19 07:30 09/21/19 07:21 Chlorhexidine Gluconate (Kaye-Hex 2%) 1 applic DAILY@2000 TOPIC 09/19/19 20:00 12/18/19 19:59 09/19/19 20:00 Enoxaparin Sodium (Lovenox) 30 mg DAILY SUBQ 09/19/19 09:00 12/18/19 08:59 09/20/19 08:27 Gabapentin (Neurontin) 300 mg THREE TIMES A DAY ORAL 09/19/19 09:00 10/19/19 08:59 09/20/19 08:26 Ondansetron HCl (Zofran) 4 mg Q6H PRN IVP Nausea & Vomiting 09/19/19 21:00 10/19/19 20:59 09/19/19 21:16 Oxycodone/ Acetaminophen (Percocet 10/325) 1 tab Q4H PRN ORAL Severe Pain (Pain Scale 7-10) 09/19/19 08:45 09/26/19 08:44 09/19/19 22:43 Last 24 Hour Vital Signs Date Time Temp Pulse Resp B/P (MAP) Pulse Ox O2 Delivery O2 Flow Rate FiO2 09/20/19 09:00 Room Air 09/20/19 08:00 97.9 78 17 122/81 (95) 95 09/20/19 04:00 96.8 60 18 138/82 (100) 95 09/20/19 00:00 97.3 68 19 118/77 (91) 96 09/19/19 20:06 Room Air 09/19/19 20:00 97.3 75 18 121/77 (92) 96 09/19/19 15:46 97.3 76 20 106/79 (88) 96 09/19/19 12:00 97.0 72 20 109/84 (92) 95 09/19/19 09:00 Room Air 09/19/19 08:00 97.4 77 20 129/79 (96) 95 09/19/19 04:00 97.5 69 20 126/84 (98) 93 09/19/19 00:00 97.7 76 20 115/75 (88) 93 09/18/19 22:59 Room Air 09/18/19 21:20 98.0 80 20 126/82 97 Room Air 09/18/19 20:35 98.1 09/18/19 19:16 98.1 84 19 158/92 96 Room Air 09/18/19 19:16 84 19 Room Air 09/18/19 19:05 98.1 84 20 118/76 (90) 94 Room Air Intake and Output 09/19/19 09/20/19 19:00 07:00 Intake Total 960 ml 400 ml Balance 960 ml 400 ml Intake Oral 960 ml 400 ml # Voids 3 3 Labs Test 09/18/19 19:37 09/19/19 05:40 White Blood Count 5.8 K/UL (4.8-10.8) 6.1 K/UL (4.8-10.8) Red Blood Count 3.79 M/UL (4.20-5.40) 3.49 M/UL (4.20-5.40) Hemoglobin 13.0 G/DL (12.0-16.0) 12.1 G/DL (12.0-16.0) Hematocrit 38.5 % (37.0-47.0) 35.6 % (37.0-47.0) Mean Corpuscular Volume 102 FL (80-99) 102 FL (80-99) Mean Corpuscular Hemoglobin 34.4 PG (27.0-31.0) 34.5 PG (27.0-31.0) Mean Corpuscular Hemoglobin Concent 33.8 G/DL (32.0-36.0) 33.8 G/DL (32.0-36.0) Red Cell Distribution Width 12.9 % (11.6-14.8) 12.4 % (11.6-14.8) Platelet Count 191 K/UL (150-450) 182 K/UL (150-450) Mean Platelet Volume 6.6 FL (6.5-10.1) 7.3 FL (6.5-10.1) Neutrophils (%) (Auto) 72.9 % (45.0-75.0) 69.1 % (45.0-75.0) Lymphocytes (%) (Auto) 24.0 % (20.0-45.0) 23.8 % (20.0-45.0) Monocytes (%) (Auto) 2.4 % (1.0-10.0) 6.1 % (1.0-10.0) Eosinophils (%) (Auto) 0.1 % (0.0-3.0) 0.2 % (0.0-3.0) Basophils (%) (Auto) 0.7 % (0.0-2.0) 0.8 % (0.0-2.0) Prothrombin Time 10.7 SEC (9.30-11.50) Prothromb Time International Ratio 1.0 (0.9-1.1) Activated Partial Thromboplast Time 38 SEC (23-33) Sodium Level 136 MMOL/L (136-145) 138 MMOL/L (136-145) Potassium Level 4.5 MMOL/L (3.5-5.1) 4.1 MMOL/L (3.5-5.1) Chloride Level 99 MMOL/L (98-107) 102 MMOL/L (98-107) Carbon Dioxide Level 32 MMOL/L (21-32) 32 MMOL/L (21-32) Anion Gap 5 mmol/L (5-15) 4 mmol/L (5-15) Blood Urea Nitrogen 34 mg/dL (7-18) 31 mg/dL (7-18) Creatinine 1.6 MG/DL (0.55-1.30) 1.5 MG/DL (0.55-1.30) Estimat Glomerular Filtration Rate 33.0 mL/min (>60) 35.5 mL/min (>60) Glucose Level 159 MG/DL (74-106) 144 MG/DL (74-106) Calcium Level 9.1 MG/DL (8.5-10.1) 8.4 MG/DL (8.5-10.1) Total Bilirubin 0.4 MG/DL (0.2-1.0) 0.3 MG/DL (0.2-1.0) Aspartate Amino Transf (AST/SGOT) 23 U/L (15-37) 23 U/L (15-37) Alanine Aminotransferase (ALT/SGPT) 25 U/L (12-78) 26 U/L (12-78) Alkaline Phosphatase 75 U/L (46-116) 71 U/L (46-116) Troponin I 0.000 ng/mL (0.000-0.056) Pro-B-Type Natriuretic Peptide 517 pg/mL (0-125) Total Protein 7.2 G/DL (6.4-8.2) 6.6 G/DL (6.4-8.2) Albumin 3.4 G/DL (3.4-5.0) 3.0 G/DL (3.4-5.0) Globulin 3.8 g/dL 3.6 g/dL Albumin/Globulin Ratio 0.9 (1.0-2.7) 0.8 (1.0-2.7) Height (Feet): 5 Height (Inches): 0.00 Weight (Pounds): 200 Objective Physical Exam Vital Signs reviewed Gen: Awake and alert, no acute distress HEENT: NC/AT. EOMI. Neck: Supple, trachea midline Chest Wall: No tenderness Cardiovascular: RRR. S1 and S2 normal Resp: Mild tachypnea with increased work of breathing Abdomen: Abdomen is soft, nondistended Skin: Intact. No abrasions, lacer, rash Ext: left upper arm swelling compared to the right side, worse L>R Neuro: Awake and alert Esdras Jeff MD Sep 20, 2019 12:42
--- NOTE | 2019-09-20 13:19 | NUR ---
DISCHARGE PLANNING PATIENT HAS BEEN REFERRED BACK TO [facility] P: [phone] F: [phone] Addendum: 09/20/19 at 1505 by CLAUDIO FIORE LVN LVN Cyndi PALMER. CONFIRMED PATIENT ACCEPTED TO RETURN TO [facility] TRANSPORTATION SCHEDULED WITH [id number] WITH ETA @ 1600 PM PER ELINA
--- NOTE | 2019-09-20 14:19 | General Progress Note ---
Assessment/Plan Assessment/Plan: (1) Metastatic Breast Cancer (2) Intractable pain Patient to be continued on the Percocet. D/w Dr. Crump and he concurred. Subjective Date patient seen: Sep 20, 2019 Time patient seen: 01:15 - pm Allergies: Coded Allergies: No Known Allergies (Unverified , 11/07/18) Subjective REVIEW OF SYSTEMS: Denies rash, fever, chills, sweating, dizziness, drowsiness, blurred vision, sore throat, or change in her weight. No chest pain, palpitations, or cough. No nausea, vomiting, diarrhea, or blood in the stool or urine. No dysuria. SUBJECTIVE: Pain has been stable and tolerated on the Percocet as needed. No new complaints at this time. Objective Last 24 Hour Vital Signs Date Time Temp Pulse Resp B/P (MAP) Pulse Ox O2 Delivery O2 Flow Rate FiO2 09/20/19 12:00 98.9 71 18 129/80 (96) 96 09/20/19 09:00 Room Air 09/20/19 08:00 97.9 78 17 122/81 (95) 95 09/20/19 04:00 96.8 60 18 138/82 (100) 95 09/20/19 00:00 97.3 68 19 118/77 (91) 96 09/19/19 20:06 Room Air 09/19/19 20:00 97.3 75 18 121/77 (92) 96 09/19/19 15:46 97.3 76 20 106/79 (88) 96 Intake and Output 09/19/19 09/20/19 19:00 07:00 Intake Total 960 ml 400 ml Balance 960 ml 400 ml Intake Oral 960 ml 400 ml # Voids 3 3 Height (Feet): 5 Height (Inches): 0.00 Weight (Pounds): 200 Objective GENERAL: Alert, awake, and oriented. LUNGS: Decreased breath sounds bilaterally. HEART: S1 and S2 regular. ABDOMEN: Obese. EXTREMITIES: No cyanosis. No clubbing. NEURO: No changes. Eugene Bell Sep 20, 2019 14:19
--- NOTE | 2019-09-20 15:06 | Pulmonology Progress Note ---
Subjective Interval Events: None new Constitutional: Reports: no symptoms HEENT: Repors: no symptoms Respiratory: Reports: no symptoms Cardiovascular: Reports: no symptoms Gastrointestinal/Abdominal: Reports: no symptoms Allergies: Coded Allergies: No Known Allergies (Unverified , 11/07/18) Objective Last 24 Hour Vital Signs Date Time Temp Pulse Resp B/P (MAP) Pulse Ox O2 Delivery O2 Flow Rate FiO2 09/20/19 12:00 98.9 71 18 129/80 (96) 96 09/20/19 09:00 Room Air 09/20/19 08:00 97.9 78 17 122/81 (95) 95 09/20/19 04:00 96.8 60 18 138/82 (100) 95 09/20/19 00:00 97.3 68 19 118/77 (91) 96 09/19/19 20:06 Room Air 09/19/19 20:00 97.3 75 18 121/77 (92) 96 09/19/19 15:46 97.3 76 20 106/79 (88) 96 Intake and Output 09/19/19 09/20/19 19:00 07:00 Intake Total 960 ml 400 ml Balance 960 ml 400 ml Intake Oral 960 ml 400 ml # Voids 3 3 General Appearance: no acute distress HEENT: normocephalic Respiratory: chest wall non-tender, lungs clear Cardiovascular: normal peripheral pulses Abdomen: normal bowel sounds Microbiology Date/Time Source Procedure Growth Status 09/18/19 20:49 Rectum Received Current Medications Medications (Trade) Dose Ordered Sig/Kaushal Route PRN Reason Start Time Stop Time Status Last Admin Dose Admin Acetaminophen (Tylenol) 500 mg Q4H PRN ORAL Mild Pain (Pain Scale 1-3) 09/18/19 23:00 10/18/19 22:59 09/19/19 03:55 Barium Sulfate (Readi-Cat 2) 450 ml NOW PRN ORAL Radiology Procedure 09/19/19 07:30 09/21/19 07:21 Chlorhexidine Gluconate (Kaye-Hex 2%) 1 applic DAILY@1999 TOPIC 09/19/19 20:00 12/18/19 19:59 09/19/19 20:00 Enoxaparin Sodium (Lovenox) 30 mg DAILY SUBQ 09/19/19 09:00 12/18/19 08:59 09/20/19 08:27 Gabapentin (Neurontin) 300 mg THREE TIMES A DAY ORAL 09/19/19 09:00 10/19/19 08:59 09/20/19 13:48 Ondansetron HCl (Zofran) 4 mg Q6H PRN IVP Nausea & Vomiting 09/19/19 21:00 10/19/19 20:59 09/19/19 21:16 Oxycodone/ Acetaminophen (Percocet 10/325) 1 tab Q4H PRN ORAL Severe Pain (Pain Scale 7-10) 09/19/19 08:45 09/26/19 08:44 09/19/19 22:43 Assessment/Plan Assessment/Plan IMPRESSION: 1. Shortness of breath suspect due to underlying malignancy. 2. Pedal edema. 3. Metastatic breast cancer. DISCUSSION: CT chest shows shows small bilateral pleural effusions No indication for thoracentesis Javier Buck Omar Syed MD Sep 20, 2019 15:06
--- NOTE | 2019-09-20 16:41 | NUR ---
NURSE NOTES: [facility]. Patient is AxO4, not in distress, vitals stable prior to discharge. Right subclavian fatou cath still patent and intact. Report given to Pat ADORNO Demo Specialist at [facility]. All discharge instructions, medications, and paperwork sent with ambulance personnel. Pt skin clean and intact. Belongings accounted for and signed. Patient left at 1615 via [facility].
--- NOTE | 2019-09-20 17:04 | NUR ---
INSURANCE ALL AVAILABLE CLINICALS AND REVIEWS HAVE BEEN FAXED TO [employer] P: [phone] F: [phone]
--- NOTE | 2019-09-20 23:15 | Cardiology Progress Note ---
Assessment/Plan Assessment/Plan 1. Palpitations, probably intravascular volume depletion, continue hydration. 2. History of hypertension, continue monitoring BP. 3. Bilateral pleural effusions, echo reveals normal LV systolic and diastolic function with LVEF at 65%. Subjective Subjective No cardiac events reported. Objective Last 24 Hour Vital Signs Date Time Temp Pulse Resp B/P (MAP) Pulse Ox O2 Delivery O2 Flow Rate FiO2 09/20/19 12:00 98.9 71 18 129/80 (96) 96 09/20/19 09:00 Room Air 09/20/19 08:00 97.9 78 17 122/81 (95) 95 09/20/19 04:00 96.8 60 18 138/82 (100) 95 09/20/19 00:00 97.3 68 19 118/77 (91) 96 Intake and Output 09/19/19 09/20/19 19:00 07:00 Intake Total 960 ml 400 ml Balance 960 ml 400 ml Intake Oral 960 ml 400 ml # Voids 3 3 2D Echo: LVEF 65%, Mild AR, Grade I LVDD, RVSP 14 mmHg, Microbiology Date/Time Source Procedure Growth Status 09/18/19 20:49 Rectum Received Objective HEENT: Atraumatic and normocephalic head. Pupils are equal, round, and reactive to light and accommodation. Extraocular muscles intact. NECK: JVP less than 5 cm. No carotid bruit. Carotid upstrokes 2+ bilaterally. CARDIOVASCULAR: Normal S1, S2. Regular rate and rhythm. No murmurs, gallops, or rubs. PMI is at fourth intercostal space in the midclavicular line. LUNGS: Diminished breath sounds in the left base, otherwise clear. ABDOMEN: Soft, nontender, nondistended. No hepatosplenomegaly. Positive bowel sounds. EXTREMITIES: Left upper extremity with edema. Lower extremities, no evidence of edema, clubbing, or cyanosis. Frank Camejo MD Sep 20, 2019 23:15
--- NOTE | 2019-09-24 11:04 | Discharge Summary ---
Discharge Summary Discharge Summary _ DATE OF ADMISSION: 09/18/2019 DATE OF DISCHARGE: 09/20/2019 DISCHARGED BY: Dr. Szymanski REASON FOR ADMISSION: 58 years old female with past medical history of hypertension, breast cancer with metastasis to liver and bone ,currently on chemotherapy, presented from the [facility] due to left upper extremity swelling and shortness of breath. Patient was sent by her oncologist. Patient had chemotherapy earlier that day. Patient denied fever but reported occasional cough. No shortness of breath, nausea or vomiting. No diarrhea. Upon evaluation vital signs were stable. Laboratory work-up revealed no leukocytosis , stable hemoglobin , hematocrit and platelet count. Stable electrolytes. BUN 34, creatinine 1.6. Stable LFT. Troponin negative. EKG revealed sinus rhythm , no acute ischemic changes. Patient admitted for further management. CONSULTANTS: sign erector Dr. Camejo pulmonary Dr. Renee professor of environmental studies/oncologist Dr. Jeff pain specialist Dr. Crump HOSPITAL COURSE: Patient admitted and started on IV hydration. Oncologist followed. Metastatic breast cancer was diagnosed about a year ago with multiply bone and liver metastasis. Patient currently on chemotherapy and radiation. Prior cytology of pleural fluid after thoracentesis was negative. CT scan of the neck revealed small nonspecific bilateral cervical lymph nodes, none demonstrate pathologic enlargement in size. No bulky/conglomerate lymphadenopathy was seen. Diffuse osseous metastases. CT scan of the chest, abdomen and pelvis revealed small bilateral pleural effusion with adjacent opacities . Three subcentimeter nodules in the lung ,not seen on the prior exam, potentially infectious or inflammatory , however metastasis not excluded given history. Diffuse bony metastasis with multifocal vertebral compression deformities. Venous duplex bilateral upper extremity was unremarkable. Per contracting support specialist, CT chest showed just small bilateral pleural effusion , no need for thoracentesis. Pulse oximetry remained stable on room air. DVT prophylaxis with Lovenox provided. Educational Sign Language Interpreter seen patient due to complaint of palpitations Per sign erector palpitations were likely due to intravascular volume depletion. Hydration continued. Blood pressure remained stable, no need for antihypertensive medication at this time. Patient clinically stabilized and was ready for discharge back to [facility] facility Pain management was addressed as per pain specialist recommendation. Renal parameters and electrolytes were closely monitored. Creatinine trended down to 1.5. Avoid as possible nephrotoxic's and encourage hydration. Patient clinically stabilized and was ready for discharge FINAL DIAGNOSES: Acute kidney injury Dehydration Metastatic breast cancer Shortness of breath due to underlying malignancy Small pleural effusion Lymphedema Anemia of chronic disease Palpitations probably due to intravascular volume depletion /dehydration Intractable pain DISCHARGE MEDICATIONS: See Medication Reconciliation list. DISCHARGE INSTRUCTIONS: Patient was discharged to the [facility] facility. Follow up with medical doctor at the facility. I have been assigned to dictate discharge summary for this account. I was not involved in the patient's management. Obdulia Zuniga NP Sep 24, 2019 11:03
== END 2019-09-20 16:24 | DRG 281 ==
LOC: EDBD 19:16 → EMR 19:47 → 4E 19:52 → EDBEDREQ 20:46
DX: C78.7 Secondary malignant neoplasm of liver and intrahepatic bile duct (principal); N17.9 Acute kidney failure, unspecified; C79.51 Secondary malignant neoplasm of bone; F43.10 Post-traumatic stress disorder, unspecified; I89.0 Lymphedema, not elsewhere classified; Z85.3 Personal history of malignant neoplasm of breast; K21.9 Gastro-esophageal reflux disease without esophagitis; E86.0 Dehydration; Z79.01 Long term (current) use of anticoagulants; Z79.899 Other long term (current) drug therapy; D63.8 Anemia in other chronic diseases classified elsewhere; R09.02 Hypoxemia; Z96.641 Presence of right artificial hip joint; R00.2 Palpitations; Z66 Do not resuscitate
CPT/HCPCS: 36415; 70490; 71045; 71250; 74176; 80053; 83880; 84484; 85025; 85610; 85730; 87081; 93005; 93306; 93970; 93971; 96374; 99285; J2405

== ENCOUNTER 2020-01-17 16:00 | Inpatient (IN) | payer MEDICAID ==
[~2020-01-17] VITALS: Ht 157.5 cm; Wt 88.9 kg
[~2020-01-17 16:00] MED LIST changes: +ELIQUIS2.5 MG PO; +NORCO 5-325 TA1 EAC1 ORAL
[2020-01-17] MEDS ORDERED: Vancomycin 1.5gm/300ml Premix 300 ML IVPB ONE (16:15)
--- NOTE | 2020-01-17 16:20 | Emergency Room Report ---
History of Present Illness General Chief Complaint: General Complaint Source: Patient, Medical Record, EMS Present Illness HPI Patient is a 59-year-old female past medical history of obesity, hypertension, breast cancer status post PICC line removal 2 days ago in her right upper extr emity who presents to the ER for PICC line replacement and possible cellulitis. Patient complains of pain around the previous PICC line site. There is also noted to be some redness and swelling. Patient denies any chest pain or shortness of breath. Patient was brought in from her extended care facility by EMS. Patient also states that she has been constipated for 2 days. She complains of mild diffuse abdominal pain. Patient also complains of a mild generalized headache. She denies any focal weakness, slurred speech or blurry vision. Allergies: Coded Allergies: No Known Allergies (Unverified , 11/07/18) COVID-19 Screening Contact w/high risk pt: No Experienced COVID-19 symptoms?: No COVID-19 Testing performed PRESS CLEANER: Yes - 01/08/20 COVID-19 Screening: Negative COVID-19 COVID-19 Testing Source: SNF Patient History Reviewed Nursing Documentation: PMH: Agreed; PSxH: Agreed Nursing Documentation-PMH Hx Hypertension: Yes Hx Cancer: Yes - breast Hx Gastrointestinal Problems: Yes - GERD, thoracentesis Hx Neurological Problems: No Review of Systems All Other Systems: negative except mentioned in HPI Physical Exam Vital Signs Date Time Temp Pulse Resp B/P (MAP) Pulse Ox O2 Delivery O2 Flow Rate FiO2 01/17/20 16:01 98.8 90 16 120/87 (98) 95 Room Air Sp02 EP Interpretation: reviewed, normal General Appearance: no apparent distress, alert, GCS 15, non-toxic Head: normocephalic, atraumatic Eyes: bilateral eye normal inspection, bilateral eye PERRL ENT: hearing grossly normal, normal pharynx, no angioedema, normal voice Neck: full range of motion, supple/symm/no masses Respiratory: chest non-tender, lungs clear, normal breath sounds, speaking full sentences Cardiovascular #1: regular rate, rhythm Gastrointestinal: non tender, soft, no guarding, no rebound, overweight Rectal: deferred Musculoskeletal: other - Right upper extremity slight edema with some erythema around the medial upper aspect and redness and tenderness to palpation Psychiatric: no suicidal/homicidal ideation Medical Decision Making Diagnostic Impression: Primary Impression: Hyperkalemia Additional Impressions: Cellulitis Pleural effusion Diverticulosis Constipation ER Course Ultrasound of the right upper extremity demonstrates no evidence for DVT. Patient started on vancomycin for right upper extremity cellulitis. Blood cultures have been sent. Patient's white blood cell count is normal and lactate is normal. Patient is mildly hyperkalemic with potassium of 5.2. Kayexalate 30 g p.o. has been given. Patient's CT demonstrates evidence for constipation as well as diverticulosis no evidence for acute diverticulitis. Patient has been given Colace. Patient CT brain demonstrates no acute intracranial pathology. Patient will be admitted for further treatment and evaluation and likely PICC line placement tomorrow. Laboratory Tests Test 01/17/20 16:23 White Blood Count 6.5 K/UL (4.8-10.8) Red Blood Count 3.52 M/UL (4.20-5.40) L Hemoglobin 12.1 G/DL (12.0-16.0) Hematocrit 34.7 % (37.0-47.0) L Mean Corpuscular Volume 99 FL (80-99) Mean Corpuscular Hemoglobin 34.4 PG (27.0-31.0) H Mean Corpuscular Hemoglobin Concent 34.9 G/DL (32.0-36.0) Red Cell Distribution Width 13.3 % (11.6-14.8) Platelet Count 234 K/UL (150-450) Mean Platelet Volume 7.1 FL (6.5-10.1) Neutrophils (%) (Auto) 64.0 % (45.0-75.0) Lymphocytes (%) (Auto) 28.5 % (20.0-45.0) Monocytes (%) (Auto) 4.3 % (1.0-10.0) Eosinophils (%) (Auto) 1.9 % (0.0-3.0) Basophils (%) (Auto) 1.3 % (0.0-2.0) Prothrombin Time 11.0 SEC (9.30-11.50) Prothrombin Time INR 1.0 (0.9-1.1) Activated Partial Thromboplast Time 30 SEC (23-33) Sodium Level 138 MMOL/L (136-145) Potassium Level 5.2 MMOL/L (3.5-5.1) H Chloride Level 101 MMOL/L (98-107) Carbon Dioxide Level 33 MMOL/L (21-32) H Anion Gap 4 mmol/L (5-15) L Blood Urea Nitrogen 32 mg/dL (7-18) H Creatinine 1.3 MG/DL (0.55-1.30) Estimated Glomerular Filtration Rate 41.8 mL/min (>60) Glucose Level 102 MG/DL (74-106) Lactic Acid Level 0.90 mmol/L (0.4-2.0) Calcium Level 8.7 MG/DL (8.5-10.1) Magnesium Level 2.0 MG/DL (1.8-2.4) Total Bilirubin 0.4 MG/DL (0.2-1.0) Aspartate Amino Transferase (AST) 33 U/L (15-37) Alanine Aminotransferase (ALT) 16 U/L (12-78) Alkaline Phosphatase 66 U/L (46-116) Troponin I 0.000 ng/mL (0.000-0.056) Pro-B-Type Natriuretic Peptide 1211 pg/mL (0-125) H Total Protein 6.7 G/DL (6.4-8.2) Albumin 3.4 G/DL (3.4-5.0) Globulin 3.3 g/dL Albumin/Globulin Ratio 1.0 (1.0-2.7) Lipase 108 U/L (73-393) EKG Diagnostic Results Troponin ordered: Yes When was troponin ordered?: Jan 17, 2020 EKG Time: 17:30 EP Interpretation: Anita Melendez MD Rate: normal - 81 bpm Rhythm: NSR ST Segments: no acute changes ASA given to the pt in ED: No Rhythm Strip Diag. Results Rhythm Strip Time: 17:35 EP Interpretation: yes - Anita Melendez MD Rate: 80 bpm Rhythm: NSR, no PVC's, no ectopy Chest X-Ray Diagnostic Results Chest X-Ray Diagnostic Results : Chest X-Ray Ordered: Yes # of Views/Limited/Complete: 1 View Indication: Other - Cellulitis EP Interpretation: Yes Interpretation: no consolidation, no effusion, no pneumothorax, no acute cardiopulmonary disease, other - Cardiomegaly Impression: No acute disease Electronically Signed by: Anita Melendez MD Last Vital Signs Date Time Temp Pulse Resp B/P (MAP) Pulse Ox O2 Delivery O2 Flow Rate FiO2 01/17/20 16:01 98.8 90 16 120/87 (98) 95 Room Air Disposition: ADMITTED INPATIENT Condition: Critical Physician Consult: Dr Cali paged at 605pm Additional Instructions: Please note that this report is being documented using iJento technology. This can lead to erroneous entry secondary to incorrect interpretation by the dictating instrument. Anita Melendez M.D. Jan 17, 2020 16:20
[2020-01-17 16:46] LABS: BASOPHILS % (AUTO) 1.3 % (0.0-2.0); EOSINOPHILS % (AUTO) 1.9 % (0.0-3.0); HEMATOCRIT 34.7 % (37.0-47.0); HEMOGLOBIN 12.1 G/DL (12.0-16.0); LYMPHOCYTES % (AUTO) 28.5 % (20.0-45.0); MEAN CORPUSCULAR VOLUME 99 FL (80-99); MONOCYTES % (AUTO) 4.3 % (1.0-10.0); PLATELET COUNT 234 K/UL (150-450); RED BLOOD COUNT 3.52 M/UL (4.20-5.40); RED CELL DISTRIBUTION WIDTH 13.3 % (11.6-14.8); WHITE BLOOD COUNT 6.5 K/UL (4.8-10.8)
[2020-01-17 16:55] VITALS: BP 125/83
[2020-01-17 17:00] LABS: CALCIUM 8.7 MG/DL (8.5-10.1); CREATININE 1.3 MG/DL (0.55-1.30); POTASSIUM 5.2 MMOL/L (3.5-5.1)
--- NOTE | 2020-01-17 17:03 | NUR ---
ED Nurse Note: Pt walked into ED for R arm cellulitis, pt had previous PICC line in R arm. Pt is alert and orientedx4, ambulatory. Pt has been seen by ERMD. Set up on monitor. R arm has slight swelling and redness.
[2020-01-17 17:11] LABS: ALBUMIN 3.4 G/DL (3.4-5.0); BILIRUBIN,TOTAL 0.4 MG/DL (0.2-1.0)
--- NOTE | 2020-01-17 17:17 | Diagnostic Imaging Report ---
. Indication: Right upper extremity pain Technique: Grayscale duplex images of the right upper extremity veins Comparison: Findings: On the right, basal duplex images demonstrate no evidence of intraluminal thrombus. Normal phasic Doppler waveforms and normal compressibility Impression: Negative for evidence of right upper extremity venous thrombosis
[2020-01-17] MEDS ORDERED: Sodium Polystyrene Sulfonate 15gm Powder ORAL ONE (17:30)
--- NOTE | 2020-01-17 17:46 | Diagnostic Imaging Report ---
EXAM: CT Head Without Intravenous Contrast CLINICAL HISTORY: H/A TECHNIQUE: Axial computed tomography images of the head/brain without intravenous contrast. CTDI is 53.40 mGy and DLP is 1018.80 mGy-cm. One or more of the following dose reduction techniques were used: automated exposure control, adjustment of the mA and/or kV according to patient size, use of iterative reconstruction technique. COMPARISON: No relevant prior studies available. FINDINGS: Brain: Unremarkable. No hemorrhage. No edema. Ventricles: Unremarkable. Bones/joints: Unremarkable. No acute fracture. Soft tissues: Unremarkable. Sinuses: Unremarkable as visualized. Mastoid air cells: Unremarkable as visualized. IMPRESSION: No acute intracranial abnormality.
--- NOTE | 2020-01-17 17:59 | Diagnostic Imaging Report ---
EXAM: CT Abdomen and Pelvis Without Intravenous Contrast CLINICAL HISTORY: H/A TECHNIQUE: Axial computed tomography images of the abdomen and pelvis without intravenous contrast. CTDI is 11.80 mGy and DLP is 672.60 mGy-cm. One or more of the following dose reduction techniques were used: automated exposure control, adjustment of the mA and/or kV according to patient size, use of iterative reconstruction technique. COMPARISON: 09/19/2019. FINDINGS: Limitations: Limited due to metallic artifact. Lung bases: Unremarkable. Pleural space: Bilateral pleural effusions. ABDOMEN: Liver: Stable right hepatic hypodensity. Mildly irregular liver contour, cannot exclude cirrhosis. Gallbladder and bile ducts: Cholelithiasis. No pericholecystic stranding. Pancreas: Unremarkable. Spleen: Unremarkable. Adrenals: Unremarkable. Kidneys and ureters: Unremarkable. No hydronephrosis. Stomach and bowel: Moderate colonic stool which may be ileus/constipation. No mechanical bowel obstruction. No diverticulitis. PELVIS: Appendix: No findings to suggest acute appendicitis. Bladder: Unremarkable. Reproductive: Unremarkable as visualized. ABDOMEN and PELVIS: Intraperitoneal space: No free air. Bones/joints: Osseous metastasis. Right hip arthroplasty. Soft tissues: Unremarkable. Vasculature: Unremarkable. Lymph nodes: Unremarkable. IMPRESSION: 1. Moderate colonic stool which may be ileus/constipation. No mechanical bowel obstruction. No diverticulitis. 2. Cholelithiasis. No pericholecystic stranding. 3. Osseous metastasis. 4. Bilateral pleural effusions.
[2020-01-17] MEDS ORDERED: Docusate 100mg cap ORAL ONE (18:00)
[2020-01-17] MEDS ORDERED: Miralax 17gm pkt ORAL PRN (18:15)
[2020-01-17] MEDS ORDERED: Albuterol/Ipratropium 3ml neb HHN PRN (18:15)
[2020-01-17 18:28] LABS: APPEARANCE,URINE CLEAR; BILIRUBIN, URINE NEGATIVE (NEGATIVE); COLOR,URINE PALE YELLOW; GLUCOSE, URINE (UA) NEGATIVE (NEGATIVE); KETONES,URINE NEGATIVE (NEGATIVE); LEUKOCYTE ESTERASE ,URINE 1+ (NEGATIVE); NITRITE,URINE NEGATIVE (NEGATIVE); PH,URINE 6 (4.5-8.0); PROTEIN,URINE NEGATIVE (NEGATIVE); UROBILINOGEN,URINE NORMAL MG/DL (0.0-1.0)
[2020-01-17 19:10] VITALS: BP 129/81
--- NOTE | 2020-01-17 19:20 | NUR ---
ED Nurse Note: Report given to Kalie RN.
--- NOTE | 2020-01-17 19:50 | NUR ---
TRANSFER TO FLOOR: Patient transferred to med surg as ordered, per ERMD. Report given to KYREE Jade. Patient transported via gurney in stable condition accompanied by RN.
[2020-01-17 20:00] VITALS: BP 137/99
[2020-01-17] MEDS ORDERED: VITAMIN D3-ALO1 EACH PO (20:29)
[2020-01-17] MEDS ORDERED: TRAZODONE HCL150 MG ORAL (20:29)
[2020-01-17] MEDS ORDERED: ACIDOPHILUS1 EAC7 PO (20:29)
[2020-01-17] MEDS ORDERED: OXYCODONE HCL5 MG ORAL (20:29)
[2020-01-17] MEDS ORDERED: Cefepime HCl 2 GM in D5W 110 ML IV ONE (21:00)
[2020-01-17] MEDS ORDERED: TraZODone 100mg tab ORAL SCH (21:00)
--- NOTE | 2020-01-17 21:00 | NUR ---
NURSE NOTES: Patient admitted from ED aox4 for right arm cellulitis from previous PICC line. R upper arm and right upper chest with some redness; otherwise skin intact. IV intact. Belongings verified at bedside. Oriented to room and unit. Call light provided and instructed to call for assistance. Able to ambulate to bathroom independently, gait steady. Will follow with admission orders. Verified with patient that she wants to be DNR per her POLST from SNF. Verified with Dr. Elam.
[2020-01-18] VITALS: BP 121/75
[2020-01-18] MEDS ORDERED: Vancomycin 1 GM in D5W 275 ML IV SCH (00:30)
[2020-01-18 03:14] VITALS: BP 158/97
[2020-01-18 06:34] LABS: BASOPHILS % (AUTO) 1.4 % (0.0-2.0); EOSINOPHILS % (AUTO) 1.5 % (0.0-3.0); HEMATOCRIT 31.2 % (37.0-47.0); HEMOGLOBIN 11.1 G/DL (12.0-16.0); LYMPHOCYTES % (AUTO) 31.2 % (20.0-45.0); MEAN CORPUSCULAR VOLUME 95 FL (80-99); MONOCYTES % (AUTO) 5.4 % (1.0-10.0); NEUTROPHILS % (AUTO) 60.6 % (45.0-75.0); PLATELET COUNT 190 K/UL (150-450); RED BLOOD COUNT 3.27 M/UL (4.20-5.40); RED CELL DISTRIBUTION WIDTH 14.5 % (11.6-14.8); WHITE BLOOD COUNT 4.4 K/UL (4.8-10.8)
[2020-01-18 07:09] LABS: ALBUMIN 2.9 G/DL (3.4-5.0); ALBUMIN/GLOBULIN RATIO 0.9 (1.0-2.7); BILIRUBIN,TOTAL 0.4 MG/DL (0.2-1.0); CALCIUM 8.3 MG/DL (8.5-10.1); CREATININE 1.4 MG/DL (0.55-1.30); POTASSIUM 4.1 MMOL/L (3.5-5.1)
--- NOTE | 2020-01-18 07:15 | NUR ---
NURSE NOTES: Received report from KYREE Lazaro. Patient seen in bed, AAOX4, on room air, ambulatory and able to make needs known. IV site patent and intact. Noted to have R upper arm and right upper chest with some redness; otherwise skin intact. RN instructed patient to use call light for assistance when ambulating. fall risk education given. isolation precaution maintained. Bed is locked and placed in lowest position. Call light within reach. Will continue to monitor
--- NOTE | 2020-01-18 07:16 | NUR ---
NURSE NOTES: Seen Dr. Jeff during rounds, gave Rn order to put him as consult requested by Dr. Briones
--- NOTE | 2020-01-18 07:38 | NUR ---
NURSE HAND-OFF: Important Events on Shift:[new admit] Patient Status: [stable] Diet: [Regular] Pending Orders: [] Pending Results/Labs:[] Pending MD notification:[] Latest Vital Signs: Temperature 97.9 , Pulse 84 , B/P 158 /97 , Respiratory Rate 16 , O2 SAT 97 , Room Air, O2 Flow Rate . Vital Sign Comment: [] Latest Duque Fall Score: 50 Fall Risk: High Risk Safety Measures: Call light Within Reach, Bed Alarm Zone 1, Side Rails Side Rails x2, Bed position Low and Locked. Fall Precautions: Door Sign Patient Fall Education Report given to [Laurel ADORNO].
[2020-01-18 08:00] VITALS: BP 135/75
[2020-01-18] MEDS: Eliquis 2.5mg tablet ORAL SCH ×2 (08:28→17:10)
[2020-01-18] MEDS: Spironolactone 50mg tab ORAL SCH (08:28)
[2020-01-18] MEDS: Cefepime HCl 2 GM in D5W 110 ML IV SCH (08:28)
[2020-01-18] MEDS: Vancomycin 1gm/D5W 275ml IVPB SCH ×2 (11:11)
[2020-01-18 12:00] VITALS: BP 118/74
--- NOTE | 2020-01-18 12:42 | NUR ---
NURSE NOTES: Seen Dr. Elam during rounds. RN received order for oxycodone HCL IR 5mg q4 PRN for sever pain
--- NOTE | 2020-01-18 12:48 | Consultation ---
History of Present Illness General Date patient seen: Jan 18, 2020 Chief Complaint: General Complaint Present Illness HPI 59-year-old female past medical history of obesity, hypertension, breast cancer status post PICC line removal 2 days ago in her right upper extremity who presents to the ER for PICC line replacement and possible cellulitis. Patient complains of pain around the previous PICC line site. There is also noted to be some redness and swelling. She complains of mild diffuse abdominal pain. Allergies: Coded Allergies: No Known Allergies (Unverified , 11/07/18) Medication History Scheduled Amino Acids/Protein Hydrolys (Pro-Stat Liquid), 30 ML ORAL DAILY, (Reported) Anastrozole* (Arimidex*), 1 MG PO DAILY, (Reported) Apixaban (Eliquis*), 2.5 MG PO BID, (Reported) Bumetanide* (Bumetanide*), 0.5 MG ORAL BID, (Reported) Ca Cmb 1/Vit D3/B-6/Fa/B12/Av (Vitamin D3-Aloe 1,000 Unit Tab), 1 EACH PO DAILY, (Reported) Carvedilol (Coreg), 3.125 MG ORAL EVERY 12 HOURS, (Reported) Cyanocobalamin (Vitamin B-12) (Vitamin B12), 1,000 MCG PO DAILY, (Reported) Docusate Sodium* (Docusate Sodium*), 100 MG ORAL TWICE A DAY, (Reported) Gabapentin* (Gabapentin*), 200 MG ORAL QHS, (Reported) Lactobacillus Acidophilus (Acidophilus), 1 EACH PO DAILY, (Reported) Loratadine (Claritin*), 10 MG PO DAILY, (Reported) Magnesium Oxide (Magnesium Oxide), 400 MG ORAL DAILY, (Reported) Metolazone (Metolazone), 2.5 MG ORAL BID, (Reported) Multivitamins* (Multivitamins*), 1 TAB ORAL DAILY, (Reported) Oxycodone Hcl Ir* (Roxicodone Ir*), 5 MG ORAL Q8HR, (Reported) Pantoprazole (Pantoprazole), 40 MG ORAL ACBREAKFAST, (Reported) Potassium Chloride* (K-Dur*), 20 MEQ ORAL TID, (Reported) Spironolactone* (Spironolactone*), 50 MG ORAL DAILY, (Reported) Trazodone* (Trazodone*), 75 MG ORAL BEDTIME, (Reported) Scheduled PRN Acetaminophen* (Acetaminophen 325MG Tablet*), 650 MG ORAL Q6H PRN for Mild Pa in/Temp > 100.5, (Reported) Bisacodyl (Bisacodyl), 10 MG RC DAILY PRN for Constipation, (Reported) Hydrocodone Bit/Acetaminophen 5-325* ([place] 5-325 Tablet*), 1 TAB ORAL Q6H PRN for FOR PAIN, (Reported) Ibuprofen (Motrin), 400 MG ORAL Q6H PRN for Moderate Pain (Pain Scale 4-6), (Reported) Patient History Healthcare decision maker Resuscitation status Advanced Directive on File Past Medical/Surgical History Past Medical/Surgical History: (1) Breast CA (2) Pleural effusion Review of Systems All Other Systems: negative except mentioned in HPI Physical Exam General Appearance: WD/WN, no apparent distress Lines, tubes and drains: peripheral HEENT: normocephalic, atraumatic Neck: non-tender, normal alignment Respiratory/Chest: chest wall non-tender, decreased breath sounds Cardiovascular/Chest: normal peripheral pulses Abdomen: normal bowel sounds, non tender Genitourinary/Rectal: normal genital exam Extremities: normal range of motion Neurologic: hall tender II-XII grossly normal Last 24 Hour Vital Signs Date Time Temp Pulse Resp B/P (MAP) Pulse Ox O2 Delivery O2 Flow Rate FiO2 01/18/20 09:00 Room Air 01/18/20 08:29 80 143/83 01/18/20 08:00 97.5 85 19 135/75 (95) 97 01/18/20 03:14 97.9 84 16 158/97 (117) 97 01/18/20 00:00 99.4 74 18 121/75 (90) 94 01/17/20 21:17 91 137/89 01/17/20 20:30 Room Air 01/17/20 20:00 97.3 91 18 137/99 (112) 95 01/17/20 19:50 98.7 72 18 123/79 99 Room Air 01/17/20 19:10 98.7 74 17 129/81 99 Room Air 01/17/20 17:18 98.7 01/17/20 16:55 92 18 Room Air 98 01/17/20 16:55 98.8 92 18 125/83 98 Room Air 01/17/20 16:01 98.8 90 16 120/87 (98) 95 Room Air l Intake and Output 01/17/20 01/18/20 19:00 07:00 Intake Total 110 ml Balance 110 ml Intake Oral 0 ml IV Total 110 ml # Voids 1 Laboratory Tests Test 01/17/20 16:23 01/17/20 18:04 01/18/20 05:02 White Blood Count 6.5 K/UL (4.8-10.8) 4.4 K/UL (4.8-10.8) L Red Blood Count 3.52 M/UL (4.20-5.40) L 3.27 M/UL (4.20-5.40) L Hemoglobin 12.1 G/DL (12.0-16.0) 11.1 G/DL (12.0-16.0) L Hematocrit 34.7 % (37.0-47.0) L 31.2 % (37.0-47.0) L Mean Corpuscular Volume 99 FL (80-99) 95 FL (80-99) Mean Corpuscular Hemoglobin 34.4 PG (27.0-31.0) H 34.0 PG (27.0-31.0) H Mean Corpuscular Hemoglobin Concent 34.9 G/DL (32.0-36.0) 35.7 G/DL (32.0-36.0) Red Cell Distribution Width 13.3 % (11.6-14.8) 14.5 % (11.6-14.8) Platelet Count 234 K/UL (150-450) 190 K/UL (150-450) Mean Platelet Volume 7.1 FL (6.5-10.1) 7.6 FL (6.5-10.1) Neutrophils (%) (Auto) 64.0 % (45.0-75.0) 60.6 % (45.0-75.0) Lymphocytes (%) (Auto) 28.5 % (20.0-45.0) 31.2 % (20.0-45.0) Monocytes (%) (Auto) 4.3 % (1.0-10.0) 5.4 % (1.0-10.0) Eosinophils (%) (Auto) 1.9 % (0.0-3.0) 1.5 % (0.0-3.0) Basophils (%) (Auto) 1.3 % (0.0-2.0) 1.4 % (0.0-2.0) Prothrombin Time 11.0 SEC (9.30-11.50) Prothromb Time International Ratio 1.0 (0.9-1.1) Activated Partial Thromboplast Time 30 SEC (23-33) Sodium Level 138 MMOL/L (136-145) 139 MMOL/L (136-145) Potassium Level 5.2 MMOL/L (3.5-5.1) H 4.1 MMOL/L (3.5-5.1) Chloride Level 101 MMOL/L (98-107) 102 MMOL/L (98-107) Carbon Dioxide Level 33 MMOL/L (21-32) H 31 MMOL/L (21-32) Anion Gap 4 mmol/L (5-15) L 6 mmol/L (5-15) Blood Urea Nitrogen 32 mg/dL (7-18) H 34 mg/dL (7-18) H Creatinine 1.3 MG/DL (0.55-1.30) 1.4 MG/DL (0.55-1.30) H Estimat Glomerular Filtration Rate 41.8 mL/min (>60) 38.4 mL/min (>60) Glucose Level 102 MG/DL (74-106) 91 MG/DL (74-106) Lactic Acid Level 0.90 mmol/L (0.4-2.0) Calcium Level 8.7 MG/DL (8.5-10.1) 8.3 MG/DL (8.5-10.1) L Magnesium Level 2.0 MG/DL (1.8-2.4) Total Bilirubin 0.4 MG/DL (0.2-1.0) 0.4 MG/DL (0.2-1.0) Aspartate Amino Transf (AST/SGOT) 33 U/L (15-37) 19 U/L (15-37) Alanine Aminotransferase (ALT/SGPT) 16 U/L (12-78) 11 U/L (12-78) L Alkaline Phosphatase 66 U/L (46-116) 58 U/L (46-116) Troponin I 0.000 ng/mL (0.000-0.056) Pro-B-Type Natriuretic Peptide 1211 pg/mL (0-125) H Total Protein 6.7 G/DL (6.4-8.2) 6.1 G/DL (6.4-8.2) L Albumin 3.4 G/DL (3.4-5.0) 2.9 G/DL (3.4-5.0) L Globulin 3.3 g/dL 3.2 g/dL Albumin/Globulin Ratio 1.0 (1.0-2.7) 0.9 (1.0-2.7) L Lipase 108 U/L (73-393) Urine Color Pale yellow Urine Appearance Clear Urine pH 6 (4.5-8.0) Urine Specific [place] 1.005 (1.005-1.035) Urine Protein Negative (NEGATIVE) Urine Glucose (UA) Negative (NEGATIVE) Urine Ketones Negative (NEGATIVE) Urine Blood Negative (NEGATIVE) Urine Nitrite Negative (NEGATIVE) Urine Bilirubin Negative (NEGATIVE) Urine Urobilinogen Normal MG/DL (0.0-1.0) Urine Leukocyte Esterase 1+ (NEGATIVE) H Urine RBC 0-2 /HPF (0 - 2) Urine WBC 2-4 /HPF (0 - 2) Urine Squamous Epithelial Cells Few /LPF (NONE/OCC) Urine Bacteria Few /HPF (NONE) Random Vancomycin Level 16.1 ug/mL Height (Feet): 5 Height (Inches): 2.00 Weight (Pounds): 196 Medications Current Medications Medications (Trade) Dose Ordered Sig/[place] Route PRN Reason Start Time Stop Time Status Last Admin Dose Admin Acetaminophen (Tylenol) 650 mg Q4H PRN ORAL Temp >100.5 01/17/20 18:15 02/16/20 18:14 Albuterol/ Ipratropium (Albuterol/ Ipratropium) 3 ml Q4H PRN HHN Shortness of Breath 01/17/20 18:15 01/22/20 18:14 Apixaban (Eliquis) 2.5 mg BID ORAL 01/18/20 09:00 04/17/20 08:59 01/18/20 08:28 Carvedilol (Coreg) 3.125 mg EVERY 12 HOURS ORAL 01/17/20 21:00 02/16/20 20:59 01/18/20 08:29 Cefepime HCl 2 gm/ Dextrose 110 ml @ 220 mls/hr Q24H IV 01/18/20 09:00 01/25/20 08:59 01/18/20 08:28 Dextrose (Dextrose 50%) 25 ml Q30M PRN IV Hypoglycemia 01/17/20 18:15 04/16/20 18:14 Dextrose (Dextrose 50%) 50 ml Q30M PRN IV Hypoglycemia 01/17/20 18:15 04/16/20 18:14 Ondansetron HCl (Zofran) 4 mg Q6H PRN IVP Nausea & Vomiting 01/17/20 18:15 02/16/20 18:14 Oxycodone HCl (Roxicodone) 5 mg Q4H PRN ORAL Severe Pain (Pain Scale 7-10) 01/18/20 12:45 01/25/20 12:44 Polyethylene Glycol (Miralax) 17 gm DAILYPRN PRN ORAL Constipation 01/17/20 18:15 02/16/20 18:14 Spironolactone (Aldactone) 50 mg DAILY ORAL 01/18/20 09:00 02/17/20 08:59 01/18/20 08:28 Temazepam (Restoril) 15 mg HSPRN PRN ORAL Insomnia 01/17/20 18:15 01/24/20 18:14 Trazodone HCl (Desyrel) 75 mg BEDTIME ORAL 01/18/20 21:00 02/17/20 20:59 Vancomycin HCl (Vanco pharmacy to dose) 1 ea DAILY PRN MISC Per rx protocol 01/17/20 19:00 02/16/20 18:59 Vancomycin HCl 1 gm/Dextrose 275 ml @ 183.708 mls/hr Q24H IVPB 01/18/20 12:00 01/23/20 11:59 01/18/20 11:11 Assessment/Plan Problem List: (1) Cellulitis ICD Codes: L03.90 - Cellulitis, unspecified SNOMED: 345907241 (2) Constipation ICD Codes: K59.00 - Constipation, unspecified SNOMED: 83547996 (3) Breast CA ICD Codes: C50.919 - Malignant neoplasm of unspecified site of unspecified female breast SNOMED: 333355999 Assessment/Plan: blood cultures IV abc ID to see laxatives dvt prophylaxis. Romy Elam MD Jan 18, 2020 12:48
[2020-01-18] MEDS: Docusate 100mg cap ORAL SCH ×2 (12:59→17:13)
[2020-01-18] MEDS: oxyCODONE 5mg IR tab ORAL PRN ×2 (13:00→17:10)
[2020-01-18] MEDS: Lactulose 20gm/30ml UDC ORAL SCH ×2 (13:00→17:12)
--- NOTE | 2020-01-18 13:14 | Consultation ---
History of Present Illness General Chief Complaint: General Complaint Present Illness Allergies: Coded Allergies: No Known Allergies (Unverified , 11/07/18) Medication History Scheduled Amino Acids/Protein Hydrolys (Pro-Stat Liquid), 30 ML ORAL DAILY, (Reported) Anastrozole* (Arimidex*), 1 MG PO DAILY, (Reported) Apixaban (Eliquis*), 2.5 MG PO BID, (Reported) Bumetanide* (Bumetanide*), 0.5 MG ORAL BID, (Reported) Ca Cmb 1/Vit D3/B-6/Fa/B12/Av (Vitamin D3-Aloe 1,000 Unit Tab), 1 EACH PO DAILY, (Reported) Carvedilol (Coreg), 3.125 MG ORAL EVERY 12 HOURS, (Reported) Cyanocobalamin (Vitamin B-12) (Vitamin B12), 1,000 MCG PO DAILY, (Reported) Docusate Sodium* (Docusate Sodium*), 100 MG ORAL TWICE A DAY, (Reported) Gabapentin* (Gabapentin*), 200 MG ORAL QHS, (Reported) Lactobacillus Acidophilus (Acidophilus), 1 EACH PO DAILY, (Reported) Loratadine (Claritin*), 10 MG PO DAILY, (Reported) Magnesium Oxide (Magnesium Oxide), 400 MG ORAL DAILY, (Reported) Metolazone (Metolazone), 2.5 MG ORAL BID, (Reported) Multivitamins* (Multivitamins*), 1 TAB ORAL DAILY, (Reported) Oxycodone Hcl Ir* (Roxicodone Ir*), 5 MG ORAL Q8HR, (Reported) Pantoprazole (Pantoprazole), 40 MG ORAL ACBREAKFAST, (Reported) Potassium Chloride* (K-Dur*), 20 MEQ ORAL TID, (Reported) Spironolactone* (Spironolactone*), 50 MG ORAL DAILY, (Reported) Trazodone* (Trazodone*), 75 MG ORAL BEDTIME, (Reported) Scheduled PRN Acetaminophen* (Acetaminophen 325MG Tablet*), 650 MG ORAL Q6H PRN for Mild Pain/Temp > 100.5, (Reported) Bisacodyl (Bisacodyl), 10 MG RC DAILY PRN for Constipation, (Reported) Hydrocodone Bit/Acetaminophen 5-325* ([place] 5-325 Tablet*), 1 TAB ORAL Q6H PRN for FOR PAIN, (Reported) Ibuprofen (Motrin), 400 MG ORAL Q6H PRN for Moderate Pain (Pain Scale 4-6), (Reported) Patient History Healthcare decision maker Resuscitation status Advanced Directive on File Physical Exam Last 24 Hour Vital Signs Date Time Temp Pulse Resp B/P (MAP) Pulse Ox O2 Delivery O2 Flow Rate FiO2 01/18/20 12:00 98.2 80 19 118/74 (89) 98 01/18/20 09:00 Room Air 01/18/20 08:29 80 143/83 01/18/20 08:00 97.5 85 19 135/75 (95) 97 01/18/20 03:14 97.9 84 16 158/97 (117) 97 01/18/20 00:00 99.4 74 18 121/75 (90) 94 01/17/20 21:17 91 137/89 01/17/20 20:30 Room Air 01/17/20 20:00 97.3 91 18 137/99 (112) 95 01/17/20 19:50 98.7 72 18 123/79 99 Room Air 01/17/20 19:10 98.7 74 17 129/81 99 Room Air 01/17/20 17:18 98.7 01/17/20 16:55 92 18 Room Air 98 01/17/20 16:55 98.8 92 18 125/83 98 Room Air 01/17/20 16:01 98.8 90 16 120/87 (98) 95 Room Air Intake and Output 01/17/20 01/18/20 19:00 07:00 Intake Total 110 ml Balance 110 ml Intake Oral 0 ml IV Total 110 ml # Voids 1 Laboratory Tests Test 01/17/20 16:23 01/17/20 18:04 01/18/20 05:02 White Blood Count 6.5 K/UL (4.8-10.8) 4.4 K/UL (4.8-10.8) L Red Blood Count 3.52 M/UL (4.20-5.40) L 3.27 M/UL (4.20-5.40) L Hemoglobin 12.1 G/DL (12.0-16.0) 11.1 G/DL (12.0-16.0) L Hematocrit 34.7 % (37.0-47.0) L 31.2 % (37.0-47.0) L Mean Corpuscular Volume 99 FL (80-99) 95 FL (80-99) Mean Corpuscular Hemoglobin 34.4 PG (27.0-31.0) H 34.0 PG (27.0-31.0) H Mean Corpuscular Hemoglobin Concent 34.9 G/DL (32.0-36.0) 35.7 G/DL (32.0-36.0) Red Cell Distribution Width 13.3 % (11.6-14.8) 14.5 % (11.6-14.8) Platelet Count 234 K/UL (150-450) 190 K/UL (150-450) Mean Platelet Volume 7.1 FL (6.5-10.1) 7.6 FL (6.5-10.1) Neutrophils (%) (Auto) 64.0 % (45.0-75.0) 60.6 % (45.0-75.0) Lymphocytes (%) (Auto) 28.5 % (20.0-45.0) 31.2 % (20.0-45.0) Monocytes (%) (Auto) 4.3 % (1.0-10.0) 5.4 % (1.0-10.0) Eosinophils (%) (Auto) 1.9 % (0.0-3.0) 1.5 % (0.0-3.0) Basophils (%) (Auto) 1.3 % (0.0-2.0) 1.4 % (0.0-2.0) Prothrombin Time 11.0 SEC (9.30-11.50) Prothromb Time International Ratio 1.0 (0.9-1.1) Activated Partial Thromboplast Time 30 SEC (23-33) Sodium Level 138 MMOL/L (136-145) 139 MMOL/L (136-145) Potassium Level 5.2 MMOL/L (3.5-5.1) H 4.1 MMOL/L (3.5-5.1) Chloride Level 101 MMOL/L (98-107) 102 MMOL/L (98-107) Carbon Dioxide Level 33 MMOL/L (21-32) H 31 MMOL/L (21-32) Anion Gap 4 mmol/L (5-15) L 6 mmol/L (5-15) Blood Urea Nitrogen 32 mg/dL (7-18) H 34 mg/dL (7-18) H Creatinine 1.3 MG/DL (0.55-1.30) 1.4 MG/DL (0.55-1.30) H Estimat Glomerular Filtration Rate 41.8 mL/min (>60) 38.4 mL/min (>60) Glucose Level 102 MG/DL (74-106) 91 MG/DL (74-106) Lactic Acid Level 0.90 mmol/L (0.4-2.0) Calcium Level 8.7 MG/DL (8.5-10.1) 8.3 MG/DL (8.5-10.1) L Magnesium Level 2.0 MG/DL (1.8-2.4) Total Bilirubin 0.4 MG/DL (0.2-1.0) 0.4 MG/DL (0.2-1.0) Aspartate Amino Transf (AST/SGOT) 33 U/L (15-37) 19 U/L (15-37) Alanine Aminotransferase (ALT/SGPT) 16 U/L (12-78) 11 U/L (12-78) L Alkaline Phosphatase 66 U/L (46-116) 58 U/L (46-116) Troponin I 0.000 ng/mL (0.000-0.056) Pro-B-Type Natriuretic Peptide 1211 pg/mL (0-125) H Total Protein 6.7 G/DL (6.4-8.2) 6.1 G/DL (6.4-8.2) L Albumin 3.4 G/DL (3.4-5.0) 2.9 G/DL (3.4-5.0) L Globulin 3.3 g/dL 3.2 g/dL Albumin/Globulin Ratio 1.0 (1.0-2.7) 0.9 (1.0-2.7) L Lipase 108 U/L (73-393) Urine Color Pale yellow Urine Appearance Clear Urine pH 6 (4.5-8.0) Urine Specific [place] 1.005 (1.005-1.035) Urine Protein Negative (NEGATIVE) Urine Glucose (UA) Negative (NEGATIVE) Urine Ketones Negative (NEGATIVE) Urine Blood Negative (NEGATIVE) Urine Nitrite Negative (NEGATIVE) Urine Bilirubin Negative (NEGATIVE) Urine Urobilinogen Normal MG/DL (0.0-1.0) Urine Leukocyte Esterase 1+ (NEGATIVE) H Urine RBC 0-2 /HPF (0 - 2) Urine WBC 2-4 /HPF (0 - 2) Urine Squamous Epithelial Cells Few /LPF (NONE/OCC) Urine Bacteria Few /HPF (NONE) Random Vancomycin Level 16.1 ug/mL Height (Feet): 5 Height (Inches): 2.00 Weight (Pounds): 196 Medications Current Medications Medications (Trade) Dose Ordered Sig/[place] Route PRN Reason Start Time Stop Time Status Last Admin Dose Admin Acetaminophen (Tylenol) 650 mg Q4H PRN ORAL Temp >100.5 01/17/20 18:15 02/16/20 18:14 Albuterol/ Ipratropium (Albuterol/ Ipratropium) 3 ml Q4H PRN HHN Shortness of Breath 01/17/20 18:15 01/22/20 18:14 Apixaban (Eliquis) 2.5 mg BID ORAL 01/18/20 09:00 04/17/20 08:59 01/18/20 08:28 Carvedilol (Coreg) 3.125 mg EVERY 12 HOURS ORAL 01/17/20 21:00 02/16/20 20:59 01/18/20 08:29 Cefepime HCl 2 gm/ Dextrose 110 ml @ 220 mls/hr Q24H IV 01/18/20 09:00 01/25/20 08:59 01/18/20 08:28 Dextrose (Dextrose 50%) 25 ml Q30M PRN IV Hypoglycemia 01/17/20 18:15 04/16/20 18:14 Dextrose (Dextrose 50%) 50 ml Q30M PRN IV Hypoglycemia 01/17/20 18:15 04/16/20 18:14 Docusate Sodium (Colace) 100 mg THREE TIMES A DAY ORAL 01/18/20 13:00 02/17/20 12:59 01/18/20 12:59 Lactulose (Cephulac) 30 gm THREE TIMES A DAY ORAL 01/18/20 13:00 02/17/20 12:59 01/18/20 13:00 Mineral Oil (Fleet's Mineral Oil Enema) 133 ml EVERY OTHER DAY RECTAL 01/20/20 09:00 02/19/20 08:59 Ondansetron HCl (Zofran) 4 mg Q6H PRN IVP Nausea & Vomiting 01/17/20 18:15 02/16/20 18:14 Oxycodone HCl (Roxicodone) 5 mg Q4H PRN ORAL Severe Pain (Pain Scale 7-10) 01/18/20 12:45 01/25/20 12:44 01/18/20 13:00 Polyethylene Glycol (Miralax) 17 gm BEDTIME ORAL 01/18/20 21:00 02/17/20 20:59 Polyethylene Glycol (Miralax) 17 gm DAILYPRN PRN ORAL Constipation 01/17/20 18:15 02/16/20 18:14 Sennosides (Senokot) 8.6 mg DAILY ORAL 01/19/20 09:00 02/18/20 08:59 Spironolactone (Aldactone) 50 mg DAILY ORAL 01/18/20 09:00 02/17/20 08:59 01/18/20 08:28 Temazepam (Restoril) 15 mg HSPRN PRN ORAL Insomnia 01/17/20 18:15 01/24/20 18:14 Trazodone HCl (Desyrel) 75 mg BEDTIME ORAL 01/18/20 21:00 02/17/20 20:59 Vancomycin HCl (Vanco pharmacy to dose) 1 ea DAILY PRN MISC Per rx protocol 01/17/20 19:00 02/16/20 18:59 Vancomycin HCl 1 gm/Dextrose 275 ml @ 183.708 mls/hr Q24H IVPB 01/18/20 12:00 01/23/20 11:59 01/18/20 11:11 Assessment/Plan Assessment/Plan: Oncology Consultation REQ MD Macario Briones RFC: Metastatic breast eval and recent chemo DOS: 01/18/[address] Briones, 59 year-old georgian-speaking female, well known to me, originally from [facility], gets chemotherapy with Dr. Ac Jeff at his office, with a history of metastatic breast cancer with multiple bony and liver mets, currently undergoing chemotherapy and radiation presenting for shortness of breath, has had similar findings before has require thoras. On arimidex now as horomonal treatment. Unable to add faslodex based on insurance, has received thora in the prior 10/2018 admission. She has been complaining of sob and left upper ext edema. She has required thoracentesis in the past, last time 09/2018 and 10/2018, 02/2019. Denying chest pain. No other symptoms at this time. No recent cough, fevers, sore throat, abdominal pain, vomiting, diarrhea or skin rash. Otherwise has been feeling better. At this time, seen by pulm, imaging has been noted of chest and ct neck/chest/abdo/pelvis. PMH: Metastatic breast cancer PSH: Hip surgery Allergies: Denies Social Hx: [place] drug, alcohol, tobacco use Coded Allergies: No Known Allergies (Unverified , 11/07/18) Patient History Last Menstrual Period: na Nursing Documentation-PMH Past Medical History: No History, Except For Hx Cancer: Yes - left breast with metastisis to liver and bones History Of Psychiatric Problem: Yes - PTSD, anxiety Review of Systems All Other Systems: negative except mentioned in HPI Physical Exam Vital Signs reviewed Gen: Awake and alert, no acute distress HEENT: NC/AT. EOMI. Neck: Supple, trachea midline Chest Wall: No tenderness Cardiovascular: RRR. S1 and S2 normal Resp: Mild tachypnea with increased work of breathing Abdomen: Abdomen is soft, nondistended Skin: Intact. No abrasions, lacer, rash Ext: left upper arm swelling compared to the right side, worse L>R Neuro: Awake and alert Labs: noted Imaging: reviewed Assessment and Recs: # Metastatic breast cancer -- diagnosed approx 1 year ago with multiple bony and liver mets, currently undergoing chemotherapy and radiation presenting for shortness of breath, on taxotere in office. On arimidex now as horomonal treatment. --> at this time, reviewed recent restaging scan on prior admission, 11/09/18 --> Evidence of metastatic malignant neoplasm involving the bones. There is extensive involvement of the spine and sternum pelvic bones. Nonspecific hypodensities within the liver. Metastatic neoplasm is in the differential diagnosis. Abnormal appearance of the left anterior chest wall with subcutaneous reticulation and skin thickening presumably on the basis of previous radiation and/or surgery. --> tumor markers ca125 80, cea 6 --> will need thoracentesis prn basis --> imaging to be reviewed CT neck/chest/abd/pelvis-->reviewd on admission --> recently on chemo in the office (09/2019) # Shortness of breath with Plueral effusion in the past --> imaging has been noted --> prior cytology of thora was negative --> per pulm # Anemia of chronic disease --> recently on chemo --> is related to ongoing chronic disease --> hgb 11 # Leukopenia --> also s/p chemo --> wbc 4.4 # Left upper arm swelling L>R, slowly improving over last few months, likely LYMPHEDEMA --> s/p duplex scan and does not show dvt (done in the ER) --> picc line replacement --> currently appears improved # Hypoxia due to effusion --> obtain repeat ct # DVT ppx lovenox sq Greatly appreciate consultation and dw Esdras Alvarenga MD Jan 18, 2020 13:14
--- NOTE | 2020-01-18 14:46 | NUR ---
CASE MANAGEMENT:INITIAL REVIEW 59 YR OLD FEMALE BIBA FROM [facility] CC;GENERAL COMPLAINT SI;CELLULITIS. PLEURAL EFFUSION. HYPERKALEMIA. 98.8 92 18 125/83 95% ON RA K+ 5.2 CO2 33 BUN 32 BNP 1211 UA+ LEUKOCYTE ESTERASE RUE VENOUS DUPLEX ~ Negative for evidence of right upper extremity venous thrombosis ABD/PELVIS CT ~ 1. Moderate colonic stool which may be ileus/constipation. No mechanical bowel obstruction. No diverticulitis. 2. Cholelithiasis. No pericholecystic stranding. 3. Osseous metastasis. 4. Bilateral pleural effusions. HEAD CT ~ No acute intracranial abnormality. IS;IVF NS BOLUS VANCOMYCIN IV TYLENOL PO PEPCID IV KAYEXALATE PO COLACE PO ADMITTED TO MED SURG MED SURG STATUS DCP;FROM [facility] PLAN; REPLACE PICC LINE
[2020-01-18 16:00] VITALS: BP 132/75
--- NOTE | 2020-01-18 17:45 | Diagnostic Imaging Report ---
Indication: Reason For Exam: PAIN Technique: One view of the chest Comparison: 09/18/2019 Findings: Lungs and pleural spaces are clear. Heart size is upper limits normal. Previously demonstrated port catheter has been removed Impression: No acute process
--- NOTE | 2020-01-18 19:23 | NUR ---
NURSE HAND-OFF: Important Events on Shift: Pain meds Patient Status: stable Diet: regular Pending Orders: n/a Pending Results/Labs:n/a Pending MD notification:n/a Latest Vital Signs: Temperature 98.8 , Pulse 75 , B/P 132 /75 , Respiratory Rate 19 , O2 SAT 98 , Room Air, O2 Flow Rate . Vital Sign Comment: stable Latest Duque Fall Score: 50 Fall Risk: High Risk Safety Measures: Call light Within Reach, Bed Alarm Zone 1, Side Rails Side Rails x2, Bed position Low and Locked. Fall Precautions: Patient Fall Education Report given to KYREE Herrera.
[2020-01-18 20:00] VITALS: BP 137/79
[2020-01-18] MEDS: Miralax 17gm pkt ORAL SCH (21:12)
[2020-01-18] MEDS: TraZODone 50mg tab ORAL SCH (21:12)
[2020-01-19] VITALS: BP 119/72
[2020-01-19 04:00] VITALS: BP 140/84
--- NOTE | 2020-01-19 07:24 | NUR ---
NURSE HAND-OFF: Important Events on Shift:[UNEVENTFUL NIGHT / PLAN TO REPLACE PICC LINE] Patient Status: [STABLE] Diet: [REGULAR] Pending Orders: [01/19 VANCO TROUGH AT 1100] Pending Results/Labs:[N/A] Pending MD notification:[N/A] Latest Vital Signs: Temperature 97.2 , Pulse 77 , B/P 140 /84 , Respiratory Rate 18 , O2 SAT 95 , Room Air, O2 Flow Rate . Vital Sign Comment: [STABLE, AFEBRILE] Latest Duque Fall Score: 50 Fall Risk: High Risk Safety Measures: Call light Within Reach, Bed Alarm Zone 1, Side Rails Side Rails x2, Bed position Low and Locked. Fall Precautions: Patient Fall Education Report given to [KYREE FLOWERS].
--- NOTE | 2020-01-19 07:38 | NUR ---
NURSE NOTES: Report received from TRACE Jeong. Pt is in bed, awake, alert and oriented x 4, no SOB, bed in lowest position with breaks engaged and alarm on, denies any pain at this time, IV line on right AC in place, on room air, will continue to monitor and proceed with plan of care, call light within reach.
[2020-01-19 08:00] VITALS: BP 119/75
[2020-01-19] MEDS: Cefepime HCl 2 GM in D5W 110 ML IV SCH (09:04)
[2020-01-19] MEDS: Lactulose 20gm/30ml UDC ORAL SCH ×3 (09:04→17:51)
[2020-01-19] MEDS: Eliquis 2.5mg tablet ORAL SCH ×2 (09:04→17:52)
[2020-01-19] MEDS: Spironolactone 50mg tab ORAL SCH (09:04)
[2020-01-19] MEDS: Docusate 100mg cap ORAL SCH ×3 (09:04→17:51)
[2020-01-19] MEDS: oxyCODONE 5mg IR tab ORAL PRN (09:05)
[2020-01-19] MEDS: Sennosides 8.6mg tab ORAL SCH (09:05)
[2020-01-19 12:00] VITALS: BP 127/90
[2020-01-19] MEDS: Vancomycin 1gm/D5W 275ml IVPB SCH ×2 (12:24)
--- NOTE | 2020-01-19 13:03 | Cardiology Report ---
APPROVED REPORT EKG Measurement Heart [id number] <Conclusion> Normal sinus rhythm Normal ECG
--- NOTE | 2020-01-19 13:52 | NUR ---
CASE MANAGEMENT:REVIEW SI;CELLULITIS. METASTATIC BREAST CA. 98.3 77 18 140/84 95% ON RA IS;LACTULOSE PO TID VANCOMYCIN IV Q24 CEFEPIME IV Q24 ALDACTONE PO QD ELIQUIS O BID COREG PO Q12 MED SURG STATUS DCP;FROM [facility] CONV PLAN; PICC LINE REPLACEMENT DVT PPX ID CONSULT
[2020-01-19 16:00] VITALS: BP 128/81
--- NOTE | 2020-01-19 17:25 | History & Physical ---
History and Physical History & Physicial Dictated for Int Med-Macario Mello MD Jan 19, 2020 17:25
[2020-01-19] MEDS ORDERED: COMPAZINE10 MG ORAL (18:07)
[2020-01-19] MEDS ORDERED: PANTOPRAZOLE SO40 MG ORAL (18:07)
[2020-01-19] MEDS ORDERED: SPIRONOLACTONE50 MG ORAL (18:07)
--- NOTE | 2020-01-19 19:21 | NUR ---
NURSE HAND-OFF: Important Events on Shift:[pain management, IV ATBs, negative PCR covid test, off isolation] Patient Status: [stable] Diet: [regular] Pending Orders: [] Pending Results/Labs:[] Pending MD notification:[] Latest Vital Signs: Temperature 98.6 , Pulse 76 , B/P 128 /81 , Respiratory Rate 19 , O2 SAT 98 , Room Air, O2 Flow Rate . Vital Sign Comment: [] Latest Duque Fall Score: 50 Fall Risk: High Risk Safety Measures: Call light Within Reach, Bed Alarm Zone 1, Side Rails Side Rails x2, Bed position Low and Locked. Fall Precautions: Patient Fall Education Report given to [KYREE Rojas].
--- NOTE | 2020-01-19 19:40 | NUR ---
NURSE NOTES: Received patient on bed, awake and verbally responsive. on room air. no sob. ambulates. BRP. denies any pain or discomfort at the moment. with iv line on the right ac, saline lock. reiterated to call and ask for assistance to prevent fall and injury. call light and light button within easy reach. bed locked and in lowest position. will continue plan of care.
[2020-01-19 20:00] VITALS: BP 124/73
[2020-01-19] MEDS: TraZODone 50mg tab ORAL SCH (20:43)
[2020-01-19] MEDS: Miralax 17gm pkt ORAL SCH (20:43)
--- NOTE | 2020-01-19 21:00 | NUR ---
NURSE NOTES: iv line dressing changed per patient's request. followed hospital protocol.
[2020-01-20] VITALS: BP 121/76
[2020-01-20 04:00] VITALS: BP 132/76
--- NOTE | 2020-01-20 06:27 | NUR ---
NURSE HAND-OFF: Important Events on Shift: iv line dressing changed; Patient Status: stable Diet: regular Pending Orders: vanco trough 01/19 @ 1100 Pending Results/Labs: Pending MD notification: Latest Vital Signs: Temperature 97.6 , Pulse 73 , B/P 132 /76 , Respiratory Rate 19 , O2 SAT 98 , Room Air, O2 Flow Rate . Vital Sign Comment: Latest Duque Fall Score: 50 Fall Risk: High Risk Safety Measures: Call light Within Reach, Bed Alarm Zone 1, Side Rails Side Rails x2, Bed position Low and Locked. Fall Precautions: Patient Fall Education Addendum: 01/20/20 at 0727 by Destiny Ledezma RN HAND-OFF: Report given to julia barahona.
--- NOTE | 2020-01-20 06:49 | Hematology/Onc Progress Note ---
Assessment/Plan Assessment/Plan Assessment and Recs: # Metastatic breast cancer -- diagnosed approx 1 year ago with multiple bony and liver mets, currently undergoing chemotherapy and radiation presenting for shortness of breath, on taxotere in office. On arimidex now as horomonal treatment. --> at this time, reviewed recent restaging scan on prior admission, 11/09/18 --> Evidence of metastatic malignant neoplasm involving the bones. There is extensive involvement of the spine and sternum pelvic bones. Nonspecific hypodensities within the liver. Metastatic neoplasm is in the differential diagnosis. Abnormal appearance of the left anterior chest wall with subcutaneous reticulation and skin thickening presumably on the basis of previous radiation and/or surgery. --> tumor markers ca125 80, cea 6 --> will need thoracentesis prn basis --> imaging to be reviewed CT neck/chest/abd/pelvis-->reviewd on admission --> recently on chemo in the office (09/2019) # Shortness of breath with Plueral effusion in the past --> imaging has been noted --> prior cytology of thora was negative --> per pulm # Anemia of chronic disease --> recently on chemo --> is related to ongoing chronic disease --> hgb 11 # Leukopenia --> also s/p chemo --> wbc 4.4 # Left upper arm swelling L>R, slowly improving over last few months, likely LYMPHEDEMA --> s/p duplex scan and does not show dvt (done in the ER) --> picc line replacement --> currently appears improved # Hypoxia due to effusion --> obtain repeat ct # DVT ppx lovenox sq Greatly appreciate consultation and christy RN Subjective HEENT: Denies: no symptoms, eye pain, blurred vision, tearing, double vision, ear pain, ear discharge, nose pain, nose congestion, throat pain, throat swelling, mouth pain, mouth swelling, other Respiratory: Denies: no symptoms, cough, shortness of breath, SOB with excertion, SOB at rest, sputum, wheezing, other Gastrointestinal/Abdominal: Denies: no symptoms, abdomen distended, abdominal pain, black stools, tarry stools, blood in stool, constipated, diarrhea, diff iculty swallowing, nausea, poor appetite, poor fluid intake, rectal bleeding, vomiting, other Genitourinary: Denies: no symptoms, burning, discharge, frequency, flank pain, hematuria, incontinence, pain, urgency, other Neurologic/Psychiatric: Denies: no symptoms, anxiety, depressed, emotional problems, headache, numbness, paresthesia, pre-existing deficit, seizure, tingling, tremors, weakness, other Endocrine: Denies: no symptoms, excessive sweating, flushing, intolerance to cold, intolerance to heat, increased hunger, increased thirst, increased urine, unexplained weight gain, unexplained weight loss, other Allergies: Coded Allergies: No Known Allergies (Unverified , 11/07/18) Subjective 01/19 labs noted, ca 125 ordered, meds reviewed, dressing iv changed per rn Objective Objective Current Medications Medications (Trade) Dose Ordered Sig/Kaushal Route PRN Reason Start Time Stop Time Status Last Admin Dose Admin Acetaminophen (Tylenol) 650 mg Q4H PRN ORAL Temp >100.5 01/17/20 18:15 02/16/20 18:14 Albuterol/ Ipratropium (Albuterol/ Ipratropium) 3 ml Q4H PRN HHN Shortness of Breath 01/17/20 18:15 01/22/20 18:14 Apixaban (Eliquis) 2.5 mg BID ORAL 01/18/20 09:00 04/17/20 08:59 01/19/20 17:52 Carvedilol (Coreg) 3.125 mg EVERY 12 HOURS ORAL 01/17/20 21:00 02/16/20 20:59 01/19/20 20:43 Cefepime HCl 2 gm/ Dextrose 110 ml @ 220 mls/hr Q24H IV 01/18/20 09:00 01/25/20 08:59 01/19/20 09:04 Dextrose (Dextrose 50%) 25 ml Q30M PRN IV Hypoglycemia 01/17/20 18:15 04/16/20 18:14 Dextrose (Dextrose 50%) 50 ml Q30M PRN IV Hypoglycemia 01/17/20 18:15 04/16/20 18:14 Docusate Sodium (Colace) 100 mg THREE TIMES A DAY ORAL 01/18/20 13:00 02/17/20 12:59 01/19/20 17:51 Lactulose (Cephulac) 30 gm THREE TIMES A DAY ORAL 01/18/20 13:00 02/17/20 12:59 01/19/20 17:51 Mineral Oil (Fleet's Mineral Oil Enema) 133 ml EVERY OTHER DAY RECTAL 01/20/20 09:00 02/19/20 08:59 Ondansetron HCl (Zofran) 4 mg Q6H PRN IVP Nausea & Vomiting 01/17/20 18:15 02/16/20 18:14 Oxycodone HCl (Roxicodone) 5 mg Q4H PRN ORAL Severe Pain (Pain Scale 7-10) 01/18/20 12:45 01/25/20 12:44 01/19/20 09:05 Polyethylene Glycol (Miralax) 17 gm BEDTIME ORAL 01/18/20 21:00 02/17/20 20:59 01/18/20 21:12 Polyethylene Glycol (Miralax) 17 gm DAILYPRN PRN ORAL Constipation 01/17/20 18:15 02/16/20 18:14 Sennosides (Senokot) 8.6 mg DAILY ORAL 01/19/20 09:00 02/18/20 08:59 01/19/20 09:05 Spironolactone (Aldactone) 50 mg DAILY ORAL 01/18/20 09:00 02/17/20 08:59 01/19/20 09:04 Temazepam (Restoril) 15 mg HSPRN PRN ORAL Insomnia 01/17/20 18:15 01/24/20 18:14 Trazodone HCl (Desyrel) 75 mg BEDTIME ORAL 01/18/20 21:00 02/17/20 20:59 01/19/20 20:43 Vancomycin HCl (Vanco pharmacy to dose) 1 ea DAILY PRN MISC Per rx protocol 01/17/20 19:00 02/16/20 18:59 Vancomycin HCl 1 gm/Dextrose 275 ml @ 183.708 mls/hr Q24H IVPB 01/18/20 12:00 01/23/20 11:59 01/19/20 12:24 Last 24 Hour Vital Signs Date Time Temp Pulse Resp B/P (MAP) Pulse Ox O2 Delivery O2 Flow Rate FiO2 01/20/20 04:00 97.6 73 19 132/76 (94) 98 01/20/20 00:00 97.8 78 20 121/76 (91) 9 01/19/20 21:00 Room Air 01/19/20 20:43 84 124/81 01/19/20 20:00 97.6 75 20 124/73 (90) 98 01/19/20 16:00 98.6 76 19 128/81 (97) 98 01/19/20 12:00 98.0 73 18 127/90 (102) 98 01/19/20 09:04 77 119/75 01/19/20 09:00 Room Air 01/19/20 08:00 97.8 77 18 119/75 (90) 96 01/19/20 04:00 97.2 77 18 140/84 (102) 95 01/19/20 00:00 98.3 77 18 119/72 (88) 95 01/18/20 21:15 84 134/76 01/18/20 21:00 Room Air 01/18/20 20:00 97.7 89 18 137/79 (98) 96 01/18/20 16:00 98.8 75 19 132/75 (94) 98 01/18/20 12:00 98.2 80 19 118/74 (89) 98 01/18/20 09:00 Room Air 01/18/20 08:29 80 143/83 01/18/20 08:00 97.5 85 19 135/75 (95) 97 Intake and Output 01/19/20 01/20/20 19:00 07:00 Intake Total 960 ml 450 ml Balance 960 ml 450 ml Intake Oral 960 ml 450 ml # Voids 4 4 Labs Test 01/17/20 16:23 01/17/20 18:04 01/18/20 05:02 White Blood Count 6.5 K/UL (4.8-10.8) 4.4 K/UL (4.8-10.8) Red Blood Count 3.52 M/UL (4.20-5.40) 3.27 M/UL (4.20-5.40) Hemoglobin 12.1 G/DL (12.0-16.0) 11.1 G/DL (12.0-16.0) Hematocrit 34.7 % (37.0-47.0) 31.2 % (37.0-47.0) Mean Corpuscular Volume 99 FL (80-99) 95 FL (80-99) Mean Corpuscular Hemoglobin 34.4 PG (27.0-31.0) 34.0 PG (27.0-31.0) Mean Corpuscular Hemoglobin Concent 34.9 G/DL (32.0-36.0) 35.7 G/DL (32.0-36.0) Red Cell Distribution Width 13.3 % (11.6-14.8) 14.5 % (11.6-14.8) Platelet Count 234 K/UL (150-450) 190 K/UL (150-450) Mean Platelet Volume 7.1 FL (6.5-10.1) 7.6 FL (6.5-10.1) Neutrophils (%) (Auto) 64.0 % (45.0-75.0) 60.6 % (45.0-75.0) Lymphocytes (%) (Auto) 28.5 % (20.0-45.0) 31.2 % (20.0-45.0) Monocytes (%) (Auto) 4.3 % (1.0-10.0) 5.4 % (1.0-10.0) Eosinophils (%) (Auto) 1.9 % (0.0-3.0) 1.5 % (0.0-3.0) Basophils (%) (Auto) 1.3 % (0.0-2.0) 1.4 % (0.0-2.0) Prothrombin Time 11.0 SEC (9.30-11.50) Prothromb Time International Ratio 1.0 (0.9-1.1) Activated Partial Thromboplast Time 30 SEC (23-33) Sodium Level 138 MMOL/L (136-145) 139 MMOL/L (136-145) Potassium Level 5.2 MMOL/L (3.5-5.1) 4.1 MMOL/L (3.5-5.1) Chloride Level 101 MMOL/L (98-107) 102 MMOL/L (98-107) Carbon Dioxide Level 33 MMOL/L (21-32) 31 MMOL/L (21-32) Anion Gap 4 mmol/L (5-15) 6 mmol/L (5-15) Blood Urea Nitrogen 32 mg/dL (7-18) 34 mg/dL (7-18) Creatinine 1.3 MG/DL (0.55-1.30) 1.4 MG/DL (0.55-1.30) Estimat Glomerular Filtration Rate 41.8 mL/min (>60) 38.4 mL/min (>60) Glucose Level 102 MG/DL (74-106) 91 MG/DL (74-106) Lactic Acid Level 0.90 mmol/L (0.4-2.0) Calcium Level 8.7 MG/DL (8.5-10.1) 8.3 MG/DL (8.5-10.1) Magnesium Level 2.0 MG/DL (1.8-2.4) Total Bilirubin 0.4 MG/DL (0.2-1.0) 0.4 MG/DL (0.2-1.0) Aspartate Amino Transf (AST/SGOT) 33 U/L (15-37) 19 U/L (15-37) Alanine Aminotransferase (ALT/SGPT) 16 U/L (12-78) 11 U/L (12-78) Alkaline Phosphatase 66 U/L (46-116) 58 U/L (46-116) Troponin I 0.000 ng/mL (0.000-0.056) Pro-B-Type Natriuretic Peptide 1211 pg/mL (0-125) Total Protein 6.7 G/DL (6.4-8.2) 6.1 G/DL (6.4-8.2) Albumin 3.4 G/DL (3.4-5.0) 2.9 G/DL (3.4-5.0) Globulin 3.3 g/dL 3.2 g/dL Albumin/Globulin Ratio 1.0 (1.0-2.7) 0.9 (1.0-2.7) Lipase 108 U/L (73-393) Urine Color Pale yellow Urine Appearance Clear Urine pH 6 (4.5-8.0) Urine Specific [place] 1.005 (1.005-1.035) Urine Protein Negative (NEGATIVE) Urine Glucose (UA) Negative (NEGATIVE) Urine Ketones Negative (NEGATIVE) Urine Blood Negative (NEGATIVE) Urine Nitrite Negative (NEGATIVE) Urine Bilirubin Negative (NEGATIVE) Urine Urobilinogen Normal MG/DL (0.0-1.0) Urine Leukocyte Esterase 1+ (NEGATIVE) Urine RBC 0-2 /HPF (0 - 2) Urine WBC 2-4 /HPF (0 - 2) Urine Squamous Epithelial Cells Few /LPF (NONE/OCC) Urine Bacteria Few /HPF (NONE) Random Vancomycin Level 16.1 ug/mL Height (Feet): 5 Height (Inches): 2.00 Weight (Pounds): 196 Objective Physical Exam Vital Signs reviewed Gen: Awake and alert, no acute distress HEENT: NC/AT. EOMI. Neck: Supple, trachea midline Chest Wall: No tenderness Cardiovascular: RRR. S1 and S2 normal Resp: Mild tachypnea with increased work of breathing Abdomen: Abdomen is soft, nondistended Skin: Intact. No abrasions, lacer, rash Ext: left upper arm swelling compared to the right side, worse L>R Neuro: Awake and alert Esdras Jeff MD Jan 20, 2020 06:49
[2020-01-20 08:00] VITALS: BP 120/83
[2020-01-20] MEDS: Cefepime HCl 2 GM in D5W 110 ML IV SCH (08:22)
[2020-01-20] MEDS: Eliquis 2.5mg tablet ORAL SCH ×2 (08:23→17:31)
[2020-01-20] MEDS: Lactulose 20gm/30ml UDC ORAL SCH ×3 (08:23→17:31)
[2020-01-20] MEDS: Sennosides 8.6mg tab ORAL SCH (08:23)
[2020-01-20] MEDS: Spironolactone 50mg tab ORAL SCH (08:24)
[2020-01-20] MEDS: Docusate 100mg cap ORAL SCH (08:24)
[2020-01-20] MEDS ORDERED: Fleet's Mineral Oil Enema RECTAL SCH (09:00)
[2020-01-20 12:00] VITALS: BP 143/83
--- NOTE | 2020-01-20 12:15 | Internal Med Progress Note ---
Subjective Date of Service: Jan 20, 2020 Physician Name BrionesMacario Attending Physician Jesse Cali MD Current Medications Medications (Trade) Dose Ordered Sig/Kaushal Route PRN Reason Start Time Stop Time Status Last Admin Dose Admin Acetaminophen (Tylenol) 650 mg Q4H PRN ORAL Temp >100.5 01/17/20 18:15 02/16/20 18:14 Albuterol/ Ipratropium (Albuterol/ Ipratropium) 3 ml Q4H PRN HHN Shortness of Breath 01/17/20 18:15 01/22/20 18:14 Apixaban (Eliquis) 2.5 mg BID ORAL 01/18/20 09:00 04/17/20 08:59 01/20/20 08:23 Carvedilol (Coreg) 3.125 mg EVERY 12 HOURS ORAL 01/17/20 21:00 02/16/20 20:59 01/20/20 08:23 Cefepime HCl 2 gm/ Dextrose 110 ml @ 220 mls/hr Q24H IV 01/18/20 09:00 01/25/20 08:59 01/20/20 08:22 Dextrose (Dextrose 50%) 25 ml Q30M PRN IV Hypoglycemia 01/17/20 18:15 04/16/20 18:14 Dextrose (Dextrose 50%) 50 ml Q30M PRN IV Hypoglycemia 01/17/20 18:15 04/16/20 18:14 Lactulose (Cephulac) 30 gm THREE TIMES A DAY ORAL 01/18/20 13:00 02/17/20 12:59 01/20/20 08:23 Ondansetron HCl (Zofran) 4 mg Q6H PRN IVP Nausea & Vomiting 01/17/20 18:15 02/16/20 18:14 Oxycodone HCl (Roxicodone) 5 mg Q4H PRN ORAL Severe Pain (Pain Scale 7-10) 01/18/20 12:45 01/25/20 12:44 01/19/20 09:05 Polyethylene Glycol (Miralax) 17 gm BEDTIME ORAL 01/18/20 21:00 02/17/20 20:59 01/18/20 21:12 Polyethylene Glycol (Miralax) 17 gm DAILYPRN PRN ORAL Constipation 01/17/20 18:15 02/16/20 18:14 Spironolactone (Aldactone) 50 mg DAILY ORAL 01/18/20 09:00 02/17/20 08:59 01/20/20 08:24 Temazepam (Restoril) 15 mg HSPRN PRN ORAL Insomnia 01/17/20 18:15 01/24/20 18:14 Trazodone HCl (Desyrel) 75 mg BEDTIME ORAL 01/18/20 21:00 02/17/20 20:59 01/19/20 20:43 Vancomycin HCl (Vanco pharmacy to dose) 1 ea DAILY PRN MISC Per rx protocol 01/17/20 19:00 02/16/20 18:59 Vancomycin HCl 1 gm/Dextrose 275 ml @ 183.708 mls/hr Q24H IVPB 01/18/20 12:00 01/23/20 11:59 01/19/20 12:24 Allergies: Coded Allergies: No Known Allergies (Unverified , 11/07/18) ROS Limited/Unobtainable: No Constitutional: Reports: no symptoms HEENT: Reports: no symptoms Cardiovascular: Reports: no symptoms Respiratory: Reports: no symptoms Gastrointestinal/Abdominal: Reports: no symptoms Genitourinary: Reports: no symptoms Neurologic/Psychiatric: Reports: no symptoms Subjective 59 YO F with history of breast cancer and right arm PICC admitted with cellulitis right upper extremity. Cover for Int Jaison-Dr Cali Objective Last Vital Signs Date Time Temp Pulse Resp B/P (MAP) Pulse Ox O2 Delivery O2 Flow Rate FiO2 01/20/20 12:00 97.9 78 20 143/83 (103) 96 01/20/20 09:00 Room Air 01/17/20 16:55 98 General Appearance: WD/WN, no apparent distress, alert EENT: PERRL/EOMI, normal ENT inspection, TMs normal Neck: non-tender, normal alignment, supple, normal inspection Cardiovascular: normal peripheral pulses, normal rate, regular rhythm, no gallop/murmur, no JVD Respiratory/Chest: chest wall non-tender, lungs clear, normal breath sounds, no respiratory distress, no accessory muscle use Abdomen: normal bowel sounds, non tender, soft, no organomegaly, no mass Extremities: normal range of motion, non-tender Neurologic: medical radiation tech II-XII grossly normal, no motor/sensory deficits, alert, oriented x 3, responsive, normal mood/affect Skin: normal pigmentation, warm/dry Microbiology Date/Time Source Procedure Growth Status 01/17/20 16:23 Nasopharynx Coronavirus COVID-19 PCR (DANYA) - Final Complete 01/17/20 16:23 Blood Blood Culture - Preliminary NO GROWTH AFTER 48 HOURS Resulted 01/17/20 16:08 Blood Blood Culture - Preliminary NO GROWTH AFTER 48 HOURS Resulted Intake and Output 01/19/20 01/20/20 19:00 07:00 Intake Total 960 ml 450 ml Balance 960 ml 450 ml Intake Oral 960 ml 450 ml # Voids 4 4 Assessment/Plan Problem List: (1) Cellulitis of right arm Assessment & Plan: PICC discontinued. ID = Dr Ramos. Continue vancomycin a nd cefepime. Await cultures (2) Pleural effusion, left Assessment & Plan: S/P thoracentesis. Pulmonary = Dr Elam (3) Hypertension Assessment & Plan: continue coreg (4) Breast cancer metastasized to liver Assessment & Plan: Continue arimidex. Onc=Macario Thompson MD Jan 20, 2020 12:15
[2020-01-20] MEDS: oxyCODONE 5mg IR tab ORAL PRN ×2 (12:39→20:47)
[2020-01-20 13:18] LABS: BASOPHILS % (AUTO) 1.3 % (0.0-2.0); EOSINOPHILS % (AUTO) 1.1 % (0.0-3.0); HEMATOCRIT 35.5 % (37.0-47.0); HEMOGLOBIN 12.3 G/DL (12.0-16.0); LYMPHOCYTES % (AUTO) 20.1 % (20.0-45.0); MEAN CORPUSCULAR VOLUME 98 FL (80-99); MONOCYTES % (AUTO) 4.7 % (1.0-10.0); NEUTROPHILS % (AUTO) 72.8 % (45.0-75.0); PLATELET COUNT 232 K/UL (150-450); RED BLOOD COUNT 3.63 M/UL (4.20-5.40); RED CELL DISTRIBUTION WIDTH 13.7 % (11.6-14.8)
[2020-01-20] MEDS: Vancomycin 1gm/D5W 275ml IVPB SCH ×2 (13:41)
[2020-01-20 16:00] VITALS: BP 136/75
--- NOTE | 2020-01-20 19:23 | NUR ---
NURSE HAND-OFF: Important Events on Shift:[pain management, IV ATBs, safety and comfort] Patient Status: [stable] Diet: [regular] Pending Orders: [] Pending Results/Labs:[] Pending MD notification:[] Latest Vital Signs: Temperature 98.0 , Pulse 78 , B/P 136 /75 , Respiratory Rate 18 , O2 SAT 96 , Room Air, O2 Flow Rate . Vital Sign Comment: [] Latest Duque Fall Score: 50 Fall Risk: High Risk Safety Measures: Call light Within Reach, Bed Alarm Zone 1, Side Rails Side Rails x2, Bed position Low and Locked. Fall Precautions: Patient Fall Education Report given to [KYREE Waite].
[2020-01-20 20:39] VITALS: BP 125/75
[2020-01-20] MEDS: TraZODone 50mg tab ORAL SCH (20:47)
[2020-01-20] MEDS: Miralax 17gm pkt ORAL SCH (20:49)
[2020-01-21 04:00] VITALS: BP 127/83
--- NOTE | 2020-01-21 07:21 | NUR ---
HAND-OFF: Report given to Moses Armendariz RN.
--- NOTE | 2020-01-21 07:31 | NUR ---
NURSE NOTES: Report received from KYREE Marmolejo. Pt is in bed, awake, alert and oriented x 4, no SOB, bed in lowest position with breaks engaged and alarm on, denies any pain at this time, IV line on right AC in place, on room air, will continue to monitor and proceed with plan of care, call light within reach.
[2020-01-21 07:37] LABS: CALCIUM 8.5 MG/DL (8.5-10.1); POTASSIUM 4.1 MMOL/L (3.5-5.1)
[2020-01-21 08:00] VITALS: BP 124/78
--- NOTE | 2020-01-21 08:00 | History and Physical Report ---
DATE OF ADMISSION: 01/17/2020 CHIEF COMPLAINT: The patient is a 59-year-old female with history of breast cancer with metastases to the liver and to the spine who presents with a chief complaint of right upper extremity pain and redness. HISTORY OF PRESENT ILLNESS: The patient has a history of breast cancer with metastases to the spine and liver. The patient is followed as an outpatient by Dr. Esdras Jeff. The patient had a PICC line in place in her right upper extremity for antibiotic and chemotherapy. PICC line was discontinued two days prior to admission. The patient presented to [place] emergency room complaining of pain and swelling of the right upper extremity at the PICC line site. The PICC line site was erythematous. The patient was admitted for right upper extremity pain, swelling, and erythema to rule out cellulitis. REVIEW OF SYSTEMS: CONSTITUTIONAL: The patient denies weight loss or weight gain. The patient denies fevers or chills. HEENT: The patient denies ear or throat pain. The patient denies headache. CARDIOVASCULAR: The patient denies palpitations or chest pain. CHEST: The patient denies wheeze or shortness of breath. ABDOMINAL: The patient denies nausea, vomiting, diarrhea, or constipation. GENITOURINARY: The patient denies dysuria or increased frequency of urination. NEUROMUSCULAR: The patient denies seizures or generalized weakness. PAST MEDICAL HISTORY: Significant for: 1. Breast cancer with metastases to the liver and spine. 2. Hypertension. 3. Left pleural effusion. PAST SURGICAL HISTORY: Left breast mastectomy. CURRENT MEDICATIONS: 1. Arimidex 1 mg p.o. daily. 2. Apixaban 2.5 mg p.o. twice daily. 3. Bumetanide 0.5 mg p.o. twice daily. 4. Coreg 3.125 mg p.o. twice daily. 5. Gabapentin mg p.o. at bedtime. 6. Stephan 5/325 mg one tablet p.o. q.6h., p.r.n. 7. Ibuprofen 600 mg p.o. q.6h., p.r.n. 8. Claritin 10 mg p.o. daily. 9. Pantoprazole 40 mg p.o. q.a.m. 10. Potassium chloride 20 mEq p.o. three times daily. 11. Spironolactone 50 mg p.o. daily. 12. Trazodone 150 mg p.o. at bedtime. ALLERGIES: No known drug allergies. SOCIAL HISTORY: The patient is single and is a resident of [facility]. The patient denies tobacco or alcohol use. PHYSICAL EXAMINATION: VITAL SIGNS: Temperature 98.8, respirations 16, pulse 90, blood pressure 120/87. GENERAL: The patient is well-developed, well-nourished obese female in no apparent distress. HEENT: Eyes, pupils are equal and responsive to light and accommodation. Extraocular movements are intact. NECK: Supple without lymphadenopathy. CHEST: Lungs are clear to auscultation bilaterally without wheezes or rales. CARDIOVASCULAR: Regular rate. S1 and S2 normal without murmurs, rubs, or gallops. ABDOMEN: Soft, nontender, and nondistended. Positive bowel sounds. No evidence of hepatosplenomegaly. Currently, no rebound or guarding. EXTREMITIES: Negative for clubbing, cyanosis, or edema. The right upper extremity is swollen compared to the left. There is erythema about the PICC line site. NEUROMUSCULAR: Cranial nerves II through XII are grossly intact without focal deficits. Motor strength is 5/5 bilaterally. Deep tendon reflexes are 2+ plantar. LABORATORY STUDIES: WBC 6.5, hemoglobin 12.1, hematocrit 34.7, platelets 234,000. Sodium 138, potassium 5.2, chloride 101, CO2 33, BUN 32, creatinine 1.3, glucose 102. Venous duplex Doppler right upper extremity failed to demonstrate acute deep venous thrombosis. ASSESSMENT: This is a 59-year-old female: 1. Right upper extremity cellulitis. 2. Breast cancer with metastases. 3. Hypertension. 4. History of left pleural effusion. TREATMENT: 1. Cellulitis of the right upper extremity. Blood cultures are pending. The patient has been started empirically on vancomycin and cefepime. An Infectious Diseases consultation has been obtained with Dr. Jasso. Follow recommendations of Infectious Diseases. 2. Breast cancer with metastases. The patient is currently on Arimidex. An Oncology consultation obtained with Dr. Esdras Jeff. Follow recommendations of Oncology. 3. Hypertension. Continue Coreg as above. 4. History of left pleural effusion. Macario Briones M.D. DR: Curry JOB#: [id number] CC:
[2020-01-21 08:08] LABS: BASOPHILS % (AUTO) 1.4 % (0.0-2.0); HEMATOCRIT 31.4 % (37.0-47.0); HEMOGLOBIN 11.1 G/DL (12.0-16.0); LYMPHOCYTES % (AUTO) 23.4 % (20.0-45.0); MEAN CORPUSCULAR VOLUME 96 FL (80-99); MONOCYTES % (AUTO) 10.2 % (1.0-10.0); PLATELET COUNT 191 K/UL (150-450); RED BLOOD COUNT 3.27 M/UL (4.20-5.40); RED CELL DISTRIBUTION WIDTH 13.8 % (11.6-14.8); WHITE BLOOD COUNT 3.5 K/UL (4.8-10.8)
[2020-01-21] MEDS: Cefepime HCl 2 GM in D5W 110 ML IV SCH (08:11)
[2020-01-21] MEDS: oxyCODONE 5mg IR tab ORAL PRN (08:11)
[2020-01-21] MEDS: Lactulose 20gm/30ml UDC ORAL SCH ×2 (08:11→12:21)
[2020-01-21] MEDS: Eliquis 2.5mg tablet ORAL SCH (08:11)
[2020-01-21] MEDS: Spironolactone 50mg tab ORAL SCH (08:12)
--- NOTE | 2020-01-21 09:22 | Consultation ---
History of Present Illness General Date patient seen: Jan 21, 2020 Time patient seen: 12:57 Chief Complaint: General Complaint Referring physician: PCP Reason for Consultation: RUE cellulitis Present Illness HPI 59yo F who h/o met breast CA who p/w RUE pain and redness. 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 Now p/w pain and swelling in RUE at site of prior PICC. In house, pt has remained AF with normal/low WBC. BCx and COVID screening are n eg. pt reports she came in because RUE hurt and was red, this is now resolved and arm is back to normal reports left arm has been swollen and tender for 2 years now, no recent change Allergies: Coded Allergies: No Known Allergies (Unverified , 11/07/18) Medication History Scheduled Amino Acids/Protein Hydrolys (Pro-Stat Liquid), 30 ML ORAL DAILY, (Reported) Anastrozole* (Arimidex*), 1 MG PO DAILY, (Reported) Apixaban (Eliquis*), 2.5 MG PO BID, (Reported) Bumetanide* (Bumetanide*), 0.5 MG ORAL BID, (Reported) Carvedilol (Coreg), 3.125 MG ORAL EVERY 12 HOURS, (Reported) Gabapentin* (Gabapentin*), 200 MG ORAL QHS, (Reported) Lactobacillus Acidophilus (Acidophilus), 1 EACH PO DAILY, (Reported) Loratadine (Claritin*), 10 MG PO DAILY, (Reported) Magnesium Oxide (Magnesium Oxide), 400 MG ORAL DAILY, (Reported) Metolazone (Metolazone), 2.5 MG ORAL BID, (Reported) Multivitamins* (Multivitamins*), 1 TAB ORAL DAILY, (Reported) Pantoprazole* (Pantoprazole*), 40 MG ORAL BEFORE BREAKFAST, (Reported) Potassium Chloride* (K-Dur*), 20 MEQ ORAL TID, (Reported) Spironolactone* (Aldactone*), 50 MG ORAL DAILY, (Reported) Trazodone* (Trazodone*), 75 MG ORAL BEDTIME, (Reported) Scheduled PRN Bisacodyl (Bisacodyl), 10 MG RC DAILY PRN for Constipation, (Reported) Hydrocodone Bit/Acetaminophen 5-325* (Concord 5-325 Tablet*), 1 TAB ORAL Q6H PRN for FOR PAIN, (Reported) Ibuprofen (Motrin), 400 MG ORAL Q6H PRN for Moderate Pain (Pain Scale 4-6), (Reported) Prochlorperazine (Compazine*), 10 MG ORAL Q6H PRN for Nausea & Vomiting, (Reported) Discontinued Medications Acetaminophen* (Acetaminophen 325MG Tablet*), 650 MG ORAL Q6H PRN for Mild Pain/Temp > 100.5, (Reported) Discontinued Reason: Therapy completed Ca Cmb 1/Vit D3/B-6/Fa/B12/Av (Vitamin D3-Aloe 1,000 Unit Tab), 1 EACH PO DAILY, (Reported) Discontinued Reason: Therapy completed Cyanocobalamin (Vitamin B-12) (Vitamin B12), 1,000 MCG PO DAILY, (Reported) Discontinued Reason: Therapy completed Docusate Sodium* (Docusate Sodium*), 100 MG ORAL TWICE A DAY, (Reported) Discontinued Reason: Therapy completed Oxycodone Hcl Ir* (Roxicodone Ir*), 5 MG ORAL Q8HR, (Reported) Discontinued Reason: Therapy completed Pantoprazole (Pantoprazole), 40 MG ORAL ACBREAKFAST, (Reported) Discontinued Reason: Prescription changed Spironolactone* (Spironolactone*), 50 MG ORAL DAILY, (Reported) Discontinued Reason: Prescription changed Patient History Healthcare decision maker Resuscitation status Advanced Directive on File Review of Systems ROS Narrative 10-point ROS neg except as noted in HPI Physical Exam Physical Exam Narrative Gen: NAD in bed HEENT: NCAT, EOMI, PERRL CV: RRR Pulm: CTAB Abd: Soft, NTND Ext: RUE wnl, no erythema or swelling. LUE with mild diffuse swelling and warmth Neuro: Awake, alert, interactive Last 24 Hour Vital Signs Date Time Temp Pulse Resp B/P (MAP) Pulse Ox O2 Delivery O2 Flow Rate FiO2 01/21/20 08:12 90 124/78 01/21/20 04:00 98.9 92 16 127/83 (98) 94 01/20/20 20:46 92 125/75 01/20/20 20:39 97.8 92 18 125/75 (92) 97 01/20/20 20:11 Room Air 01/20/20 16:00 98.0 18 136/75 (95) 96 01/20/20 12:00 97.9 78 20 143/83 (103) 96 Intake and Output 01/20/20 01/21/20 18:59 06:59 Intake Total 400 ml 400 ml Balance 400 ml 400 ml Intake Oral 400 ml 400 ml Other 0 ml # Voids 3 3 # Bowel Movements 1 Laboratory Tests Test 01/20/20 12:30 01/21/20 06:05 White Blood Count 5.0 K/UL (4.8-10.8) 3.5 K/UL (4.8-10.8) L Red Blood Count 3.63 M/UL (4.20-5.40) L 3.27 M/UL (4.20-5.40) L Hemoglobin 12.3 G/DL (12.0-16.0) 11.1 G/DL (12.0-16.0) L Hematocrit 35.5 % (37.0-47.0) L 31.4 % (37.0-47.0) L Mean Corpuscular Volume 98 FL (80-99) 96 FL (80-99) Mean Corpuscular Hemoglobin 33.9 PG (27.0-31.0) H 34.0 PG (27.0-31.0) H Mean Corpuscular Hemoglobin Concent 34.7 G/DL (32.0-36.0) 35.4 G/DL (32.0-36.0) Red Cell Distribution Width 13.7 % (11.6-14.8) 13.8 % (11.6-14.8) Platelet Count 232 K/UL (150-450) 191 K/UL (150-450) Mean Platelet Volume 6.6 FL (6.5-10.1) 6.4 FL (6.5-10.1) L Neutrophils (%) (Auto) 72.8 % (45.0-75.0) 64.0 % (45.0-75.0) Lymphocytes (%) (Auto) 20.1 % (20.0-45.0) 23.4 % (20.0-45.0) Monocytes (%) (Auto) 4.7 % (1.0-10.0) 10.2 % (1.0-10.0) H Eosinophils (%) (Auto) 1.1 % (0.0-3.0) 1.0 % (0.0-3.0) Basophils (%) (Auto) 1.3 % (0.0-2.0) 1.4 % (0.0-2.0) CA 125 Antigen 89.7 U/mL (0.0-38.1) H Vancomycin Level Trough 9.3 ug/mL (5.0-12.0) Sodium Level 136 MMOL/L (136-145) Potassium Level 4.1 MMOL/L (3.5-5.1) Chloride Level 104 MMOL/L (98-107) Carbon Dioxide Level 25 MMOL/L (21-32) Anion Gap 7 mmol/L (5-15) Blood Urea Nitrogen 19 mg/dL (7-18) H Creatinine 1.0 MG/DL (0.55-1.30) Estimat Glomerular Filtration Rate 56.5 mL/min (>60) Glucose Level 99 MG/DL (74-106) Calcium Level 8.5 MG/DL (8.5-10.1) Height (Feet): 5 Height (Inches): 2.00 Weight (Pounds): 196 Medications Current Medications Medications (Trade) Dose Ordered Sig/Kaushal Route PRN Reason Start Time Stop Time Status Last Admin Dose Admin Acetaminophen (Tylenol) 650 mg Q4H PRN ORAL Temp >100.5 01/17/20 18:15 02/16/20 18:14 Albuterol/ Ipratropium (Albuterol/ Ipratropium) 3 ml Q4H PRN HHN Shortness of Breath 01/17/20 18:15 01/22/20 18:14 Apixaban (Eliquis) 2.5 mg BID ORAL 01/18/20 09:00 04/17/20 08:59 01/21/20 08:11 Carvedilol (Coreg) 3.125 mg EVERY 12 HOURS ORAL 01/17/20 21:00 02/16/20 20:59 01/21/20 08:12 Cefepime HCl 2 gm/ Dextrose 110 ml @ 220 mls/hr Q24H IV 01/18/20 09:00 01/25/20 08:59 01/21/20 08:11 Dextrose (Dextrose 50%) 25 ml Q30M PRN IV Hypoglycemia 01/17/20 18:15 04/16/20 18:14 Dextrose (Dextrose 50%) 50 ml Q30M PRN IV Hypoglycemia 01/17/20 18:15 04/16/20 18:14 Lactulose (Cephulac) 30 gm THREE TIMES A DAY ORAL 01/18/20 13:00 02/17/20 12:59 01/21/20 08:11 Ondansetron HCl (Zofran) 4 mg Q6H PRN IVP Nausea & Vomiting 01/17/20 18:15 02/16/20 18:14 Oxycodone HCl (Roxicodone) 5 mg Q4H PRN ORAL Severe Pain (Pain Scale 7-10) 01/18/20 12:45 01/25/20 12:44 01/21/20 08:11 Polyethylene Glycol (Miralax) 17 gm BEDTIME ORAL 01/18/20 21:00 02/17/20 20:59 01/18/20 21:12 Polyethylene Glycol (Miralax) 17 gm DAILYPRN PRN ORAL Constipation 01/17/20 18:15 02/16/20 18:14 Spironolactone (Aldactone) 50 mg DAILY ORAL 01/18/20 09:00 02/17/20 08:59 01/21/20 08:12 Temazepam (Restoril) 15 mg HSPRN PRN ORAL Insomnia 01/17/20 18:15 01/24/20 18:14 Trazodone HCl (Desyrel) 75 mg BEDTIME ORAL 01/18/20 21:00 02/17/20 20:59 01/20/20 20:47 Vancomycin HCl (Vanco pharmacy to dose) 1 ea DAILY PRN MISC Per rx protocol 01/17/20 19:00 02/16/20 18:59 Vancomycin HCl 1 gm/Dextrose 275 ml @ 183.708 mls/hr Q24H IVPB 01/18/20 12:00 01/23/20 11:59 01/20/20 13:41 Assessment/Plan Assessment/Plan: 59yo F with Afebrile Normal WBC RUE cellulitis at site of prior PICC - much improved 01/16 BCx NTD UA neg COVID PCR neg RUE US neg for DVT Cr 1.0, improving Metastatic breast CA w/ osseous mets BL pleural effusions Plan: Stop cefepime #4 Stop vanco IV #4 OK to dc pt to rehab on cephalexin 500mg PO QID x2 more days for much improved RUE cellulitis Monitor CBC/CMP Monitor temp curve, hemodynamics Monitor resp status D/w RN Thank you for this consult. [facility] will continue to follow. Tammy Stone M.D. Jan 21, 2020 09:22
--- NOTE | 2020-01-21 10:03 | Pulmonology Progress Note ---
Subjective ROS Limited/Unobtainable: No Allergies: Coded Allergies: No Known Allergies (Unverified , 11/07/18) Objective Last 24 Hour Vital Signs Date Time Temp Pulse Resp B/P (MAP) Pulse Ox O2 Delivery O2 Flow Rate FiO2 01/21/20 09:00 Room Air 01/21/20 08:12 90 124/78 01/21/20 08:00 99.0 90 20 124/78 (93) 97 01/21/20 04:00 98.9 92 16 127/83 (98) 94 01/20/20 20:46 92 125/75 01/20/20 20:39 97.8 92 18 125/75 (92) 97 01/20/20 20:11 Room Air 01/20/20 16:00 98.0 18 136/75 (95) 96 01/20/20 12:00 97.9 78 20 143/83 (103) 96 Intake and Output 01/20/20 01/21/20 19:00 07:00 Intake Total 400 ml 400 ml Balance 400 ml 400 ml Intake Oral 400 ml 400 ml Other 0 ml # Voids 3 3 # Bowel Movements 1 General Appearance: WD/WN HEENT: normocephalic, atraumatic Respiratory: chest wall non-tender, lungs clear Cardiovascular: normal peripheral pulses, regular rhythm Abdomen: soft, non tender, non distended Genitourinary: normal external genitalia Extremities: no clubbing Skin: no lesions Laboratory Tests 01/20/20 12:30: White Blood Count 5.0, Red Blood Count 3.63L, Hemoglobin 12.3, Hematocrit 35.5L, Mean Corpuscular Volume 98, Mean Corpuscular Hemoglobin 33.9H, Mean Corpuscular Hemoglobin Concent 34.7, Red Cell Distribution Width 13.7, Platelet Count 232, Mean Platelet Volume 6.6, Neutrophils (%) (Auto) 72.8, Lymphocytes (%) (Auto) 20.1, Monocytes (%) (Auto) 4.7, Eosinophils (%) (Auto) 1.1, Basophils (%) (Auto) 1.3, CA 125 Antigen 89.7H, Vancomycin Level Trough 9.3 01/21/20 06:05: White Blood Count 3.5L, Red Blood Count 3.27L, Hemoglobin 11.1L, Hematocrit 31.4L, Mean Corpuscular Volume 96, Mean Corpuscular Hemoglobin 34.0H, Mean Corpuscular Hemoglobin Concent 35.4, Red Cell Distribution Width 13.8, Platelet Count 191, Mean Platelet Volume 6.4L, Neutrophils (%) (Auto) 64.0, Lymphocytes (%) (Auto) 23.4, Monocytes (%) (Auto) 10.2H, Eosinophils (%) (Auto) 1.0, Basophils (%) (Auto) 1.4, Sodium Level 136, Potassium Level 4.1, Chloride Level 104, Carbon Dioxide Level 25, Anion Gap 7, Blood Urea Nitrogen 19H, Creatinine 1.0, Estimat Glomerular Filtration Rate 56.5, Glucose Level 99, Calcium Level 8.5 Current Medications Medications (Trade) Dose Ordered Sig/Kaushal Route PRN Reason Start Time Stop Time Status Last Admin Dose Admin Acetaminophen (Tylenol) 650 mg Q4H PRN ORAL Temp >100.5 01/17/20 18:15 02/16/20 18:14 Albuterol/ Ipratropium (Albuterol/ Ipratropium) 3 ml Q4H PRN HHN Shortness of Breath 01/17/20 18:15 01/22/20 18:14 Apixaban (Eliquis) 2.5 mg BID ORAL 01/18/20 09:00 04/17/20 08:59 01/21/20 08:11 Carvedilol (Coreg) 3.125 mg EVERY 12 HOURS ORAL 01/17/20 21:00 02/16/20 20:59 01/21/20 08:12 Cefepime HCl 2 gm/ Dextrose 110 ml @ 220 mls/hr Q24H IV 01/18/20 09:00 01/25/20 08:59 01/21/20 08:11 Dextrose (Dextrose 50%) 25 ml Q30M PRN IV Hypoglycemia 01/17/20 18:15 04/16/20 18:14 Dextrose (Dextrose 50%) 50 ml Q30M PRN IV Hypoglycemia 01/17/20 18:15 04/16/20 18:14 Lactulose (Cephulac) 30 gm THREE TIMES A DAY ORAL 01/18/20 13:00 02/17/20 12:59 01/21/20 08:11 Ondansetron HCl (Zofran) 4 mg Q6H PRN IVP Nausea & Vomiting 01/17/20 18:15 02/16/20 18:14 Oxycodone HCl (Roxicodone) 5 mg Q4H PRN ORAL Severe Pain (Pain Scale 7-10) 01/18/20 12:45 01/25/20 12:44 01/21/20 08:11 Polyethylene Glycol (Miralax) 17 gm BEDTIME ORAL 01/18/20 21:00 02/17/20 20:59 01/18/20 21:12 Polyethylene Glycol (Miralax) 17 gm DAILYPRN PRN ORAL Constipation 01/17/20 18:15 02/16/20 18:14 Spironolactone (Aldactone) 50 mg DAILY ORAL 01/18/20 09:00 02/17/20 08:59 01/21/20 08:12 Temazepam (Restoril) 15 mg HSPRN PRN ORAL Insomnia 01/17/20 18:15 01/24/20 18:14 Trazodone HCl (Desyrel) 75 mg BEDTIME ORAL 01/18/20 21:00 02/17/20 20:59 01/20/20 20:47 Vancomycin HCl (Vanco pharmacy to dose) 1 ea DAILY PRN MISC Per rx protocol 01/17/20 19:00 02/16/20 18:59 Vancomycin HCl 1 gm/Dextrose 275 ml @ 183.708 mls/hr Q24H IVPB 01/18/20 12:00 01/23/20 11:59 01/20/20 13:41 Assessment/Plan Problems: (1) Cellulitis (2) Constipation (3) Breast CA Assessment/Plan continue abx check cultures improving check labs in Romy Young MD Jan 21, 2020 10:03
[2020-01-21] MEDS: Vancomycin 1gm/D5W 275ml IVPB SCH ×2 (11:17)
[2020-01-21 12:00] VITALS: BP 122/72
--- NOTE | 2020-01-21 12:19 | NUR ---
DISCHARGE PLANNING PATIENT HAS BEEN REFERRED BACK TO [facility] [phone]
[2020-01-21] MEDS ORDERED: CEPHALEXIN500 MG ORAL (13:00)
--- NOTE | 2020-01-21 13:01 | NUR ---
*-*DISCHARGE PLANNED*-* PATIENT HAS BEEN ACCEPTED AND WILL BE DISCHARGED BACK TO: [facility] P: [phone] FOR NURSE TO NURSE REPORT WILL HAVE ROOM# AVAILABLE UPON [facility] TRANSPORTATION SET FOR 2:45PM S/W SEAN [id number] S/W PATIENTS FAMILY MEMBER TORI DAWSON, WHO IS IN AGREEMENT WITH DISCHARGE.
--- NOTE | 2020-01-21 13:12 | Internal Med Progress Note ---
Subjective Date of Service: Jan 21, 2020 Physician Name BrionesMacario Attending Physician Jesse Cali MD Current Medications Medications (Trade) Dose Ordered Sig/Kaushal Route PRN Reason Start Time Stop Time Status Last Admin Dose Admin Acetaminophen (Tylenol) 650 mg Q4H PRN ORAL Temp >100.5 01/17/20 18:15 02/16/20 18:14 Albuterol/ Ipratropium (Albuterol/ Ipratropium) 3 ml Q4H PRN HHN Shortness of Breath 01/17/20 18:15 01/22/20 18:14 Apixaban (Eliquis) 2.5 mg BID ORAL 01/18/20 09:00 04/17/20 08:59 01/21/20 08:11 Carvedilol (Coreg) 3.125 mg EVERY 12 HOURS ORAL 01/17/20 21:00 02/16/20 20:59 01/21/20 08:12 Cefepime HCl 2 gm/ Dextrose 110 ml @ 220 mls/hr Q24H IV 01/18/20 09:00 01/25/20 08:59 01/21/20 08:11 Dextrose (Dextrose 50%) 25 ml Q30M PRN IV Hypoglycemia 01/17/20 18:15 04/16/20 18:14 Dextrose (Dextrose 50%) 50 ml Q30M PRN IV Hypoglycemia 01/17/20 18:15 04/16/20 18:14 Lactulose (Cephulac) 30 gm THREE TIMES A DAY ORAL 01/18/20 13:00 02/17/20 12:59 01/21/20 08:11 Ondansetron HCl (Zofran) 4 mg Q6H PRN IVP Nausea & Vomiting 01/17/20 18:15 02/16/20 18:14 Oxycodone HCl (Roxicodone) 5 mg Q4H PRN ORAL Severe Pain (Pain Scale 7-10) 01/18/20 12:45 01/25/20 12:44 01/21/20 08:11 Polyethylene Glycol (Miralax) 17 gm BEDTIME ORAL 01/18/20 21:00 02/17/20 20:59 01/18/20 21:12 Polyethylene Glycol (Miralax) 17 gm DAILYPRN PRN ORAL Constipation 01/17/20 18:15 02/16/20 18:14 Spironolactone (Aldactone) 50 mg DAILY ORAL 01/18/20 09:00 02/17/20 08:59 01/21/20 08:12 Temazepam (Restoril) 15 mg HSPRN PRN ORAL Insomnia 01/17/20 18:15 01/24/20 18:14 Trazodone HCl (Desyrel) 75 mg BEDTIME ORAL 01/18/20 21:00 02/17/20 20:59 01/20/20 20:47 Vancomycin HCl (Vanco pharmacy to dose) 1 ea DAILY PRN MISC Per rx protocol 01/17/20 19:00 02/16/20 18:59 Vancomycin HCl 1 gm/Dextrose 275 ml @ 183.708 mls/hr Q24H IVPB 01/18/20 12:00 01/23/20 11:59 01/21/20 11:17 Allergies: Coded Allergies: No Known Allergies (Unverified , 11/07/18) ROS Limited/Unobtainable: No Constitutional: Reports: no symptoms HEENT: Reports: no symptoms Cardiovascular: Reports: no symptoms Respiratory: Reports: no symptoms Gastrointestinal/Abdominal: Reports: no symptoms Genitourinary: Reports: no symptoms Subjective 59 YO F with history of breast cancer and right arm PICC admitted with cellulitis right upper extremity. Cover for Int Jaison-Dr Cali Objective Last Vital Signs Date Time Temp Pulse Resp B/P (MAP) Pulse Ox O2 Delivery O2 Flow Rate FiO2 01/21/20 12:00 98.8 86 20 122/72 (89) 96 01/21/20 09:00 Room Air 01/17/20 16:55 98 Laboratory Tests Test 01/21/20 06:05 White Blood Count 3.5 K/UL (4.8-10.8) L Red Blood Count 3.27 M/UL (4.20-5.40) L Hemoglobin 11.1 G/DL (12.0-16.0) L Hematocrit 31.4 % (37.0-47.0) L Mean Corpuscular Volume 96 FL (80-99) Mean Corpuscular Hemoglobin 34.0 PG (27.0-31.0) H Mean Corpuscular Hemoglobin Concent 35.4 G/DL (32.0-36.0) Red Cell Distribution Width 13.8 % (11.6-14.8) Platelet Count 191 K/UL (150-450) Mean Platelet Volume 6.4 FL (6.5-10.1) L Neutrophils (%) (Auto) 64.0 % (45.0-75.0) Lymphocytes (%) (Auto) 23.4 % (20.0-45.0) Monocytes (%) (Auto) 10.2 % (1.0-10.0) H Eosinophils (%) (Auto) 1.0 % (0.0-3.0) Basophils (%) (Auto) 1.4 % (0.0-2.0) Sodium Level 136 MMOL/L (136-145) Potassium Level 4.1 MMOL/L (3.5-5.1) Chloride Level 104 MMOL/L (98-107) Carbon Dioxide Level 25 MMOL/L (21-32) Anion Gap 7 mmol/L (5-15) Blood Urea Nitrogen 19 mg/dL (7-18) H Creatinine 1.0 MG/DL (0.55-1.30) Estimat Glomerular Filtration Rate 56.5 mL/min (>60) Glucose Level 99 MG/DL (74-106) Calcium Level 8.5 MG/DL (8.5-10.1) Intake and Output 01/20/20 01/21/20 19:00 07:00 Intake Total 400 ml 400 ml Balance 400 ml 400 ml Intake Oral 400 ml 400 ml Other 0 ml # Voids 3 3 # Bowel Movements 1 Assessment/Plan Problem List: (1) Cellulitis of right arm Assessment & Plan: PICC discontinued. ID = Dr Ramos. Continue vancomycin and cefepime. Await cultures (2) Pleural effusion, left Assessment & Plan: S/P thoracentesis. Pulmonary = Dr Elam (3) Hypertension Assessment & Plan: continue coreg (4) Breast cancer metastasized to liver Assessment & Plan: Continue arimidex. Onc=Dr Jeff Assessment/Plan Discharge home today Macario Briones MD Jan 21, 2020 13:12
--- NOTE | 2020-01-21 13:43 | NUR ---
NURSE NOTES: RN called and gave report to KYREE De La Cruz. RN endorsed that patient is AAOx4, ambulatory with steady gait. and on room air. Patient will be picked up at 1445. Packet printed and ready as well as belongings form signed and verified with patient. IV site and arm band will be removed once ambulance personnel arrives. RN notified family N.O.K of discharge. RN left call back number for any further question.
--- NOTE | 2020-01-21 15:01 | NUR ---
NURSE NOTES: Patient discharged in stable condition. IV site and wrist band removed. Rn gave patient regarding ADL's and pain management. Packet given to ambulance personnel. Patient safely transferred from bed to [facility] and escorted out the floor to ambulance safely.
--- NOTE | 2020-01-22 14:22 | NUR ---
INSURANCE DC INSTRUCTIONS/CLINICALS (01/19-01/20) FX [phone]
--- NOTE | 2020-01-23 10:35 | Discharge Summary ---
Discharge Summary Discharge Summary _ DATE OF ADMISSION: 01/17/2020 DATE OF DISCHARGE: 01/21/2020 DISCHARGED BY: Dr. Cali REASON FOR ADMISSION: 59 years old female with past medical history of hypertension, breast cancer, status post PICC line removal 2 days ago ( right upper extremity), obesity, presented to emergency department for PICC line replacement and possible cellulitis. Patient complained of pain around the previous PICC line site . She also noted some redness and swelling. No chest pain or shortness of breath. No fever or chills. Patient was brought from the extended facility by paramedics. Patient reported mild diffuse abdominal pain and constipation for 2 days. Patient also reported mild generalized headache. No focal weakness , slurred speech or blurry vision . Upon evaluation vital signs were stable. Laboratory work-up revealed no leukocytosis , stable hemoglobin, hematocrit and platelet count. Potassium 5.2. BUN 32, creatinine 1.3. Lactic acid 0.9. Glucose 102. Troponin negative , pro BNP 1211 . EKG revealed sinus rhythm , no acute ischemic changes Stable LFT, lipase 108 x-ray revealed no acute cardiopulmonary pathology. Cardiomegaly noted. Physical examination revealed right upper extremity edema with erythema around the medial upper aspect and redness and tenderness to palpation. Venous duplex right upper extremity revealed no evidence of acute DVT. CT scan of the abdomen and pelvis showed moderate colonic stool , possible ileus/constipation ; no mechanical bowel obstruction, no diverticulitis. Cholelithiasis. No pericholecystic stranding. Osseous metastasis. Bilateral pleural effusion. CT of the head revealed no acute intracranial pathology. In emergency department patient started on empiric antibiotic for right upper extremity cellulitis. Blood cultures were drawn. Patient received Kayexalate and stool softener . Patient subsequently admitted for further management . CONSULTANTS: pulmonary/critical care Dr. Elam ID specialist Dr. Stone ruby software developer/oncologist Dr. Jeff [facility] COURSE: Patient admitted to medical surgical floor. Blood cultures were negative. COVID-19 by PCR in emergency department was not detected. Patient received empiric antibiotic as per ID specialist recommendation. Patient remained afebrile , no leukocytosis. ID specialist recommended transition to oral antibiotic upon discharge. Oncologist followed. Metastatic breast cancer was diagnosed about a year ago with bone and liver metastasis. Patient started on chemotherapy in the office in September 2019. Patient on Arimidex. Patient had a shortness of breath with pleural effusion in the past. Prior cytology of thoracic fluid was negative. Hemoglobin and hematocrit were closely monitored with goal to keep hemoglobin above 7 ; remained at baseline. Patient had a mild leukopenia , likely due to recent chemo Prior to discharge WBC 3.5 ,hemoglobin 11.1, hematocrit 31.4, platelet count 191. Pulse oximetry remained stable on room air. Blood pressure was managed with beta-ozzy. Volumes were closely monitored. Patient was on anticoagulation with Eliquis. Bowel regimen instituted. Patient clinically stabilized and was ready for discharge to halfway facility for continuation of care. FINAL DIAGNOSES: Right upper extremity cellulitis at the site of prior PICC Metastatic breast cancer Hypertension Constipation DISCHARGE MEDICATIONS: See Medication Reconciliation list. DISCHARGE INSTRUCTIONS: Patient was discharged to the halfway facility. Follow up with medical doctor at the facility. I have been assigned to dictate discharge summary for this account. I was not involved in the patient's management. Obdulia Zuniga NP Jan 23, 2020 10:35
--- NOTE | 2020-01-23 15:19 | NUR ---
INSURANCE DC SUMMARY FAXED TO [facility] [phone]
== END 2020-01-21 15:00 | DRG 383 ==
LOC: EDBD 16:00 → EMR 16:20 → 4E 16:50 → EDBEDREQ 18:24
DX: L03.113 Cellulitis of right upper limb (principal); C50.919 Malignant neoplasm of unspecified site of unspecified female breast; E87.5 Hyperkalemia; K57.90 Diverticulosis of intestine, part unspecified, without perforation or abscess without bleeding; C78.7 Secondary malignant neoplasm of liver and intrahepatic bile duct; C79.51 Secondary malignant neoplasm of bone; I10 Essential (primary) hypertension; K59.00 Constipation, unspecified; Z79.899 Other long term (current) drug therapy; F43.10 Post-traumatic stress disorder, unspecified; F41.9 Anxiety disorder, unspecified; D63.8 Anemia in other chronic diseases classified elsewhere; R09.02 Hypoxemia
CPT/HCPCS: 36415; 70450; 71045; 74176; 80048; 80053; 80202; 81003; 83605; 83690; 83735; 83880; 84484; 85025; 85610; 85730; 86304; 87040; 93005; 93971; 96361; 96365; 96375; 99285